=== PATIENT | female | born 1945 | race Caucasian/White ===

== ENCOUNTER 2021-02-27 09:51 | Observation (INO) | payer BC, OTHER ==
[2021-02-27] MEDS ORDERED: LORazepam 2 MG/ML VIAL ONE (10:25)
[2021-02-27 10:31] LABS: Absolute Lymphocytes (CBC) 1.5 K/uL (0.7-4.9); Basophils % 1.3 % (0-1.3); Hematocrit 32.5 % (36.0-45.0); Lymphocytes % 29.3 % (15.3-44.8); MPV 8.5 fL (7.6-11.3); RBC Red Blood Cell Count 4.16 M/uL (3.86-4.86)
[2021-02-27 10:32] LABS: Protime INR 2.26
[2021-02-27 10:59] LABS: ALT/SGPT 8 U/L (12-78); AST/SGOT 14 U/L (15-37); Albumin 3.5 g/dL (3.4-5.0); Alkaline Phosphatase 75 U/L (45-117); BUN Blood Urea Nitrogen 21 mg/dL (7-18); Bicarbonate 30 mmol/L (21-32); Bilirubin Direct 0.5 mg/dL (0-0.2); Glucose Level 105 mg/dL (74-106); Magnesium 1.4 mg/dL (1.8-2.4); NT PRO-BNP 5795 pg/mL (<450); Protein, Total 7.2 g/dL (6.4-8.2); Sodium Level 141 mmol/L (136-145); Troponin (Emerg Dept Use Only) < 0.02 ng/mL (0.0-0.045)
[2021-02-27 11:03] LABS: Potassium 2.9 mmol/L (3.5-5.1)
--- NOTE | 2021-02-27 11:06 | RAD REPORT ---
EXAM DESCRIPTION: RAD - Chest Single View - 02/27/2021 10:51 am CLINICAL HISTORY: DYSPNEA COMPARISON: Abdomen 1 View (KUB) dated 08/21/2016; Chest Single View dated 07/02/2016; Chest Single Vie w dated 11/20/2015; Chest Single View dated 11/19/2015 FINDINGS: Lines: None. Lungs: No evidence of edema or pneumonia. Pleural: No significant pleural effusions or pneumothorax. Cardiac: Mild cardiomegaly. Bones: No acute fractures. Other: IMPRESSION: No acute cardiopulmonary disease.
--- NOTE | 2021-02-27 11:32 | ER ---
Nurse's Notes [facility] Name: Kimberly Perez Age: 75 yrs Sex: Female : 1945 Arrival Date: 02/27/2021 Time: 10:06 Bed 3 Private MD: Diagnosis: Chronic atrial fibrillation;Dyspnea;Systolic (congestive) heart failure;Obesity, unspecified;Hypomagnesemia;Hypokalemia Presentation: 02/27 10:07 Chief complaint: EMS states: pt from home. called her dnlaw saying she was having tw2 difficulty breathing, catching her breath and talking. pt states she has been feeling short of breath off and on for 1-2 days. recently diagnosed with Afib. 12 lead showed afib with RVR but rate was 110bpm. BGL was 117 mg/dL. 18g Right AC hx: afib, gerd, htn, mi, hyperlipidemia, neuropathy, anxiety. Coronavirus screen: At this time, the client does not indicate any symptoms associated with coronavirus-19. Ebola Screen: Patient denies travel to an Ebola-affected area in the 21 days before illness onset. Initial Sepsis Screen: Does the patient meet any 2 criteria? HR > 90 bpm. No. Patient's initial sepsis screen is negative. Does the patient have a suspected source of infection? No. Patient's initial sepsis screen is negative. Risk Assessment: Do you want to hurt yourself or someone else? Patient reports no desire to harm self or others. Onset of symptoms was February 27, 2021. 10:07 Method Of Arrival: EMS: [facility] tw2 10:07 Acuity: NANY 2 tw2 Triage Assessment: 10:17 General: Appears in no apparent distress. obese, well groomed, Behavior is calm, tw2 cooperative, appropriate for age. Pain: Denies pain. 10:17 Respiratory: Reports shortness of breath at rest on exertion Airway is patent tw2 Respiratory effort is even, labored, Respiratory pattern is tachypnea Onset: The symptoms/episode began/occurred 1-2 days, the patient has mild shortness of breath. 10:17 Neuro: Level of Consciousness is awake, alert, obeys commands, Oriented to person, tw2 place, situation. Cardiovascular: Edema is 3+ to left midcalf, left ankle, left foot, right midcalf, right ankle and right foot. GI: No signs and/or symptoms were reported involving the gastrointestinal system. : No signs and/or symptoms were reported regarding the genitourinary system. Derm: No signs and/or symptoms reported regarding the dermatologic system. Musculoskeletal: Range of motion: intact in all extremities. Historical: - Allergies: 10:15 No Known Allergies; tw2 - Home Meds: 10:15 omeprazole 20 mg Oral cpDR 1 cap once daily [Active]; alprazolam 0.25 mg Oral tab 1 tab tw2 twice a day [Active]; gabapentin 600 mg oral tab 1 tab 3 times per day [Active]; metoprolol tartrate 50 mg oral tab 1 tab once daily [Active]; tramadol 50 mg Oral tab 1 tab twice a day [Active]; aspirin 81 mg Oral chew 1 tab once daily [Active]; ramipril 10 mg Oral cap 1 cap 2 times per day [Active]; folic acid 1 mg Oral tab 1 tab once daily [Active]; Eliquis 2.5 mg oral tab 1 tab 2 times per day [Active]; Lasix 40 mg Oral tab 1 tab once daily [Active]; carbidopa-levodopa 48.75-195 mg Oral cpER 1 cap 3 times per day [Active]; pramipexole 0.375 mg oral Tb24 1 tab once daily [Active]; - PMHx: 10:15 Anxiety; chronic back pain; GERD; Hypertension; neuropathy; tw2 10:20 Parkinson's disease; Coronary atherosclerosis; tw2 - PSHx: 10:20 hysterectomy; SCS implant; Back Sx; colonoscopy; Tonsillectomy; tw2 - Immunization history:: Adult Immunizations up to date. - Social history:: Smoking status: . Screenin:35 Abuse screen: Denies threats or abuse. Nutritional screening: No deficits noted. tw2 Tuberculosis screening: No symptoms or risk factors identified. Fall Risk Secondary diagnosis (15 points) impaired mobility. Assessment: 10:17 Reassessment: see triage assessment. tw2 10:17 Cardiovascular: Rhythm is atrial fibrillation. Respiratory: Reports shortness of breath tw2 at rest on exertion labored breathing since 2-3 days Airway is patent Respiratory effort is even, labored, Respiratory pattern is tachypnea Breath sounds are diminished. 12:37 Reassessment: Patient appears in no apparent distress at this time. No changes from tw2 previously documented assessment. Patient and/or family updated on plan of care and expected duration. Pain level reassessed. 13:02 Reassessment: Echo at bedside at this time. tw2 Vital Signs: 10:07 Pulse 98; Pulse Ox 100% on R/A; tw2 10:07 BP 141 / 105; Resp 22; Weight 77.11 kg (R); Height 5 ft. 6 in. (167.64 cm); tw2 10:17 Temp 97.9(TE); tw2 11:30 BP 150 / 115; Pulse 97; Resp 17; Pulse Ox 98% on 2 lpm NC; tw2 12:40 BP 139 / 115; Pulse 98; Resp 22; Pulse Ox 100% on 2 lpm NC; tw2 13:26 BP 137 / 108; Pulse 94; Resp 22; Pulse Ox 100% on 2 lpm NC; tw2 10:07 Body Mass Index 27.44 (77.11 kg, 167.64 cm) tw2 10:07 pt was placed on o2 via nc at 2L for comfort per ems tw2 ED Course: 10:06 Patient arrived in ED. tw2 10:06 Placed in gown. Bed in low position. Side rails up X2. mash tub cooker on. Pulse ox on. tw2 NIBP on. 10:11 Kaushal Salgado MD is Attending Physician. yris 10:15 Triage completed. tw2 10:15 Arm band placed on. tw2 10:25 Maintain EMS IV. Dressing intact. Good blood return noted. Site clean \T\ dry. Gauge \T\ tw 2 site: 18 g RIGHT ac. 10:26 Kiera Carolina RN is Primary Nurse. tw2 10:51 XRAY Chest (1 view) In Process Unspecified. EDMS 11:30 Alcides Garcia DO is Hospitalizing Provider. yris 13:18 No provider procedures requiring assistance completed. Patient admitted, IV remains in tw2 place. Administered Medications: 12:00 Drug: Potassium Effervescent Tablet 50 mEq Route: PO; tw2 12:40 Follow up: Response: No adverse reaction tw2 12:05 Drug: Lasix (furosemide) 60 mg Route: IVP; Site: right antecubital; tw2 12:30 Drug: Magnesium Sulfate 2 grams Route: IVPB; Infused Over: 2 hrs; Site: right tw2 antecubital; Intake: 12:49 PO: 60ml; Total: 60ml. tw2 Output: 12:49 Urine: 350ml (Voided); Total: 350ml. tw2 Outcome: 11:31 Decision to Hospitalize by Provider. yris 13:18 Admitted to Med/surg accompanied by tech, via stretcher, room 424, with oxygen, with tw2 chart, Report called to TONY Alicia 13:18 Condition: stable 13:18 Instructed on the need for admit. 13:43 Patient left the ED. tw2 Signatures: Dispatcher [employer] EDMS Kaushal Salgado MD MD cha Wise, Tara RN RN tw2 Corrections: (The following items were deleted from the chart) 10:25 10:15 Home Meds: amlodipine 5 mg tab 1 tab once daily; tw2 tw2 12:37 10:17 Respiratory: Reports shortness of breath at rest on exertion Onset: The tw2 symptoms/episode began/occurred 1-2 days, the patient has mild shortness of breath tw2
--- NOTE | 2021-02-27 11:32 | EDPHYS ---
Physician Documentation [facility] Name: Kimberly Perez Age: 75 yrs Sex: Female : 1945 Arrival Date: 02/27/2021 Time: 10:06 Bed 3 Private MD: ED Physician Kaushal Salgado HPI: 02/27 11:22 This 75 yrs old Female presents to ER via EMS with complaints of Breathing yris Difficulty. 11:22 The patient has shortness of breath at rest, with light activity. Onset: The yris symptoms/episode began/occurred 1 day(s) ago. Duration: The symptoms are continuous, and are steadily getting worse. The patient's shortness of breath is aggravated by supine position, walking, is alleviated by rest, sitting up, application of supplemental oxygen. Associated signs and symptoms: Pertinent positives: non-productive cough. Severity of symptoms: At their worst the symptoms were mild in the emergency department the symptoms are unchanged. The patient has not experienced similar symptoms in the past. Historical: - Allergies: 10:15 No Known Allergies; tw2 - Home Meds: 10:15 omeprazole 20 mg Oral cpDR 1 cap once daily [Active]; alprazolam 0.25 mg Oral tab 1 tab tw2 twice a day [Active]; gabapentin 600 mg oral tab 1 tab 3 times per day [Active]; metoprolol tartrate 50 mg oral tab 1 tab once daily [Active]; tramadol 50 mg Oral tab 1 tab twice a day [Active]; aspirin 81 mg Oral chew 1 tab once daily [Active]; ramipril 10 mg Oral cap 1 cap 2 times per day [Active]; folic acid 1 mg Oral tab 1 tab once daily [Active]; Eliquis 2.5 mg oral tab 1 tab 2 times per day [Active]; Lasix 40 mg Oral tab 1 tab once daily [Active]; carbidopa-levodopa 48.75-195 mg Oral cpER 1 cap 3 times per day [Active]; pramipexole 0.375 mg oral Tb24 1 tab once daily [Active]; - PMHx: 10:15 Anxiety; chronic back pain; GERD; Hypertension; neuropathy; tw2 10:20 Parkinson's disease; Coronary atherosclerosis; tw2 - PSHx: 10:20 hysterectomy; SCS implant; Back Sx; colonoscopy; Tonsillectomy; tw2 - Immunization history:: Adult Immunizations up to date. - Social history:: Smoking status: . ROS: 11:24 Constitutional: Negative for fever, chills, and weight loss, Eyes: Negative for injury, yris pain, redness, and discharge, ENT: Negative for injury, pain, and discharge, Neck: Negative for injury, pain, and swelling, Cardiovascular: Negative for chest pain, palpitations, and edema, Abdomen/GI: Negative for abdominal pain, nausea, vomiting, diarrhea, and constipation, Back: Negative for injury and pain, : Negative for injury, bleeding, discharge, and swelling, Skin: Negative for injury, rash, and discoloration, Neuro: Negative for headache, weakness, numbness, tingling, and seizure, Psych: Negative for depression, anxiety, suicide ideation, homicidal ideation, and hallucinations, Allergy/Immunology: Negative for hives, rash, and allergies, Endocrine: Negative for neck swelling, polydipsia, polyuria, polyphagia, and marked weight changes, Hematologic/Lymphatic: Negative for swollen nodes, abnormal bleeding, and unusual bruising. 11:24 MS/extremity: Positive for decreased range of motion, pain, tenderness. Exam: 11:24 Constitutional: This is a well developed, well nourished patient who is awake, alert, yris and in no acute distress. Head/Face: Normocephalic, atraumatic. Eyes: Pupils equal round and reactive to light, extra-ocular motions intact. Lids and lashes normal. Conjunctiva and sclera are non-icteric and not injected. Cornea within normal limits. Periorbital areas with no swelling, redness, or edema. ENT: Nares patent. No nasal discharge, no septal abnormalities noted. Tympanic membranes are normal and external auditory canals are clear. Oropharynx with no redness, swelling, or masses, exudates, or evidence of obstruction, uvula midline. Mucous membranes moist. Neck: Trachea midline, no thyromegaly or masses palpated, and no cervical lymphadenopathy. Supple, full range of motion without nuchal rigidity, or vertebral point tenderness. No Meningismus. Chest/axilla: Normal chest wall appearance and motion. Nontender with no deformity. No lesions are appreciated. Cardiovascular: Regular rate and rhythm with a normal S1 and S2. No gallops, murmurs, or rubs. Normal PMI, no JVD. No pulse deficits. Respiratory: Lungs have equal breath sounds bilaterally, clear to auscultation and percussion. No rales, rhonchi or wheezes noted. No increased work of breathing, no retractions or nasal flaring. Abdomen/GI: Soft, non-tender, with normal bowel sounds. No distension or tympany. No guarding or rebound. No evidence of tenderness throughout. Back: No spinal tenderness. No costovertebral tenderness. Full range of motion. Skin: Warm, dry with normal turgor. Normal color with no rashes, no lesions, and no evidence of cellulitis. MS/ Extremity: Pulses equal, no cyanosis. Neurovascular intact. Full, normal range of motion. Neuro: Awake and alert, GCS 15, oriented to person, place, time, and situation. Cranial nerves II-XII grossly intact. Motor strength 5/5 in all extremities. Sensory grossly intact. Cerebellar exam normal. Normal gait. Psych: Awake, alert, with orientation to person, place and time. Behavior, mood, and affect are within normal limits. 11:24 Musculoskeletal/extremity: Circulation is intact in all extremities. Sensation intact. Compartment Syndrome exam of affected extremity: is normal. DVT Exam: no pain, negative Homans' sign noted on exam, no appreciated bluish discoloration, no erythema, no increased warmth, swelling, tenderness. Vital Signs: 10:07 Pulse 98; Pulse Ox 100% on R/A; tw2 10:07 BP 141 / 105; Resp 22; Weight 77.11 kg (R); Height 5 ft. 6 in. (167.64 cm); tw2 10:17 Temp 97.9(TE); tw2 11:30 BP 150 / 115; Pulse 97; Resp 17; Pulse Ox 98% on 2 lpm NC; tw2 12:40 BP 139 / 115; Pulse 98; Resp 22; Pulse Ox 100% on 2 lpm NC; tw2 13:26 BP 137 / 108; Pulse 94; Resp 22; Pulse Ox 100% on 2 lpm NC; tw2 10:07 Body Mass Index 27.44 (77.11 kg, 167.64 cm) tw2 10:07 pt was placed on o2 via nc at 2L for comfort per ems tw2 MDM: 10:11 Patient medically screened. yris 11:28 Differential diagnosis: Bronchitis CHF exacerbation, pulmonary edema, Pulmonary yris Embolism reactive airway disease, Unstable Angina. Antibiotic administration: Not indicated. The patient's Wells Deep Vein Thrombosis Score was calculated as follows: Total Score: 0-2 Pts- Low Risk. The patient's pulmonary embolism risk score was calculated as follows: Total Score: 0-2 points. This patient was found to be at low risk for a pulmonary embolism by using the Well's assessment criteria. Immunization status: Pneumococcal vaccine: Influenza vaccine: Data reviewed: vital signs, nurses notes, lab test result(s), EKG, radiologic studies, CT scan, plain films. Data interpreted: radiation monitor: rate is 98 beats/min, rhythm is atrial fibrillation, Pulse oximetry: on room air is 100 %. Test interpretation: by ED physician or midlevel provider: ECG, plain radiologic studies. Counseling: I had a detailed discussion with the patient and/or guardian regarding: the historical points, exam findings, and any diagnostic results supporting the discharge/admit diagnosis, lab results, radiology results, the need for further work-up and treatment in the hospital. 02/27 10:11 Order name: Basic Metabolic Panel; Complete Time: 11:20 ll1 02/27 10:11 Order name: CBC with Diff; Complete Time: 11:20 ll1 02/27 10:11 Order name: LFT's; Complete Time: 11:20 ll1 02/27 10:11 Order name: Magnesium; Complete Time: 11:20 ll1 02/27 10:11 Order name: NT PRO-BNP; Complete Time: 11:20 ll1 02/27 10:11 Order name: PT-INR; Complete Time: 11:20 ll1 02/27 10:11 Order name: Troponin (emerg Dept Use Only); Complete Time: 11:20 ll1 02/27 10:11 Order name: XRAY Chest (1 view); Complete Time: 11:20 ll1 02/27 10:26 Order name: LAB Add On bd 02/27 10:30 Order name: Thyroid Stimulating Hormone; Complete Time: 11:20 EDMS 02/27 11:32 Order name: Echo w/ Doppler yris 02/27 11:49 Order name: SARS-COV-2 RT PCR EDMS 02/27 10:11 Order name: EKG; Complete Time: 10:11 ll1 02/27 10:11 Order name: Cardiac monitoring; Complete Time: 10: ll1 02/27 10:11 Order name: EKG - Nurse/Tech; Complete Time: : ll1 02/27 10:11 Order name: IV Saline Lock; Complete Time: 10: ll1 02/27 10:11 Order name: Labs collected and sent; Complete Time: 10: ll1 02/27 10:11 Order name: O2 Per Protocol; Complete Time: : ll1 02/27 10:11 Order name: O2 Sat Monitoring; Complete Time: : ll1 Administered Medications: 12:00 Drug: Potassium Effervescent Tablet 50 mEq Route: PO; tw2 12:40 Follow up: Response: No adverse reaction tw2 12:05 Drug: Lasix (furosemide) 60 mg Route: IVP; Site: right antecubital; tw2 12:30 Drug: Magnesium Sulfate 2 grams Route: IVPB; Infused Over: 2 hrs; Site: right tw2 antecubital; Disposition Summary: 02/27/21 11:31 Hospitalization Ordered Hospitalization Status: Inpatient Admission yris Provider: Alcides Garcia cha Location: Telemetry/MedSurg (Inpatient) yris Condition: Fair yris Problem: new yris Symptoms: have improved yris Bed/Room Type: Standard yris Room Assignment: 424(02/27/21 13:08) bd Diagnosis - Chronic atrial fibrillation yris - Dyspnea yris - Systolic (congestive) heart failure yris - Obesity, unspecified yris - Hypomagnesemia yris - Hypokalemia yris Forms: - Medication Reconciliation Form yris - SBAR form yris Signatures: Dispatcher [employer] EDBridgette Jose Corey, MD MD cha Wise, Tara RN RN tw2 Dinah Bernardo RN RN ll1 Corrections: (The following items were deleted from the chart) 10:25 10:15 Home Meds: amlodipine 5 mg tab 1 tab once daily; tw2 tw2 11:50 11:30 CORONAVIRUS+MR.LAB.BRZ ordered. EDRI EDMS 13:08 11:31 yris bd
[2021-02-27] MEDS ORDERED: Magnesium Sulfate 2gm IVPB 2 G/50 ML BAG IV ONE (12:13)
[2021-02-27] MEDS ORDERED: FUROSEMIDE 40 MG/4 ML VIAL ONE (12:13)
[2021-02-27] MEDS ORDERED: POTASSIUM 25 MEQ EFFERV TAB ONE (12:13)
[2021-02-27] MEDS ORDERED: FUROSEMIDE 20 MG/ 2ML VIAL ONE (12:13)
[2021-02-27] MEDS ORDERED: TRAMADOL HCL 50 MG TAB PO PRN (13:51)
[2021-02-27] MEDS ORDERED: ACETAMINOPHEN 500 MG TAB PO PRN (13:51)
[2021-02-27] MEDS ORDERED: ALPRAZOLAM 0.25 MG TABLET PO PRN (13:51)
[2021-02-27] MEDS ORDERED: ONDANSETRON 4 MG/2 ML VIAL IV PRN (13:51)
--- NOTE | 2021-02-27 14:18 | P.HP ---
Certification for Inpatient Patient admitted to: Observation With expected LOS: <2 Midnights Patient will require the following post-hospital care: None Practitioner: I am a practitioner with admitting privileges, knowledge of patient current condition, hospital course, and medical plan of care. Services: Services provided to patient in accordance with Admission requirements found in Title 42 Section 412.3 of the Code of Federal Regulations Patient History Date of Service: 02/27/21 Primary Care Provider: ; Cardiology-Dr. Lazo; Neurology-Dr. Floyd Reason for admission: Shortness of breath History of Present Illness: 75-year-old female with history of CHF, atrial fibrillation, hypertension, and Parkinson's. Patient has been having increasing shortness of breath over several days. She has noticed increase in edema to the lower extremity. Patient is not on a fluid restriction. Patient takes Lasix. Her condition has not improved. Shortness of breath worsened. She came to the ER for further evaluation. In the ER patient required oxygen. She is currently on 2 L per nasal cannula. White count 5, hemoglobin 10. Sodium 141, potassium 2.9. BUN of 21, creatinine 1.14 with a GFR 35. Troponin unremarkable. BNP elevated. Magnesium low at 1.4. INR 2.26. Chest x-ray unremarkable. Patient admitted for treatment. Allergies No Known Allergies Allergy (Unverified 11/21/15 11:30) Home medications list reviewed: Yes Home Medications: ALPRAZolam [Xanax*] 0.25 mg PO BID 06/18/13 Omeprazole [Prilosec] 20 mg PO DAILY 06/18/13 ramipriL [Altace*] 10 mg PO DAILY 06/18/13 Gabapentin [Neurontin*] 400 mg PO TID 11/19/15 Tramadol HCl [Ultram] 50 mg PO BID 11/19/15 ALPRAZolam [Xanax*] 0.25 mg PO BID #60 tab 11/21/15 Gabapentin [Neurontin*] 400 mg PO TID #90 cap 11/21/15 Metoprolol Tartrate [Lopressor*] 50 mg PO BID #60 tab 11/21/15 Simvastatin [Zocor] 40 mg PO BEDTIME #30 tablet 11/21/15 Aspirin 81 mg PO DAILY #30 tab.chew 07/03/16 Folic Acid 1 mg PO DAILY #30 tablet 07/03/16 Ramipril [Altace] 10 mg PO DAILY #30 capsule 07/03/16 Simvastatin 40 mg PO BEDTIME #30 tablet 07/03/16 - Past Medical/Surgical History Diabetic: No -: HTN -: Depression with anxiety -: Chronic pain -: Atrial fibrillation on chronic anticoagulation therapy -: Diastolic CHF -: Chronic renal disease -: Seasonal allergies -: Obesity -: GERD -: Hysterectomy -: Appendectomy -: Back surgery -: Colon resection Psychosocial/ Personal History: Patient lives at home with a friend - Family History Father -: Heart disease, Diabetes Mother -: Cancer Sister -: Cancer - Social History Smoking Status: Never smoker Alcohol use: No CD- Drugs: No Caffeine use: Yes Place of Residence: Home Review of Systems General: As per HPI Eyes: Unremarkable ENT: Unremarkable Respiratory: Shortness of Breath, As per HPI Cardiovascular: Edema, As per HPI Gastrointestinal: Unremarkable Genitourinary: Unremarkable Musculoskeletal: Pedal edema, As per HPI Integumentary: Unremarkable Neurological: Unremarkable Lymphatics: Unremarkable Physical Examination - Vital Signs Temperature: 97.9 F Blood Pressure: 126/75 Pulse: 98 Respirations: 18 Pulse Ox (%): 100 - Studies Laboratory Data (last 24 hrs) 02/27/21 10:12: PT 26.2 H, INR 2.26 02/27/21 10:12: WBC 5.10, Hgb 10.6 L, Hct 32.5 L, Plt Count 251 02/27/21 10:12: Sodium 141, Potassium 2.9 L*, BUN 21 H, Creatinine 1.46 H, Glucose 105, Magnesium 1.4 L*, Total Bilirubin 2.0 H, AST 14 L, ALT 8 L, Alk dorie Phosphatase 75 Assessment and Plan - Plan COVID: Negative Chest x-ray: COMPARISON: Abdomen 1 View (KUB) dated 08/21/2016; Chest Single View dated 07/02/2016; Chest Single View dated 11/20/2015; Chest Single View dated 11/19/2015 FINDINGS: Lines: None. Lungs: No evidence of edema or pneumonia. Pleural: No significant pleural effusions or pneumothorax. Cardiac: Mild cardiomegaly. Bones: No acute fractures. IMPRESSION: No acute cardiopulmonary disease. Physical Exam: GENERAL: The patient is a well-developed, well-nourished, in no apparent distress. Alert and oriented x3. VITAL SIGNS: Reviewed HEENT: Head is normocephalic and atraumatic. Extraocular muscles are intact. Pupils are equal, round, and reactive to light and accommodation. Nares appeared normal. Mouth is well hydrated and without lesions. Mucous membranes are moist. NECK: Supple. No carotid bruits. No lymphadenopathy or thyromegaly. LUNGS: Some crackles to the bases. HEART: Regular rate and rhythm, no appreciable gallops, rubs, murmurs or extra heart sounds ABDOMEN: Soft, nontender, and nondistended. Positive bowel sounds. No hepatosplenomegaly was noted. EXTREMITIES: Mild nonpitting edema to the lower extremities bilateral NEUROLOGIC: The patient is oriented to person, place and time. Strength and sensation are grossly intact. Face is symmetric. SKIN: Normal color, turgor and temperature. No ulcerations or rashes noted. Impression: Dyspnea secondary to acute on chronic diastolic CHF with hypoxia Atrial fibrillation on chronic anticoagulation therapy Chronic renal disease stage III Hypertension Parkinson's Depression with anxiety Chronic pain Plan: Dyspnea secondary to acute on chronic diastolic CHF with hypoxia: Patient will be admitted for further evaluation and treatment. We will continue 1500 cc/day fluid restriction and low-salt diet. Will monitor input and output closely along with daily weights. We will continue with IV Lasix 20 mg twice daily. Will monitor closely. Recheck electrolytes. Electrolyte protocol in place. Recheck chest x-ray tomorrow. Wean off oxygen to maintain sats above 93%. Cardiology consulted. She reports having echocardiogram done recently with cardiology. Await further recommendations. Anticipate discharge in the next 24 hours. Atrial fibrillation on chronic anticoagulation therapy: Continue metoprolol and Eliquis. Chronic renal disease stage III: Renal function stable. Will consult nephrology for further recommendation Hypertension: Continue metoprolol Parkinson's: Continue carbidopa levodopa and Mirapex. Patient is seen by neurology as an outpatient. Depression with anxiety: Continue with alprazolam Chronic pain: Continue with gabapentin Code Status: Patient is DNR DVT prophylaxis: Eliquis Advanced Care Planning-30 minutes: Home at discharge Discharge Plan: Home Plan to discharge in: 48 Hours - Advance Directives Does patient have a Living Will: No Does patient have a Durable POA for Healthcare: No - Code Status/Comfort Care Code Status Assessed: Yes (Patient is DNR) Time Spent Managing Pts Care (In Minutes): 55
--- NOTE | 2021-02-27 15:07 | ECHO ---
HEIGHT: 5 ft 6 in WEIGHT: 170 lb 0 oz DATE OF STUDY: 02/27/[address]: Kaushal Salgado MD 2-DIMENSIONAL: YES M.MODE: YES DOPPLER: YES COLOR FLOW: YES TDS: NO PORTABLE: NO DEFINITY: NO BUBBLE STUDY: NO DIAGNOSIS: CONGESTIVE HEART FAILURE CARDIAC HISTORY: CATHERIZATION: NO SURGERY: NO PROSTHETIC VALVE: NO PACEMAKER: NO MEASUREMENTS (cm) DIASTOLIC (NORMALS) SYSTOLIC (NORMALS) IVSd 1.1 (0.6-1.2) LA Diam 2.5 (1.9-4.0) LVEF 45-50% LVIDd 4.1 (3.5-5.7) LVIDs 3.2 (2.0-3.5) %FS 23% LVPWd 1.1 (0.6-1.2) Ao Diam 2.9 (2.0-3.7) 2 DIMENSIONAL ASSESSMENT: RIGHT ATRIUM: NORMAL LEFT ATRIUM: ENLARGED RIGHT VENTRICLE: NORMAL LEFT VENTRICLE: DEPRESSED TRICUSPID VALVE: NORMAL MITRAL VALVE: PULMONIC VALVE: AORTIC VALVE: NORMAL PERICARDIAL EFFUSION: NONE AORTIC ROOT: NORMAL LEFT VENTRICULAR WALL MOTION: MILD GLOBAL HYPOKINESIS. DOPPLER/COLOR FLOW: MILD MITRAL AND PULMONARY REGURGITATION. COMMENTS: MILDLY DEPRESSED LEFT VENTRICULAR EJECTION FRACTION 45-50%. MILD GLOBAL HYPOKINESIS. ATRIAL FIBRILLATION. TECHNOLOGIST: Rico DIAZ
[2021-02-27 16:26] VITALS: BMI 30.1
[2021-02-27] MEDS: FUROSEMIDE 20 MG/ 2ML VIAL IV SCH (17:29)
[2021-02-27] MEDS: CARBIDOPA/LEVODOPA 25/100 TAB PO SCH ×2 (17:29→20:35)
[2021-02-27] MEDS ORDERED: INFLUENZA VACCINE (for 6+ mo) 0.5 ML DOSE IMVAC ONE (18:00)
[2021-02-27 18:14] LABS: Creatine Phosphokinase 37 U/L (26-192); Troponin I < 0.02 ng/mL (0.0-0.045)
[2021-02-27 18:21] LABS: CKMB Creatine Kinase MB < 1.0 ng/mL (1.0-3.6)
[2021-02-27 19:47] LABS: Potassium 3.1 mmol/L (3.5-5.1)
[2021-02-27] MEDS: GABAPENTIN 300 MG CAP PO SCH (20:34)
[2021-02-27] MEDS: METOPROLOL TAR 50 MG TAB PO SCH (20:35)
[2021-02-27] MEDS: APIXABAN 2.5 MG TABLET PO SCH (20:35)
[2021-02-27] MEDS: ramipriL 5 MG CAP PO SCH (20:35)
--- NOTE | 2021-02-27 20:48 | P.CNS ---
Date of Consult: 02/27/21 Reason for Consult: HASMUKH Requesting Physician: Alcides Garcia Primary Care Provider: ; Cardiology-Dr. Lazo; Neurology-Dr. Floyd Chief Complaint: Shortness of breath History of Present Illness: 75-year-old female with history of CHF, atrial fibrillation, hypertension, and Parkinson's. Patient has been having increasing shortness of breath over several days. She has noticed increase in edema to the lower extremity. Patient is not on a fluid restriction. Patient takes Lasix. Her condition has not improved. Shortness of breath worsened. She came to the ER for further evaluation. 11:22 This 75 yrs old Female presents to ER via EMS with complaints of Breathing yris Difficulty. 11:22 The patient has shortness of breath at rest, with light activity. Onset: The yris symptoms/episode began/occurred 1 day(s) ago. Duration: The symptoms are continuous, and are steadily getting worse. The patient's shortness of breath is aggravated by supine position, walking, is alleviated by rest, sitting up, application of supplemental oxygen. Associated signs and symptoms: Pertinent positives: non-productive cough. Severity of symptoms: At their worst the symptoms were mild in the emergency department the symptoms are unchanged. The patient has not experienced similar symptoms in the past. Allergies No Known Allergies Allergy (Unverified 11/21/15 11:30) Home medications list reviewed: Yes Home Medications: Omeprazole [Prilosec] 20 mg PO DAILY 06/18/13 ramipriL [Altace*] 10 mg PO DAILY 06/18/13 Gabapentin [Neurontin*] 400 mg PO TID 11/19/15 Tramadol HCl [Ultram] 50 mg PO BID 11/19/15 ALPRAZolam [Xanax*] 0.25 mg PO BID #60 tab 11/21/15 Metoprolol Tartrate [Lopressor*] 50 mg PO BID #60 tab 11/21/15 Aspirin 81 mg PO DAILY #30 tab.chew 07/03/16 Folic Acid 1 mg PO DAILY #30 tablet 07/03/16 Ramipril [Altace] 10 mg PO DAILY #30 capsule 07/03/16 Furosemide 40 mg PO DAILY 02/27/21 Gabapentin [Neurontin*] 400 mg PO BID 02/27/21 - Past Medical/Surgical History Diabetic: No -: HTN -: Depression with anxiety -: Chronic pain -: Atrial fibrillation on chronic anticoagulation therapy -: Diastolic CHF -: Chronic renal disease -: Seasonal allergies -: Obesity -: GERD -: Hysterectomy -: Appendectomy -: Back surgery -: Colon resection Psychosocial/ Personal History: Patient lives at home with a friend - Family History Father Medical History: Heart disease, Diabetes Mother Medical History: Cancer Sister Medical History: Cancer - Social History Smoking Status: Never smoker Alcohol use: No CD- Drugs: No Caffeine use: Yes Place of Residence: Home Review of Systems 10-point ROS is otherwise unremarkable General: Weakness, Malaise Respiratory: SOB with Excertion Cardiovascular: Edema Physical Examination Temp Pulse Resp BP Pulse Ox 96.9 F 95 H 18 127/79 95 02/27/21 20:00 02/27/21 20:00 02/27/21 20:00 02/27/21 20:00 02/27/21 20:00 General: In no apparent distress, Cooperative HEENT: Atraumatic Neck: Supple Respiratory: Diminished Cardiovascular: Edema, Irregular heart rate/rhythm Gastrointestinal: Soft and benign, Non-distended Musculoskeletal: No clubbing, No contractures Integumentary: No rashes, No cyanosis Neurological: Normal speech Laboratory Data (last 24 hrs) 02/27/21 10:12: PT 26.2 H, INR 2.26 02/27/21 10:12: WBC 5.10, Hgb 10.6 L, Hct 32.5 L, Plt Count 251 02/27/21 10:12: Sodium 141, Potassium 2.9 L*, BUN 21 H, Creatinine 1.46 H, Glucose 105, Magnesium 1.4 L*, Total Bilirubin 2.0 H, AST 14 L, ALT 8 L, Alkaline Phosphatase 75 Imagings Data: LEFT VENTRICULAR WALL MOTION: MILD GLOBAL HYPOKINESIS. DOPPLER/COLOR FLOW: MILD MITRAL AND PULMONARY REGURGITATION. COMMENTS: MILDLY DEPRESSED LEFT VENTRICULAR EJECTION FRACTION 45-50%. MILD GLOBAL HYPOKINESIS. ATRIAL FIBRILLATION. EXAM DESCRIPTION: RAD - Chest Single View - 02/27/2021 10:51 am CLINICAL HISTORY: DYSPNEA COMPARISON: Abdomen 1 View (KUB) dated 08/21/2016; Chest Single View dated 07/02/2016; Chest Single View dated 11/20/2015; Chest Single View dated 11/19/2015 FINDINGS: Lines: None. Lungs: No evidence of edema or pneumonia. Pleural: No significant pleural effusions or pneumothorax. Cardiac: Mild cardiomegaly. Bones: No acute fractures. IMPRESSION: No acute cardiopulmonary disease. Conclusions/Impression: HASMUKH likely CRS CKD III -No NSAIDs -Continue furosemide Hypokalemia -Replete potassium -Start spironolactone BID Hypomagnesemia -Replete IV mag prn HTN with CKD/ CHF -Continue Ramipril Diastolic CHF, A/C -Continue furosemide -Start spironolactone -Continue Metoprolol Anemia in chronic illness Microcytosis -Check iron levels Thank you kindly for the consultation.
[2021-02-27] MEDS: SPIRONOLACTONE 25 MG TABLET PO SCH (21:14)
[2021-02-27] MEDS ORDERED: POTASSIUM CL SA 10 MEQ TAB PO ONE (21:19)
[2021-02-27 23:46] LABS: Creatine Phosphokinase 33 U/L (26-192)
[2021-02-28 00:18] LABS: CKMB Creatine Kinase MB < 1.0 ng/mL (1.0-3.6)
[2021-02-28 04:51] VITALS: BP 142/93; TEMP 97.7
[2021-02-28 05:00] LABS: Absolute Lymphocytes (CBC) 2.2 K/uL (0.7-4.9); Basophils % 1.2 % (0-1.3); Hematocrit 31.6 % (36.0-45.0); RBC Red Blood Cell Count 4.06 M/uL (3.86-4.86)
[2021-02-28 05:27] LABS: AST/SGOT 16 U/L (15-37); Albumin 3.3 g/dL (3.4-5.0); Alkaline Phosphatase 68 U/L (45-117); BUN Blood Urea Nitrogen 21 mg/dL (7-18); Bicarbonate 30 mmol/L (21-32); Bilirubin Total 1.9 mg/dL (0.2-1.0); Ferritin 50.8 ng/mL (8-388); Glucose Level 87 mg/dL (74-106); Magnesium 1.9 mg/dL (1.8-2.4); Phosphorus 3.2 mg/dL (2.5-4.9); Potassium 3.5 mmol/L (3.5-5.1); Protein, Total 6.7 g/dL (6.4-8.2); Sodium Level 142 mmol/L (136-145); Transferrin 188 mg/dL (200-360); Uric Acid 8.8 mg/dL (2.6-6.0)
[2021-02-28 05:28] LABS: ALT/SGPT < 6 U/L (12-78)
--- NOTE | 2021-02-28 06:12 | P.PN ---
Subjective Date of Service: 02/28/21 Primary Care Provider: ; Cardiology-Dr. Lazo; Neurology-Dr. Floyd Chief Complaint: Shortness of breath Subjective: Improving, Doing well (Patient on room air) Physical Examination - Vital Signs Temperature: 97.7 F Blood Pressure: 142/93 Pulse: 95 Respirations: 18 Pulse Ox (%): 94 - Studies Laboratory Data (last 24 hrs) 02/27/21 10:12: PT 26.2 H, INR 2.26 02/27/21 10:12: WBC 5.10, Hgb 10.6 L, Hct 32.5 L, Plt Count 251 02/27/21 10:12: Sodium 141, Potassium 2.9 L*, BUN 21 H, Creatinine 1.46 H, Glucose 105, Magnesium 1.4 L*, Total Bilirubin 2.0 H, AST 14 L, ALT 8 L, Alkaline Phosphatase 75 Assessment & Plan Discharge Plan: Home Plan to discharge in: 24 Hours Physician Review Additional Text: COVID: Negative Chest x-ray: COMPARISON: Abdomen 1 View (KUB) dated 08/21/2016; Chest Single View dated 07/02/2016; Chest Single View dated 11/20/2015; Chest Single View dated 11/19/2015 FINDINGS: Lines: None. Lungs: No evidence of edema or pneumonia. Pleural: No significant pleural effusions or pneumothorax. Cardiac: Mild cardiomegaly. Bones: No acute fractures. IMPRESSION: No acute cardiopulmonary disease. ECHO: MEASUREMENTS (cm) DIASTOLIC (NORMALS) SYSTOLIC (NORMALS) IVSd 1.1 (0.6-1.2) LA Diam 2.5 (1.9-4.0) LVEF 45-50% LVIDd 4.1 (3.5-5.7) LVIDs 3.2 (2.0-3.5) %FS 23% LVPWd 1.1 (0.6-1.2) Ao Diam 2.9 (2.0-3.7) 2 DIMENSIONAL ASSESSMENT: RIGHT ATRIUM: NORMAL LEFT ATRIUM: ENLARGED RIGHT VENTRICLE: NORMAL LEFT VENTRICLE: DEPRESSED TRICUSPID VALVE: NORMAL MITRAL VALVE: PULMONIC VALVE: AORTIC VALVE: NORMAL PERICARDIAL EFFUSION: NONE AORTIC ROOT: NORMAL LEFT VENTRICULAR WALL MOTION: MILD GLOBAL HYPOKINESIS. DOPPLER/COLOR FLOW: MILD MITRAL AND PULMONARY REGURGITATION. COMMENTS: MILDLY DEPRESSED LEFT VENTRICULAR EJECTION FRACTION 45-50%. MILD GLOBAL HYPOKINESIS. ATRIAL FIBRILLATION. Physical Exam: GENERAL: Patient doing well. Patient on room air. VITAL SIGNS: Reviewed HEENT: Neck supple LUNGS: Clear. Ration on room air HEART: Regular rate and rhythm, no appreciable gallops, rubs, murmurs or extra heart sounds ABDOMEN: Soft, nontender, and nondistended. Positive bowel sounds. No hepatosplenomegaly was noted. EXTREMITIES: No pitting edema to the lower extremity NEUROLOGIC: The patient is oriented to person, place and time. Strength and sensation are grossly intact. Face is symmetric. SKIN: Normal color, turgor and temperature. No ulcerations or rashes noted. Impression: Dyspnea secondary to acute on chronic diastolic CHF with hypoxia with echo showing ejection fraction around 45 to 50% Atrial fibrillation on chronic anticoagulation therapy Chronic renal disease stage III Hypertension Parkinson's Depression with anxiety Chronic pain Anemia chronic disease with iron deficiency Plan: Dyspnea secondary to acute on chronic diastolic CHF with hypoxia with echo showing ejection fraction around 45 to 50%: Patient doing well at this time. Patient now on room air. Anticipate discharge today. Care discussed with nephrology. Plan is to send home with fluid restriction along with Lasix 40 mg daily and Aldactone 50 mg daily. We will teach on CHF. Atrial fibrillation on chronic anticoagulation therapy: Continue metoprolol and Eliquis. Chronic renal disease stage III: Renal function stable. Will consult nephrology for further recommendation Hypertension: Continue metoprolol Parkinson's: Continue carbidopa levodopa and Mirapex. Patient is seen by neurology as an outpatient. Depression with anxiety: Continue with alprazolam Chronic pain: Continue with gabapentin Anemia of chronic disease with iron deficiency: We will recommend iron supplementation at discharge Code Status: Patient is DNR DVT prophylaxis: Eliquis Advanced Care Planning-30 minutes: Home at discharge Time Spent Managing Pts Care (In Minutes): 55
[2021-02-28] MEDS ORDERED: PANTOPRAZOLE 40MG TABLET PO SCH (07:30)
--- NOTE | 2021-02-28 08:25 | RAD REPORT ---
EXAM DESCRIPTION: Kurt Single View02/28/2021 6:55 am CLINICAL HISTORY: Shortness of breath COMPARISON: February 27 FINDINGS: Lungs are mildly hazy. The heart is mildly enlarged. IMPRESSION: Lungs are mildly hazy which may indicate mild interstitial pulmonary edema
[2021-02-28] MEDS: APIXABAN 2.5 MG TABLET PO SCH (08:27)
[2021-02-28] MEDS: METOPROLOL TAR 50 MG TAB PO SCH (08:27)
[2021-02-28] MEDS: GABAPENTIN 300 MG CAP PO SCH (08:27)
[2021-02-28] MEDS: SPIRONOLACTONE 25 MG TABLET PO SCH (08:27)
[2021-02-28] MEDS: FUROSEMIDE 20 MG/ 2ML VIAL IV SCH (08:27)
[2021-02-28] MEDS: ramipriL 5 MG CAP PO SCH (08:28)
[2021-02-28] MEDS: CARBIDOPA/LEVODOPA 25/100 TAB PO SCH (08:28)
[2021-02-28] MEDS ORDERED: FOLIC ACID 1 MG TABLET PO SCH (09:00)
[2021-02-28] MEDS ORDERED: ASPIRIN EC 81 MG TAB PO SCH (09:00)
[2021-02-28] MEDS ORDERED: POTASSIUM CL SA 10 MEQ TAB PO ONE (09:00)
--- NOTE | 2021-02-28 09:28 | P.DS ---
Admission Date: 02/27/21 Discharge Date: 02/28/21 Primary Care Provider: ; Cardiology-Dr. Lazo; Neurology-Dr. Floyd Disposition: ROUTINE DISCHARGE Discharge Condition: GOOD Reason for Admission: Shortness of breath Consultations: Nephrology-Dr. Ewing Cardiology-Dr. Lazo Procedures: COVID: Negative Chest x-ray: COMPARISON: Abdomen 1 View (KUB) dated 08/21/2016; Chest Single View dated 07/02/2016; Chest Single View dated 11/20/2015; Chest Single View dated 11/19/2015 FINDINGS: Lines: None. Lungs: No evidence of edema or pneumonia. Pleural: No significant pleural effusions or pneumothorax. Cardiac: Mild cardiomegaly. Bones: No acute fractures. IMPRESSION: No acute cardiopulmonary disease. ECHO: MEASUREMENTS (cm) DIASTOLIC (NORMALS) SYSTOLIC (NORMALS) IVSd 1.1 (0.6-1.2) LA Diam 2.5 (1.9-4.0) LVEF 45-50% LVIDd 4.1 (3.5-5.7) LVIDs 3.2 (2.0-3.5) %FS 23% LVPWd 1.1 (0.6-1.2) Ao Diam 2.9 (2.0-3.7) 2 DIMENSIONAL ASSESSMENT: RIGHT ATRIUM: NORMAL LEFT ATRIUM: ENLARGED RIGHT VENTRICLE: NORMAL LEFT VENTRICLE: DEPRESSED TRICUSPID VALVE: NORMAL MITRAL VALVE: PULMONIC VALVE: AORTIC VALVE: NORMAL PERICARDIAL EFFUSION: NONE AORTIC ROOT: NORMAL LEFT VENTRICULAR WALL MOTION: MILD GLOBAL HYPOKINESIS. DOPPLER/COLOR FLOW: MILD MITRAL AND PULMONARY REGURGITATION. COMMENTS: MILDLY DEPRESSED LEFT VENTRICULAR EJECTION FRACTION 45-50%. MILD GLOBAL HYPOKINESIS. ATRIAL FIBRILLATION. Medical Problem List: Dyspnea secondary to acute on chronic diastolic CHF with hypoxia with echo showing ejection fraction around 45 to 50% Atrial fibrillation on chronic anticoagulation therapy Chronic renal disease stage III Hypertension Parkinson's Depression with anxiety Chronic pain Anemia chronic disease with iron deficiency Brief History of Present Illness: 75-year-old female with history of CHF, atrial fibrillation, hypertension, and Parkinson's. Patient has been having increasing shortness of breath over several days. She has noticed increase in edema to the lower extremity. Patient is not on a fluid restriction. Patient takes Lasix. Her condition has not improved. Shortness of breath worsened. She came to the ER for further evaluation. In the ER patient required oxygen. She is currently on 2 L per nasal cannula. White count 5, hemoglobin 10. Sodium 141, potassium 2.9. BUN of 21, creatinine 1.14 with a GFR 35. Troponin unremarkable. BNP elevated. Magnesium low at 1.4. INR 2.26. Chest x-ray unremarkable. Patient admitted for treatment. Hospital Course: Patient presented with dyspnea secondary to acute on chronic diastolic CHF with hypoxia. Echocardiogram showed ejection fraction around 45 to 50%. Patient required IV diuretic therapy. Patient seen and evaluated by nephrology and cardiology. Aldactone was added. During the course of her stay her condition improved. Patient responded well to diuretic therapy. At discharge patient not requiring any oxygen. Currently on room air. At discharge patient will continue with 1500 cc/day fluid restriction and low-salt diet. She is to monitor her weight daily. If her weight increases by more than 5 pounds further adjustment in medication may be required. This can be done with the help of her PCP, nephrology or cardiology. At discharge she will continue with Lasix 40 mg daily. Additional medication includes Aldactone 50 mg daily. Recommend to recheck labBMP within 1 week to monitor her progress. Recommend follow-up with PCP within 1 week to follow-up his hospitalization. Patient may follow-up with cardiology and nephrology in 1 to 2 weeks to follow-up this hospitalization. Education on CHF provided. Patient with chronic renal disease stage III. Overall stable. As mentioned above patient will continue with fluid restriction and changes to her diuretic therapy. This was discussed in detail with nephrology. Recommend follow-up with nephrology in 1 to 2 weeks. Patient with history of atrial fibrillation on chronic anticoagulation therapy and hypertension. Overall stable. At discharge patient will continue with metoprolol 50 mg 1 pill twice daily, Altace 10 mg 1 pill twice daily, and Eliquis 2.5 mg 1 pill twice daily. Recommend follow-up with cardiology as directed. Patient with Parkinson's disease. At discharge she will continue with her carbidopa levodopa, Mirapex, and folic acid regimen. Recommend follow-up with neurology as an outpatient. Patient with depression with anxiety. At discharge she will continue with her medications including Xanax 0.25 mg 1 pill twice daily as needed for anxiety. Patient with chronic pain. At discharge she'll continue with Neurontin as directed. Patient will continue with tramadol as directed as well. Patient with GERD. At discharge she will continue with Prilosec 20 mg daily. Patient with anemia chronic disease with iron deficiency. At discharge recommend to continue multivitamin with iron daily. Recommend to recheck labCBC in 1 month to monitor progress. Vital Signs/Physical Exam: Temp Pulse Resp BP Pulse Ox 97.7 F 95 H 18 142/93 H 94 02/28/21 09:01 02/28/21 09:01 02/28/21 09:01 02/28/21 09:01 02/28/21 09:01 General: Alert, In no apparent distress, Oriented x3, Cooperative HEENT: Atraumatic Neck: Supple Respiratory: Clear to auscultation bilaterally, Normal air movement Cardiovascular: Other (A. fib rate controlled) Gastrointestinal: Normal bowel sounds, No ascites, No tenderness, No masses, No rebound, No guarding Integumentary: No erythema, No warmth, No cyanosis, Other (No significant pitting edema to the lower extremity) Neurological: Normal speech, Normal strength at 5/5 x4 extr, Normal tone Laboratory Data at Discharge: WBC 5.80 K/uL (4.3-10.9) 02/28/21 04:03 Hgb 10.3 g/dL (12.0-15.0) L 02/28/21 04:03 Hct 31.6 % (36.0-45.0) L 02/28/21 04:03 Plt Count 221 K/uL (152-406) 02/28/21 04:03 PT 26.2 SECONDS (9.5-12.5) H 02/27/21 10:12 INR 2.26 02/27/21 10:12 Sodium 142 mmol/L (136-145) 02/28/21 04:03 Potassium 3.5 mmol/L (3.5-5.1) 02/28/21 04:03 BUN 21 mg/dL (7-18) H 02/28/21 04:03 Creatinine 1.36 mg/dL (0.55-1.3) H 02/28/21 04:03 Glucose 87 mg/dL (74-106) 02/28/21 04:03 Uric Acid 8.8 mg/dL (2.6-6.0) H 02/28/21 04:03 Phosphorus 3.2 mg/dL (2.5-4.9) 02/28/21 04:03 Magnesium 1.9 mg/dL (1.8-2.4) 02/28/21 04:03 Total Bilirubin 1.9 mg/dL (0.2-1.0) H 02/28/21 04:03 AST 16 U/L (15-37) 02/28/21 04:03 ALT < 6 U/L (12-78) L 02/28/21 04:03 Alkaline Phosphatase 68 U/L (45-117) 02/28/21 04:03 Troponin I < 0.02 ng/mL (0.0-0.045) 02/27/21 17:41 Home Medications: Omeprazole [Prilosec] 20 mg PO DAILY 06/18/13 ramipriL [Altace*] 10 mg PO DAILY 06/18/13 Tramadol HCl [Ultram] 50 mg PO BID 11/19/15 ALPRAZolam [Xanax*] 0.25 mg PO BID #60 tab 11/21/15 Metoprolol Tartrate [Lopressor*] 50 mg PO BID #60 tab 11/21/15 Aspirin 81 mg PO DAILY #30 tab.chew 07/03/16 Folic Acid 1 mg PO DAILY #30 tablet 07/03/16 Ramipril [Altace] 10 mg PO DAILY #30 capsule 07/03/16 Furosemide 40 mg PO DAILY 02/27/21 Gabapentin [Neurontin*] 400 mg PO BID 02/27/21 Multivit with Iron,Minerals [Complete Senior] 1 each PO DAILY #90 tablet 02/28/21 Spironolactone [Aldactone] 50 mg PO DAILY #30 tablet 02/28/21 New Medications: Spironolactone [Aldactone] 50 mg PO DAILY #30 tablet Multivit with Iron,Minerals [Complete Senior] 1 each PO DAILY #90 tablet Physician Discharge Instructions: Patient presented with dyspnea secondary to acute on chronic diastolic CHF with hypoxia. Echocardiogram showed ejection fraction around 45 to 50%. Patient required IV diuretic therapy. Patient seen and evaluated by nephrology and cardiology. Aldactone was added. During the course of her stay her condition improved. Patient responded well to diuretic therapy. At discharge patient not requiring any oxygen. Currently on room air. At discharge patient will continue with 1500 cc/day fluid restriction and low-salt diet. She is to mon itor her weight daily. If her weight increases by more than 5 pounds further adjustment in medication may be required. This can be done with the help of her PCP, nephrology or cardiology. At discharge she will continue with Lasix 40 mg daily. Additional medication includes Aldactone 50 mg daily. Recommend to recheck labBMP within 1 week to monitor her progress. Recommend follow-up with PCP within 1 week to follow-up his hospitalization. Patient may follow-up with cardiology and nephrology in 1 to 2 weeks to follow-up this hospitalization. Education on CHF provided. Patient with chronic renal disease stage III. Overall stable. As mentioned above patient will continue with fluid restriction and changes to her diuretic therapy. This was discussed in detail with nephrology. Recommend follow-up with nephrology in 1 to 2 weeks. Patient with history of atrial fibrillation on chronic anticoagulation therapy and hypertension. Overall stable. At discharge patient will continue with metoprolol 50 mg 1 pill twice daily, Altace 10 mg 1 pill twice daily, and Eliquis 2.5 mg 1 pill twice daily. Recommend follow-up with cardiology as directed. Patient with Parkinson's disease. At discharge she will continue with her carbidopa levodopa, Mirapex, and folic acid regimen. Recommend follow-up with neurology as an outpatient. Patient with depression with anxiety. At discharge she will continue with her medications including Xanax 0.25 mg 1 pill twice daily as needed for anxiety. Patient with chronic pain. At discharge she'll continue with Neurontin as directed. Patient will continue with tramadol as directed as well. Patient with GERD. At discharge she will continue with Prilosec 20 mg daily. Patient with anemia chronic disease with iron deficiency. At discharge recommend to continue multivitamin with iron daily. Recommend to recheck labCBC in 1 month to monitor progress. Diet: AHA Activity: Ad aurora Followup: Jairon Patel, [Primary Care Provider] - Time spent managing pt's care (in minutes): 55
[2021-02-28 09:41] VITALS: O2SAT 96
[2021-02-28 15:47] LABS: Urine Blood Negative (Negative); Urine Glucose Negative (Negative); Urine Protein Negative (Negative); Urine Specific Gravity 1.015 (1.005-1.030)
--- NOTE | 2021-02-28 20:52 | P.PN ---
Date of Service: 02/28/21 Vital Signs Temp Pulse Resp BP Pulse Ox 97.7 F 95 H 18 142/93 H 94 02/28/21 09:01 02/28/21 09:01 02/28/21 09:28 02/28/21 09:01 02/28/21 09:28 Lab Results (last 24 hrs) 02/27/21 11:08: Urine pH 7.0, Ur Specific [place] 1.015, Glucose (UA)(Auto) Negative, Urine Ketones Negative, Urine Blood Negative, Urine Nitrite Negative, Ur Leukocyte Esterase Negative, Urine Total Protein Negative 02/27/21 10:05: POC Glucose 101 Assessment/ Plan: Nephrology Progress Note Feeling better. No chest pain or dyspnea No acute events overnight Vitals, medications blood work and imaging reviewed in the chart General: In no apparent distress, Cooperative HEENT: Atraumatic Neck: Supple Respiratory: Diminished Cardiovascular: Edema, Irregular heart rate/rhythm Gastrointestinal: Soft and benign, Non-distended Musculoskeletal: No clubbing, No contractures Integumentary: No rashes, No cyanosis Neurological: Normal speech Laboratory Data (last 24 hrs) 02/27/21 10:12: PT 26.2 H, INR 2.26 02/27/21 10:12: WBC 5.10, Hgb 10.6 L, Hct 32.5 L, Plt Count 251 02/27/21 10:12: Sodium 141, Potassium 2.9 L*, BUN 21 H, Creatinine 1.46 H, Glucose 105, Magnesium 1.4 L*, Total Bilirubin 2.0 H, AST 14 L, ALT 8 L, Alkaline Phosphatase 75 Imagings Data: LEFT VENTRICULAR WALL MOTION: MILD GLOBAL HYPOKINESIS. DOPPLER/COLOR FLOW: MILD MITRAL AND PULMONARY REGURGITATION. COMMENTS: MILDLY DEPRESSED LEFT VENTRICULAR EJECTION FRACTION 45-50%. MILD GLOBAL HYPOKINESIS. ATRIAL FIBRILLATION. EXAM DESCRIPTION: RAD - Chest Single View - 02/27/2021 10:51 am CLINICAL HISTORY: DYSPNEA COMPARISON: Abdomen 1 View (KUB) dated 08/21/2016; Chest Single View dated 07/02/2016; Chest Single View dated 11/20/2015; Chest Single View dated 11/19/2015 FINDINGS: Lines: None. Lungs: No evidence of edema or pneumonia. Pleural: No significant pleural effusions or pneumothorax. Cardiac: Mild cardiomegaly. Bones: No acute fractures. IMPRESSION: No acute cardiopulmonary disease. Conclusions/Impression: HASMUKH likely CRS CKD III -No NSAIDs -Continue furosemide Hypokalemia -Replete potassium -Continue spironolactone BID Hypomagnesemia -Replete IV mag prn HTN with CKD/ CHF -Continue Ramipril Diastolic CHF, A/C -Continue furosemide -Continue spironolactone -Continue Metoprolol Anemia in chronic illness Microcytosis -Consider IV iron Case reviewed with Dr. Garcia
--- NOTE | 2021-03-01 11:49 | EKG ---
Test Date: 2021-02-27 Test Time: 10:19:08 [employer] Portfolio Manager: JIN MEASUREMENT RESULTS: Intervals: Rate: 90 PA: QRSD: 76 QT: 338 QTc: 413 [place]: P: PA: QRS: 27 T: 224 INTERPRETIVE STATEMENTS: Atrial fibrillation Low voltage QRS Nonspecific ST and T wave abnormality Abnormal ECG Compared to ECG 07/02/2016 11:19:02 Low QRS voltage now present Sinus bradycardia no longer present ST (T wave) deviation still present Electronically Signed On 03-01-21 11:45:20 CDT by Tyrese Lazo
== END 2021-02-28 10:55 | disposition home or self-care (01) ==
LOC: ER 09:51 → ERHOLD 11:51 → 4TH 13:19
PROVIDERS: ADMIT Family Medicine; ATTEND Family Medicine
DX: I13.0 Hypertensive heart and chronic kidney disease with heart failure and stage 1 through stage 4 chronic kidney disease, or unspecified chronic kidney disease (principal); I50.33 Acute on chronic diastolic (congestive) heart failure; N17.9 Acute kidney failure, unspecified; N18.30 Chronic kidney disease, stage 3 unspecified; D63.1 Anemia in chronic kidney disease; R09.02 Hypoxemia; I48.20 Chronic atrial fibrillation, unspecified; G20 Parkinson's disease; F41.8 Other specified anxiety disorders; E61.1 Iron deficiency; G89.29 Other chronic pain; M54.9 Dorsalgia, unspecified; E83.42 Hypomagnesemia; E87.6 Hypokalemia; G62.9 Polyneuropathy, unspecified; K21.9 Gastro-esophageal reflux disease without esophagitis; J30.2 Other seasonal allergic rhinitis; E66.9 Obesity, unspecified; Z68.27 Body mass index [BMI] 27.0-27.9, adult; Z66 Do not resuscitate; Z23 Encounter for immunization; Z20.822 Contact with and (suspected) exposure to COVID-19; Z90.710 Acquired absence of both cervix and uterus; Z79.01 Long term (current) use of anticoagulants; Z79.82 Long term (current) use of aspirin; Z82.49 Family history of ischemic heart disease and other diseases of the circulatory system; Z83.3 Family history of diabetes mellitus; Z80.9 Family history of malignant neoplasm, unspecified
CPT/HCPCS: 93005; 93306; 85025 ×2; 80048; 36415; 83735 ×3; 82550 ×2; 84100; 84132; 85610; 82947; 80076; 84550; 84443; 81003; 84484 ×2; 82553 ×2; 82728; 83540; 80053; 83880; 84466; 71045 ×2; 90471; 96375; 96374; 99285; U0003; J1940 ×4; Q2035; J3475; G0378 ×3

== ENCOUNTER 2021-09-28 11:35 | Emergency (ER) | payer OTHER, BC ==
--- OUTSIDE RECORDS SUMMARY | 2021-09-28 11:38 | XMS REPORT | Continuity of Care Document ---
:1945 Author Organization [facility] t Address [address] [place] [address] Care Team Providers Name Role Phone Ava Patel Attending Clinician Unavailable Ava MONAE Attending Clinician Unavailable Yvette BARROW L Attending Clinician Karsten DELGADO Attending Clinician Unavailable Payers Payer Name Policy Type Policy Number Effective Date Expiration Date S marciano MEDICARE PART A [id number] 2009 \T\ B 00:00:00 [facility] [id number] 2019 00:00:00 Problems This patient has no known problems. Allergies, Adverse Reactions, Alerts Allergy Allergy Status Severity Reaction(s) Onset Inactive Treating Comm ents Source Name Type Date Date Clinician NO KNOWN Drug Active Univers ALLERGIE Class ity of [facility] Social History Social Habit Start Date Stop Date Quantity Comments Source Sex Assigned At Uni versity [facility] Exposure to SARS-CoV-2 Not sure Un iversity [facility] (event) [facility] Smoking Status Start Date Stop Date Source Unknown [facility] Medications Ordered Filled Start Stop Current Ordering Indication Dosage Frequency Signature Comments Components Source Medication Medication Date Date Medication? Clinician (SIG) Name Name methocarbam Yes Robaxin-75 Univers oL 9-23 0 750 mg ity of (ROBAXIN-75 19:45: [place] 0[place] 750 mg 35 Take 1 Medical tablet tablet Branch twice a day by oral route for 28 days. methocarbam 2020-0 Yes Robaxin-75 Univers oL 9-23 0 750 mg ity of (ROBAXIN-75 19:45: [place] 750 mg 35 Take 1 Medical tablet tablet Branch twice a day by oral route for 28 days. amLODIPine 2020-0 Yes 5mg Take 5 mg [place] 5 mg tablet 9-14 by mouth ity of 00:00: daily. Medical Branch amLODIPine 2020-0 Yes 5mg Take 5 mg [place] 5 mg tablet 9-14 by mouth ity of 00:00: daily. Medical Branch gabapentin 2020-0 Yes TAKE (1) Uni vers 600 mg 9-08 TABLET BY ity of tablet 00:00: MOUTH [place] 00 EVERY 8 Medical HOURS. Branch gabapentin 2020-0 Yes TAKE (1) Uni vers 600 mg 9-08 TABLET BY ity of tablet 00:00: MOUTH [place] EVERY 8 Medical HOURS. Branch carbidopa-l 2020-0 Yes 1{tbl} Take 1 Un [place] evodopa 9-04 tablet by ity of 25-100 mg 00:00: mouth 2 [place] tablet 00 (two) Medical times Branch daily. carbidopa-l 2020-0 Yes 1{tbl} Take 1 Un [place] evodopa 9-04 tablet by ity of 25-100 mg 00:00: mouth 2 [place] tablet 00 (two) Medical times Branch daily. traMADoL 50 2020-0 Yes TAKE 1 Univ ers mg tablet 8-24 TABLET BY ity o f 00:00: MOUTH [place] 00 TWICE A Medical DAY Branch NEEDED FOR PAIN traMADoL 50 2020-0 Yes TAKE 1 Univ ers mg tablet 8-24 TABLET BY ity o f 00:00: MOUTH [place] 00 TWICE A Medical DAY Branch NEEDED FOR PAIN metoprolol 2020-0 Yes TAKE 1 Unive rs tartrate 25 8-14 TABLET BY ity of mg tablet 00:00: ORAL ROUTE [place] 00 2 TIMES Medical EVERY DAY Branch metoprolol 2020-0 Yes TAKE 1 Unive rs tartrate 25 8-14 TABLET BY ity of mg tablet 00:00: ORAL ROUTE [place] 00 2 TIMES Medical EVERY DAY Branch ramipriL 10 2020-0 Yes 10mg Take 10 mg Univers mg capsule 7-30 by mouth 2 ity of 00:00: (two) [place] 00 times Medical daily. Branch ramipriL 10 2019-0 Yes 10mg Take 10 mg Univers mg capsule 7-30 by mouth 2 ity of 00:00: (two) [place] times Medical daily. Branch foLIC acid 2019-0 Yes 1mg Take 1 mg Un [place] 1 mg tablet 6-26 by mouth ity of 00:00: daily. [address] foLIC acid 2019-0 Yes 1mg Take 1 mg Un [place] 1 mg tablet 6-26 by mouth ity of 00:00: daily. [address] Vital Signs Vital Name Observation Time Observation Value Comments Source Systolic blood 2020-02-07 19:46:00 177 mm[Hg] Univer sity [facility] Diastolic blood 2020-02-07 19:46:00 108 mm[facility]Hg[facility] 2020-02-07 19:46:00 61 /min [facility] Body height 2020-02-07 19:43:00 167.6 cm [facility] Body weight 2020-02-07 19:43:00 70.308 kg [facility] BMI 2020-02-07 19:43:00 25.02 kg/m2 [facility] Procedures This patient has no known procedures. Encounters Start End Encounter Admission Attending Care Care Encounter Source Date/Time Date/Time Type Type Clinicians Facility Department ID 2021-09-25 Outpatient , [facility] [id number] Common 14:53:02 [facility] 2021-07-14 Outpatient , [facility] [id number] Common 13:35:01 [facility] 2021-06-11 Outpatient , [facility] [id number] Common 14:05:48 Jairon [id number] [facility] 2021-06-11 Outpatient , [facility] [id number] Common 14:01:15 Jairon [id number] [facility] 2021-06-11 Outpatient , [facility] [id number] Common 14:00:22 Jairon [id number] [facility] 2021-06-11 Outpatient , [facility] [id number] Common 13:53:15 Jairon [id number] [facility] 2021-06-11 Outpatient , [facility] [id number] Common 13:52:06 Jairon [id number] [facility] 2021-06-11 Outpatient , [facility] [id number] Common 12:56:21 Jairon [id number] [facility] 2021-06-11 Outpatient , [facility] [id number] Common 12:39:06 Jairon [id number] [facility] 2021-06-11 Outpatient , [facility] [id number] Common 12:37:45 Jairon [id number] [facility] 2021-09-26 2021-09-26 ambulatory [facility] [id number] Common 00:00:00 00:00:00 [facility] 2021-09-25 2021-09-25 ambulatory [facility] [id number] Common 00:00:00 00:00:00 [facility] 2021-09-25 2021-09-25 ambulatory [facility] [id number] Common 00:00:00 00:00:00 [facility] 2021-09-10 2021-09-10 ambulatory [facility] [id number] Common 00:00:00 00:00:00 [facility] 2021-08-26 2021-08-26 ambulatory [facility] [id number] Common 00:00:00 00:00:00 [facility] 2021-07-30 2021-07-30 ambulatory [facility] [id number] Common 00:00:00 00:00:00 [facility] 2021-07-15 2021-07-15 ambulatory [facility] [id number] Common 00:00:00 00:00:00 [facility] 2021-06-16 2021-06-16 ambulatory [facility] [id number] Common 00:00:00 00:00:00 [facility] 2021-04-25 2021-04-25 ambulatory [facility] [id number] Common 00:00:00 00:00:00 [facility] 2021-03-24 2021-03-24 ambulatory [facility] [id number] Common 00:00:00 00:00:00 [facility] 2021-03-12 2021-03-12 Outpatient [facility] [id number] Common 00:00:00 00:00:00 [facility] 2021-03-04 2021-03-04 Outpatient [facility] [id number] Common 00:00:00 00:00:00 [facility] 2021-02-26 2021-02-26 Outpatient [facility] [id number] Common 00:00:00 00:00:00 [facility] 2021-02-06 2021-02-06 Outpatient [facility] [id number] Common 00:00:00 00:00:00 [facility] 2021-02-04 2021-02-04 Outpatient [facility] [id number] Common 00:00:00 00:00:00 [facility] 2021-01-24 2021-01-24 Outpatient [facility] [id number] Common 00:00:00 00:00:00 [facility] 2021-01-21 2021-01-21 Outpatient [facility] [id number] Common 00:00:00 00:00:00 [facility] 2021-01-21 2021-01-21 Outpatient [facility] [id number] Common 00:00:00 00:00:00 [facility] 2021-01-08 2021-01-08 Outpatient [facility] [id number] Common 00:00:00 00:00:00 [facility] 2020-10-10 2020-10-10 Outpatient [facility] [id number] Common 00:00:00 00:00:00 [facility] 2020-09-13 2020-09-13 Outpatient [facility] [id number] Common 00:00:00 00:00:00 [facility] 2020-09-10 2020-09-10 Outpatient [facility] [id number] Common 00:00:00 00:00:00 [facility] 2020-08-30 2020-08-30 Outpatient Fernando MONAE [facility] [id number] Univers 14:00:00 14:00:00 QUINT[facility] 2020-08-09 2020-08-09 Outpatient [facility] [id number] Univers 14:00:00 14:00:00 [facility] 2020-07-23 2020-07-23 Outpatient [facility] [id number] Common 00:00:00 00:00:00 [facility] 2020-02-07 2020-02-07 [id number] Univers 14:33:33 15:15:58 Visit [facility] [id number] it y of Surgical [id number] [place] Specialti [id number] [place] dical 198 [facility] 2020-02-07 2020-02-07 [facility] [id number] Univers 14:30:00 14:30:00 [facility] Results This patient has no known results.
[2021-09-28] MEDS ORDERED: NA CHLORIDE 0.9% 500 ML ONE (12:02)
[2021-09-28 12:06] LABS: Absolute Lymphocytes (CBC) 0.9 K/uL (0.7-4.9); Hematocrit 32.8 % (36.0-45.0); Lymphocytes % 17.3 % (15.3-44.8); MPV 7.9 fL (7.6-11.3); RBC Red Blood Cell Count 4.44 M/uL (3.86-4.86)
[2021-09-28 12:20] LABS: Protime INR 2.54
[2021-09-28 12:36] LABS: Potassium 3.1 mmol/L (3.5-5.1); Sodium Level 137 mmol/L (136-145)
[2021-09-28 12:45] LABS: AST/SGOT 18 U/L (15-37); Albumin 3.9 g/dL (3.4-5.0); Alkaline Phosphatase 78 U/L (45-117); BUN Blood Urea Nitrogen 30 mg/dL (7-18); Bicarbonate 28 mmol/L (21-32); Bilirubin Direct 0.9 mg/dL (0-0.2); Bilirubin Total 2.5 mg/dL (0.2-1.0); Glomerular Filtration Rate 26 ml/min (=/>90); Glucose Level 107 mg/dL (74-106); Magnesium 2.1 mg/dL (1.8-2.4); NT PRO-BNP 8492 pg/mL (<450); Troponin High Sensitivity 19.9 pg/mL (<58.9)
[2021-09-28 12:47] LABS: ALT/SGPT < 10 U/L (12-78)
--- NOTE | 2021-09-28 13:06 | RAD REPORT ---
EXAM DESCRIPTION: Kurt Single View09/28/2021 12:38 pm CLINICAL HISTORY: Congestion COMPARISON: 2020 FINDINGS: The lungs appear clear of acute infiltrate. The heart is mildly enlarged IMPRESSION: No acute abnormalities displayed
[2021-09-28] MEDS ORDERED: POTASSIUM CL SA 10 MEQ TAB PO ONE (13:16)
--- NOTE | 2021-09-28 13:48 | ER ---
Nurse's Notes [facility] Name: Kimberly Perez Age: 76 yrs Sex: Female : 1945 Arrival Date: 09/28/2021 Time: 11:38 Bed 13 Private MD: Diagnosis: Hypokalemia Presentation: 09/28 11:47 Chief complaint: EMS states: "the pt reports that she has had dental surgery this past jd3 . since then she has been having some bleeding there in her gums. she already has a history of anemia so there was worry that she is low on her blood volume. she also reports having palpations this AM. EKG showed A-fib, and she has a history of this. she also reports not eating or drinking well since the surgery due to not feeling well. FSBS was 136. otherwise normal vitals.". Coronavirus screen: At this time, the client does not indicate any symptoms associated with coronavirus-19. Ebola Screen: No symptoms or risks identified at this time. Initial Sepsis Screen: Does the patient meet any 2 criteria? No. Patient's initial sepsis screen is negative. Does the patient have a suspected source of infection? No. Patient's initial sepsis screen is negative. Risk Assessment: Do you want to hurt yourself or someone else? Patient reports no desire to harm self or others. Onset of symptoms was September 28, 2021. 11:47 Method Of Arrival: EMS: [facility] jd3 11:47 Acuity: NANY 3 jd3 Historical: - Allergies: 11:51 No Known Allergies; jd3 - Home Meds: 11:51 Eliquis 2.5 mg Oral tab 1 tab 2 times per day [Active]; alprazolam 0.25 mg Oral tab 1 jd3 tab twice a day [Active]; aspirin 81 mg Oral chew 1 tab once daily [Active]; carbidopa-levodopa 48.75-195 mg Oral cpER 1 cap 3 times per day [Active]; metoprolol tartrate 50 mg Oral tab 1 tab once daily [Active]; gabapentin 600 mg Oral tab 1 tab 3 times per day [Active]; Lasix 40 mg Oral tab 1 tab once daily [Active]; pramipexole 0.375 mg Oral Tb24 1 tab once daily [Active]; folic acid 1 mg Oral tab 1 tab once daily [Active]; ramipril 10 mg Oral cap 1 cap 2 times per day [Active]; omeprazole 20 mg Oral cpDR 1 cap once daily [Active]; tramadol 50 mg Oral tab 1 tab twice a day [Active]; - PMHx: 11:51 neuropathy; Hypertension; coronary atherosclerosis; Anxiety; Parkinson's disease; GERD; jd3 chronic back pain; - PSHx: 11:51 back sx; hysterectomy; colonoscopy; SCS implant; Tonsillectomy; jd3 - Immunization history:: Adult Immunizations up to date, Client reports receiving the 2nd dose of the Covid vaccine, Flu vaccine status is unknown. - Social history:: Patient/guardian denies using alcohol, street drugs, The patient lives with family, Smoking status: Patient denies any tobacco usage or history of. - Family history:: not pertinent. Screenin:55 Abuse screen: Denies threats or abuse. Nutritional screening: No deficits noted. jd3 Tuberculosis screening: No symptoms or risk factors identified. Fall Risk Ambulatory Aid- None/Bed Rest/Nurse Assist (0 pts). Gait- Normal/Bed Rest/Wheelchair (0 pts) Mental Status- Oriented to own ability (0 pts). Total Benites Fall Scale indicates No Risk (0-24 pts). Assessment: 11:54 General: Appears in no apparent distress. comfortable, Behavior is calm, cooperative, jd3 appropriate for age, anxious. Pain: Complains of pain in chest Quality of pain is described as pressure. Neuro: Moore Agitation-Sedation Scale (RASS): 0 - Alert and Calm Level of Consciousness is awake, alert, obeys commands, Oriented to person, place, time, situation. Cardiovascular: Reports palpitations, Capillary refill < 3 seconds Patient's skin is warm and dry. Rhythm is atrial fibrillation. Respiratory: Airway is patent Respiratory effort is even, unlabored, Respiratory pattern is regular, symmetrical, Denies cough, shortness of breath. GI: No signs and/or symptoms were reported involving the gastrointestinal system. : No signs and/or symptoms were reported regarding the genitourinary system. EENT: No signs and/or symptoms were reported regarding the EENT system. Derm: Skin is intact, Skin is dry, Skin is normal, Skin temperature is warm. Musculoskeletal: Circulation, motion, and sensation intact. Range of motion:. 13:42 Reassessment: Patient appears in no apparent distress at this time. Patient and/or jd3 family updated on plan of care and expected duration. Pain level reassessed. Patient is alert, oriented x 3, equal unlabored respirations, skin warm/dry/pink. pt reporting nausea and abdominal cramping after taking PO potassium. provider notified. Vital Signs: 11:51 BP 143 / 100; Pulse 84; Resp 18 S; Temp 98.8(TE); Pulse Ox 100% on R/A; Weight 77.11 kg jd3 (R); Height 5 ft. 6 in. (167.64 cm) (R); Pain 7/10; 13:43 BP 143 / 95; Pulse 88; Resp 19 S; Pulse Ox 100% on R/A; jd3 15:06 BP 143 / 95; Pulse 89; Resp 18 S; Pulse Ox 97% on R/A; jd3 11:51 Body Mass Index 27.44 (77.11 kg, 167.64 cm) jd3 ED Course: 11:38 Patient arrived in ED. eb 11:38 Rico Berman, RN is Primary Nurse. jd3 11:43 Rodri Lewis MD is Attending Physician. ma2 11:50 Triage completed. jd3 11:54 Arm band placed on. jd3 11:56 Patient has correct armband on for positive identification. Bed in low position. Call j light in reach. Side rails up X2. Adult w/ patient. Client placed on continuous cardiac and pulse oximetry monitoring. NIBP monitoring applied. residential monitor on. Pulse ox on. NIBP on. 12:00 Initial lab(s) drawn, by me, sent to lab. tm3 12:40 XRAY Chest (1 view) In Process Unspecified. EDMS 15:07 No provider procedures requiring assistance completed. IV discontinued, intact, jd3 bleeding controlled, No redness/swelling at site. Pressure dressing applied. Administered Medications: 11:44 CANCELLED (re-ordered 500 onlyy): NS 0.9% 1000 ml IV at 1 bolus Per protocol; 1000 mL ma2 bolus 12:15 Drug: NS 0.9% 500 ml Route: IV; Rate: 125 ml/hr; Site: right antecubital; jd3 15:08 Follow up: Response: No adverse reaction; IV Status: Completed infusion; Order to j discontinue infusion 13:15 Drug: Potassium Chloride Liquid 40 mEq Route: PO; jd3 14:15 Follow up: Response: No adverse reaction jd3 Medication: 11:55 VIS not applicable for this client. jd3 Outcome: 13:48 Discharge ordered by . [place] 15:07 Discharged to home via wheelchair, with family. jd3 15:07 Condition: stable 15:07 Discharge instructions given to patient, family, Instructed on discharge instructions, follow up and referral plans. medication usage, Demonstrated understanding of instructions, follow-up care, medications, Prescriptions given X 1. 15:09 Patient left the ED. jd3 Signatures: Dispatcher [employer] EDMS Obed Pedro3 Rico Berman RN RN jd3 Rodri Lewis MD MD ma2 Leatha Matamoros
--- NOTE | 2021-09-28 13:48 | EDPHYS ---
Physician Documentation [facility] Name: Kimberly Perez Age: 76 yrs Sex: Female : 1945 Arrival Date: 09/28/2021 Time: 11:38 Bed 13 Private MD: ED Physician Rodri Lewis HPI: 09/28 11:46 This 76 yrs old Female presents to ER via Unassigned with complaints of weakness. ma2 11:46 76-year-old female, presents with generalized weakness for 2 days, gradual, denies ma2 focal weakness denies vomiting diarrhea, of note patient has history of A. fib takes Eliquis, patient had major dental work with left lower molar extraction done last week, and since then patient has been having occasional oozing of blood patient said that she spits blood and occasionally she feels nauseated and bleeding through the tooth has stopped. Historical: - Allergies: 11:51 No Known Allergies; jd3 - Home Meds: 11:51 Eliquis 2.5 mg Oral tab 1 tab 2 times per day [Active]; alprazolam 0.25 mg Oral tab 1 jd3 tab twice a day [Active]; aspirin 81 mg Oral chew 1 tab once daily [Active]; carbidopa-levodopa 48.75-195 mg Oral cpER 1 cap 3 times per day [Active]; metoprolol tartrate 50 mg Oral tab 1 tab once daily [Active]; gabapentin 600 mg Oral tab 1 tab 3 times per day [Active]; Lasix 40 mg Oral tab 1 tab once daily [Active]; pramipexole 0.375 mg Oral Tb24 1 tab once daily [Active]; folic acid 1 mg Oral tab 1 tab once daily [Active]; ramipril 10 mg Oral cap 1 cap 2 times per day [Active]; omeprazole 20 mg Oral cpDR 1 cap once daily [Active]; tramadol 50 mg Oral tab 1 tab twice a day [Active]; - PMHx: 11:51 neuropathy; Hypertension; coronary atherosclerosis; Anxiety; Parkinson's disease; GERD; jd3 chronic back pain; - PSHx: 11:51 back sx; hysterectomy; colonoscopy; SCS implant; Tonsillectomy; jd3 - Immunization history:: Adult Immunizations up to date, Client reports receiving the 2nd dose of the Covid vaccine, Flu vaccine status is unknown. - Social history:: Patient/guardian denies using alcohol, street drugs, The patient lives with family, Smoking status: Patient denies any tobacco usage or history of. - Family history:: not pertinent. ROS: 11:46 Constitutional: Negative for fever, chills, and weight loss. ma2 11:46 All other systems are negative. Exam: 11:46 Constitutional: This is a well developed, well nourished patient who is awake, alert, ma2 and in no acute distress. Head/Face: Normocephalic, atraumatic. Eyes: Pupils equal round and reactive to light, extra-ocular motions intact. Lids and lashes normal. Conjunctiva and sclera are non-icteric and not injected. Cornea within normal limits. Periorbital areas with no swelling, redness, or edema. ENT: Left lower second molar extracted with socket dry there is clotted blood, no active bleeding in mouth, otherwise nares patent. No nasal discharge, no septal abnormalities noted. Tympanic membranes are normal and external auditory canals are clear. Oropharynx with no redness, swelling, or masses, exudates, or evidence of obstruction, uvula midline. Mucous membranes moist. Neck: Trachea midline, no thyromegaly or masses palpated, and no cervical lymphadenopathy. Supple, full range of motion without nuchal rigidity, or vertebral point tenderness. No Meningismus. Chest/axilla: Normal chest wall appearance and motion. Nontender with no deformity. No lesions are appreciated. Cardiovascular: Regular rate and rhythm with a normal S1 and S2. No gallops, murmurs, or rubs. Normal PMI, no JVD. No pulse deficits. Respiratory: Lungs have equal breath sounds bilaterally, clear to auscultation and percussion. No rales, rhonchi or wheezes noted. No increased work of breathing, no retractions or nasal flaring. Abdomen/GI: Soft, non-tender, with normal bowel sounds. No distension or tympany. No guarding or rebound. No evidence of tenderness throughout. Skin: Warm, dry with normal turgor. Normal color with no rashes, no lesions, and no evidence of cellulitis. MS/ Extremity: Pulses equal, no cyanosis. Neurovascular intact. Full, normal range of motion. Neuro: Awake and alert, GCS 15, oriented to person, place, time, and situation. Cranial nerves II-XII grossly intact. Motor strength 5/5 in all extremities. Sensory grossly intact. Cerebellar exam normal. Normal gait. Vital Signs: 11:51 BP 143 / 100; Pulse 84; Resp 18 S; Temp 98.8(TE); Pulse Ox 100% on R/A; Weight 77.11 kg jd3 (R); Height 5 ft. 6 in. (167.64 cm) (R); Pain 7/10; 13:43 BP 143 / 95; Pulse 88; Resp 19 S; Pulse Ox 100% on R/A; jd3 15:06 BP 143 / 95; Pulse 89; Resp 18 S; Pulse Ox 97% on R/A; jd3 11:51 Body Mass Index 27.44 (77.11 kg, 167.64 cm) jd3 MDM: 11:43 Patient medically screened. ma2 13:02 Differential Diagnosis Patient has mild anemia hemoglobin is 10, no active bleeding, ma2 her baseline hemoglobin is 10, also there is a creatinine elevation and bilirubin elevation both are close to baseline, patient need to follow-up with PCP for further evaluation and management.. Data reviewed: vital signs, nurses notes. Counseling: I had a detailed discussion with the patient and/or guardian regarding: the historical points, exam findings, and any diagnostic results supporting the discharge/admit diagnosis, the presence of at least one elevated blood pressure reading (>120/80) during this emergency department visit, the need for outpatient follow up. Response to treatment: the patient's symptoms have markedly improved after treatment. 09/28 11:43 Order name: Basic Metabolic Panel; Complete Time: 13: [facility] 09/28 11:43 Order name: CBC with Diff; Complete Time: 13: [facility] 09/28 11:43 Order name: LFT's; Complete Time: 13: [facility] 09/28 11:43 Order name: Magnesium; Complete Time: 13: [facility] 09/28 11:43 Order name: NT PRO-BNP; Complete Time: 13: [facility] 09/28 11:43 Order name: Troponin HS; Complete Time: 13: [facility] 09/28 11:43 Order name: XRAY Chest (1 view); Complete Time: 13:17 [facility] 09/28 11:43 Order name: EKG; Complete Time: 11:44 dc2 09/28 11:48 Order name: PT-INR; Complete Time: 13:01 [facility] 09/28 11:48 Order name: Ptt, Activated; Complete Time: 13:01 [facility] 09/28 11:43 Order name: Cardiac monitoring; Complete Time: 12:15 [facility] 09/28 11:43 Order name: EKG - Nurse/Tech; Complete Time: 12:15 [facility] 09/28 11:43 Order name: IV Saline Lock; Complete Time: 11:56 [facility] 09/28 11:43 Order name: Labs collected and sent; Complete Time: 12:15 [facility] 09/28 11:43 Order name: O2 Per Protocol; Complete Time: 11:47 [facility] 09/28 11:43 Order name: O2 Sat Monitoring; Complete Time: 11:47 ma2 Administered Medications: 11:44 CANCELLED (re-ordered 500 onlyy): NS 0.9% 1000 ml IV at 1 bolus Per protocol; 1000 mL ma2 bolus 12:15 Drug: NS 0.9% 500 ml Route: IV; Rate: 125 ml/hr; Site: right antecubital; jd3 15:08 Follow up: Response: No adverse reaction; IV Status: Completed infusion; Order to j discontinue infusion 13:15 Drug: Potassium Chloride Liquid 40 mEq Route: PO; jd3 14:15 Follow up: Response: No adverse reaction jd3 Disposition Summary: 09/28/21 13:48 Discharge Ordered Location: Home ma2 Condition: Stable ma2 Diagnosis - Hypokalemia ma2 Followup: ma2 - With: Private Physician - When: Tomorrow - Reason: If symptoms return, Continuance of care Discharge Instructions: - Discharge Summary Sheet ma2 - Potassium Content of Foods ma2 - Hypokalemia ma2 Forms: - Medication Reconciliation Form ma2 - Thank You Letter ma2 - Antibiotic Education ma2 - Prescription Opioid Use ma2 Prescriptions: - Potassium Chloride 10 mEq Oral Tablet - take 1 tablet by ORAL route every 12 hours; 30 tablet; Refills: 0, Product ma2 Selection Permitted Signatures: Dispatcher [employer] Rico Amaya RN RN jd3 Rodri Lewis MD MD ma2 Corrections: (The following items were deleted from the chart) 11:44 11:43 NS 0.9% 1000 ml IV at 1 bolus Per protocol; 1000 mL bolus ordered. ma2 ma2 12:05 11:44 PROTIME (+INR)+COAG.LAB.BRZ ordered. EDMS EDMS
[2021-09-28 15:13] VITALS: TEMP 98.8
[2021-09-28 15:15] VITALS: BP 143/95
[2021-09-28 15:18] VITALS: O2SAT 97
--- NOTE | 2021-09-29 10:06 | EKG ---
Test Date: 2021-09-28 Test Time: 12:08:26 [employer]: LUIS A MEASUREMENT RESULTS: Intervals: Rate: 88 [place]: QRSD: 80 QT: 364 QTc: 440 [place]: P: [place]: QRS: 75 T: 194 INTERPRETIVE STATEMENTS: Atrial fibrillation with premature ventricular or aberrantly conducted complexes Low voltage QRS ST & T wave abnormality, consider inferolateral ischemia or digitalis effect Abnormal ECG Compared to ECG 02/27/2021 10:19:08 Ventricular premature complex(es) now present Possible ischemia now present ST (T wave) deviation still present Electronically Signed On 09-29-21 10:02:44 CDT by Tyrese Lazo
== END 2021-09-28 15:09 | disposition home or self-care (01) ==
LOC: ER 11:35
DX: E87.6 Hypokalemia (principal); I10 Essential (primary) hypertension; G20 Parkinson's disease; F41.9 Anxiety disorder, unspecified; Z79.01 Long term (current) use of anticoagulants; Z79.82 Long term (current) use of aspirin
CPT/HCPCS: 96361; 93005; 85025; 80048; 36415; 83735; 85610; 80076; 85730; 84484; 83880; 71045; 96360; 99284; J7040

== ENCOUNTER 2023-03-23 06:25 | Inpatient (IN) | payer OTHER, BC ==
--- OUTSIDE RECORDS SUMMARY | 2023-03-23 06:33 | XMS REPORT | Continuity of Care Document ---
:1945 Author Organization [facility] t Address [address] [place] [address] [place] [id number] Care Team Providers Name Role Phone Asked, No Pcp Primary Care Physician Unavailable Jairon Patel Attending Clinician Unavailable Gonzalo Floyd Attending Clinician QUINTIN MONAE Attending Clinician Unavailable Constance Delgado MD Attending Clinician CONSTANCE DELGADO Attending Clinician Unavailable Payers Payer Name Policy Type Policy Number Effective Date Expiration Date S juanjeanine Blue Cross Blue 6 [id number] [facility] [employer] [facility] [place] - [facility] Blue Cross MCR 6 [id number] [facility] Advantage PPO - [facility] Blue Cross Blue 6 [id number] 2019 [facility] [employer] [place] 00:00:00 - [facility] MEDICARE NOVITAS MB [id number] 2009 [facility] 00:00:00 - [facility] MEDICARE NOVITAS MB [id number] 2009 [facility] 00:00:00 - [facility] MEDICARE NOVITAS MB [id number] 2009 [facility] 00:00:00 - [facility] MEDICARE NOV[place] MB [id number] 2009 [facility] 00:00:00 - [facility] MEDICARE PART A [id number] 2009 \T\ B 00:00:00 [place] [id number] 2019 00:00:00 Problems Condition Condition Condition Status Onset Resolution Last Treating Co mments Source Name Details Category Date Date Treatment Clinician Date Other Other Disease Active Methodi secondary secondary 12-29 scoliosis, scoliosis, 00:00: Ho spita lumbar lumbar 00 l region region Osteoarthr 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 3 1/2 months s/p DOS 06/13/15 right L45, laminotom y. Doing ok, buttock lateral thigh pain has improved. Still has lateral leg pain. Has been doing PT-helped some. Still cant walk long distances . Visual Visual Disease Active Methodi problems problems 07-30 00:00: Hospita 00 l Swollen Swollen Disease Active Methodi ankles ankles 316 00:00: Hospita 00 l Constipati Constipati Disease Active M ethodi on on 16 00:00: Hospita 00 l Acid Acid Problem 2015-01-04 Memor ia reflux reflux 04:00:54 l (finding) (finding) Herm otf Problem 01/04/2015 [facility] Pain Pain Problem 2015-01-04 Memor ia (finding) (finding) 04:00:54 l Problem [place] 01/04/2015 [facility] Amnesia Amnesia Problem Active 2023-01-08 Me moria (finding) (finding) 14:32:48 l Active [place] Problem 01/08/2023 [facility] Hypertensi Hypertens Problem Active 2023-01-08 Memoria ve arabella 14:32:48 l disorder, disorder, Herm otf systemic systemic arterial arterial (disorder) (disorder) Active Problem 01/08/2023 [facility] Insomnia Insomnia Problem Active 2023-01-08 Memoria (disorder) (disorder) 14:32:48 l Active Rom Problem 01/08/2023 [facility] Parkinson' Problem Active 2023-01-08 M emoria s disease Parkinson' 14:32:48 l (disorder) s disease Her awan (disorder) Active Problem 01/08/2023 [facility] 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 emoria ural state Postproced 14:32:48 l finding ural state Oly nn (finding) finding (finding) Active Problem 01/08/2023 [facility] 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 14:32:48 l finding state [place] (finding) finding (finding) Active Problem 01/08/2023 [facility] Simple Simple Problem Active 2023-01-08 Romulo analilia obesity obesity 14:32:48 l (disorder) (disorder) He rmann Active Problem 01/08/2023 [facility] Simple Simple Problem Active 2023-01-08 [facility] analilia obesity obesity 14:32:48 l (disorder) (disorder) He rmann Active Problem 01/08/2023 [facility] 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-08 Romulo analilia stenosis stenosis 14:32:48 l of lumbar of lumbar Herm otf region region (disorder) (disorder) Active Problem 01/08/2023 [facility] Tremor Tremor Problem Active 2023-01-08 Romulo analilia (finding) (finding) 14:32:48 l Active Rom Problem 01/08/2023 [facility] Tremor Tremor Problem Active 2023-01-08 Romulo analilia (finding) (finding) 14:32:48 l Active Rom Problem 01/08/2023 [facility] [id number] Acute on Problem Comm on chronic Spirit diastolic - [facility] (congestiv St e) heart [facility] [id number] Chronic Problem Commo n diastolic Spirit (congestiv - [facility] e) heart failure [facility] Chronic 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 - [facility] stage 3A disease [facility] [id number] Panic Problem 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 - [facility]I paroxysmal St anxiety] [facility] [id number] Mild Problem Common cognitive Spirit impairment - [facility] [id number] Other Problem Common chronic Spirit pain - [facility] [id number] DDD Problem Common (degenerat Spirit arabella disc - [facility] disease), [facility] [id number] Essential Problem Comm on hypertensi Spirit on - [facility] [id number] GERD Problem Common without Spirit esophagiti - [facility] s [facility] [id number] Generalize Problem Com mon d anxiety Spirit disorder - [facility] [id number] Chronic Problem Commo n pain Spirit syndrome - [facility] [id number] Current Problem Common moderate Spirit episode of - [facility]I major [facility] depressive [facility] Medical without Center prior episode [id number] 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 [place] heart with angina pectoris [id number] [place] [id number] fibrillati Spirit on with - [facility] RVR [facility] [id number] Benzodiaze Problem Co mmon pine Spirit dependence - [facility] Allergies, Adverse Reactions, Alerts Allergy Allergy Status Severity Reaction(s) Onset Inactive Treating Comm ents Source Name Type Date Date Clinician No Known Propensi Active Method i Drug ty to 10-31 st Allergie adverse 00:00: Hospita s reaction 00 l s to drug No Known No Known Active Memori a Medicati Medicati l on on [place] Allergie Allergie s s NO KNOWN Drug Active Univers ALLERGIE Class ity of S [facility] Family History Family Member Diagnosis Comments Start Date Stop Date Source Natural father [facility] Natural mother [facility] Social History Social Habit Start Date Stop Date Quantity Comments Source Sexual orientation [facility] Exposure to Not sure [facility] of SARS-CoV-2 (event) [facility] History of Tobacco [facility] - Use [facility] History of Social 2016-11-15 2016-11-[address] function 00:00:00 00:00:00 Hospital Alcohol intake 2016 2016 Current [facility] 00:00:00 00:00:00 non-drinker of Hospital alcohol (finding) Tobacco use and 2016 2016 Smokeless [facility] exposure 00:00:00 00:00:00 tobacco non-user Hospital Sex Assigned At [birth year] [facility] 00:00:00 00:00:00 Hospital Smoking Status Start Date Stop Date Source Tobacco smoking status [facility] Unknown if ever smoked [facility] Medications Ordered Filled Start Stop Current Ordering Indication Dosage Frequency Signature Comments Components Source Medication Medication Date Date Medication? Clinician (SIG) Name Name ALPRAZolam ALPRAZolam 0 No QD ALPRAZolam 0.25 MG 0.25 MG 8-31 0.25 MG 00:00: 00 pramipexole Yes 0.25 mg = M emoria 0.25 mg 7-06 1 tab, PO, l oral tablet 18:20: TID, # 270 [place] 00 tab, 1 Refill(s), Pharmacy: [facility] #[id number], 147.32, cm, 08/25/22 11:35:00 CDT, Height, 74.545, kg, 08/25/22 11:35:00 CDT, Weight pramipexole 0 Yes 0.25 mg = M emoria 0.25 mg 7-06 1 tab, PO, l oral tablet 18:20: TID, # 270 [place] 00 tab, 1 Refill(s), Pharmacy: [facility] #[id number], 147.32, cm, 08/25/22 11:35:00 CDT, Height, 74.545, kg, 08/25/22 11:35:00 CDT, Weight galantamine Yes = 1 cap, Me moria 8 mg oral 4-26 PO, QAM, # l capsule, 16:36: 90 unknown Her awan extended 00 unit, 1 release Refill(s), Pharmacy: [facility] STORE [id number], 147.32, cm, 08/25/22 11:35:00 CDT, Height, 74.545, kg, 08/25/22 11:35:00 CDT, Weight galantamine 2022-0 Yes = 1 cap, Me moria 8 mg oral 4-26 PO, QAM, # l capsule, 16:36: 90 unknown Her awan extended 00 unit, 1 release Refill(s), Pharmacy: [facility] STORE [id number], 147.32, cm, 08/25/22 11:35:00 CDT, Height, 74.545, kg, 08/25/22 11:35:00 CDT, Weight pramipexole 0 Yes 0.25 mg = M emoria 0.25 mg 4-11 1 tab, PO, l oral tablet 17:08: TID, # 270 [place] 00 tab, 1 Refill(s), Pharmacy: [facility] #[id number], 147.32, cm, 08/25/22 11:35:00 CDT, Height, 74.545, kg, 08/25/22 11:35:00 CDT, Weight pramipexole 2022-0 Yes 0.25 mg = M emoria 0.25 mg 4-11 1 tab, PO, l oral tablet 17:08: TID, # 270 Rom 00 tab, 1 Refill(s), Pharmacy: [facility] #[id number], 147.32, cm, 08/25/22 11:35:00 CDT, Height, 74.545, kg, 08/25/22 11:35:00 CDT, Weight carbidopa-l 2022-0 Yes 1 tab, PO, Memoria evodopa 50 4-10 BID, # 180 l mg-200 mg 13:55: tab, 1 Alberto n oral 00 Refill(s), tablet, Pharmacy: extended [facility] STORE release [id number], 147.32, cm, 07/22/21 13:31:00 [employer], Height, 73.636, kg, 07/22/21 13:31:00 [employer], Weight carbidopa-l 2022-0 Yes 1 tab, PO, Memoria evodopa 50 4-10 BID, # 180 l mg-200 mg 13:55: tab, 1 Alberto n oral 00 Refill(s), tablet, Pharmacy: extended [facility] STORE release [id number], 147.32, cm, 07/22/21 13:31:00 [employer], Height, 73.636, kg, 07/22/21 13:31:00 [employer], Weight pramipexole 2022-0 Yes = 1 tab, Me moria 0.125 mg 1-03 PO, TID, # l oral tablet 15:09: 270 tab, 1 [place] 00 Refill(s), Pharmacy: [facility] STORE 21444, 147.32, cm, 07/22/21 13:31:00 [employer], Height, 73.636, kg, 07/22/21 13:31:00 [employer], Weight pramipexole 2022-0 Yes = 1 tab, Me moria 0.125 mg 1-03 PO, TID, # l oral tablet 15:09: 270 tab, 1 [place] 00 Refill(s), Pharmacy: [facility] STORE 10320, 147.32, cm, 07/22/21 13:31:00 [employer], Height, 73.636, kg, 07/22/21 13:31:00 [employer], Weight galantamine 2021-05 Yes = 1 cap, Me moria 8 mg oral 1-17 PO, QAM, # l capsule, 15:40: 30 unknown Her awan extended 00 unit, 5 release Refill(s), Pharmacy: [facility] STORE 66515, 147.32, cm, 07/22/21 13:31:00 [employer], Height, 73.636, kg, 07/22/21 13:31:00 [employer], Weight galantamine 2021-05 Yes = 1 cap, Me moria 8 mg oral 1-17 PO, QAM, # l capsule, 15:40: 30 unknown Her awan extended 00 unit, 5 release Refill(s), Pharmacy: [facility] STORE [id number], 147.32, cm, 07/22/21 13:31:00 [employer], Height, 73.636, kg, 07/22/21 13:31:00 [employer], Weight ALPRAZolam ALPRAZolam 2021-05 No QD ALPRAZolam 0.25 MG 0.25 MG 0-11 0.25 MG 00:00: 00 ALPRAZolam ALPRAZolam 2021-05 No QD ALPRAZolam 0.25 MG 0.25 MG 0-11 0.25 MG 00:00: 00 ALPRAZolam ALPRAZolam 2021-05 No QD ALPRAZolam 0.25 MG 0.25 MG 0-11 0.25 MG 00:00: 00 Sinemet CR 2021-0 Yes 1 tab, PO, M emoria 50 mg-200 9-08 BID, # 180 l mg oral 17:05: tab, 1 Rom tablet, 00 Refill(s), extended Pharmacy: release [facility][id number], 147.32, cm, 07/22/21 13:31:00 [employer], Height, 73.636, kg, 07/22/21 13:31:00 [employer], Weight Sinemet CR 2021-0 Yes 1 tab, PO, M emoria 50 mg-200 9-08 BID, # 180 l mg oral 17:05: tab, 1 Rom tablet, 00 Refill(s), extended Pharmacy: release [facility] #[id number], 147.32, cm, 07/22/21 13:31:00 [employer], Height, 73.636, kg, 07/22/21 13:31:00 [employer], Weight ALPRAZolam ALPRAZolam 0 No QD ALPRAZolam 0.25 MG 0.25 MG 7-20 0.25 MG 00:00: 00 ALPRAZolam ALPRAZolam 0 No QD ALPRAZolam 0.25 MG 0.25 MG 7-20 0.25 MG 00:00: 00 ALPRAZolam ALPRAZolam 0 No QD ALPRAZolam 0.25 MG 0.25 MG 7-20 0.25 MG 00:00: 00 ALPRAZolam ALPRAZolam 0 No QD ALPRAZolam 0.25 MG 0.25 MG 7-20 0.25 MG 00:00: 00 ALPRAZolam ALPRAZolam 0 No QD ALPRAZolam 0.25 MG 0.25 MG 7-20 0.25 MG 00:00: 00 ALPRAZolam ALPRAZolam 0 No QD ALPRAZolam 0.25 MG 0.25 MG 7-20 0.25 MG 00:00: 00 ALPRAZolam ALPRAZolam 0 No QD ALPRAZolam 0.25 MG 0.25 MG 7-20 0.25 MG 00:00: 00 ALPRAZolam ALPRAZolam 2021-0 No QD ALPRAZolam 0.25 MG 0.25 MG 7-20 0.25 MG 00:00: 00 ALPRAZolam ALPRAZolam 2021-0 No QD ALPRAZolam 0.25 MG 0.25 MG 7-20 0.25 MG 00:00: 00 NexIUM 20 NexIUM 20 2021-0 No 1{capsu QD NexIUM 20 MG MG 5-22 le} MG 00:00: 00 NexIUM 20 NexIUM 20 2021-0 No 1{capsu QD NexIUM 20 MG MG 5-22 le} MG 00:00: 00 NexIUM 20 NexIUM 20 2021-0 No 1{capsu QD NexIUM 20 MG MG 5-22 le} MG 00:00: 00 NexIUM 20 NexIUM 20 2021-0 No 1{capsu QD NexIUM 20 MG MG 5-22 le} MG 00:00: 00 NexIUM 20 NexIUM 20 2021-0 No 1{capsu QD NexIUM 20 MG MG 5-22 le} MG 00:00: 00 NexIUM 20 NexIUM 20 2021-0 No 1{capsu QD NexIUM 20 MG MG 5-22 le} MG 00:00: 00 NexIUM 20 NexIUM 20 2021-0 No 1{capsu QD NexIUM 20 MG MG 5-22 le} MG 00:00: 00 NexIUM 20 NexIUM 20 2021-0 No 1{capsu QD NexIUM 20 MG MG 5-22 le} MG 00:00: 00 NexIUM 20 NexIUM 20 2-0 No 1{capsu QD NexIUM 20 MG MG 5-22 le} MG 00:00: 00 NexIUM 20 NexIUM 20 2-0 No 1{capsu QD NexIUM 20 MG MG 5-22 le} MG 00:00: 00 NexIUM 20 NexIUM 20 2021-0 No 1{capsu QD NexIUM 20 MG MG 5-22 le} MG 00:00: 00 NexIUM 20 NexIUM 20 2021-0 No 1{capsu QD NexIUM 20 MG MG 5-22 le} MG 00:00: 00 NexIUM 20 NexIUM 20 2-0 No 1{capsu QD NexIUM 20 MG MG 5-22 le} MG 00:00: 00 NexIUM 20 NexIUM 20 2022-0 No 1{capsu QD NexIUM 20 MG MG 5-22 le} MG 00:00: 00 ALPRAZolam ALPRAZolam 0 No QD ALPRAZolam 0.25 MG 0.25 MG 5-13 0.25 MG 00:00: 00 ALPRAZolam ALPRAZolam 0 No QD ALPRAZolam 0.25 MG 0.25 MG 5-13 0.25 MG 00:00: 00 ALPRAZolam ALPRAZolam 0 No QD ALPRAZolam 0.25 MG 0.25 MG 5-13 0.25 MG 00:00: 00 ALPRAZolam ALPRAZolam 0 No QD ALPRAZolam 0.25 MG 0.25 MG 5-13 0.25 MG 00:00: 00 ALPRAZolam ALPRAZolam 0 No QD ALPRAZolam 0.25 MG 0.25 MG 5-13 0.25 MG 00:00: 00 galantamine 2022-0 Yes 8 mg = 1 Me moria 8 mg oral 3-18 cap, PO, l capsule, 14:26: QAM, # 30 Herm otf extended 00 cap, 3 release Refill(s), Pharmacy: [facility] #[id number], 147.32, cm, 07/22/21 13:31:00 [employer], Height, 73.636, kg, 07/22/21 13:31:00 [employer], Weight galantamine 2022-0 Yes 8 mg = 1 Me moria 8 mg oral 3-18 cap, PO, l capsule, 14:26: QAM, # 30 Herm otf extended 00 cap, 3 release Refill(s), Pharmacy: [facility] #[id number], 147.32, cm, 07/22/21 13:31:00 [employer], Height, 73.636, kg, 07/22/21 13:31:00 [employer], Weight galantamine 2022-0 Yes 8 mg = 1 Me moria 8 mg oral 3-08 cap, PO, l capsule, 20:24: QAM, # 30 Herm otf extended 00 cap, 3 release Refill(s), Pharmacy: [facility] #[id number], 147.32, cm, 07/22/21 13:31:00 [employer], Height, 73.636, kg, 07/22/21 13:31:00 [employer], Weight galantamine Yes 8 mg = 1 Me moria 8 mg oral 3-08 cap, PO, l capsule, 20:24: QAM, # 30 Herm otf extended 00 cap, 3 release Refill(s), Pharmacy: [id number], 147.32, cm, 07/22/21 13:31:00 [employer], Height, 73.636, kg, 07/22/21 13:31:00 [employer], Weight Carbidopa 0 Yes 1 tab, PO, Me moria 50 MG / 3-08 BID, # 180 l Levodopa 20:21: tab, 1 Rom 200 MG 00 Refill(s), Extended Pharmacy: Release [id number], [Sinemet 147.32, 50-200] cm, 07/22/21 13:31:00 [employer], Height, 73.636, kg, 07/22/21 13:31:00 [employer], Weight Carbidopa 0 Yes 1 tab, PO, Me moria 50 MG / 3-08 BID, # 180 l Levodopa 20:21: tab, 1 Rom 200 MG 00 Refill(s), Extended Pharmacy: Release [id number], [Sinemet 147.32, 50-200] cm, 07/22/21 13:31:00 [employer], Height, 73.636, kg, 07/22/21 13:31:00 [employer], Weight citalopram Yes TAKE 1 Memor ia 10 mg oral 3-08 TABLET BY l tablet 19:44: MOUTH Rom 00 EVERY DAY FOR 30 DAYS citalopram 2021-0 Yes TAKE 1 Memor ia 10 mg oral 3-08 TABLET BY l tablet 19:44: MOUTH [place] 00 EVERY DAY FOR 30 DAYS Pramipexole Yes 0.125 mg = Memoria dihydrochlo 1-07 1 tab, PO, l ride 0.125 20:21: TID, # 270 H ermann MG Oral 00 tab, 1 Tablet Refill(s), [Mirapex] Pharmacy: [id number], 147.32, cm, 10/08/20 15:49:00 CDT, Height, 73.636, kg, 10/08/20 15:49:00 CDT, Weight Pramipexole Yes 0.125 mg = Memoria dihydrochlo 1-07 1 tab, PO, l ride 0.125 20:21: TID, # 270 H ermann MG Oral 00 tab, 1 Tablet Refill(s), [Mirapex] [id number], 147.32, cm, 10/08/20 15:49:00 CDT, Height, 73.636, kg, 10/08/20 15:49:00 CDT, Weight Furosemide Furosemide 2020-05 No 1{table QD Furosemide 40 MG 40 MG 0-27 t} 40 MG 00:00: 00 Furosemide Furosemide 2020-05 No 1{table QD Furosemide 40 MG 40 MG 0-27 t} 40 MG 00:00: 00 Aldactone Aldactone 2020-05- No 1{table QD Aldactone 50 MG 50 MG 0-27 11-26 t} 50 MG 00:00: 00:00 00 :00 Aldactone Aldactone 2020-05- No 1{table QD Aldactone 50 MG 50 MG 0-27 11-26 t} 50 MG 00:00: 00:00 00 :00 Eliquis 2.5 Eliquis 2.5 2020- No Eliquis MG MG 9-23 2.5 MG 00:00: 00 Eliquis 2.5 Eliquis 2.5 2020-0 No Eliquis MG MG 9-23 2.5 MG 00:00: 00 Montelukast Montelukast No 1{table QD Montelukas Sodium 10 Sodium 10 9-07 t} t Sodium MG MG 00:00: 10 MG 00 Montelukast Montelukast 0 No 1{table QD Montelukas Sodium 10 Sodium 10 9-07 t} t Sodium MG MG 00:00: 10 MG 00 Montelukast Montelukast 2020-0 No 1{table QD Montelukas Sodium 10 Sodium 10 9-07 t} t Sodium MG MG 00:00: 10 MG 00 Montelukast Montelukast 0 No 1{table QD Montelukas Sodium 10 Sodium 10 9-07 t} t Sodium MG MG 00:00: 10 MG 00 Montelukast Montelukast 2020-0 No 1{table QD Montelukas Sodium 10 Sodium 10 9-07 t} t Sodium MG MG 00:00: 10 MG 00 Montelukast Montelukast 2020-0 No 1{table QD Montelukas Sodium 10 Sodium 10 9-07 t} t Sodium MG MG 00:00: 10 MG 00 Montelukast Montelukast 2020-0 No 1{table QD Montelukas Sodium 10 Sodium 10 9-07 t} t Sodium MG MG 00:00: 10 MG 00 Montelukast Montelukast 2020-0 No 1{table QD Montelukas Sodium 10 Sodium 10 9-07 t} t Sodium MG MG 00:00: 10 MG 00 Montelukast Montelukast 2020-0 No 1{table QD Montelukas Sodium 10 Sodium 10 9-07 t} t Sodium MG MG 00:00: 10 MG 00 Montelukast Montelukast 2020-0 No 1{table QD Montelukas Sodium 10 Sodium 10 9-07 t} t Sodium MG MG 00:00: 10 MG 00 Montelukast Montelukast 2020-0 No 1{table QD Montelukas Sodium 10 Sodium 10 9-07 t} t Sodium MG MG 00:00: 10 MG 00 Montelukast Montelukast 2020-0 No 1{table QD Montelukas Sodium 10 Sodium 10 9-07 t} t Sodium MG MG 00:00: 10 MG 00 Montelukast Montelukast 2020-0 No 1{table QD Montelukas Sodium 10 Sodium 10 9-07 t} t Sodium MG MG 00:00: 10 MG 00 Montelukast Montelukast 2020-0 No 1{table QD Montelukas Sodium 10 Sodium 10 9-07 t} t Sodium MG MG 00:00: 10 MG 00 Montelukast Montelukast 2020-0 No 1{table QD Montelukas Sodium 10 Sodium 10 9-07 t} t Sodium MG MG 00:00: 10 MG 00 Montelukast Montelukast 2020-0 No 1{table QD Montelukas Sodium 10 Sodium 10 9-07 t} t Sodium MG MG 00:00: 10 MG 00 Montelukast Montelukast 2020- No 1{table QD Montelukas Sodium 10 Sodium 10 9-07 t} t Sodium MG MG 00:00: 10 MG 00 Montelukast Montelukast 2020-0 No 1{table QD Montelukas Sodium 10 Sodium 10 9-07 t} t Sodium MG MG 00:00: 10 MG 00 Montelukast Montelukast 2020-0 No 1{table QD Montelukas Sodium 10 Sodium 10 9-07 t} t Sodium MG MG 00:00: 10 MG 00 Montelukast Montelukast 2020-0 No 1{table QD Montelukas Sodium 10 Sodium 10 9-07 t} t Sodium MG MG 00:00: 10 MG 00 Montelukast Montelukast 2020-0 No 1{table QD Montelukas Sodium 10 Sodium 10 9-07 t} t Sodium MG MG 00:00: 10 MG 00 Montelukast Montelukast 2020-0 No 1{table QD Montelukas Sodium 10 Sodium 10 9-07 t} t Sodium MG MG 00:00: 10 MG 00 Montelukast Montelukast 2020-0 No 1{table QD Montelukas Sodium 10 Sodium 10 9-07 t} t Sodium MG MG 00:00: 10 MG 00 Montelukast Montelukast 2020- No 1{table QD Montelukas Sodium 10 Sodium 10 9-07 t} t Sodium MG MG 00:00: 10 MG 00 Montelukast Montelukast 2020-0 No 1{table QD Montelukas Sodium 10 Sodium 10 9-07 t} t Sodium MG MG 00:00: 10 MG 00 Montelukast Montelukast 2020-0 No 1{table QD Montelukas Sodium 10 Sodium 10 9-07 t} t Sodium MG MG 00:00: 10 MG 00 Carbidopa 2020- Yes 1 tab, PO, Me moria 50 MG / 8-26 BID, # 180 l Levodopa 16:06: tab, 1 Rom 200 MG 00 Refill(s), Extended Pharmacy: Release [id number], [Sinemet 147.32, 50-200] cm, 10/08/20 15:49:00 CDT, Height, 73.636, kg, 10/08/20 15:49:00 CDT, Weight Carbidopa Yes 1 tab, PO, Me moria 50 MG / 8-26 BID, # 180 l Levodopa 16:06: tab, 1 Rom 200 MG 00 Refill(s), Extended Pharmacy: Release [id number], [Sinemet 147.32, 50-200] cm, 10/08/20 15:49:00 CDT, Height, 73.636, kg, 10/08/20 15:49:00 CDT, Weight 24 HR Yes 0.75 mg = Memoria Pramipexole 6-30 1 tab, PO, l dihydrochlo 13:18: Bedtime, # Rom ride 0.75 00 90 tab, 3 MG Extended Refill(s), Release Pharmacy: [facility] #[id number], 147.32, cm, 10/08/20 15:49:00 CDT, Height, 73.636, kg, 10/08/20 15:49:00 CDT, Weight 24 HR Yes 0.75 mg = Memoria Pramipexole 6-30 1 tab, PO, l dihydrochlo 13:18: Bedtime, # Rom ride 0.75 00 90 tab, 3 MG Extended Refill(s), Release Pharmacy: [facility] #[id number], 147.32, cm, 10/08/20 15:49:00 CDT, Height, 73.636, kg, 10/08/20 15:49:00 CDT, Weight 24 HR Yes 137 mg = 1 Memori a Amantadine 5-25 cap, PO, l 137 MG 21:08: Bedtime, # Oly nn Extended 00 30 cap, 2 Release Refill(s), Oral other Capsule [Gocovri] 24 HR Yes 137 mg = 1 Memori a Amantadine 5-25 cap, PO, l 137 MG 21:08: Bedtime, # Oly nn Extended 00 30 cap, 2 Release Refill(s), Oral other Capsule [Gocovri] 24 HR Yes 0.75 mg = Memoria Pramipexole 5-25 1 tab, PO, l dihydrochlo 21:07: Bedtime, Sima Cueto ride 0.75 00 90 tab, 3 MG Extended Refill(s), Release Pharmacy: [facility] #[id number], 147.32, cm, 10/08/20 15:49:00 CDT, Height, 73.636, kg, 10/08/20 15:49:00 CDT, Weight 24 HR Yes 0.75 mg = Memoria Pramipexole 5-25 1 tab, PO, l dihydrochlo 21:07: Bedtime, Sima Cueto ride 0.75 00 90 tab, 3 MG Extended Refill(s), Release Pharmacy: [facility] #[id number], 147.32, cm, 10/08/20 15:49:00 CDT, Height, 73.636, kg, 10/08/20 15:49:00 CDT, Weight 24 HR Yes 0.375 mg = Memori a Pramipexole 4-15 1 tab, PO, l dihydrochlo 19:40: Daily, Sima Rosas rmann ride 0.375 00 90 tab, 3 MG Extended Refill(s), Release Pharmacy: Tablet [facility] [[facility] #[id number], 144.78, cm, 07/25/20 14:06:00 [employer], Height, 73.636, kg, 07/25/20 14:06:00 [employer], Weight 24 HR Yes 0.375 mg = Memori a Pramipexole 4-15 1 tab, PO, l dihydrochlo 19:40: Daily, Sima Rosas rmann ride 0.375 00 90 tab, 3 MG Extended Refill(s), Release Pharmacy: Tablet [facility] [[facility] #[id number], 144.78, cm, 07/25/20 14:06:00 [employer], Height, 73.636, kg, 07/25/20 14:06:00 [employer], Weight Carbidopa Yes 1 tab, PO, Me moria 50 MG / 3-30 Daily, # l Levodopa 22:57: 30 tab, 2 Herm otf 200 MG 00 Refill(s), Extended other Release Tablet Carbidopa 0 Yes 1 tab, PO, Me moria 50 MG / 3-30 Daily, # l Levodopa 22:57: 30 tab, 2 Herm otf 200 MG 00 Refill(s), Extended other Release Tablet Carbidopa 0 Yes 1 tab, PO, Me moria 50 MG / 3-11 BID, # 360 l Levodopa 20:30: tab, 1 [place] 200 MG 00 Refill(s), Extended Pharmacy: Release [facility] #[id number], 144.78, cm, 07/25/20 14:06:00 [employer], Height, 73.636, kg, 07/25/20 14:06:00 [employer], Weight Carbidopa 0 Yes 1 tab, PO, Me moria 50 MG / 3-11 BID, # 360 l Levodopa 20:30: tab, 1 [place] 200 MG 00 Refill(s), Extended Pharmacy: Release [id number], 144.78, cm, 07/25/20 14:06:00 [employer], Height, 73.636, kg, 07/25/20 14:06:00 [employer], Weight 24 HR Yes 0.375 mg = Memori a Pramipexole 3-11 1 tab, PO, l dihydrochlo 20:28: Daily, # Ralph rmann ride 0.375 00 30 tab, 3 MG Extended Refill(s), Release Pharmacy: Tablet [facility] [[facility]] cy #[id number], 144.78, cm, 07/25/20 14:06:00 [employer], Height, 73.636, kg, 07/25/20 14:06:00 [employer], Weight 24 HR Yes 0.375 mg = Memori a Pramipexole 3-11 1 tab, PO, l dihydrochlo 20:28: Daily, # Ralph rmann ride 0.375 00 30 tab, 3 MG Extended Refill(s), Release Pharmacy: Tablet [facility] [[facility] cy #[id number], 144.78, cm, 07/25/20 14:06:00 [employer], Height, 73.636, kg, 07/25/20 14:06:00 [employer], Weight Carbidopa 2019-05 Yes 1 tab, PO, Me moria 50 MG / 2-11 BID, # 360 l Levodopa 17:03: tab, 1 Rom 200 MG 00 Refill(s), Extended Pharmacy: Release [facility] #[id number], 149.86, cm, 07/20/19 14:33:00 [employer], Height, 73.636, kg, 07/20/19 14:33:00 [employer], Weight Carbidopa 2020-1 Yes 1 tab, PO, Me moria 50 MG / 2-11 BID, # 360 l Levodopa 17:03: tab, 1 Rom 200 MG 00 Refill(s), Extended Pharmacy: Release [facility] #[id number], 149.86, cm, 07/20/19 14:33:00 [employer], Height, 73.636, kg, 07/20/19 14:33:00 [employer], Weight methocarbam 2020-0 Yes Robaxin-75 [facility] oL 9-23 [...] 9-14 by mouth ity of 00:00: daily. [address] amLODIPine 2020-0 Yes 5mg Take 5 mg Un [place] 5 mg tablet 9-14 by mouth ity of 00:00: daily. [address] [place] gabapentin 2020-0 Yes TAKE (1) Uni vers 600 mg 9-08 TABLET BY ity of tablet 00:00: MOUTH [place] 00 EVERY 8 Medical HOURS. [facility] gabapentin 2020-0 Yes TAKE (1) Uni vers 600 mg 9-08 TABLET BY ity of tablet 00:00: MOUTH [place] 00 EVERY 8 Medical HOURS. [facility] Carbidopa 2020-0 Yes 1 tab, PO, Me moria 25 MG / 9-04 BID, # 60 l Levodopa 16:28: tab, 3 Rom 100 MG Oral 00 Refill(s), Tablet Pharmacy: [[facility] cy #[id number], 149.86, cm, 07/20/19 14:33:00 [employer], Height, 73.636, kg, 07/20/19 14:33:00 [employer], Weight Carbidopa 2020-0 Yes 1 tab, PO, Me moria 25 MG / 9-04 BID, # 60 l Levodopa 16:28: tab, 3 [place] 100 MG Oral 00 Refill(s), Tablet Pharmacy: [[facility] 25-[facility]] #[id number], 149.86, cm, 07/20/19 14:33:00 [employer], Height, 73.636, kg, 07/20/19 14:33:00 [employer], Weight carbidopa-l 2020-0 Yes 1{tbl} Take 1 Un [...] 00 times Medical daily. [facility] ramipriL 10 2020-0 Yes 10mg Take 10 mg [facility] mg capsule 7-30 by mouth 2 ity of 00:00: (two) [place] 00 times Medical daily. [facility] foLIC acid 2020-0 Yes 1mg Take 1 mg Un [place] 1 mg tablet 6-26 by mouth ity of 00:00: daily. [address] foLIC acid 2020-0 Yes 1mg Take 1 mg Un [place] 1 mg tablet 6-26 by mouth ity of 00:00: daily. [address] gabapentin 2020-0 Yes 600 mg = 1 M emoria 600 MG Oral 3-05 tab, PO, l Tablet 20:39: TID, # 270 O[place] nn 00 tab, 0 Refill(s) Aspirin 81 2020-0 Yes 81 mg = 1 Me moria MG Enteric 3-05 tab, PO, l Coated 20:39: Daily, # [place] Tablet 00 90 tab, 3 Refill(s) Ramipril 2020-0 Yes 10 mg, PO, Mem oria 3-05 BID, 0 l 20:39: Refill(s) Rom 00 sertraline 2020-0 Yes 50 mg = 1 Me moria 50 mg oral 3-05 tab, PO, l tablet 20:39: Daily, 0 Rom 00 Refill(s) methocarbam 2020-0 Yes 500 mg = 1 Memoria ol 500 mg 3-05 tab, PO, l oral tablet 20:39: BID, 0 Herm otf 00 Refill(s) clonazePAM 2020-0 Yes 0.5 mg = 1 M emoria 0.5 mg oral 3-05 tab, PO, l tablet 20:39: BID, # 30 Alberto n 00 tab, 0 Refill(s) omeprazole 2020-0 Yes 20 mg = 1 Me moria 20 mg oral 3-05 tab, PO, l enteric 20:39: Daily, # Alberto n coated 00 30 tab, 3 tablet Refill(s) gabapentin 2020-0 Yes 600 mg = 1 M emoria 600 mg oral 3-05 tab, PO, l tablet 20:39: TID, # 270 O[place] nn 00 tab, 0 Refill(s) metoprolol 2020-0 Yes 25 mg = 1 Me moria tartrate 25 3-05 tab, PO, l mg oral 20:39: BID, # 180 Herm otf tablet 00 tab, 0 Refill(s) aspirin 81 2020-0 Yes 81 mg = 1 Me moria mg tablet, 3-05 tab, PO, l enteric 20:39: Daily, # Alberto n coated 00 90 tab, 3 Refill(s) ramipril 2020-0 Yes 10 mg, PO, Mem oria 3-05 BID, 0 l 20:39: Refill(s) Rom 00 amLODIPine 2020-0 Yes 5 mg = 1 Mem oria 5 mg oral 3-05 tab, PO, l tablet 20:39: Daily, 0 Rom 00 Refill(s) gabapentin 2020-0 Yes 600 mg = 1 M emoria 600 MG Oral 3-05 tab, PO, l Tablet 20:39: TID, # 270 Oly nn 00 tab, 0 Refill(s) Aspirin 81 2020-0 Yes 81 mg = 1 Me moria MG Enteric 3-05 tab, PO, l Coated 20:39: Daily, # Rom Tablet 00 90 tab, 3 Refill(s) Ramipril 2020-0 Yes 10 mg, PO, Mem oria 3-05 BID, 0 l 20:39: Refill(s) [place] 00 sertraline 2020-0 Yes 50 mg = 1 Me moria 50 mg oral 3-05 tab, PO, l tablet 20:39: Daily, 0 Rom 00 Refill(s) methocarbam 2020-0 Yes 500 mg = 1 Memoria ol 500 mg 3-05 tab, PO, l oral tablet 20:39: BID, 0 Herm otf 00 Refill(s) clonazePAM 2020-0 Yes 0.5 mg = 1 M emoria 0.5 mg oral 3-05 tab, PO, l tablet 20:39: BID, # 30 Alberto n 00 tab, 0 Refill(s) omeprazole 2020-0 Yes 20 mg = 1 Me moria 20 mg oral 3-05 tab, PO, l enteric 20:39: Daily, # Alberto n coated 00 30 tab, 3 tablet Refill(s) gabapentin 2020-0 Yes 600 mg = 1 M emoria 600 mg oral 3-05 tab, PO, l tablet 20:39: TID, # 270 Oly nn 00 tab, 0 Refill(s) metoprolol 2020-0 Yes 25 mg = 1 Me moria tartrate 25 3-05 tab, PO, l mg oral 20:39: BID, # 180 Herm otf tablet 00 tab, 0 Refill(s) aspirin 81 2020-0 Yes 81 mg = 1 Me moria mg tablet, 3-05 tab, PO, l enteric 20:39: Daily, # Alberto n coated 00 90 tab, 3 Refill(s) ramipril Yes 10 mg, PO, Mem oria 3-05 BID, 0 l 20:39: Refill(s) amLODIPine Yes 5 mg = 1 Mem oria 5 mg oral 3-05 tab, PO, l tablet 20:39: Daily, 0 Refill(s) gabapentin Yes TAKE ONE [facility] (NEURONTIN[facility] 1-[address] 400 mg 00:00: [facility]OU[facility] capsule 00 TIMES A l DAY gabapentin Yes TAKE ONE [facility] (NEURONTIN) 1-[address] 400 mg 00:00: MOUTH [facility] capsule 00 TIMES A l DAY Misc No Alfred 200 mL, Memoria Medication 01-02 [place] Soln-IV, l 19:43: IV, Once, first dose 01/02/15 14:43:00 CDT, stop date 01/02/15 14:43:00 CDT Misc No Alfred 200 mL, Memoria Medication 01-02 [place] Soln-IV, l 19:43: IV, Once, first dose 01/02/15 14:43:00 CDT, stop date 01/02/15 14:43:00 CDT [facility] No [facility] [place], l 18:15: Injection, [place] 00 IV, Once, first dose 01/02/15 13:15:00 CDT, stop date 01/02/15 13:15:00 CDT fentaNYL No Alfred [facility] [place] 2 mL, l 18:15: Injection, [place] 00 IV, Once, first dose 01/02/15 13:15:00 CDT, stop date 01/02/15 13:15:00 CDT midazolam No [facility] [place] mL, l 18:15: Injection, [place] 00 IV, Once, first dose 01/02/15 13:15:00 CDT, stop date 01/02/15 13:15:00 CDT fentaNYL No Alfred 100 mcg = Ava hernandez 01-02 [place] 2 mL, l 18:15: Injection, Rom 00 IV, Once, first dose 01/02/15 13:15:00 CDT, stop date 01/02/15 13:15:00 CDT LR 1,000 mL No Jairo K 1,000 mL, Memoria 8-19 [place] IV, 30 l 17:58: mL/hr, Rom 00 start date 01/02/15 12:58:00 CDT Lidocaine No Jairo K 0.2 mL, Mem oria 2% 0.2 mL - [place] Injection, l IV Start 17:58: Subcutaneo [facility] [[facility]] 00 us, Once PRN for other (see comment), first dose 01/02/15 12:58:00 CDT LR 1,000 mL No Jairo K 1,000 mL, Memoria 8- [place] IV, 30 l 17:58: mL/hr, [place] 00 start date 01/02/15 12:58:00 CDT Lidocaine No Jairo K 0.2 mL, Mem oria 2% 0.2 mL 01-02 [place] Injection, l IV Start 17:58: Subcutaneo [facility] [[facility]] 00 us, Once PRN for other (see comment), first dose 01/02/15 12:58:00 CDT Vimovo 375 Yes 1 tabs, Romulo analilia mg-20 mg 8-12 Oral, BID, l oral 16:03: # 60 tabs, Rom delayed 00 0 release Refill(s), tablet pain gabapentin Yes 300 mg = 1 M emoria 300 mg oral 8-12 caps, l capsule 16:03: Oral, TID, Herm otf 00 0 Refill(s), pain ALPRAZolam Yes 0.25 mg, Mem oria 8-12 Oral, BID, l 16:03: 0 [place] 00 Refill(s), anxiety omeprazole Yes 20 mg = 1 Me moria 20 mg oral 8-12 tabs, l delayed 16:03: Oral, [place] release 00 Daily, 0 tablet Refill(s), acid reflux hydrochloro Yes 12.5 mg = M emoria thiazide 8-12 1 tabs, l 12.5 mg 16:03: Oral, Rom oral tablet 00 Daily, 0 Refill(s), hypertensi on ramipril 10 Yes 1 tab, Romulo analilia mg oral 8-12 Oral, l tablet 16:03: Daily, 0 Rom 00 Refill(s), hypertensi on estradiol Yes 0.5 mg = 1 Me moria 0.5 mg oral 8-12 tabs, l tablet 16:03: Oral, [place] 00 Daily, 0 Refill(s), hormone replacemen t [place] 375 Yes 1 tabs, Romulo analilia mg-20 mg 8-12 Oral, BID, l oral 16:03: # 60 tabs, Rom delayed 00 0 release Refill(s), tablet pain gabapentin Yes 300 mg = 1 M emoria 300 mg oral 8-12 caps, l capsule 16:03: Oral, TID, Herm otf 00 0 Refill(s), pain ALPRAZolam Yes 0.25 mg, Mem oria 8-12 Oral, BID, l 16:03: 0 Rom 00 Refill(s), anxiety omeprazole Yes 20 mg = 1 Me moria 20 mg oral 8-12 tabs, l delayed 16:03: Oral, [place] release 00 Daily, 0 tablet Refill(s), acid reflux hydrochloro Yes 12.5 mg = M emoria thiazide 8-12 1 tabs, l 12.5 mg 16:03: Oral, Rom oral tablet 00 Daily, 0 Refill(s), hypertensi on ramipril 10 Yes 1 tab, Romulo analilia mg oral 8-12 Oral, l tablet 16:03: Daily, 0 Rom 00 Refill(s), hypertensi on estradiol Yes 0.5 mg = 1 Me moria 0.5 mg oral 8-12 tabs, l tablet 16:03: Oral, Rom 00 Daily, 0 Refill(s), hormone replacemen t Folic Acid Folic Acid No 1{table QD Folic Acid 1 MG 1 MG t} 1 MG Galantamine Galantamine No QD Galantamin Hydrobromid Hydrobromid e e ER 8 MG e ER 8 MG Hydrobromi de ER 8 MG Eliquis 2.5 Eliquis 2.5 No Eliquis MG MG 2.5 MG Albuterol Albuterol No Albuterol Sulfate HFA Sulfate HFA Sulfate 108 (90 108 (90 HFA 108 Base) Base) (90 Base) MCG/ACT MCG/ACT MCG/ACT Lasix 40 MG Lasix 40 MG No 1{table QD Lasix 40 t} MG Aspirin 81 Aspirin 81 No 1{table QD Aspirin 81 81 MG 81 MG t} 81 MG Spironolact Spironolact No 1{table QD Spironolac one 50 MG one 50 MG t} tone 50 MG Folic Acid Folic Acid No 1{table QD Folic Acid 1 MG 1 MG t} 1 MG Spironolact Spironolact No 1{table QD Spironolac one 50 MG one 50 MG t} tone 50 MG traMADol traMADol No 1{table QD traMADol HCl 50 MG HCl 50 MG t_as_ne HCl 50 MG eded} Eliquis 2.5 Eliquis 2.5 No Eliquis MG MG 2.5 MG Metoprolol Metoprolol No 1{table BID Metoprolol Tartrate 50 Tartrate 50 t_with_ Tartrate MG MG food} 50 MG Ramipril 10 Ramipril 10 No 1{capsu BID Ramipril MG MG le} 10 MG Folic Acid Folic Acid No 1{table QD Folic Acid 1 MG 1 MG t} 1 MG Galantamine Galantamine No QD Galantamin Hydrobromid Hydrobromid e e ER 8 MG e ER 8 MG Hydrobromi de ER 8 MG Gabapentin Gabapentin No Gabapentin 600 MG 600 MG 600 MG Carbidopa-L Carbidopa-L No 1{table BID Carbidopa- evodopa ER evodopa ER t} Levodopa 50-200 MG 50-200 MG ER 50-200 MG Aspirin 81 Aspirin 81 No 1{table QD Aspirin 81 81 MG 81 MG t} 81 MG amLODIPine amLODIPine No 1{table QD amLODIPine Besylate 5 Besylate 5 t} Besylate 5 MG MG MG Gabapentin Gabapentin No 1{table BID Gabapentin 600 MG 600 MG t_as_ne 600 MG eded} Pramipexole Pramipexole No Pramipexol Dihydrochlo Dihydrochlo e ride ER ride ER Dihydrochl 0.375 MG 0.375 MG oride ER 0.375 MG Furosemide Furosemide No 1{table QD Furosemide 40 MG 40 MG t} 40 MG Citalopram Citalopram No 1{table QD Citalopram Hydrobromid Hydrobromid t} Hydrobromi e 10 MG e 10 MG de 10 MG Lasix 40 MG Lasix 40 MG No 1{table QD Lasix 40 t} MG Citalopram Citalopram No 1{table QD Citalopram Hydrobromid Hydrobromid t} Hydrobromi e 10 MG e 10 MG de 10 MG Albuterol Albuterol No Albuterol Sulfate HFA Sulfate HFA Sulfate 108 (90 108 (90 HFA 108 Base) Base) (90 Base) MCG/ACT MCG/ACT MCG/ACT Aspirin 81 Aspirin 81 No 1{table QD Aspirin 81 81 MG 81 MG t} 81 MG Albuterol Albuterol No Albuterol Sulfate HFA Sulfate HFA Sulfate 108 (90 108 (90 HFA 108 Base) Base) (90 Base) MCG/ACT MCG/ACT MCG/ACT Omeprazole Omeprazole No QD Omeprazole 20 MG 20 MG 20 MG Gabapentin Gabapentin No 1{table TID Gabapentin 600 MG 600 MG t_as_ne 600 MG eded} Pramipexole Pramipexole No Pramipexol Dihydrochlo Dihydrochlo e ride ER ride ER Dihydrochl 0.375 MG 0.375 MG oride ER 0.375 MG ALPRAZolam ALPRAZolam No 1{table QD ALPRAZolam 0.25 MG 0.25 MG t_as_ne 0.25 MG eded} Folic Acid Folic Acid No 1{table QD Folic Acid 1 MG 1 MG t} 1 MG Folic Acid Folic Acid No 1{table QD Folic Acid 1 MG 1 MG t} 1 MG Metoprolol Metoprolol No 1{table BID Metoprolol Tartrate 25 Tartrate 25 t_with_ Tartrate MG MG food} 25 MG Carbidopa-L Carbidopa-L No 1{table BID Carbidopa- evodopa ER evodopa ER t} Levodopa 50-200 MG 50-200 MG ER 50-200 MG traMADol traMADol No 1{table QD traMADol HCl 50 MG HCl 50 MG t_as_ne HCl 50 MG eded} Ramipril 10 Ramipril 10 No 1{capsu BID Ramipril MG MG le} 10 MG amLODIPine amLODIPine No 1{table QD amLODIPine Besylate 5 Besylate 5 t} Besylate 5 MG MG MG Aspirin 81 Aspirin 81 No 1{table QD Aspirin 81 81 MG 81 MG t} 81 MG Albuterol Albuterol No Albuterol Sulfate HFA Sulfate HFA Sulfate 108 (90 108 (90 HFA 108 Base) Base) (90 Base) MCG/ACT MCG/ACT MCG/ACT Omeprazole Omeprazole No QD Omeprazole 20 MG 20 MG 20 MG Gabapentin Gabapentin No 1{table TID Gabapentin 600 MG 600 MG t_as_ne 600 MG eded} Pramipexole Pramipexole No Pramipexol Dihydrochlo Dihydrochlo e ride ER ride ER Dihydrochl 0.375 MG 0.375 MG oride ER 0.375 MG ALPRAZolam ALPRAZolam No 1{table QD ALPRAZolam 0.25 MG 0.25 MG t_as_ne 0.25 MG eded} Folic Acid Folic Acid No 1{table QD Folic Acid 1 MG 1 MG t} 1 MG Folic Acid Folic Acid No 1{table QD Folic Acid 1 MG 1 MG t} 1 MG Metoprolol Metoprolol No 1{table BID Metoprolol Tartrate 25 Tartrate 25 t_with_ Tartrate MG MG food} 25 MG Carbidopa-L Carbidopa-L No 1{table BID Carbidopa- evodopa ER evodopa ER t} Levodopa 50-200 MG 50-200 MG ER 50-200 MG traMADol traMADol No 1{table QD traMADol HCl 50 MG HCl 50 MG t_as_ne HCl 50 MG eded} Ramipril 10 Ramipril 10 No 1{capsu BID Ramipril MG MG le} 10 MG amLODIPine amLODIPine No 1{table QD amLODIPine Besylate 5 Besylate 5 t} Besylate 5 MG MG MG Pramipexole Pramipexole No Pramipexol Dihydrochlo Dihydrochlo e ride ER ride ER Dihydrochl 0.375 MG 0.375 MG oride ER 0.375 MG ALPRAZolam ALPRAZolam No 1{table QD ALPRAZolam 0.25 MG 0.25 MG t_as_ne 0.25 MG eded} Ramipril 10 Ramipril 10 No 1{capsu BID Ramipril MG MG le} 10 MG Omeprazole Omeprazole No QD Omeprazole 20 MG 20 MG 20 MG Carbidopa-L Carbidopa-L No 1{table BID Carbidopa- evodopa ER evodopa ER t} Levodopa 50-200 MG 50-200 MG ER 50-200 MG traMADol traMADol No 1{table QD traMADol HCl 50 MG HCl 50 MG t_as_ne HCl 50 MG eded} Aspirin 81 Aspirin 81 No 1{table QD Aspirin 81 81 MG 81 MG t} 81 MG Folic Acid Folic Acid No 1{table QD Folic Acid 1 MG 1 MG t} 1 MG Eliquis 2.5 Eliquis 2.5 No Eliquis MG MG 2.5 MG amLODIPine amLODIPine No 1{table QD amLODIPine Besylate 5 Besylate 5 t} Besylate 5 MG MG MG Folic Acid Folic Acid No 1{table QD Folic Acid 1 MG 1 MG t} 1 MG Metoprolol Metoprolol No 1{table BID Metoprolol Tartrate 50 Tartrate 50 t_with_ Tartrate MG MG food} 50 MG Gabapentin Gabapentin No 1{table TID Gabapentin 600 MG 600 MG t_as_ne 600 MG eded} Lasix 40 MG Lasix 40 MG No 1{table QD Lasix 40 t} MG Albuterol Albuterol No Albuterol Sulfate HFA Sulfate HFA Sulfate 108 (90 108 (90 HFA 108 Base) Base) (90 Base) MCG/ACT MCG/ACT MCG/ACT Pramipexole Pramipexole No Pramipexol Dihydrochlo Dihydrochlo e ride ER ride ER Dihydrochl 0.375 MG 0.375 MG oride ER 0.375 MG ALPRAZolam ALPRAZolam No 1{table QD ALPRAZolam 0.25 MG 0.25 MG t_as_ne 0.25 MG eded} Ramipril 10 Ramipril 10 No 1{capsu BID Ramipril MG MG le} 10 MG Omeprazole Omeprazole No QD Omeprazole 20 MG 20 MG 20 MG Carbidopa-L Carbidopa-L No 1{table BID Carbidopa- evodopa ER evodopa ER t} Levodopa 50-200 MG 50-200 MG ER 50-200 MG traMADol traMADol No 1{table QD traMADol HCl 50 MG HCl 50 MG t_as_ne HCl 50 MG eded} Aspirin 81 Aspirin 81 No 1{table QD Aspirin 81 81 MG 81 MG t} 81 MG Folic Acid Folic Acid No 1{table QD Folic Acid 1 MG 1 MG t} 1 MG Eliquis 2.5 Eliquis 2.5 No Eliquis MG MG 2.5 MG amLODIPine amLODIPine No 1{table QD amLODIPine Besylate 5 Besylate 5 t} Besylate 5 MG MG MG Folic Acid Folic Acid No 1{table QD Folic Acid 1 MG 1 MG t} 1 MG Metoprolol Metoprolol No 1{table BID Metoprolol Tartrate 50 Tartrate 50 t_with_ Tartrate MG MG food} 50 MG Gabapentin Gabapentin No 1{table TID Gabapentin 600 MG 600 MG t_as_ne 600 MG eded} Lasix 40 MG Lasix 40 MG No 1{table QD Lasix 40 t} MG Albuterol Albuterol No Albuterol Sulfate HFA Sulfate HFA Sulfate 108 (90 108 (90 HFA 108 Base) Base) (90 Base) MCG/ACT MCG/ACT MCG/ACT Carbidopa-L Carbidopa-L No 1{table BID Carbidopa- evodopa ER evodopa ER t} Levodopa 50-200 MG 50-200 MG ER 50-200 MG Pramipexole Pramipexole No Pramipexol Dihydrochlo Dihydrochlo e ride ER ride ER Dihydrochl 0.375 MG 0.375 MG oride ER 0.375 MG amLODIPine amLODIPine No 1{table QD amLODIPine Besylate 5 Besylate 5 t} Besylate 5 MG MG MG Ramipril 10 Ramipril 10 No 1{capsu BID Ramipril MG MG le} 10 MG traMADol traMADol No 1{table QD traMADol HCl 50 MG HCl 50 MG t_as_ne HCl 50 MG eded} Aspirin 81 Aspirin 81 No 1{table QD Aspirin 81 81 MG 81 MG t} 81 MG Folic Acid Folic Acid No 1{table QD Folic Acid 1 MG 1 MG t} 1 MG Furosemide Furosemide No 1{table QD Furosemide 40 MG 40 MG t} 40 MG Eliquis 2.5 Eliquis 2.5 No Eliquis MG MG 2.5 MG Folic Acid Folic Acid No 1{table QD Folic Acid 1 MG 1 MG t} 1 MG Metoprolol Metoprolol No 1{table BID Metoprolol Tartrate 50 Tartrate 50 t_with_ Tartrate MG MG food} 50 MG Omeprazole Omeprazole No QD Omeprazole 20 MG 20 MG 20 MG Albuterol Albuterol No Albuterol Sulfate HFA Sulfate HFA Sulfate 108 (90 108 (90 HFA 108 Base) Base) (90 Base) MCG/ACT MCG/ACT MCG/ACT Lasix 40 MG Lasix 40 MG No 1{table QD Lasix 40 t} MG Gabapentin Gabapentin No 1{table TID Gabapentin 600 MG 600 MG t_as_ne 600 MG eded} ALPRAZolam ALPRAZolam No 1{table QD ALPRAZolam 0.25 MG 0.25 MG t_as_ne 0.25 MG eded} Furosemide Furosemide No 1{table QD Furosemide 40 MG 40 MG t} 40 MG traMADol traMADol No 1{table QD traMADol HCl 50 MG HCl 50 MG t_as_ne HCl 50 MG eded} Albuterol Albuterol No Albuterol Sulfate HFA Sulfate HFA Sulfate 108 (90 108 (90 HFA 108 Base) Base) (90 Base) MCG/ACT MCG/ACT MCG/ACT Gabapentin Gabapentin No 1{table TID Gabapentin 600 MG 600 MG t_as_ne 600 MG eded} Eliquis 2.5 Eliquis 2.5 No Eliquis MG MG 2.5 MG ALPRAZolam ALPRAZolam No 1{table QD ALPRAZolam 0.25 MG 0.25 MG t_as_ne 0.25 MG eded} Ramipril 10 Ramipril 10 No 1{capsu BID Ramipril MG MG le} 10 MG Metoprolol Metoprolol No 1{table BID Metoprolol Tartrate 50 Tartrate 50 t_with_ Tartrate MG MG food} 50 MG Folic Acid Folic Acid No 1{table QD Folic Acid 1 MG 1 MG t} 1 MG Folic Acid Folic Acid No 1{table QD Folic Acid 1 MG 1 MG t} 1 MG Omeprazole Omeprazole No QD Omeprazole 20 MG 20 MG 20 MG Carbidopa-L Carbidopa-L No 1{table BID Carbidopa- evodopa ER evodopa ER t} Levodopa 50-200 MG 50-200 MG ER 50-200 MG amLODIPine amLODIPine No 1{table QD amLODIPine Besylate 5 Besylate 5 t} Besylate 5 MG MG MG Pramipexole Pramipexole No Pramipexol Dihydrochlo Dihydrochlo e ride ER ride ER Dihydrochl 0.375 MG 0.375 MG oride ER 0.375 MG Citalopram Citalopram No 1{table QD Citalopram Hydrobromid Hydrobromid t} Hydrobromi e 10 MG e 10 MG de 10 MG Lasix 40 MG Lasix 40 MG No 1{table QD Lasix 40 t} MG Aspirin 81 Aspirin 81 No 1{table QD Aspirin 81 81 MG 81 MG t} 81 MG Furosemide Furosemide No 1{table QD Furosemide 40 MG 40 MG t} 40 MG traMADol traMADol No 1{table QD traMADol HCl 50 MG HCl 50 MG t_as_ne HCl 50 MG eded} Albuterol Albuterol No Albuterol Sulfate HFA Sulfate HFA Sulfate 108 (90 108 (90 HFA 108 Base) Base) (90 Base) MCG/ACT MCG/ACT MCG/ACT Gabapentin Gabapentin No 1{table TID Gabapentin 600 MG 600 MG t_as_ne 600 MG eded} Eliquis 2.5 Eliquis 2.5 No Eliquis MG MG 2.5 MG ALPRAZolam ALPRAZolam No 1{table QD ALPRAZolam 0.25 MG 0.25 MG t_as_ne 0.25 MG eded} Ramipril 10 Ramipril 10 No 1{capsu BID Ramipril MG MG le} 10 MG Metoprolol Metoprolol No 1{table BID Metoprolol Tartrate 50 Tartrate 50 t_with_ Tartrate MG MG food} 50 MG Folic Acid Folic Acid No 1{table QD Folic Acid 1 MG 1 MG t} 1 MG Folic Acid Folic Acid No 1{table QD Folic Acid 1 MG 1 MG t} 1 MG Omeprazole Omeprazole No QD Omeprazole 20 MG 20 MG 20 MG Carbidopa-L Carbidopa-L No 1{table BID Carbidopa- evodopa ER evodopa ER t} Levodopa 50-200 MG 50-200 MG ER 50-200 MG amLODIPine amLODIPine No 1{table QD amLODIPine Besylate 5 Besylate 5 t} Besylate 5 MG MG MG Pramipexole Pramipexole No Pramipexol Dihydrochlo Dihydrochlo e ride ER ride ER Dihydrochl 0.375 MG 0.375 MG oride ER 0.375 MG Citalopram Citalopram No 1{table QD Citalopram Hydrobromid Hydrobromid t} Hydrobromi e 10 MG e 10 MG de 10 MG Lasix 40 MG Lasix 40 MG No 1{table QD Lasix 40 t} MG Aspirin 81 Aspirin 81 No 1{table QD Aspirin 81 81 MG 81 MG t} 81 MG Furosemide Furosemide No 1{table QD Furosemide 40 MG 40 MG t} 40 MG traMADol traMADol No 1{table QD traMADol HCl 50 MG HCl 50 MG t_as_ne HCl 50 MG eded} Albuterol Albuterol No Albuterol Sulfate HFA Sulfate HFA Sulfate 108 (90 108 (90 HFA 108 Base) Base) (90 Base) MCG/ACT MCG/ACT MCG/ACT Gabapentin Gabapentin No 1{table TID Gabapentin 600 MG 600 MG t_as_ne 600 MG eded} Eliquis 2.5 Eliquis 2.5 No Eliquis MG MG 2.5 MG ALPRAZolam ALPRAZolam No 1{table QD ALPRAZolam 0.25 MG 0.25 MG t_as_ne 0.25 MG eded} Ramipril 10 Ramipril 10 No 1{capsu BID Ramipril MG MG le} 10 MG Metoprolol Metoprolol No 1{table BID Metoprolol Tartrate 50 Tartrate 50 t_with_ Tartrate MG MG food} 50 MG Folic Acid Folic Acid No 1{table QD Folic Acid 1 MG 1 MG t} 1 MG Folic Acid Folic Acid No 1{table QD Folic Acid 1 MG 1 MG t} 1 MG Omeprazole Omeprazole No QD Omeprazole 20 MG 20 MG 20 MG Carbidopa-L Carbidopa-L No 1{table BID Carbidopa- evodopa ER evodopa ER t} Levodopa 50-200 MG 50-200 MG ER 50-200 MG amLODIPine amLODIPine No 1{table QD amLODIPine Besylate 5 Besylate 5 t} Besylate 5 MG MG MG Pramipexole Pramipexole No Pramipexol Dihydrochlo Dihydrochlo e ride ER ride ER Dihydrochl 0.375 MG 0.375 MG oride ER 0.375 MG Citalopram Citalopram No 1{table QD Citalopram Hydrobromid Hydrobromid t} Hydrobromi e 10 MG e 10 MG de 10 MG Lasix 40 MG Lasix 40 MG No 1{table QD Lasix 40 t} MG Aspirin 81 Aspirin 81 No 1{table QD Aspirin 81 81 MG 81 MG t} 81 MG Furosemide Furosemide No 1{table QD Furosemide 40 MG 40 MG t} 40 MG traMADol traMADol No 1{table QD traMADol HCl 50 MG HCl 50 MG t_as_ne HCl 50 MG eded} Albuterol Albuterol No Albuterol Sulfate HFA Sulfate HFA Sulfate 108 (90 108 (90 HFA 108 Base) Base) (90 Base) MCG/ACT MCG/ACT MCG/ACT Gabapentin Gabapentin No 1{table TID Gabapentin 600 MG 600 MG t_as_ne 600 MG eded} Eliquis 2.5 Eliquis 2.5 No Eliquis MG MG 2.5 MG ALPRAZolam ALPRAZolam No 1{table QD ALPRAZolam 0.25 MG 0.25 MG t_as_ne 0.25 MG eded} Ramipril 10 Ramipril 10 No 1{capsu BID Ramipril MG MG le} 10 MG Metoprolol Metoprolol No 1{table BID Metoprolol Tartrate 50 Tartrate 50 t_with_ Tartrate MG MG food} 50 MG Folic Acid Folic Acid No 1{table QD Folic Acid 1 MG 1 MG t} 1 MG Folic Acid Folic Acid No 1{table QD Folic Acid 1 MG 1 MG t} 1 MG Omeprazole Omeprazole No QD Omeprazole 20 MG 20 MG 20 MG Carbidopa-L Carbidopa-L No 1{table BID Carbidopa- evodopa ER evodopa ER t} Levodopa 50-200 MG 50-200 MG ER 50-200 MG amLODIPine amLODIPine No 1{table QD amLODIPine Besylate 5 Besylate 5 t} Besylate 5 MG MG MG Pramipexole Pramipexole No Pramipexol Dihydrochlo Dihydrochlo e ride ER ride ER Dihydrochl 0.375 MG 0.375 MG oride ER 0.375 MG Citalopram Citalopram No 1{table QD Citalopram Hydrobromid Hydrobromid t} Hydrobromi e 10 MG e 10 MG de 10 MG Lasix 40 MG Lasix 40 MG No 1{table QD Lasix 40 t} MG Aspirin 81 Aspirin 81 No 1{table QD Aspirin 81 81 MG 81 MG t} 81 MG Furosemide Furosemide No 1{table QD Furosemide 40 MG 40 MG t} 40 MG traMADol traMADol No 1{table QD traMADol HCl 50 MG HCl 50 MG t_as_ne HCl 50 MG eded} Albuterol Albuterol No Albuterol Sulfate HFA Sulfate HFA Sulfate 108 (90 108 (90 HFA 108 Base) Base) (90 Base) MCG/ACT MCG/ACT MCG/ACT Gabapentin Gabapentin No 1{table TID Gabapentin 600 MG 600 MG t_as_ne 600 MG eded} Eliquis 2.5 Eliquis 2.5 No Eliquis MG MG 2.5 MG ALPRAZolam ALPRAZolam No 1{table QD ALPRAZolam 0.25 MG 0.25 MG t_as_ne 0.25 MG eded} Ramipril 10 Ramipril 10 No 1{capsu BID Ramipril MG MG le} 10 MG Metoprolol Metoprolol No 1{table BID Metoprolol Tartrate 50 Tartrate 50 t_with_ Tartrate MG MG food} 50 MG Folic Acid Folic Acid No 1{table QD Folic Acid 1 MG 1 MG t} 1 MG Folic Acid Folic Acid No 1{table QD Folic Acid 1 MG 1 MG t} 1 MG Omeprazole Omeprazole No QD Omeprazole 20 MG 20 MG 20 MG Carbidopa-L Carbidopa-L No 1{table BID Carbidopa- evodopa ER evodopa ER t} Levodopa 50-200 MG 50-200 MG ER 50-200 MG amLODIPine amLODIPine No 1{table QD amLODIPine Besylate 5 Besylate 5 t} Besylate 5 MG MG MG Pramipexole Pramipexole No Pramipexol Dihydrochlo Dihydrochlo e ride ER ride ER Dihydrochl 0.375 MG 0.375 MG oride ER 0.375 MG Citalopram Citalopram No 1{table QD Citalopram Hydrobromid Hydrobromid t} Hydrobromi e 10 MG e 10 MG de 10 MG Lasix 40 MG Lasix 40 MG No 1{table QD Lasix 40 t} MG Aspirin 81 Aspirin 81 No 1{table QD Aspirin 81 81 MG 81 MG t} 81 MG traMADol traMADol No 1{table QD traMADol HCl 50 MG HCl 50 MG t_as_ne HCl 50 MG eded} Folic Acid Folic Acid No 1{table QD Folic Acid 1 MG 1 MG t} 1 MG Eliquis 2.5 Eliquis 2.5 No Eliquis MG MG 2.5 MG Gabapentin Gabapentin No 1{table TID Gabapentin 600 MG 600 MG t_as_ne 600 MG eded} Omeprazole Omeprazole No QD Omeprazole 20 MG 20 MG 20 MG Carbidopa-L Carbidopa-L No 1{table BID Carbidopa- evodopa ER evodopa ER t} Levodopa 50-200 MG 50-200 MG ER 50-200 MG Furosemide Furosemide No 1{table BID Furosemide 40 MG 40 MG t} 40 MG Ramipril 10 Ramipril 10 No 1{capsu BID Ramipril MG MG le} 10 MG Folic Acid Folic Acid No 1{table QD Folic Acid 1 MG 1 MG t} 1 MG ALPRAZolam ALPRAZolam No 1{table QD ALPRAZolam 0.25 MG 0.25 MG t_as_ne 0.25 MG eded} Metoprolol Metoprolol No 1{table BID Metoprolol Tartrate 50 Tartrate 50 t_with_ Tartrate MG MG food} 50 MG amLODIPine amLODIPine No 1{table QD amLODIPine Besylate 5 Besylate 5 t} Besylate 5 MG MG MG Spironolact Spironolact No 1{table QD Spironolac one 50 MG one 50 MG t} tone 50 MG Citalopram Citalopram No 1{table QD Citalopram Hydrobromid Hydrobromid t} Hydrobromi e 10 MG e 10 MG de 10 MG Galantamine Galantamine No QD Galantamin Hydrobromid Hydrobromid e e ER 8 MG e ER 8 MG Hydrobromi de ER 8 MG Aspirin 81 Aspirin 81 No 1{table QD Aspirin 81 81 MG 81 MG t} 81 MG Albuterol Albuterol No Albuterol Sulfate HFA Sulfate HFA Sulfate 108 (90 108 (90 HFA 108 Base) Base) (90 Base) MCG/ACT MCG/ACT MCG/ACT Lasix 40 MG Lasix 40 MG No 1{table QD Lasix 40 t} MG Pramipexole Pramipexole No Pramipexol Dihydrochlo Dihydrochlo e ride ER ride ER Dihydrochl 0.375 MG 0.375 MG oride ER 0.375 MG traMADol traMADol No 1{table QD traMADol HCl 50 MG HCl 50 MG t_as_ne HCl 50 MG eded} Folic Acid Folic Acid No 1{table QD Folic Acid 1 MG 1 MG t} 1 MG Eliquis 2.5 Eliquis 2.5 No Eliquis MG MG 2.5 MG Gabapentin Gabapentin No 1{table TID Gabapentin 600 MG 600 MG t_as_ne 600 MG eded} Omeprazole Omeprazole No QD Omeprazole 20 MG 20 MG 20 MG Carbidopa-L Carbidopa-L No 1{table BID Carbidopa- evodopa ER evodopa ER t} Levodopa 50-200 MG 50-200 MG ER 50-200 MG Furosemide Furosemide No 1{table BID Furosemide 40 MG 40 MG t} 40 MG Ramipril 10 Ramipril 10 No 1{capsu BID Ramipril MG MG le} 10 MG Folic Acid Folic Acid No 1{table QD Folic Acid 1 MG 1 MG t} 1 MG ALPRAZolam ALPRAZolam No 1{table QD ALPRAZolam 0.25 MG 0.25 MG t_as_ne 0.25 MG eded} Metoprolol Metoprolol No 1{table BID Metoprolol Tartrate 50 Tartrate 50 t_with_ Tartrate MG MG food} 50 MG amLODIPine amLODIPine No 1{table QD amLODIPine Besylate 5 Besylate 5 t} Besylate 5 MG MG MG Spironolact Spironolact No 1{table QD Spironolac one 50 MG one 50 MG t} tone 50 MG Citalopram Citalopram No 1{table QD Citalopram Hydrobromid Hydrobromid t} Hydrobromi e 10 MG e 10 MG de 10 MG Galantamine Galantamine No QD Galantamin Hydrobromid Hydrobromid e e ER 8 MG e ER 8 MG Hydrobromi de ER 8 MG Aspirin 81 Aspirin 81 No 1{table QD Aspirin 81 81 MG 81 MG t} 81 MG Albuterol Albuterol No Albuterol Sulfate HFA Sulfate HFA Sulfate 108 (90 108 (90 HFA 108 Base) Base) (90 Base) MCG/ACT MCG/ACT MCG/ACT Lasix 40 MG Lasix 40 MG No 1{table QD Lasix 40 t} MG Pramipexole Pramipexole No Pramipexol Dihydrochlo Dihydrochlo e ride ER ride ER Dihydrochl 0.375 MG 0.375 MG oride ER 0.375 MG Furosemide Furosemide No 1{table QD Furosemide 40 MG 40 MG t} 40 MG Eliquis 2.5 Eliquis 2.5 No Eliquis MG MG 2.5 MG Galantamine Galantamine No QD Galantamin Hydrobromid Hydrobromid e e ER 8 MG e ER 8 MG Hydrobromi de ER 8 MG traMADol traMADol No 1{table QD traMADol HCl 50 MG HCl 50 MG t_as_ne HCl 50 MG eded} Gabapentin Gabapentin No 1{table BID Gabapentin 600 MG 600 MG t_as_ne 600 MG eded} Folic Acid Folic Acid No 1{table QD Folic Acid 1 MG 1 MG t} 1 MG Spironolact Spironolact No 1{table QD Spironolac one 50 MG one 50 MG t} tone 50 MG Citalopram Citalopram No 1{table QD Citalopram Hydrobromid Hydrobromid t} Hydrobromi e 10 MG e 10 MG de 10 MG Folic Acid Folic Acid No 1{table QD Folic Acid 1 MG 1 MG t} 1 MG Lasix 40 MG Lasix 40 MG No 1{table QD Lasix 40 t} MG Pramipexole Pramipexole No Pramipexol Dihydrochlo Dihydrochlo e ride ER ride ER Dihydrochl 0.375 MG 0.375 MG oride ER 0.375 MG Omeprazole Omeprazole No QD Omeprazole 20 MG 20 MG 20 MG Albuterol Albuterol No Albuterol Sulfate HFA Sulfate HFA Sulfate 108 (90 108 (90 HFA 108 Base) Base) (90 Base) MCG/ACT MCG/ACT MCG/ACT Aspirin 81 Aspirin 81 No 1{table QD Aspirin 81 81 MG 81 MG t} 81 MG Carbidopa-L Carbidopa-L No 1{table BID Carbidopa- evodopa ER evodopa ER t} Levodopa 50-200 MG 50-200 MG ER 50-200 MG Ramipril 10 Ramipril 10 No 1{capsu BID Ramipril MG MG le} 10 MG Metoprolol Metoprolol No 1{table BID Metoprolol Tartrate 50 Tartrate 50 t_with_ Tartrate MG MG food} 50 MG amLODIPine amLODIPine No 1{table QD amLODIPine Besylate 5 Besylate 5 t} Besylate 5 MG MG MG Citalopram Citalopram No 1{table QD Citalopram Hydrobromid Hydrobromid t} Hydrobromi e 10 MG e 10 MG de 10 MG Furosemide Furosemide No 1{table QD Furosemide 40 MG 40 MG t} 40 MG Galantamine Galantamine No QD Galantamin Hydrobromid Hydrobromid e e ER 8 MG e ER 8 MG Hydrobromi de ER 8 MG Gabapentin Gabapentin No 1{table BID Gabapentin 600 MG 600 MG t_as_ne 600 MG eded} Folic Acid Folic Acid No 1{table QD Folic Acid 1 MG 1 MG t} 1 MG Spironolact Spironolact No 1{table QD Spironolac one 50 MG one 50 MG t} tone 50 MG Citalopram Citalopram No 1{table QD Citalopram Hydrobromid Hydrobromid t} Hydrobromi e 10 MG e 10 MG de 10 MG Folic Acid Folic Acid No 1{table QD Folic Acid 1 MG 1 MG t} 1 MG Lasix 40 MG Lasix 40 MG No 1{table QD Lasix 40 t} MG Carbidopa-L Carbidopa-L No 1{table BID Carbidopa- evodopa ER evodopa ER t} Levodopa 50-200 MG 50-200 MG ER 50-200 MG Pramipexole Pramipexole No Pramipexol Dihydrochlo Dihydrochlo e ride ER ride ER Dihydrochl 0.375 MG 0.375 MG oride ER 0.375 MG amLODIPine amLODIPine No 1{table QD amLODIPine Besylate 5 Besylate 5 t} Besylate 5 MG MG MG Citalopram Citalopram No 1{table QD Citalopram Hydrobromid Hydrobromid t} Hydrobromi e 10 MG e 10 MG de 10 MG traMADol traMADol No 1{table QD traMADol HCl 50 MG HCl 50 MG t_as_ne HCl 50 MG eded} Albuterol Albuterol No Albuterol Sulfate HFA Sulfate HFA Sulfate 108 (90 108 (90 HFA 108 Base) Base) (90 Base) MCG/ACT MCG/ACT MCG/ACT Ramipril 10 Ramipril 10 No 1{capsu BID Ramipril MG MG le} 10 MG Metoprolol Metoprolol No 1{table BID Metoprolol Tartrate 50 Tartrate 50 t_with_ Tartrate MG MG food} 50 MG Aspirin 81 Aspirin 81 No 1{table QD Aspirin 81 81 MG 81 MG t} 81 MG Eliquis 2.5 Eliquis 2.5 No Eliquis MG MG 2.5 MG Furosemide Furosemide No 1{table QD Furosemide 40 MG 40 MG t} 40 MG Galantamine Galantamine No QD Galantamin Hydrobromid Hydrobromid e e ER 8 MG e ER 8 MG Hydrobromi de ER 8 MG Gabapentin Gabapentin No 1{table BID Gabapentin 600 MG 600 MG t_as_ne 600 MG eded} Folic Acid Folic Acid No 1{table QD Folic Acid 1 MG 1 MG t} 1 MG Spironolact Spironolact No 1{table QD Spironolac one 50 MG one 50 MG t} tone 50 MG Citalopram Citalopram No 1{table QD Citalopram Hydrobromid Hydrobromid t} Hydrobromi e 10 MG e 10 MG de 10 MG Folic Acid Folic Acid No 1{table QD Folic Acid 1 MG 1 MG t} 1 MG Lasix 40 MG Lasix 40 MG No 1{table QD Lasix 40 t} MG Carbidopa-L Carbidopa-L No 1{table BID Carbidopa- evodopa ER evodopa ER t} Levodopa 50-200 MG 50-200 MG ER 50-200 MG Pramipexole Pramipexole No Pramipexol Dihydrochlo Dihydrochlo e ride ER ride ER Dihydrochl 0.375 MG 0.375 MG oride ER 0.375 MG amLODIPine amLODIPine No 1{table QD amLODIPine Besylate 5 Besylate 5 t} Besylate 5 MG MG MG Citalopram Citalopram No 1{table QD Citalopram Hydrobromid Hydrobromid t} Hydrobromi e 10 MG e 10 MG de 10 MG traMADol traMADol No 1{table QD traMADol HCl 50 MG HCl 50 MG t_as_ne HCl 50 MG eded} Albuterol Albuterol No Albuterol Sulfate HFA Sulfate HFA Sulfate 108 (90 108 (90 HFA 108 Base) Base) (90 Base) MCG/ACT MCG/ACT MCG/ACT Ramipril 10 Ramipril 10 No 1{capsu BID Ramipril MG MG le} 10 MG Metoprolol Metoprolol No 1{table BID Metoprolol Tartrate 50 Tartrate 50 t_with_ Tartrate MG MG food} 50 MG Aspirin 81 Aspirin 81 No 1{table QD Aspirin 81 81 MG 81 MG t} 81 MG Eliquis 2.5 Eliquis 2.5 No Eliquis MG MG 2.5 MG Furosemide Furosemide No 1{table QD Furosemide 40 MG 40 MG t} 40 MG Galantamine Galantamine No QD Galantamin Hydrobromid Hydrobromid e e ER 8 MG e ER 8 MG Hydrobromi de ER 8 MG Gabapentin Gabapentin No 1{table BID Gabapentin 600 MG 600 MG t_as_ne 600 MG eded} Folic Acid Folic Acid No 1{table QD Folic Acid 1 MG 1 MG t} 1 MG Spironolact Spironolact No 1{table QD Spironolac one 50 MG one 50 MG t} tone 50 MG Citalopram Citalopram No 1{table QD Citalopram Hydrobromid Hydrobromid t} Hydrobromi e 10 MG e 10 MG de 10 MG Folic Acid Folic Acid No 1{table QD Folic Acid 1 MG 1 MG t} 1 MG Lasix 40 MG Lasix 40 MG No 1{table QD Lasix 40 t} MG Carbidopa-L Carbidopa-L No 1{table BID Carbidopa- evodopa ER evodopa ER t} Levodopa 50-200 MG 50-200 MG ER 50-200 MG Pramipexole Pramipexole No Pramipexol Dihydrochlo Dihydrochlo e ride ER ride ER Dihydrochl 0.375 MG 0.375 MG oride ER 0.375 MG amLODIPine amLODIPine No 1{table QD amLODIPine Besylate 5 Besylate 5 t} Besylate 5 MG MG MG Citalopram Citalopram No 1{table QD Citalopram Hydrobromid Hydrobromid t} Hydrobromi e 10 MG e 10 MG de 10 MG traMADol traMADol No 1{table QD traMADol HCl 50 MG HCl 50 MG t_as_ne HCl 50 MG eded} Albuterol Albuterol No Albuterol Sulfate HFA Sulfate HFA Sulfate 108 (90 108 (90 HFA 108 Base) Base) (90 Base) MCG/ACT MCG/ACT MCG/ACT Ramipril 10 Ramipril 10 No 1{capsu BID Ramipril MG MG le} 10 MG Metoprolol Metoprolol No 1{table BID Metoprolol Tartrate 50 Tartrate 50 t_with_ Tartrate MG MG food} 50 MG Aspirin 81 Aspirin 81 No 1{table QD Aspirin 81 81 MG 81 MG t} 81 MG Eliquis 2.5 Eliquis 2.5 No Eliquis MG MG 2.5 MG Furosemide Furosemide No 1{table QD Furosemide 40 MG 40 MG t} 40 MG Galantamine Galantamine No QD Galantamin Hydrobromid Hydrobromid e e ER 8 MG e ER 8 MG Hydrobromi de ER 8 MG Gabapentin Gabapentin No 1{table BID Gabapentin 600 MG 600 MG t_as_ne 600 MG eded} Folic Acid Folic Acid No 1{table QD Folic Acid 1 MG 1 MG t} 1 MG Spironolact Spironolact No 1{table QD Spironolac one 50 MG one 50 MG t} tone 50 MG Citalopram Citalopram No 1{table QD Citalopram Hydrobromid Hydrobromid t} Hydrobromi e 10 MG e 10 MG de 10 MG Folic Acid Folic Acid No 1{table QD Folic Acid 1 MG 1 MG t} 1 MG Lasix 40 MG Lasix 40 MG No 1{table QD Lasix 40 t} MG Carbidopa-L Carbidopa-L No 1{table BID Carbidopa- evodopa ER evodopa ER t} Levodopa 50-200 MG 50-200 MG ER 50-200 MG Pramipexole Pramipexole No Pramipexol Dihydrochlo Dihydrochlo e ride ER ride ER Dihydrochl 0.375 MG 0.375 MG oride ER 0.375 MG amLODIPine amLODIPine No 1{table QD amLODIPine Besylate 5 Besylate 5 t} Besylate 5 MG MG MG Citalopram Citalopram No 1{table QD Citalopram Hydrobromid Hydrobromid t} Hydrobromi e 10 MG e 10 MG de 10 MG traMADol traMADol No 1{table QD traMADol HCl 50 MG HCl 50 MG t_as_ne HCl 50 MG eded} Albuterol Albuterol No Albuterol Sulfate HFA Sulfate HFA Sulfate 108 (90 108 (90 HFA 108 Base) Base) (90 Base) MCG/ACT MCG/ACT MCG/ACT Ramipril 10 Ramipril 10 No 1{capsu BID Ramipril MG MG le} 10 MG Metoprolol Metoprolol No 1{table BID Metoprolol Tartrate 50 Tartrate 50 t_with_ Tartrate MG MG food} 50 MG Aspirin 81 Aspirin 81 No 1{table QD Aspirin 81 81 MG 81 MG t} 81 MG Eliquis 2.5 Eliquis 2.5 No Eliquis MG MG 2.5 MG Gabapentin Gabapentin No 1{table BID Gabapentin 600 MG 600 MG t_as_ne 600 MG eded} Galantamine Galantamine No QD Galantamin Hydrobromid Hydrobromid e e ER 8 MG e ER 8 MG Hydrobromi de ER 8 MG Folic Acid Folic Acid No 1{table QD Folic Acid 1 MG 1 MG t} 1 MG traMADol traMADol No 1{table QD traMADol HCl 50 MG HCl 50 MG t_as_ne HCl 50 MG eded} Spironolact Spironolact No 1{table QD Spironolac one 50 MG one 50 MG t} tone 50 MG amLODIPine amLODIPine No 1{table QD amLODIPine Besylate 5 Besylate 5 t} Besylate 5 MG MG MG Furosemide Furosemide No 1{table QD Furosemide 40 MG 40 MG t} 40 MG Ramipril 10 Ramipril 10 No 1{capsu BID Ramipril MG MG le} 10 MG Metoprolol Metoprolol No 1{table BID Metoprolol Tartrate 50 Tartrate 50 t_with_ Tartrate MG MG food} 50 MG Carbidopa-L Carbidopa-L No 1{table BID Carbidopa- evodopa ER evodopa ER t} Levodopa 50-200 MG 50-200 MG ER 50-200 MG Pramipexole Pramipexole No Pramipexol Dihydrochlo Dihydrochlo e ride ER ride ER Dihydrochl 0.375 MG 0.375 MG oride ER 0.375 MG Folic Acid Folic Acid No 1{table QD Folic Acid 1 MG 1 MG t} 1 MG Eliquis 2.5 Eliquis 2.5 No Eliquis MG MG 2.5 MG Albuterol Albuterol No Albuterol Sulfate HFA Sulfate HFA Sulfate 108 (90 108 (90 HFA 108 Base) Base) (90 Base) MCG/ACT MCG/ACT MCG/ACT Citalopram Citalopram No 1{table QD Citalopram Hydrobromid Hydrobromid t} Hydrobromi e 10 MG e 10 MG de 10 MG Citalopram Citalopram No 1{table QD Citalopram Hydrobromid Hydrobromid t} Hydrobromi e 10 MG e 10 MG de 10 MG Lasix 40 MG Lasix 40 MG No 1{table QD Lasix 40 t} MG Aspirin 81 Aspirin 81 No 1{table QD Aspirin 81 81 MG 81 MG t} 81 MG ALPRAZolam ALPRAZolam No QD ALPRAZolam 0.25 MG 0.25 MG 0.25 MG Spironolact Spironolact No 1{table QD Spironolac one 50 MG one 50 MG t} tone 50 MG Gabapentin Gabapentin No 1{table BID Gabapentin 600 MG 600 MG t_as_ne 600 MG eded} Furosemide Furosemide No 1{table QD Furosemide 40 MG 40 MG t} 40 MG traMADol traMADol No 1{table QD traMADol HCl 50 MG HCl 50 MG t_as_ne HCl 50 MG eded} Folic Acid Folic Acid No 1{table QD Folic Acid 1 MG 1 MG t} 1 MG amLODIPine amLODIPine No 1{table QD amLODIPine Besylate 5 Besylate 5 t} Besylate 5 MG MG MG Ramipril 10 Ramipril 10 No 1{capsu BID Ramipril MG MG le} 10 MG Metoprolol Metoprolol No 1{table BID Metoprolol Tartrate 50 Tartrate 50 t_with_ Tartrate MG MG food} 50 MG Carbidopa-L Carbidopa-L No 1{table BID Carbidopa- evodopa ER evodopa ER t} Levodopa 50-200 MG 50-200 MG ER 50-200 MG Pramipexole Pramipexole No Pramipexol Dihydrochlo Dihydrochlo e ride ER ride ER Dihydrochl 0.375 MG 0.375 MG oride ER 0.375 MG Folic Acid Folic Acid No 1{table QD Folic Acid 1 MG 1 MG t} 1 MG Eliquis 2.5 Eliquis 2.5 No Eliquis MG MG 2.5 MG Albuterol Albuterol No Albuterol Sulfate HFA Sulfate HFA Sulfate 108 (90 108 (90 HFA 108 Base) Base) (90 Base) MCG/ACT MCG/ACT MCG/ACT Citalopram Citalopram No 1{table QD Citalopram Hydrobromid Hydrobromid t} Hydrobromi e 10 MG e 10 MG de 10 MG Citalopram Citalopram No 1{table QD Citalopram Hydrobromid Hydrobromid t} Hydrobromi e 10 MG e 10 MG de 10 MG Lasix 40 MG Lasix 40 MG No 1{table QD Lasix 40 t} MG Aspirin 81 Aspirin 81 No 1{table QD Aspirin 81 81 MG 81 MG t} 81 MG Galantamine Galantamine No QD Galantamin Hydrobromid Hydrobromid e e ER 8 MG e ER 8 MG Hydrobromi de ER 8 MG Furosemide Furosemide No 1{table QD Furosemide 40 MG 40 MG t} 40 MG Folic Acid Folic Acid No 1{table QD Folic Acid 1 MG 1 MG t} 1 MG Citalopram Citalopram No 1{table QD Citalopram Hydrobromid Hydrobromid t} Hydrobromi e 10 MG e 10 MG de 10 MG traMADol traMADol No 1{table QD traMADol HCl 50 MG HCl 50 MG t_as_ne HCl 50 MG eded} amLODIPine amLODIPine No 1{table QD amLODIPine Besylate 5 Besylate 5 t} Besylate 5 MG MG MG Gabapentin Gabapentin No Gabapentin 600 MG 600 MG 600 MG Ramipril 10 Ramipril 10 No 1{capsu BID Ramipril MG MG le} 10 MG Metoprolol Metoprolol No 1{table BID Metoprolol Tartrate 50 Tartrate 50 t_with_ Tartrate MG MG food} 50 MG Carbidopa-L Carbidopa-L No 1{table BID Carbidopa- evodopa ER evodopa ER t} Levodopa 50-200 MG 50-200 MG ER 50-200 MG Pramipexole Pramipexole No Pramipexol Dihydrochlo Dihydrochlo e ride ER ride ER Dihydrochl 0.375 MG 0.375 MG oride ER 0.375 MG Folic Acid Folic Acid No 1{table QD Folic Acid 1 MG 1 MG t} 1 MG Galantamine Galantamine No QD Galantamin Hydrobromid Hydrobromid e e ER 8 MG e ER 8 MG Hydrobromi de ER 8 MG Eliquis 2.5 Eliquis 2.5 No Eliquis MG MG 2.5 MG Albuterol Albuterol No Albuterol Sulfate HFA Sulfate HFA Sulfate 108 (90 108 (90 HFA 108 Base) Base) (90 Base) MCG/ACT MCG/ACT MCG/ACT Lasix 40 MG Lasix 40 MG No 1{table QD Lasix 40 t} MG Aspirin 81 Aspirin 81 No 1{table QD Aspirin 81 81 MG 81 MG t} 81 MG Spironolact Spironolact No 1{table QD Spironolac one 50 MG one 50 MG t} tone 50 MG Folic Acid Folic Acid No 1{table QD Folic Acid 1 MG 1 MG t} 1 MG Spironolact Spironolact No 1{table QD Spironolac one 50 MG one 50 MG t} tone 50 MG traMADol traMADol No 1{table QD traMADol HCl 50 MG HCl 50 MG t_as_ne HCl 50 MG eded} Eliquis 2.5 Eliquis 2.5 No Eliquis MG MG 2.5 MG Metoprolol Metoprolol No 1{table BID Metoprolol Tartrate 50 Tartrate 50 t_with_ Tartrate MG MG food} 50 MG Ramipril 10 Ramipril 10 No 1{capsu BID Ramipril MG MG le} 10 MG Folic Acid Folic Acid No 1{table QD Folic Acid 1 MG 1 MG t} 1 MG Galantamine Galantamine No QD Galantamin Hydrobromid Hydrobromid e e ER 8 MG e ER 8 MG Hydrobromi de ER 8 MG Gabapentin Gabapentin No Gabapentin 600 MG 600 MG 600 MG Carbidopa-L Carbidopa-L No 1{table BID Carbidopa- evodopa ER evodopa ER t} Levodopa 50-200 MG 50-200 MG ER 50-200 MG Aspirin 81 Aspirin 81 No 1{table QD Aspirin 81 81 MG 81 MG t} 81 MG amLODIPine amLODIPine No 1{table QD amLODIPine Besylate 5 Besylate 5 t} Besylate 5 MG MG MG Gabapentin Gabapentin No 1{table BID Gabapentin 600 MG 600 MG t_as_ne 600 MG eded} Pramipexole Pramipexole No Pramipexol Dihydrochlo Dihydrochlo e ride ER ride ER Dihydrochl 0.375 MG 0.375 MG oride ER 0.375 MG Furosemide Furosemide No 1{table QD Furosemide 40 MG 40 MG t} 40 MG Citalopram Citalopram No 1{table QD Citalopram Hydrobromid Hydrobromid t} Hydrobromi e 10 MG e 10 MG de 10 MG Lasix 40 MG Lasix 40 MG No 1{table QD Lasix 40 t} MG Citalopram Citalopram No 1{table QD Citalopram Hydrobromid Hydrobromid t} Hydrobromi e 10 MG e 10 MG de 10 MG Albuterol Albuterol No Albuterol Sulfate HFA Sulfate HFA Sulfate 108 (90 108 (90 HFA 108 Base) Base) (90 Base) MCG/ACT MCG/ACT MCG/ACT Folic Acid Folic Acid No 1{table QD Folic Acid 1 MG 1 MG t} 1 MG Spironolact Spironolact No 1{table QD Spironolac one 50 MG one 50 MG t} tone 50 MG traMADol traMADol No 1{table QD traMADol HCl 50 MG HCl 50 MG t_as_ne HCl 50 MG eded} Eliquis 2.5 Eliquis 2.5 No Eliquis MG MG 2.5 MG Metoprolol Metoprolol No 1{table BID Metoprolol Tartrate 50 Tartrate 50 t_with_ Tartrate MG MG food} 50 MG Ramipril 10 Ramipril 10 No 1{capsu BID Ramipril MG MG le} 10 MG Folic Acid Folic Acid No 1{table QD Folic Acid 1 MG 1 MG t} 1 MG Galantamine Galantamine No QD Galantamin Hydrobromid Hydrobromid e e ER 8 MG e ER 8 MG Hydrobromi de ER 8 MG Gabapentin Gabapentin No Gabapentin 600 MG 600 MG 600 MG Carbidopa-L Carbidopa-L No 1{table BID Carbidopa- evodopa ER evodopa ER t} Levodopa 50-200 MG 50-200 MG ER 50-200 MG Aspirin 81 Aspirin 81 No 1{table QD Aspirin 81 81 MG 81 MG t} 81 MG amLODIPine amLODIPine No 1{table QD amLODIPine Besylate 5 Besylate 5 t} Besylate 5 MG MG MG Gabapentin Gabapentin No 1{table BID Gabapentin 600 MG 600 MG t_as_ne 600 MG eded} Pramipexole Pramipexole No Pramipexol Dihydrochlo Dihydrochlo e ride ER ride ER Dihydrochl 0.375 MG 0.375 MG oride ER 0.375 MG Furosemide Furosemide No 1{table QD Furosemide 40 MG 40 MG t} 40 MG Citalopram Citalopram No 1{table QD Citalopram Hydrobromid Hydrobromid t} Hydrobromi e 10 MG e 10 MG de 10 MG Lasix 40 MG Lasix 40 MG No 1{table QD Lasix 40 t} MG Citalopram Citalopram No 1{table QD Citalopram Hydrobromid Hydrobromid t} Hydrobromi e 10 MG e 10 MG de 10 MG Albuterol Albuterol No Albuterol Sulfate HFA Sulfate HFA Sulfate 108 (90 108 (90 HFA 108 Base) Base) (90 Base) MCG/ACT MCG/ACT MCG/ACT Eliquis 2.5 Eliquis 2.5 No Eliquis MG MG 2.5 MG Gabapentin Gabapentin No Gabapentin 600 MG 600 MG 600 MG Aspirin 81 Aspirin 81 No 1{table QD Aspirin 81 81 MG 81 MG t} 81 MG ALPRAZolam ALPRAZolam No QD ALPRAZolam 0.25 MG 0.25 MG 0.25 MG amLODIPine amLODIPine No 1{table QD amLODIPine Besylate 5 Besylate 5 t} Besylate 5 MG MG MG Gabapentin Gabapentin No 1{table BID Gabapentin 600 MG 600 MG t_as_ne 600 MG eded} Furosemide Furosemide No 1{table QD Furosemide 40 MG 40 MG t} 40 MG Galantamine Galantamine No QD Galantamin Hydrobromid Hydrobromid e e ER 8 MG e ER 8 MG Hydrobromi de ER 8 MG Albuterol Albuterol No Albuterol Sulfate HFA Sulfate HFA Sulfate 108 (90 108 (90 HFA 108 Base) Base) (90 Base) MCG/ACT MCG/ACT MCG/ACT Pramipexole Pramipexole No Pramipexol Dihydrochlo Dihydrochlo e ride ER ride ER Dihydrochl 0.375 MG 0.375 MG oride ER 0.375 MG Metoprolol Metoprolol No 1{table BID Metoprolol Tartrate 50 Tartrate 50 t_with_ Tartrate MG MG food} 50 MG Folic Acid Folic Acid No 1{table QD Folic Acid 1 MG 1 MG t} 1 MG Folic Acid Folic Acid No 1{table QD Folic Acid 1 MG 1 MG t} 1 MG Spironolact Spironolact No 1{table QD Spironolac one 50 MG one 50 MG t} tone 50 MG Citalopram Citalopram No Citalopram Hydrobromid Hydrobromid Hydrobromi e 10 MG e 10 MG de 10 MG traMADol traMADol No 1{table QD traMADol HCl 50 MG HCl 50 MG t_as_ne HCl 50 MG eded} Folic Acid Folic Acid No 1{table QD Folic Acid 1 MG 1 MG t} 1 MG Furosemide Furosemide No 1{table QD Furosemide 40 MG 40 MG t} 40 MG Citalopram Citalopram No 1{table QD Citalopram Hydrobromid Hydrobromid t} Hydrobromi e 10 MG e 10 MG de 10 MG Ramipril 10 Ramipril 10 No 1{capsu BID Ramipril MG MG le} 10 MG Lasix 40 MG Lasix 40 MG No 1{table QD Lasix 40 t} MG Carbidopa-L Carbidopa-L No 1{table BID Carbidopa- evodopa ER evodopa ER t} Levodopa 50-200 MG 50-200 MG ER 50-200 MG Citalopram Citalopram No 1{table QD Citalopram Hydrobromid Hydrobromid t} Hydrobromi e 10 MG e 10 MG de 10 MG traMADol traMADol No 1{table QD traMADol HCl 50 MG HCl 50 MG t_as_ne HCl 50 MG eded} ALPRAZolam ALPRAZolam No QD ALPRAZolam 0.25 MG 0.25 MG 0.25 MG Citalopram Citalopram No Citalopram Hydrobromid Hydrobromid Hydrobromi e 10 MG e 10 MG de 10 MG Albuterol Albuterol No Albuterol Sulfate HFA Sulfate HFA Sulfate 108 (90 108 (90 HFA 108 Base) Base) (90 Base) MCG/ACT MCG/ACT MCG/ACT amLODIPine amLODIPine No 1{table QD amLODIPine Besylate 5 Besylate 5 t} Besylate 5 MG MG MG Gabapentin Gabapentin No Gabapentin 600 MG 600 MG 600 MG Galantamine Galantamine No QD Galantamin Hydrobromid Hydrobromid e e ER 8 MG e ER 8 MG Hydrobromi de ER 8 MG traMADol traMADol No 1{table QD traMADol HCl 50 MG HCl 50 MG t_as_ne HCl 50 MG eded} Pramipexole Pramipexole No Pramipexol Dihydrochlo Dihydrochlo e ride ER ride ER Dihydrochl 0.375 MG 0.375 MG oride ER 0.375 MG Metoprolol Metoprolol No 1{table BID Metoprolol Tartrate 50 Tartrate 50 t_with_ Tartrate MG MG food} 50 MG Folic Acid Folic Acid No 1{table QD Folic Acid 1 MG 1 MG t} 1 MG Folic Acid Folic Acid No 1{table QD Folic Acid 1 MG 1 MG t} 1 MG Spironolact Spironolact No 1{table QD Spironolac one 50 MG one 50 MG t} tone 50 MG Carbidopa-L Carbidopa-L No 1{table BID Carbidopa- evodopa ER evodopa ER t} Levodopa 50-200 MG 50-200 MG ER 50-200 MG Aspirin 81 Aspirin 81 No 1{table QD Aspirin 81 81 MG 81 MG t} 81 MG Furosemide Furosemide No 1{table QD Furosemide 40 MG 40 MG t} 40 MG amLODIPine amLODIPine No 1{table QD amLODIPine Besylate 5 Besylate 5 t} Besylate 5 MG MG MG Ramipril 10 Ramipril 10 No 1{capsu BID Ramipril MG MG le} 10 MG Lasix 40 MG Lasix 40 MG No 1{table QD Lasix 40 t} MG Eliquis 2.5 Eliquis 2.5 No Eliquis MG MG 2.5 MG Gabapentin Gabapentin No Gabapentin 600 MG 600 MG 600 MG Ramipril 10 Ramipril 10 No 1{capsu BID Ramipril MG MG le} 10 MG Metoprolol Metoprolol No 1{table BID Metoprolol Tartrate 50 Tartrate 50 t_with_ Tartrate MG MG food} 50 MG Cyclobenzap Cyclobenzap No 1{table QD Cyclobenza rine HCl 5 rine HCl 5 t_at_be kee HCl MG MG dtime_a 5 MG s_neede d} Pramipexole Pramipexole No Pramipexol Dihydrochlo Dihydrochlo e ride ER ride ER Dihydrochl 0.375 MG 0.375 MG oride ER 0.375 MG Ramipril 10 Ramipril 10 No 1{capsu BID Ramipril MG MG le} 10 MG Eliquis 2.5 Eliquis 2.5 No Eliquis MG MG 2.5 MG Metoprolol Metoprolol No 1{table BID Metoprolol Tartrate 50 Tartrate 50 t_with_ Tartrate MG MG food} 50 MG Folic Acid Folic Acid No 1{table QD Folic Acid 1 MG 1 MG t} 1 MG Citalopram Citalopram No 1{table QD Citalopram Hydrobromid Hydrobromid t} Hydrobromi e 20 MG e 20 MG de 20 MG Gabapentin Gabapentin No Gabapentin 600 MG 600 MG 600 MG traMADol traMADol No 1{table QD traMADol HCl 50 MG HCl 50 MG t_as_ne HCl 50 MG eded} Lasix 40 MG Lasix 40 MG No 1{table QD Lasix 40 t} MG Galantamine Galantamine No QD Galantamin Hydrobromid Hydrobromid e e ER 8 MG e ER 8 MG Hydrobromi de ER 8 MG Albuterol Albuterol No Albuterol Sulfate HFA Sulfate HFA Sulfate 108 (90 108 (90 HFA 108 Base) Base) (90 Base) MCG/ACT MCG/ACT MCG/ACT Carbidopa-L Carbidopa-L No 1{table BID Carbidopa- evodopa ER evodopa ER t} Levodopa 50-200 MG 50-200 MG ER 50-200 MG Carbidopa-L Carbidopa-L No 1{table BID Carbidopa- evodopa ER evodopa ER t} Levodopa 50-200 MG 50-200 MG ER 50-200 MG Citalopram Citalopram No QD Citalopram Hydrobromid Hydrobromid Hydrobromi e 20 MG e 20 MG de 20 MG Gabapentin Gabapentin No 1{table BID Gabapentin 600 MG 600 MG t_as_ne 600 MG eded} Aspirin 81 Aspirin 81 No 1{table QD Aspirin 81 81 MG 81 MG t} 81 MG Furosemide Furosemide No 1{table QD Furosemide 40 MG 40 MG t} 40 MG Spironolact Spironolact No 1{table QD Spironolac one 25 MG one 25 MG t} tone 25 MG Pramipexole Pramipexole No Pramipexol Dihydrochlo Dihydrochlo e ride ER ride ER Dihydrochl 0.375 MG 0.375 MG oride ER 0.375 MG Immunizations Ordered Filled Immunization Date Status Comments Sourc e Immunization Name Name FluAD FluAD 2021-02-26 [facility] FluAD FluAD 2021-02-26 [facility]00 [facility] FluAD FluAD 2021-02-26 [facility] 11:25:00 [facility] FluAD FluAD 2021-02-26 [facility] 11:25:00 [facility] FluAD FluAD 2021-02-26 [facility] 11:25:00 [facility] FluAD FluAD 2021-02-26 [facility] 11:25:00 [facility] FluAD FluAD 2021-02-26 [facility] 11:25:00 [facility] FluAD FluAD 2021-02-26 [facility] 11:25:00 [facility] FluAD FluAD 2021-02-26 [facility] 11:25:00 [facility] FluAD FluAD 2021-02-26 [facility] 11:25:00 [facility] FluAD FluAD 2021-02-26 [facility] 11:25:00 [facility] FluAD FluAD 2021-02-26 [facility] 11:25:00 [facility] FluAD FluAD 2021-02-26 [facility] 11::00 [facility] FluAD FluAD 2021-02-26 [facility] 11::00 [facility] FluAD FluAD 2021-02-26 [facility] 11::00 [facility] FluAD FluAD 2021-02-26 [facility] 11:25:00 [facility] FluAD FluAD 2021-02-26 [facility] 11::00 [facility] FluAD FluAD 2021-02-26 [facility] 11:25:00 [facility] FluAD FluAD 2021-02-26 [facility] 11:25:00 [facility] FluAD FluAD 2021-02-26 [facility] 11:25:00 [facility] FluAD FluAD 2021-02-26 [facility] 11:25:00 [facility] FluAD FluAD 2021-02-26 [facility] 11:25:00 [facility] FluAD FluAD 2021-02-26 [facility] 11:25:00 [facility] FluAD FluAD 2021-02-26 [facility] 11:25:00 [facility] Shingrix Shingrix 2020-07-23 Completed [facility] 09:14:00 [facility] Prevnar 13 (PCV13) Prevnar 13 (PCV13) 2020-07-23 [facility]pleted [facility] 09:14:00 [facility] Shingrix Shingrix 2020-07-23 Com[facility] 09:14:00 [facility] Prevnar 13 (PCV13) Prevnar 13 (PCV13) 2020-07-23 [facility] 09:14:00 [facility] Shingrix Shingrix 2020-07-23 Com[facility] 09:14:00 [facility] Prevnar 13 (PCV13) Prevnar 13 (PCV13) 2020-07-23 [facility] 09:14:00 [facility] Shingrix Shingrix 2020-07-23 Com[facility] 09:14:00 [facility] Prevnar 13 (PCV13) Prevnar 13 (PCV13) 2020-07-23 [facility]pleted [facility] 09:14:00 [facility] Shingrix Shingrix 2020-07-23 Com[facility] 09:14:00 [facility] Prevnar 13 (PCV13) Prevnar 13 (PCV13) 2020-07-23 [facility] 09:14:00 [facility] Shingrix Shingrix 2020-07-23 Com[facility] 09:14:00 [facility] Prevnar 13 (PCV13) Prevnar 13 (PCV13) 2020-07-23 [facility] 09:14:00 [facility] Shingrix Shingrix 2020-07-23 Com[facility] 09:14:00 [facility] Prevnar 13 (PCV13) Prevnar 13 (PCV13) 2020-07-23 [facility] 09:14:00 [facility] Shingrix Shingrix 2020-07-23 Com[facility] 09:14:00 [facility] Prevnar 13 (PCV13) Prevnar 13 (PCV13) 2020-07-23 [facility] 09:14:00 [facility] Shingrix Shingrix 2020-07-23 Com[facility] 09:14:00 [facility] Prevnar 13 (PCV13) Prevnar 13 (PCV13) 2020-07-23 [facility] 09:14:00 [facility] Shingrix Shingrix 2020-07-23 Completed [facility] 09:14:00 [facility] Prevnar 13 (PCV13) Prevnar 13 (PCV13) 2020-07-23 [facility] 09:14:00 [facility] Shingrix Shingrix 2020-07-23 Com[facility] 09:14:00 [facility] Prevnar 13 (PCV13) Prevnar 13 (PCV13) 2020-07-23 [facility] 09:14:00 [facility] Shingrix Shingrix 2020-07-23 Completed [facility] 09:14:00 [facility] Prevnar 13 (PCV13) Prevnar 13 (PCV13) 2020-07-23 [facility]pleted [facility] 09:14:00 [facility] Shingrix Shingrix 2020-07-23 Completed [facility] 09:14:00 [facility] Prevnar 13 (PCV13) Prevnar 13 (PCV13) 2020-07-23 [facility] 09:14:00 [facility] Shingrix Shingrix 2020-07-23 Com[facility] 09:14:00 [facility] Prevnar 13 (PCV13) Prevnar 13 (PCV13) 2020-07-23 [facility] 09:14:00 [facility] Shingrix Shingrix 2020-07-23 Com[facility] 09:14:00 [facility] Prevnar 13 (PCV13) Prevnar 13 (PCV13) 2020-07-23 [facility] 09:14:00 [facility] Shingrix Shingrix 2020-07-23 Com[facility] 09:14:00 [facility] Prevnar 13 (PCV13) Prevnar 13 (PCV13) 2020-07-23 [facility] 09:14:00 [facility] Shingrix Shingrix 2020-07-23 Completed [facility] 09:14:00 [facility] Prevnar 13 (PCV13) Prevnar 13 (PCV13) 2020-07-23 [facility] 09:14:00 [facility] Shingrix Shingrix 2020-07-23 Com[facility] 09:14:00 [facility] Prevnar 13 (PCV13) Prevnar 13 (PCV13) 2020-07-23 [facility] 09:14:00 [facility] Shingrix Shingrix 2020-07-23 Com[facility] 09:14:00 [facility] Prevnar 13 (PCV13) Prevnar 13 (PCV13) 2020-07-23 [facility] 09:14:00 [facility] Shingrix Shingrix 2020-07-23 Com[facility] 09:14:00 [facility] Prevnar 13 (PCV13) Prevnar 13 (PCV13) 2020-07-23 [facility] 09:14:00 [facility] Shingrix Shingrix 2020-07-23 Com[facility] 09:14:00 [facility] Prevnar 13 (PCV13) Prevnar 13 (PCV13) 2020-07-23 [facility]pleted [facility] 09:14:00 [facility] Shingrix Shingrix 2020-07-23 Completed [facility] 09:14:00 [facility] Prevnar 13 (PCV13) Prevnar 13 (PCV13) 2020-07-23 [facility]pleted [facility] 09:14:00 [facility] Shingrix Shingrix 2020-07-23 Com[facility] 09:14:00 [facility] Prevnar 13 (PCV13) Prevnar 13 (PCV13) 2020-07-23 [facility] 09:14:00 [facility] Shingrix Shingrix 2020-07-23 Completed [facility] 09:14:00 [facility] Prevnar 13 (PCV13) Prevnar 13 (PCV13) 2020-07-23 [facility]pleted [facility] 09:14:00 [facility] Shingrix Shingrix 2020-07-23 Completed [facility] 09:14:00 [facility] Prevnar 13 (PCV13) Prevnar 13 (PCV13) 2020-07-23 [facility]pleted [facility] 09:14:00 [facility] Shingrix Shingrix 2020-07-23 Com[facility] 09:14:00 [facility] Prevnar 13 (PCV13) Prevnar 13 (PCV13) 2020-07-23 [facility] 09:14:00 [facility] FluAD FluAD 2020-03-16 Completed [facility] 09:13:00 [facility] FluAD FluAD 2020-03-16 Com[facility] 09:13:00 [facility] FluAD FluAD 2020-03-16 [facility] 09:13:00 [facility] FluAD FluAD 2020-03-16 [facility] 09:13:00 [facility] FluAD FluAD 2020-03-16 Com[facility] 09:13:00 [facility] FluAD FluAD 2020-03-16 [facility] 09:13:00 [facility] FluAD FluAD 2020-03-16 [facility] 09:13:00 [facility] FluAD FluAD 2020-03-16 Com[facility] 09:13:00 [facility] FluAD FluAD 2020-03-16 [facility] 09:13:00 [facility] FluAD FluAD 2020-03-16 [facility] 09:13:00 [facility] FluAD FluAD 2020-03-16 Com[facility] - 09:13:00 [facility] FluAD FluAD 2020-03-16 Com[facility] 09:13:00 [facility] FluAD FluAD 2020-03-16 Com[facility] 09:13:00 [facility] FluAD FluAD 2020-03-16 [facility] 09:13:00 [facility] FluAD FluAD 2020-03-16 [facility] 09:13:00 [facility] FluAD FluAD 2020-03-16 Com[facility] 09:13:00 [facility] FluAD FluAD 2020-03-16 Com[facility] 09:13:00 [facility] FluAD FluAD 2020-03-16 Com[facility] 09:13:00 [facility] FluAD FluAD 2020-03-16 Com[facility] 09:13:00 [facility] FluAD FluAD 2020-03-16 Com[facility] 09:13:00 [facility] FluAD FluAD 2020-03-16 Com[facility] 09:13:00 [facility] FluAD FluAD 2020-03-16 Com[facility] 09:13:00 [facility] FluAD FluAD 2020-03-16 Com[facility] 09:13:00 [facility] FluAD FluAD 2020-03-16 Com[facility] 09:13:00 [facility] FluAD FluAD 2020-03-16 Com[facility] 09:13:00 [facility] FluAD FluAD 2020-03-16 Com[facility] 09:13:00 [facility] Pneumovax (PPSV23) Pneumovax (PPSV23) 2019-05-16 Completed [facility] 09:19:00 [facility] Pneumovax (PPSV23) Pneumovax (PPSV23) 2019-05-16 Completed [facility] 09:19:00 [facility] Pneumovax (PPSV23) Pneumovax (PPSV23) 2019-05-16 Completed [facility] 09:19:00 [facility] Pneumovax (PPSV23) Pneumovax (PPSV23) 2019-05-16 Completed [facility] 09:19:00 [facility] Pneumovax (PPSV23) Pneumovax (PPSV23) 2019-05-16 Completed [facility] - 09:19:00 [facility] Pneumovax (PPSV23) Pneumovax (PPSV23) 2019-05-16 Completed [facility] 09:19:00 [facility] Pneumovax (PPSV23) Pneumovax (PPSV23) 2019-05-16 Completed [facility] 09:19:00 [facility] Pneumovax (PPSV23) Pneumovax (PPSV23) 2019-05-16 Completed [facility] 09:19:00 [facility] Pneumovax (PPSV23) Pneumovax (PPSV23) 2019-05-16 Completed [facility] 09:19:00 [facility] Pneumovax (PPSV23) Pneumovax (PPSV23) 2019-05-16 Completed [facility] - 09:19:00 [facility] Pneumovax (PPSV23) Pneumovax (PPSV23) 2019-05-16 Completed [facility] 09:19:00 [facility] Pneumovax (PPSV23) Pneumovax (PPSV23) 2019-05-16 Completed [facility] 09:19:00 [facility] Pneumovax (PPSV23) Pneumovax (PPSV23) 2019-05-16 Completed [facility] 09:19:00 [facility] Pneumovax (PPSV23) Pneumovax (PPSV23) 2019-05-16 Completed [facility] - 09:19:00 [facility] Pneumovax (PPSV23) Pneumovax (PPSV23) 2019-05-16 Completed [facility] - 09:19:00 [facility] Pneumovax (PPSV23) Pneumovax (PPSV23) 2019-05-16 Completed [facility] 09:19:00 [facility] Pneumovax (PPSV23) Pneumovax (PPSV23) 2019-05-16 Completed [facility] 09:19:00 [facility] Pneumovax (PPSV23) Pneumovax (PPSV23) 2019-05-16 Completed [facility] 09:19:00 [facility] Pneumovax (PPSV23) Pneumovax (PPSV23) 2019-05-16 Completed [facility] - 09:19:00 [facility] Pneumovax (PPSV23) Pneumovax (PPSV23) 2019-05-16 Completed [facility] - 09:19:00 [facility] Pneumovax (PPSV23) Pneumovax (PPSV23) 2019-05-16 Completed [facility] - 09:19:00 [facility] Pneumovax (PPSV23) Pneumovax (PPSV23) 2019-05-16 Completed [facility] 09:19:00 [facility] Pneumovax (PPSV23) Pneumovax (PPSV23) 2019-05-16 Completed [facility] 09:19:00 [facility] Pneumovax (PPSV23) Pneumovax (PPSV23) 2019-05-16 Completed [facility] - 09:19:00 [facility] Pneumovax (PPSV23) Pneumovax (PPSV23) 2019-05-16 Completed [facility] - 09:19:00 [facility] Pneumovax (PPSV23) Pneumovax (PPSV23) 2019-05-16 Completed [facility] - 09:19:00 [facility] Shingrix Shingrix 2019-04-15 Completed [facility] - 09:14:00 [facility] Shingrix Shingrix 2019-04-15 Completed [facility] - 09:14:00 [facility] Shingrix Shingrix 2019-04-15 Completed [facility] - 09:14:00 [facility] Shingrix Shingrix 2019-04-15 Completed [facility] 09:14:00 [facility] Shingrix Shingrix 2019-04-15 Completed [facility] - 09:14:00 [facility] Shingrix Shingrix 2019-04-15 Completed [facility] - 09:14:00 [facility] Shingrix Shingrix 2019-04-15 Completed [facility] - 09:14:00 [facility] Shingrix Shingrix 2019-04-15 Completed [facility] - 09:14:00 [facility] Shingrix Shingrix 2019-04-15 Completed [facility] - 09:14:00 [facility] Shingrix Shingrix 2019-04-15 Completed [facility] - 09:14:00 [facility] Shingrix Shingrix 2019-04-15 Completed [facility] - 09:14:00 [facility] Shingrix Shingrix 2019-04-15 Completed [facility] - 09:14:00 [facility] Shingrix Shingrix 2019-04-15 Completed [facility] - 09:14:00 [facility] Shingrix Shingrix 2019-04-15 Completed [facility] - 09:14:00 [facility] Shingrix Shingrix 2019-04-15 Completed [facility] 09:14:00 [facility] Shingrix Shingrix 2019-04-15 Completed [facility] - 09:14:00 [facility] Shingrix Shingrix 2019-04-15 Completed [facility] - 09:14:00 [facility] Shingrix Shingrix 2019-04-15 Completed [facility] - 09:14:00 [facility] Shingrix Shingrix 2019-04-15 Completed [facility] - 09:14:00 [facility] Shingrix Shingrix 2019-04-15 Completed [facility] - 09:14:00 [facility] Shingrix Shingrix 2019-04-15 Completed [facility] - 09:14:00 [facility] Shingrix Shingrix 2019-04-15 Completed [facility] 09:14:00 [facility] Shingrix Shingrix 2019-04-15 Completed [facility] - 09:14:00 [facility] Shingrix Shingrix 2019-04-15 Completed [facility] - 09:14:00 [facility] Shingrix Shingrix 2019-04-15 Completed [facility] 09:14:00 [facility] Shingrix Shingrix 2019-04-15 Completed [facility] 09[facility]14:00 [facility] Tetanus 2015-04-16 Completed [facility] Influenza, 2015-04-16 Completed [facility] Zoster 2015-04-16 Com[facility] Pneumococcal, 2014-02-14 Completed [facility] FluAD FluAD Unknown Completed [facility] FluAD FluAD Unknown Completed [facility] Shingrix Shingrix Unknown Completed [facility] Shingrix Shingrix Unknown Completed [facility] Pneumovax (PPSV23) Pneumovax (PPSV23) Unknown [facility] Prevnar 13 (PCV13) Prevnar 13 (PCV13) Unknown Completed [facility] Tetanus Unknown Com[facility] Influenza, Unknown [facility] Pneumococcal, Unknown Com[facility] Zoster Unknown [facility] influenza virus Unknown Completed [facility] vaccine, Rom inactivated<sup>1</ sup> influenza virus Unknown Completed [facility] vaccine, [place] inactivated<sup>1</ sup> Vital Signs Vital Name Observation Time Observation Value Comments Source height 2022-07-27 11:30:00 66 [in_i] [facility] weight 2022-07-27 11:30:00 167 [lb_av] [facility] temperature 2022-07-27 11:30:00 98 [degF] [facility] bmi 2022-07-27 11:30:00 26.95 kg/m2 [facility] blood pressure 2022-07-27 11:30:00 124 mm[Hg] [facility] - systolic [facility] blood pressure 2022-07-27 11:30:00 84 mm[Hg] [facility] diastolic [facility] height 2022-04-27 11:40:00 66 [in_i] [facility] weight 2022-04-27 11:40:00 156 [lb_av] [facility] temperature 2022-04-27 11:40:00 97 [degF] [facility] bmi 2022-04-27 11:40:00 25.18 kg/m2 [facility] blood pressure 2022-04-27 11:40:00 125 mm[Hg] [facility] systolic [facility] blood pressure 2022-04-27 11:40:00 72 mm[Hg] [facility] diastolic [facility] height 2022-02-24 16:40:00 66 [in_i] [facility] weight 2022-02-24 16:40:00 158 [lb_av] [facility] temperature 2022-02-24 16:40:00 98 [degF] [facility] bmi 2022-02-24 16:40:00 25.5 kg/m2 [facility] blood pressure 2022-02-24 16:40:00 128 mm[Hg] [facility] - systolic [facility] blood pressure 2022-02-24 16:40:00 70 mm[Hg] [facility] diastolic [facility] height 2021-11-26 13:00:00 66 [in_i] [facility] weight 2021-11-26 13:00:00 140 [lb_av] [facility] temperature 2021-11-26 13:00:00 97.4 [degF] [facility] bmi 2021-11-26 13:00:00 22.59 kg/m2 [facility] blood pressure 2021-11-26 13:00:00 125 mm[Hg] [facility] systolic [facility] blood pressure 2021-11-26 13:00:00 72 mm[Hg] [facility] diastolic [facility] height 2021-09-26 11:40:00 66 [in_i] [facility] weight 2021-09-26 11:40:00 145 [lb_av] [facility] temperature 2021-09-26 11:40:00 98 [degF] [facility] bmi 2021-09-26 11:40:00 23.40 kg/m2 [facility] blood pressure 2021-09-26 11:40:00 129 mm[Hg] [facility] systolic [facility] blood pressure 2021-09-26 11:40:00 74 mm[Hg] [facility] diastolic [facility] height 2021-09-25 11:00:00 66 [in_i] [facility] weight 2021-09-25 11:00:00 141.2 [lb_av] [facility] temperature 2021-09-25 11:00:00 98.6 [degF] [facility] bmi 2021-09-25 11:00:00 22.79 kg/m2 [facility] oximetry 2021-09-25 11:00:00 99 % [facility] respiratory rate 2021-09-25 11:00:00 16 /min [facility] blood pressure 2021-09-25 11:00:00 123 mm[Hg] [facility] - systolic [facility] blood pressure 2021-09-25 11:00:00 78 mm[Hg] [facility] - diastolic [facility] height 2021-06-16 15:10:00 66 [in_i] [facility] weight 2021-06-16 15:10:00 175 [lb_av] [facility] temperature 2021-06-16 15:10:00 98 [degF] [facility] bmi 2021-06-16 15:10:00 28.24 kg/m2 [facility] blood pressure 2021-06-16 15:10:00 129 mm[Hg] [facility] - systolic [facility] blood pressure 2021-06-16 15:10:00 76 mm[Hg] [facility] height 2021-03-12 11:20:00 66 [in_i] [facility] weight 2021-03-12 11:20:00 171.7 [lb_av] [facility] temperature 2021-03-12 11:20:00 97.2 [degF] [facility] bmi 2021-03-12 11:20:00 27.71 kg/m2 [facility] oximetry 2021-03-12 11:20:00 97 % [facility] respiratory rate 2021-03-12 11:20:00 18 /min [facility] blood pressure 2021-03-12 11:20:00 132 mm[Hg] [facility] systolic [facility] blood pressure 2021-03-12 11:20:00 87 mm[Hg] [facility] diastolic [facility] Systolic blood 2020-02-07 19:46:00 177 mm[Hg] Univer sity of pressure [facility] Diastolic blood 2020-02-07 19:46:00 108 mm[Hg] Unive rsity of pressure [facility] Heart rate 2020-02-07 19:46:00 61 /min [facility] Body height 2020-02-07 19:43:00 167.6 cm [facility] Body weight 2020-02-07 19:43:00 70.308 kg [facility] BMI 2020-02-07 19:43:00 25.02 kg/m2 [facility] Systolic (mm Hg) 2023-01-05 16:00:00 [facility] [place] Diastolic (mm Hg) 2023-01-05 16:00:00 [facility] Heart Rate 2023-01-05 16:00:00 [facility] [place] Height 2023-01-05 16:00:00 4 [ft_i] [facility] [place] [facility]23-01-05 16:00:00 [facility] 2023-01-05 16:00:00 [facility] Systolic (mm Hg) 2022-08-25 16:04:00 [facility] [place] Diastolic (mm Hg) 2022-08-25 16:04:00 [facility] Heart Rate 2022-08-25 16:04:00 [facility] [place] Height 2022-08-25 16:04:00 4 [ft_i] [facility] [place] Weight 2022-08-25 16:04:00 [facility] [place] BMI Calculated 2022-08-25 16:04:00 [facility] [place] Systolic (mm Hg) 2021-07-22 19:31:00 [facility] [place] Diastolic (mm Hg) 2021-07-22 19:31:00 [facility] [place] Heart Rate 2021-07-22 19:31:00 [facility] Respitory Rate 2021-07-22 19:31:00 [facility] [place] Height 2021-07-22 19:31:00 147.32 cm [facility] [place] Weight 2021-07-22 19:31:00 [facility] BMI Calculated 2021-07-22 19:31:00 [facility] [place] Systolic (mm Hg) 2020-10-08 20:34:00 [facility] [place] Diastolic (mm Hg) 2020-10-08 20:34:00 Mem orial [facility] Heart Rate 2020-10-08 20:34:00 [facility] [place] Respitory Rate 2020-10-08 20:34:00 [facility] Height 2020-10-08 20:34:00 147.32 cm [facility] [place] Weight 2020-10-08 20:34:00 [facility] BMI Calculated 2020-10-08 20:34:00 [facility] [place] Systolic (mm Hg) 2020-07-25 19:49:00 Rom[facility] Diastolic (mm Hg) 2020-07-25 19:49:00 Mem [facility] [place] Heart Rate 2020-07-25 19:49:00 [facility] [place] Respitory Rate 2020-07-25 19:49:00 [facility] [place] Height 2020-07-25 19:49:00 144.78 cm [facility] [place] Weight 2020-07-25 19:49:00 [facility] BMI Calculated 2020-07-25 19:49:00 [facility] al [facility] Systolic (mm Hg) 2019-07-20 20:33:00 Romulo rial Rom Diastolic (mm Hg) 2019-07-20 20:33:00 Mem orial [facility] Heart Rate 2019-07-20 20:33:00 [facility] Respitory Rate 2019-07-20 20:33:00 [facility] al [facility] Height 2019-07-20 20:33:00 149.86 cm [facility] Weight 2019-07-20 20:33:00 [facility] Rom BMI Calculated 2019-07-20 20:33:00 Memori al Rom Systolic (mm Hg) 2015-01-02 21:26:00 Romulo rial [place] Respitory Rate 2015-01-02 21:26:00 Memori al Rom Systolic (mm Hg) 2015-01-02 18:40:00 Romulo rial [place] Respitory Rate 2015-01-02 18:40:00 Memori al [facility] Respitory Rate 2015-01-02 18:30:00 [facility] al [facility] Systolic (mm Hg) 2015-01-02 18:30:00 Romulo rial Rom Temperature Oral (F) 2015-01-02 18:20:00 37 Floresita [facility] Height 2015-01-02 17:54:00 163 cm [facility] Weight 2015-01-02 17:54:00 [facility] Rom Temperature Oral (F) 2015-01-02 17:54:00 36.4 Floresita [facility] Weight 2014-12-26 15:53:00 [facility] Rom Height 2014-12-26 15:53:00 163 cm [facility] Procedures Procedure Date / Time Performed Performing Clinician [facility] e FLUOROSCOPIC GUIDANCE AND 2015-01-02 18:19:00 Marino Sotelo [place] LOCALIZATION OF NEEDLE OR CATHETER TIP 57291 (Right)<sup>1</sup> FLUOROSCOPIC GUIDANCE AND 2015-01-02 18:19:00 Marino Sotelo [place] LOCALIZATION OF NEEDLE OR CATHETER TIP 51806 (Right)<sup>1</sup> INJ.CATH PLACE OF 2015-01-02 18:19:00 Marino Sotelo [facility] ermann DIAG/THERA.SUBSTANCE EPIDURAL OR SUBARACHNOID LUMBAR/SACRAL 64639 (Right)<sup>2</sup> INJ.CATH PLACE OF 2015-01-02 18:19:00 Marino Sotelo [facility] ermann DIAG/THERA.SUBSTANCE EPIDURAL OR SUBARACHNOID LUMBAR/SACRAL 43875 (Right)<sup>2</sup> INJ.CATH PLACE OF 2015-01-02 18:19:00 Marino Sotelo [facility] ermann DIAG/THERA.SUBSTANCE EPIDURAL OR SUBARACHNOID LUMBAR/SACRAL ADDL LEVEL 49278 (Right)<sup>3</sup> INJ.CATH PLACE OF 2015-01-02 18:19:00 Marino Sotelo [facility] ermann DIAG/THERA.SUBSTANCE EPIDURAL OR SUBARACHNOID LUMBAR/SACRAL ADDL LEVEL 00184 (Right)<sup>3</sup> Injection(s), anesthetic 2015-01-02 05:00:00 Mem orial Rom agent and/or steroid, transforaminal epidural, with imaging guidance (fluoroscopy or CT); lumbar or sacral, each additional level (List separately in addition to code for primary procedure) Injection(s), anesthetic 2015-01-02 05:00:00 Mem orial Rom agent and/or steroid, transforaminal epidural, with imaging guidance (fluoroscopy or CT); lumbar or sacral, each additional level (List separately in addition to code for primary procedure) Injection(s), anesthetic 2015-01-02 05:00:00 Mem orial [facility] agent and/or steroid, transforaminal epidural, with imaging guidance (fluoroscopy or CT); lumbar or sacral, single level Injection(s), anesthetic 2015-01-02 05:00:00 Mem orial [facility] agent and/or steroid, transforaminal epidural, with imaging guidance (fluoroscopy or CT); lumbar or sacral, single level benign mass removed from 1988-05-17 00:00:00 Mem orial Rom colon benign mass removed from 1988-05-17 00:00:00 [facility] orial [place] colon hysterectomy 1972-05-17 00:00:[address] [facility] [place] [place] hysterectomy 1972-05-17 00:00:[address] [facility] [place] [place] abdominal surgery 1945-05-17 00:00:00 [facility] abdominal surgery 1945-05-17 00:00:00 [facility] epidural steroid injection Memor ial Rom epidural steroid injection Memor ial [facility] lumbar spine surgery x2 [facility] lumbar spine surgery x2 [facility] Plan of Care Planned Activity Planned Date Details Comments Source Future Scheduled 2023-03-11 COVID-19 VACCINE (#1) [facility] Test 07:58:09 [code = COVID-19 VACCINE (#1)] Future Scheduled 2023-03-11 65+ PNEUMOCOCCAL [facility] Test 07:58:09 VACCINE (1 - PCV) [code = 65+ PNEUMOCOCCAL VACCINE (1 - PCV)] Future Scheduled 2023-03-11 SHINGLES VACCINES (2 [facility] Test 07:58:09 of 3) [code = SHINGLES VACCINES (2 of 3)] Future Scheduled 2023-03-11 INFLUENZA VACCINE (#[facility]) [facility]:58[facility]09 [code = INFLUENZA VACCINE (#1)] Future Scheduled 2022-01-15 INFLUENZA VACCINE [facility] Test 08:01:55 [code = INFLUENZA VACCINE] Future Scheduled 2022-01-15 HEPATITIS B VACCINES [facility] Test 08:01:55 (1 of 3 - 3-dose series) [code = HEPATITIS B VACCINES (1 of 3 - 3-dose series)] Future Scheduled 2022-01-15 COVID-19 [facility]ACC[facility] 08:01:55 [code = COVID-19 VACCINE (#1)] Future Scheduled 2022-01-15 65+ PNEUMOCOCCAL [facility] Test 08:01:55 VACCINE (1 - PCV) [code = 65+ PNEUMOCOCCAL VACCINE (1 - PCV)] Future Scheduled 2022-01-15 SHINGLES VACCINES (2 [facility] Test 08:01:55 of 3) [code = SHINGLES VACCINES (2 of 3)] Encounters Start End Encounter Admission Attending Care Care Encounter Source Date/Time Date/Time Type Type Clinicians Facility Department ID 2023-02-09 [facility] [id number] Common 10:43:00 Jairon [id number] [facility] 2023-01-12 Outpatient , [facility] [id number] Common 10:05:00 Jairon [id number] [facility] 2022-07-23 Outpatient , [facility] [id number] Common 10:53:01 Jairon [id number] [facility] 2022-04-27 Outpatient , [facility] [id number] Common 11:05:02 Jairon [id number] [facility] 2022-04-23 Outpatient , [facility] [id number] Common 11:43:02 Jairon [id number] [facility] 2022 Outpatient , [facility] [id number] Common 10:58:01 Jairon [id number] [facility] 2022-02-27 Outpatient , [facility] [id number] Common 10:35:01 Jairon [id number] [facility] 2022-02-26 Outpatient , [facility] [id number] Common 08:58:01 Jairon [facility] 2021-09-25 Outpatient , [facility] [id number] Common 14:53:02 Jairon [facility] 2021-07-14 Outpatient , [facility] [id number] Common 13:35:01 Jairon [facility] 2021-06-11 Outpatient , [facility] [id number] Common 14:05:48 Jairon [id number] [facility] 2021-06-11 Outpatient , [facility] [id number] Common 14:01:15 Jairon [id number] [facility] 2021-06-11 Outpatient , [facility] [id number] Common 14:00:22 Jairon [id number] [facility] 2021-06-11 Outpatient , [facility] [id number] Common 13:53:15 Jairon 35105 [facility] 2021-06-11 Outpatient , [facility] [id number] Common 13:52:06 Jairon [id number] [facility] 2021-06-11 Outpatient , [facility] [id number] Common 12:56:21 Jairon [id number] [facility] 2021-06-11 Outpatient , [facility] [id number] Common 12:39:06 Jairon [id number] [facility] 2021-06-11 Outpatient , [facility] [id number] Common 12:37:45 Jairon [id number] [facility] 2023-04-20 2023-04-20 Outpatient MHIE MHIE [id number] Memoria 11:00:00 11:00:00 19 akiko Cueto 2023-04-20 2023-04-20 Outpatient MHIE MHIE [id number] Memoria 11:00:00 11:00:00 19 akiko Cueto 2023-01-05 2023-01-06 Outpatient MHIE MNA [id number] Memoria 16:15:00 04:59:59 Neurology 18 akiko Cueto 2023-01-05 2023-01-06 Outpatient MHIE MNA [id number] Memoria 16:15:00 04:59:59 Neurology 18 l Migdalia Cueto 2023-01-05 2023-01-05 Outpatient Everett MHMISCHER MHMISCHER [id number] 11:15:00 23:59:59 Gonzalo 18 Jeramie 2023-01-05 2023-01-05 Outpatient Everett MHMISCHER MHMISCHER [id number] 11:15:00 23:59:59 Gonzalo 18 Jeramie 2023-01-05 2023-01-05 Outpatient MHIE MHIE [id number] Memoria 11:15:00 11:15:00 18 akiko Cueto 2023-01-05 2023-01-05 Outpatient MHIE MHIE [id number] Memoria 11:15:00 11:15:00 18 akiko Cueto 2022-08-25 2022-08-26 Outpatient MHIE MNA [id number] Memoria 16:00:00 04:59:59 Neurology 17 akiko Jacobann 2022-08-25 2022-08-26 Outpatient MHIE MNA [id number] Memoria 16:00:00 04:59:59 Neurology 17 akiko Jacobann 2022-08-25 2022-08-25 Outpatient TODD FloydMISCHER MHMISCHER [id number] 11:00:00 23:59:59 Gonzalo 17 Jeramie 2022-08-25 2022-08-25 Outpatient Everett, MHMISCHER MHMISCHER [id number] 11:00:00 23:59:59 Gonzalo 17 Jeramie 2022-08-25 2022-08-25 Outpatient MHIE MHIE [id number] Memoria 11:00:00 11:00:00 17 akiko JacobRom 2022-08-25 2022-08-25 Outpatient MHIE MHIE [id number] Memoria 11:00:00 11:00:00 17 akiko JacobNaalehu 2022-08-112022-08-11 Ambulatory MHIE MNA [id number] Memoria 16:45:00 16:45:00 Pre-Reg Neurology 16 akiko Cueto 2022-08-11 2022-08-11 Ambulatory MHIE MNA [id number] Memoria 16:45:00 16:45:00 Pre-Reg Neurology 16 aikko Cueto 2022-08-11 2022-08-11 Outpatient [place], MHMISCHER MHMISCHER [id number] 11:45:00 11:45:00 Gonzalo Danuta Bobo 2022-08-11 2022-08-11 Outpatient [place], MHMISCHER MHMISCHER [id number] 11:45:00 11:45:00 Gonzalo Danuta Bobo 2022-07-27 2022-07-27 OFFICE [facility] ST[facility] [id number] Co mmon 00:00:00 00:00:00 VISIT [facility] ESTAB PT - CHI LEVEL 4 [facility] 2022-05-26 2022-05-26 Outpatient MHIE MHIE [id number] Memoria 13:45:00 13:45:00 16 akiko Cueto 2022-05-26 2022-05-26 Outpatient MHIE MHIE [id number] Memoria 13:45:00 13:45:00 16 akiko Cueto 2022-05-26 2022-05-26 (TEL) [facility] [id number] Co mmon 00:00:00 00:00:00 [facility] 2022-04-27 2022-04-27 OFFICE STLMLC STL[facility]C [id number] Co mmon 00:00:00 00:00:00 VISIT EST [facility] PT LEVEL 3 - [facility] 2022 2022 (TEL) STLMLC STLMLC [id number] Co mmon 00:00:00 00:00:00 [facility] 2022-02-24 2022-02-24 OFFICE STLMLC STLMLC [id number] Co mmon 00:00:00 00:00:00 [facility]IT [facility] PT - [facility]I LEVEL 4 [facility] 2022-02-10 2022-02-10 (TEL) STLMLC STLMLC [id number] Co mmon 00:00:00 00:00:00 [facility] - [facility] 2022-01-22 2022-01-23 Outpatient nullFlavo MNA [id number] Memoria 16:30:00 04:59:59 r Neurology 15 akiko Cueto 2022-01-22 2022-01-23 Outpatient nullFlavo MNA [id number] Memoria 16:30:00 04:59:59 r Neurology 15 akiko Jacboann 2022-01-22 2022-01-22 Outpatient [place], MHMISCHER MHMISCHER [id number] 11:30:00 23:59:59 Gonzalo Vern Bobo 2022-01-22 2022-01-22 Outpatient [place], MHMISCHER MHMISCHER [id number] 11:30:00 23:59:59 Gonzalo 15 Jeramie 2022-01-22 2022-01-22 Outpatient MHIE MHIE [id number] Memoria 11:30:00 11:30:00 15 akiko Cueto 2022-01-22 2022-01-22 Outpatient MHIE MHIE [id number] Memoria 11:30:00 11:30:00 15 akiko Naalehu 2021-12-07 2021-12-07 (WEB) STLMLC STLMLC [id number] Co mmon 00:00:00 00:00:00 [facility] 2021-11-26 2021-11-26 OFFICE STLMLC STLMLC [id number] Co mmon 00:00:00 00:00:00 VISIT [facility] LEVEL 4 [facility] 2021-10-27 2021-10-27 (TEL) STLMLC STLMLC [id number] Co mmon 00:00:00 00:00:00 [facility] 2021-10-22 2021-10-23 Outpatient nullFlavo MNA [id number] Memoria 19:45:00 04:59:59 r Neurology 14 l Migdalia Jacobann 2021-10-22 2021-10-23 Outpatient nullFlavo MNA [id number] Memoria 19:45:00 04:59:59 r Neurology 14 l Migdalia Naalehu 2021-10-232021-10-23 (WEB) STLMLC STLMLC [id number] Co mmon 00:00:00 00:00:00 [facility] 2021-10-23 2021-10-23 (WEB) STLMLC STLMLC [id number] Co mmon 00:00:00 00:00:00 [facility] 2021-10-22 2021-10-22 Outpatient Krell, MHMISCHER MHMISCHER [id number] 14:45:00 23:59:59 Gonzalo 14 Jeram[place] 2021-10-22 2021-10-22 Outpatient Krell, MHMISCHER MHMISCHER [id number] 14:45:00 23:59:59 Gonzalo 14 Jeram[place] 2021-10-22 2021-10-22 Outpatient MHIE MHIE [id number] Memoria 14:45:00 14:45:00 14 akiko Cueto 2021-10-22 2021-10-22 Outpatient MHIE MHIE [id number] Memoria 14:45:00 14:45:00 14 akiko Cueto 2021-10-05 2021-10-05 (WEB) STLMLC STLMLC [id number] Co mmon 00:00:00 00:00:00 [facility] 2021-09-26 2021-09-26 OFFICE STLMLC STLMLC [id number] Co mmon 00:00:00 00:00:00 VISIT [facility] ESTAB PT - CHI LEVEL 4 [facility] 2021-09-25 2021-09-25 (WEB) STLMLC STLMLC [id number] Co mmon 00:00:00 00:00:00 [facility] 2021-09-25 2021-09-25 SUB ANNUAL STLMLC STLMLC [id number] Common 00:00:00 00:00:00 MCR [facility] WELLNESS - [facility] VISIT [facility] 2021-09-10 2021-09-10 (TEL) STLMLC STLMLC [id number] Co mmon 00:00:00 00:00:00 [facility] 2021-08-26 2021-08-26 (TEL) STLMLC STLMLC [id number] Co mmon 00:00:00 00:00:00 [facility] 2021-07-30 2021-07-30 (WEB) STLMLC STLMLC [id number] Co mmon 00:00:00 00:00:00 [facility] 2021-07-22 2021-07-23 Outpatient nullFlavo MNA [id number] Memoria 19:45:00 05:59:59 r Neurology 13 akiko Rowland Na[facility]hu 2021-07-22 2021-07-23 Outpatient nullFlavo MNA [id number] Memoria 19:45:00 05:59:59 r Neurology 13 akiko [facility] 2021-07-22 2021-07-22 Outpatient MARLY FloydSCHER MHMISCHER [id number] 13:45:00 23:59:59 Gonzalo 13 [place] 2021-07-22 2021-07-22 Outpatient MARLY FloydSCHMARSHALL MHMISCHER [id number] 13:45:00 23:59:59 Gonzalo 13 [place] 2021-07-22 2021-07-22 Outpatient MHIE MHIE [id number] Memoria 13:45:00 13:45:00 13 akiko Naalehu 2021-07-22 2021-07-22 Outpatient MHIE MHIE [id number] Memoria 13:45:00 13:45:00 13 akiko Naalehu 2021-07-15 2021-07-15 (TEL) STLMLC STLMLC [id number] Co mmon 00:00:00 00:00:00 [facility] 2021-06-16 2021-06-16 OFFICE STLMLC STLMLC [id number] Co mmon 00:00:00 00:00:00 VISIT [facility] LEVEL 4 [facility] 2021-05-23 2021-05-24 Outpatient nullFlavo MNA [id number] Memoria 20:00:00 05:59:59 r Neurology 12 l Migdalia Naalehu 2021-05-23 2021-05-24 Outpatient nullFlavo MNA [id number] Memoria 20:00:00 05:59:59 r Neurology 12 l [facility] 2021-05-23 2021-05-23 Outpatient Krell, MHMISCHER MHMISCHER [id number] 14:00:00 23:59:59 Gonzalo 12 [place] 2021-05-23 2021-05-23 Outpatient [place], MHMISCHER MHMISCHER [id number] 14:00:00 23:59:59 Gonzalo 12 [place] 2021-05-23 2021-05-23 Outpatient MHIE MHIE [id number] Memoria 14:00:00 14:00:00 12 akiko Cueto 2021-05-23 2021-05-23 Outpatient MHIE MHIE [id number] Memoria 14:00:00 14:00:00 12 akiko Cueto 2021-04-25 2021-04-25 (TEL) STLMLC STLMLC [id number] Co mmon 00:00:00 00:00:00 [facility] 2021-04-23 2021-04-23 Ambulatory nullFlavo MNA [id number] Memoria 20:00:00 20:00:00 Pre-Reg r Neurology 11 akiko Cueto 2021-04-23 2021-04-23 Ambulatory nullFlavo MNA [id number] Memoria 20:00:00 20:00:00 Pre-Reg r Neurology 11 akiko Cueto 2021-04-23 2021-04-23 Outpatient MHIE MHIE [id number] Memoria 14:00:00 14:00:00 11 akiko Cueto 2021-04-23 2021-04-23 Outpatient MHIE MHIE [id number] Memoria 14:00:00 14:00:00 11 akiko Cueto 2021-04-23 2021-04-23 Outpatient [place], MHMISCHER MHMISCHER [id number] 14:00:00 14:00:00 Gonzalo 11 [place] 2021-04-23 2021-04-23 Outpatient [place], MHMISCHER MHMISCHER [id number] 14:00:00 14:00:00 Gonzalo 11 [place] 2021-03-24 2021-03-24 (TEL) STLMLC STLMLC [id number] Co mmon 00:00:00 00:00:00 [facility] 2021-03-12 2021-03-12 (HOSP F/U) STLMLC STLMLC [id number] Common 00:00:00 00:00:00 [facility] 2021-03-04 2021-03-04 (TEL) STLMLC STLMLC [id number] Co mmon 00:00:00 00:00:00 [facility] 2021-02-26 2021-02-26 (TEL) STLMLC STLMLC [id number] Co mmon 00:00:00 00:00:00 [facility] 2021-02-06 2021-02-06 Outpatient STLMLC STLMLC [id number] Common 00:00:00 00:00:00 [facility] 2021-02-04 2021-02-04 Outpatient STLMLC STLMLC [id number] Common 00:00:00 00:00:00 [facility] 2021-01-24 2021-01-24 Outpatient STLMLC STLMLC [id number] Common 00:00:00 00:00:00 [facility] 2021-01-21 2021-01-21 Outpatient STLMLC STLMLC [id number] Common 00:00:00 00:00:00 [facility] 2021-01-21 2021-01-21 Outpatient STLMLC STLMLC [id number] Common 00:00:00 00:00:00 [facility] 2021-01-09 2021-01-10 Outpatient nullFlavo MNA [id number] Memoria 15:30:00 04:59:59 r Neurology 10 l Migdalia Naalehu 2021-01-09 2021-01-10 Outpatient nullFlavo MNA [id number] Memoria 15:30:00 04:59:59 r Neurology 10 l Migdalia Cueto 2021-01-09 2021-01-09 Outpatient IDALMIS Floyd MHMISCHER [id number] 10:30:00 23:59:59 Gonzalo Bobo 2021-01-09 2021-01-09 Outpatient IDALMIS FloydMISCHER [id number] 10:30:00 23:59:59 Gonzalo Linda Bobo 2021-01-09 2021-01-09 Outpatient MHIE MHIE [id number] Memoria 10:30:00 10:30:00 10 akiko Cueto 2021-01-09 2021-01-09 Outpatient MHIE MHIE [id number] Memoria 10:30:00 10:30:00 10 akiko Cueto 2021-01-08 2021-01-08 Outpatient STLMLC STLMLC [id number] Common 00:00:00 00:00:00 [facility] 2020-11-19 2020-11-19 Ambulatory nullFlavo MNA [id number] Memoria 19:00:00 19:00:00 Pre-Reg r Neurology 09 l Rowland Naalehu 2020-11-19 2020-11-19 Ambulatory nullFlavo MNA [id number] Memoria 19:00:00 19:00:00 Pre-Reg r Neurology 09 akiko Rowland Na[place] 2020-11-19 2020-11-19 Outpatient MHIE MHIE [id number] Memoria 14:00:00 14:00:00 09 akiko Cueto 2020-11-19 2020-11-19 Outpatient MHIE MHIE [id number] Memoria 14:00:00 14:00:00 09 akiko Cueto 2020-11-19 2020-11-19 Outpatient TODD FloydMISCHER MHMISCHER [id number] 14:00:00 14:00:00 Gonzalo Dg Bobo 2020-11-19 2020-11-19 Outpatient MARLY FloydSCHER MHMISCHER [id number] 14:00:00 14:00:00 Gonzalo 09 Jeramie 2020-10-10 2020-10-10 Outpatient STLMLC STLMLC [id number] Common 00:00:00 00:00:00 [facility] 2020-10-08 2020-10-09 Outpatient nullFlavo MNA [id number] Memoria 20:45:00 04:59:59 r Neurology 08 l Rowland Naalehu 2020-10-08 2020-10-09 Outpatient nullFlavo MNA [id number] Memoria 20:45:00 04:59:59 [facility] 2020-10-08 Outpatient [place], MHMISCHER MHMISCHER [id number] 15:45:00 23:59:59 Gonzalo 08 Jeramie 2020-10-08 2020-10-08 Outpatient Everett MHMISCHER MHMISCHER [id number] 15:45:00 23:59:59 Gonzalo 08 Jeramie 2020-10-08 2020-10-08 Outpatient MHIE MHIE [id number] Memoria 15:45:00 15:45:00 08 akiko Cueto 2020-10-08 2020-10-08 Outpatient MHIE MHIE [id number] Memoria 15:45:00 15:45:00 08 akiko Cueto 2020-09-24 2020-09-24 Ambulatory nullFlavo MNA [id number] Memoria 16:45:00 16:45:00 Pre-Reg r Neurology 07 akiko Cueto 2020-09-24 2020-09-24 Ambulatory nullFlavo MNA [id number] Memoria 16:45:00 16:45:00 Pre-Reg r Neurology 07 akiko Cueto 2020-09-24 2020-09-24 Outpatient TODD FloydMISCHER MHMISCHER [id number] 11:45:00 11:45:00 Gonzalo Rupinder Bobo 2020-09-24 2020-09-24 Outpatient TODD FloydMISCHER MHMISCHER [id number] 11:45:00 11:45:00 Gonzalo Rupinder Bobo 2020-09-24 2020-09-24 Outpatient MHIE MHIE [id number] Memoria 09:15:00 09:15:00 07 akiko Cueto 2020-09-24 2020-09-24 Outpatient MHIE MHIE [id number] Memoria 09:15:00 09:15:00 07 akiok Cueto 2020-09-13 2020-09-13 Outpatient STLMLC STLMLC [id number] Common 00:00:00 00:00:00 [facility] 2020-09-10 2020-09-10 Outpatient STLMLC STLMLC [id number] Common 00:00:00 00:00:00 [facility] 2020-08-30 2020-08-30 Outpatient R DOV, [facility] [id number] Univers 14:00:00 14:00:00 QUINTIN [facility] 2020-08-09 2020-08-09 Outpatient [facility] [id number] 14:00:00 14:00:00 [facility] 2020-07-25 2020-07-26 Outpatient nullFlavo MNA [id number] Memoria 20:00:00 05:59:59 r Neurology 06 l Rowlanddiamond Jacobann 2020-07-25 2020-07-26 Outpatient nullFlavo MNA [id number] Memoria 20:00:00 05:59:59 r Neurology 06 l Rowlanddiamond Jacobann 2020-07-25 2020-07-25 Outpatient MARLY FloydSCHER MHMISCHER [id number] 14:00:00 23:59:59 Gonzalo Jessica Bobo 2020-07-25 2020-07-25 Outpatient MARLY FloydSCHER MHMISCHER [id number] 14:00:00 23:59:59 Gonzalo 06 [place]am[place] 2020-07-25 2020-07-25 Outpatient MHIE MHIE [id number] Memoria 14:00:00 14:00:00 06 akiko Cueto 2020-07-25 2020-07-25 Outpatient MHIE MHIE [id number] Memoria 14:00:00 14:00:00 06 akiko Cueto 2020-07-23 2020-07-23 Outpatient STLMLC STLMLC [id number] Common 00:00:00 00:00:00 [facility] 2020-04-26 2020-04-27 Outpatient nullFlavo MNA [id number] Memoria 16:45:00 05:59:59 r Neurology 05 l Rowland Rom 2020-04-26 2020-04-27 Outpatient nullFlavo MNA [id number] Memoria 16:45:00 05:59:59 r Neurology 05 l Rowland Rom 2020-04-26 2020-04-26 Outpatient MARLY FloydSCHER MHMISCHER [id number] 10:45:00 23:59:59 Gonzalo Teo Jeramie 2020-04-26 2020-04-26 Outpatient Krell, MHMISCHER MHMISCHER [id number] 10:45:00 23:59:59 Gonzalo 05 Jeramie 2020-04-26 2020-04-26 Outpatient MHIE MHIE [id number] Memoria 10:45:00 10:45:00 05 akiko Rom 2020-04-26 2020-04-26 Outpatient MHIE MHIE [id number] Memoria 10:45:00 10:45:00 05 akiko Cueto 2020-03-20 2020-03-20 Ambulatory nullFlavo MNA [id number] Memoria 17:15:00 17:15:00 Pre-Reg r Neurology 04 l Rowland Rom 2020-03-20 2020-03-20 Ambulatory nullFlavo MNA [id number] Memoria 17:15:00 17:15:00 Pre-Reg r Neurology 04 l Migdalia Cueto 2020-03-20 2020-03-20 Outpatient MHIE MHIE [id number] Memoria 11:15:00 11:15:00 04 akiko Cueto 2020-03-20 2020-03-20 Outpatient MHIE MHIE [id number] Memoria 11:15:00 11:15:00 04 akiko Cueto 2020-03-20 2020-03-20 Outpatient [place], MHMISCHER MHMISCHER [id number] 11:15:00 11:15:00 Gonzalo 04 [place] 2020-03-20 2020-03-20 Outpatient [place], MHMISCHER MHMISCHER [id number] 11:15:00 11:15:00 Gonzalo 04 [facility] 2020-02-07 2020-02-07 Office Yvette [email or web address] [phone] [id number] Univers 14:33:33 15:15:58 Visit Constance [facility] [id number] it y of Surgical [id number] [place] Specialti [id number] [place] [address] 2020-02-07 2020-02-07 Outpatient Fernando DELGADO [facility] [id number] Univers 14:30:00 14:30:00 CON[facility]ANCE [facility] 2020-01-19 2020-01-20 Outpatient nullFlavo MNA [id number] Memoria 16:15:00 04:59:59 r Neurology 03 l Migdalia Cueto 2020-01-19 2020-01-20 Outpatient nullFlavo MNA [id number] Memoria 16:15:00 04:59:59 r Neurology 03 l Migdalia Cueto 2020-01-19 2020-01-19 [id number] 11:15:00 23:59:59 Gonzalo 03 Jeramie 2020-01-19 2020-01-19 Outpatient [place] [facility] [id number] 11:15:00 23:59:59 Gonzalo 03 Jeramie 2020-01-19 2020-01-19 Outpatient MHIE MHIE [id number] Memoria 11:15:00 11:15:00 03 akiko Cu[place] 2020-01-19 2020-01-19 Outpatient MHIE MHIE [id number] Memoria 11:15:00 11:15:00 03 l [place] 2020-01-04 2020-01-06 Outside nullFlavo MNA [id number] Memoria 14:20:46 04:59:59 Medical r Neurology 00 l Records Migdalia Cueto 2020-01-04 2020-01-06 Outside nullFlavo MNA [id number] Memoria 14:20:46 04:59:59 Medical r Neurology 00 l Records Migdalia Cueto 2020-01-04 2020-01-05 [facility] [id number] 09:20:46 23:59:59 00 2020-01-04 2020-01-05 [facility] [id number] 09:20:46 23:59:59 00 2019-08-31 2019-08-31 Ambulatory nullFlavo MNA [id number] Memoria 20:30:00 20:30:00 Pre-Reg r Neurology 02 l Migdalia Cueto 2019-08-31 2019-08-31 Ambulatory nullFlavo MNA [id number] Memoria 20:30:00 20:30:00 Pre-Reg r Neurology 02 l Migdalia Jacobann 2019-08-31 2019-08-31 Outpatient MHIE MHIE [id number] Memoria 15:30:00 15:30:00 02 l Rom 2019-08-31 2019-08-31 Outpatient MHIE MHIE [id number] Memoria 15:30:00 15:30:00 02 akiko Rom 2019-08-31 2019-08-31 Outpatient [place], MHMISCHER MHMISCHER [id number] 15:30:00 15:30:00 Gonzalo Jeramie 2019-08-31 2019-08-31 Outpatient [place], MHMISCHER MHMISCHER [id number] 15:30:00 15:30:00 Gonzalo Jeramie 2019-07-20 2019-07-21 Outpatient nullFlavo MNA [id number] Memoria 20:00:00 05:59:59 r Neurology 01 l Migdalia Naalehu 2019-07-20 2019-07-21 Outpatient nullFlavo MNA [id number] Memoria 20:00:00 05:59:59 r Neurology 01 l Migdalia Naalehu 2019-07-20 2019-07-20 Outpatient [place], MHMISCHER MHMISCHER [id number] 14:00:00 23:59:59 Gonzalo Jeramie 2019-07-20 2019-07-20 Outpatient [place], MHMISCHER MHMISCHER [id number] 14:00:00 23:59:59 Gonzalo Jeramie 2019-07-20 2019-07-20 Outpatient MHIE MHIE [id number] Memoria 14:00:00 14:00:00 01 akiko Rom 2019-07-20 2019-07-20 Outpatient MHIE MHIE [id number] Memoria 14:00:00 14:00:00 01 akiko Cueto 2015-01-02 2015-01-02 Outpatient nullFlavo [facility] [id number] Memoria 11:42:57 14:00:00 r akiko Cueto 2015-01-02 2015-01-02 Outpatient [id number] Memoria 11:42:57 14:00:00 [id number] Alberto n [facility] 2015-01-02 2015-01-02 Outpatient nullFlavo [facility] [id number] Memoria 11:42:57 14:00:00 r akiko Cueto 2015-01-02 2015-01-02 Outpatient [id number] Memoria 11:42:57 14:00:00 [id number] 81.2000 Alberto dudley [facility] Results This patient has no known results.
[2023-03-23] MEDS ORDERED: LORazepam 2 MG/ML VIAL ONE (07:08)
[2023-03-23] MEDS ORDERED: DICYCLOMINE HCL 20 MG/2 ML AMP IM ONE (07:21)
[2023-03-23] MEDS ORDERED: NA CHLORIDE 0.9% 1,000 ML ONE (07:21)
[2023-03-23] MEDS ORDERED: NA CHLORIDE 0.9% 500 ML ONE (07:21)
[2023-03-23] MEDS ORDERED: MORPHINE 2 MG/ML SYR ONE (07:21)
[2023-03-23] MEDS ORDERED: DIPHENOX/ATROP SULF 1 TAB PO ONE (07:21)
[2023-03-23] MEDS ORDERED: ONDANSETRON 4 MG/2 ML VIAL ONE (07:23)
[2023-03-23 07:27] LABS: Absolute Lymphocytes (CBC) 0.6 K/uL (0.7-4.9); Lymphocytes % 2.5 % (15.3-44.8); MCV 82.6 fL (80-100); MPV 8.4 fL (7.6-11.3); Platelets 232 thou/uL (152-406); RBC Red Blood Cell Count 4.72 M/uL (3.86-4.86)
[2023-03-23 07:32] LABS: Protime INR 2.08
[2023-03-23 07:46] LABS: AST/SGOT 14 U/L (15-37); Albumin 4.1 g/dL (3.4-5.0); Alkaline Phosphatase 92 U/L (45-117); BUN Blood Urea Nitrogen 68 mg/dL (7-18); Bicarbonate 24 mEq/L (21-32); Bilirubin Direct 0.6 mg/dL (0-0.2); Bilirubin Indirect, Calculated 1.6 mg/dL (0.2-0.8); Bilirubin Total 2.2 mg/dL (0.2-1.0); Glomerular Filtration Rate 9 ml/min (=/>90); Glucose Level 173 mg/dL (74-106); NT PRO-BNP 14449 pg/mL (<450); Potassium 4.3 mEq/L (3.5-5.1); Protein, Total 9.2 g/dL (6.4-8.2); Sodium Level 136 mEq/L (136-145)
[2023-03-23 07:48] LABS: ALT/SGPT < 10 U/L (13-56)
--- NOTE | 2023-03-23 08:01 | RAD REPORT ---
EXAM DESCRIPTION: Kurt Single View03/23/2023 7:54 am CLINICAL HISTORY: Chest pain COMPARISON: 2021 FINDINGS: The lungs appear clear of acute infiltrate. The heart is moderately enlarged. Neurostimulator device in place IMPRESSION: No acute abnormalities displayed
[2023-03-23] MEDS ORDERED: NA CHLORIDE 0.9% 100 ML ONE (08:34)
[2023-03-23] MEDS ORDERED: CEFEPIME 1 GM/VIAL ONE (08:35)
[2023-03-23 08:56] LABS: Platelet Estimate ADEQ
[2023-03-23 08:57] LABS: Blood Morphology Comment NOT SEEN (NOT SEEN)
--- NOTE | 2023-03-23 09:05 | RAD REPORT ---
EXAM DESCRIPTION: CT - Abdomen Pelvis Wo Contrast - 03/23/2023 8:32 am CLINICAL HISTORY: Abdominal pain COMPARISON: 2017 TECHNIQUE: Computed axial tomography of the abdomen and pelvis was obtained. IV and oral contrast we re not requested. All CT scans are performed using dose optimization technique as appropriate and may include automated exposure control or mA/KV adjustment according to patient size. FINDINGS: The evaluation of solid organs, vessels and bowel is limited secondary to the lack of con trast administration. The stomach is dilated. Mild to moderate dilatation of jejunum. Mild dilatation of most of the ileum. Distal ileum normal caliber. Possible soft tissue hepatic flexure ascending colon Liver, spleen, pancreas and left kidney grossly normal. Small right renal cysts Prominent rotoscoliosis spine. Neurostimulator device in place IMPRESSION: Distal ileal obstruction. Apparent soft tissue hepatic flexure of the colon. This may simply be secondary to incomplete distent ion or a mass. Follow-up recommended
[2023-03-23 09:13] LABS: Specific Gravity 1.014 (1.005-1.030); Transitional Epithelial <5 /HPF (None Seen); Urine Bacteria <20 /HPF (<20); Urine Bilirubin NEGATIVE (Negative); Urine Blood Negative (Negative); Urine Clarity Extremely Turbid (Clear); Urine Color Yellow (Yellow); Urine Glucose NEGATIVE (Negative); Urine Protein TRACE (Negative); Urine RBC <5 /HPF (None Seen); Urine Urobilinogen Normal (Normal); Urine WBC Clump Occasional /HPF (None Seen)
--- NOTE | 2023-03-23 09:31 | EDPHYS ---
Physician Documentation [facility] Name: Kimberly Perez Age: 78 yrs Sex: Female : 1945 Arrival Date: 03/23/2023 Time: 06:25 Bed 7 Private MD: ED Physician Ayana Patel HPI: 03/23 06:46 This 78 yrs old Female presents to ER via EMS with complaints of pallor. sp4 06:47 PMH - Allergies: No Known Allergies Home Meds: Eliquis 2.5 mg Oral tab 1 tab 2 times sp4 per day; alprazolam 0.25 mg Oral tab 1 tab twice a day; aspirin 81 mg Oral chew 1 tab once daily; carbidopa-levodopa 48.75-195 mg Oral cpER 1 cap 3 times per day; metoprolol tartrate 50 mg Oral tab 1 tab once daily; gabapentin 600 mg Oral tab 1 tab 3 times per day; Lasix 40 mg Oral tab 1 tab once daily; pramipexole 0.375 mg Oral Tb24 1 tab once daily; folic acid 1 mg Oral tab 1 tab once daily; ramipril 10 mg Oral cap 1 cap 2 times per day; omeprazole 20 mg Oral cpDR 1 cap once daily; tramadol 50 mg Oral tab 1 tab twice a day; PMHx: neuropathy; Hypertension; coronary atherosclerosis; Anxiety; Parkinson's disease; GERD; chronic back pain PSHx: back sx; hysterectomy; colonoscopy; SCS implant; Tonsillectomy; . 06:53 78-year-old female presents with EMS complaining of 3 days of nausea vomiting sp4 persistent watery diarrhea associated with abdominal cramps. Patient is not sure if she has fever. . Historical: - Allergies: 06:36 No Known Allergies; km8 - Home Meds: 06:36 aspirin 81 mg Oral chew 1 tab once daily [Active]; omeprazole 20 mg Oral cpDR 1 cap km8 once daily [Active]; folic acid 1 mg Oral tab 1 tab once daily [Active]; metoprolol tartrate 50 mg Oral tab 1 tab once daily [Active]; carbidopa-levodopa 48.75-195 mg Oral cpER 1 cap 3 times per day [Active]; Lasix 40 mg Oral tab 1 tab once daily [Active]; Eliquis 2.5 mg Oral tab 1 tab 2 times per day [Active]; alprazolam 0.25 mg oral tablet daily [Active]; Ferrous Sulfate Oral [Active]; citalopram 20 mg tablet every day at bedtime [Active]; amiodarone 200 mg Oral tablet [Active]; gabapentin 600 mg Oral tab 1 tab 3 times per day [Active]; spironolactone 25 mg oral tablet daily [Active]; pramipexole 0.375 mg Oral Tb24 1 tab once daily [Active]; galantamine 8 mg oral tablet [Active]; - PMHx: 06:36 Anxiety; chronic back pain; coronary atherosclerosis; GERD; Hypertension; neuropathy; km8 Parkinson's disease; - PSHx: 06:36 back sx; colonoscopy; hysterectomy; SCS implant; Tonsillectomy; km8 - Immunization history:: Adult Immunizations up to date, Client reports receiving the 2nd dose of the Covid vaccine, Flu vaccine is not up to date. - Social history:: Smoking status: Patient denies any tobacco usage or history of. Patient/guardian denies using alcohol, street drugs. - Family history:: not pertinent. ROS: 06:53 Constitutional: Negative for fever, chills, and weight loss, positive generalized sp4 weakness, nausea, vomiting, diarrhea, feeling unwell 06:53 All other systems are negative, Exam: 06:53 Constitutional: This is a well developed, well nourished patient who is awake, alert, sp4 ill-appearing female generalized pallor persistent tremor and tachycardia, nontoxic-appearing Head/Face: Normocephalic, atraumatic. Eyes: Pupils equal round and reactive to light, extra-ocular motions intact. Lids and lashes normal. Conjunctiva and sclera are not injected. Cornea within normal limits. Periorbital areas with no swelling, redness, or edema. ENT: Nares patent. No nasal discharge, no septal abnormalities noted. Tympanic membranes are normal and external auditory canals are clear. Oropharynx with no redness, swelling, or masses, exudates, or evidence of obstruction, uvula midline. Mucous membranes moist. Neck: Trachea midline, no thyromegaly or masses palpated, and no cervical lymphadenopathy. Supple, full range of motion without nuchal rigidity, or vertebral point tenderness. Chest/axilla: Normal chest wall appearance and motion. Nontender with no deformity. No lesions are appreciated. Cardiovascular: Regular tachycardia. No gallops, murmurs, or rubs. Normal PMI, no JVD. No pulse deficits. Respiratory: Lungs have equal breath sounds bilaterally, clear to auscultation and percussion. No rales, rhonchi or wheezes noted. No increased work of breathing, no retractions or nasal flaring. Abdomen/GI: Soft, non-tender, with normal bowel sounds. No distension or tympany. No guarding or rebound. No evidence of tenderness throughout. Back: No spinal tenderness. No costovertebral tenderness. Skin: Warm, dry with normal turgor. with no rashes, no lesions, and no evidence of cellulitis. MS/ Extremity: Pulses equal, no cyanosis. Neurovascular intact. Full, normal range of motion. Generalized pallor Neuro: Awake and alert, GCS 15, oriented to person, place, time, and situation. Cranial nerves II-XII grossly intact. Motor strength 5/5 in all extremities. Sensory grossly intact. Persistent resting tremor Psych: Awake, alert, with orientation to person, place and time. Behavior, mood, and affect are within normal limits Vital Signs: 06:30 BP 117 / 88; Pulse 105; Resp 18; Temp 98.6(TE); Pulse Ox 100% ; Weight 69.85 kg (R); km8 Height 5 ft. 6 in. (R); Pain 4/10; 07:44 BP 121 / 80; Pulse 115; Resp 20 S; Pulse Ox 98% on R/A; kc6 09:00 BP 108 / 74; Pulse 118; Resp 18 S; Temp 98.4(O); Pulse Ox 100% on R/A; kc6 09:44 BP 91 / 60; Pulse 113; Resp 18 S; Pulse Ox 94% on R/A; kc6 11:09 BP 96 / 74; Pulse 106; Resp 18 S; Pulse Ox 94% on R/A; kc6 06:30 Body Mass Index 24.85 (69.85 kg, 167.64 cm) km8 06:30 Pain Scale: Adult km8 Marnie Coma Score: 06:34 Eye Response: spontaneous(4). Motor Response: obeys commands(6). Verbal Response: km8 oriented(5). Total: 15. MDM: 07:03 Patient medically screened. sp4 07:03 Data reviewed: vital signs, nurses notes, old medical records, lab test result(s), sp4 cardiac enzymes, CBC, electrolytes, Flu: hepatic panel, EKG. Transition of care: After a detail discussion of the patient's case, care is transferred to Ayana Patel MD. 07:28 ED course: Patient taken over by me from overnight cashier physician at 7 AM. Patient is sp3 78-year-old female with multiple medical problems including atrial fibrillation presents with nausea vomiting and diarrhea and a likely viral gastroenteritis pattern. She is currently still tachycardic in the 115 120 range but clinically dehydrated. Patient is receiving IV fluids and we will be able to better ascertain her tachycardia when she is hydrated and decide whether she needs AV edouard blocking agents for rate control. Disposition pending work-up and patient course with possible admission due to dehydration/atrial fibrillation.. 09:18 ED course: Patient is found to have a distal ileal obstruction on CT scan. Patient is sp3 however still having watery diarrhea which could be overflow around the obstruction. CT scan demonstrates could be possibly an external mass. Patient is also positive for urinary tract infection. Her sepsis could be related to either or both and cefepime IV has already been started. Renal function is also elevated which could be prerenal versus intrinsic renal failure. Given the degree of diarrhea I believe most of the symptoms are dehydration however her BNP is elevated and from a cardiac standpoint we will have to be cautious with IV fluids. Will discuss with general surgery and cardiology and then admit to internal medicine.. 09:29 ED course: Will admit to internal medicine. Discussed with Dr. Freire general surgery..sp3 03/23 06:48 Order name: Basic Metabolic Panel; Complete Time: 08: sp4 03/23 06:48 Order name: CBC with Diff; Complete Time: 09:15 sp4 03/23 06:48 Order name: LFT's; Complete Time: 08: sp4 03/23 06:48 Order name: Magnesium; Complete Time: 08: sp4 03/23 06:48 Order name: NT PRO-BNP; Complete Time: 08:06 sp4 03/23 06:48 Order name: PT-INR; Complete Time: 08: sp4 03/23 06:48 Order name: Troponin HS; Complete Time: 08: sp4 03/23 06:51 Order name: Lipase; Complete Time: 08:06 sp4 03/23 06:52 Order name: COVID-19 SARS RT PCR; Complete Time: 08:18 sp4 03/23 06:52 Order name: Influenza Screen (a \T\ B); Complete Time: 08:41 sp4 03/23 06:52 Order name: Blood Culture Adult (2) sp4 03/23 06:52 Order name: CRP; Complete Time: 08:06 sp4 03/23 08:19 Order name: UAM; Complete Time: 09:15 sp3 03/23 08:57 Order name: Manual Differential; Complete Time: 09:15 EDMS 03/23 09:16 Order name: Urine Culture EDMS 03/23 10:03 Order name: CBC with Automated Diff EDMS 03/23 10:03 Order name: CBC with Automated Diff EDMS 03/23 10:03 Order name: CBC with Automated Diff EDMS 03/23 10:03 Order name: CBC with Automated Diff EDMS 03/23 10:03 Order name: Lipid Profile EDMS 03/23 10:03 Order name: Lipid Profile EDMS 03/23 10:03 Order name: Magnesium EDMS 03/23 10:03 Order name: Magnesium EDMS 03/23 10:03 Order name: Magnesium EDMS 03/23 10:03 Order name: Magnesium EDMS 03/23 10:06 Order name: NT PRO-BNP EDMS 03/23 10:06 Order name: Comprehensive Metabolic Panel EDMS 03/23 10:06 Order name: Comprehensive Metabolic Panel EDMS 03/23 10:06 Order name: Comprehensive Metabolic Panel EDMS 03/23 10:06 Order name: Comprehensive Metabolic Panel EDMS 03/23 10:06 Order name: Phosphorus EDMS 03/23 10:06 Order name: Phosphorus EDMS 03/23 10:06 Order name: Phosphorus EDMS 03/23 10:06 Order name: Phosphorus EDMS 03/23 06:48 Order name: XRAY Chest (1 view); Complete Time: 08:06 sp4 03/23 08:17 Order name: CT Abd/Pelvis - Without Contrast; Complete Time: 09:15 sp3 03/23 06:48 Order name: EKG; Complete Time: 06:49 sp4 03/23 10:03 Order name: CONS Physician Consult EDMS 03/23 06:48 Order name: Cardiac monitoring; Complete Time: 06:53 sp4 03/23 06:48 Order name: EKG - Nurse/Tech; Complete Time: 06:53 sp4 03/23 06:48 Order name: IV Saline Lock; Complete Time: 06:53 sp4 03/23 06:48 Order name: Labs collected and sent; Complete Time: 07:42 sp4 03/23 06:48 Order name: O2 Per Protocol; Complete Time: 06:53 sp4 03/23 06:48 Order name: O2 Sat Monitoring; Complete Time: 06:53 sp4 03/23 08:19 Order name: Cath: Cath UA if pt cannot give sample in 20 minutes; Complete Time: 08:59 sp3 Administered Medications: 06:58 Drug: Ativan IVP 1 mg IVP once Route: IVP; Site: left antecubital; km8 08:05 Follow up: Response: No adverse reaction; Anxiety decreased kc6 07:30 Drug: Ondansetron IVP 8 mg IVP once; over 2 minutes Route: IVP; Site: right antecubital;kc6 08:05 Follow up: Response: No adverse reaction; Nausea is decreased; Vomiting decreased kc6 07:30 Drug: Diphenoxylate-Atropine PO 2 tabs PO once Route: PO; kc6 08:32 Follow up: Response: No adverse reaction kc6 07:30 Drug: NS 0.9% IV 1000 ml IV at 125 ml/hr continuous Route: IV; Rate: 125 ml/hr; Site: [facility] right antecubital; 11:44 Follow up: Response: No adverse reaction; IV Status: Infusion continued upon admission kc6 07:30 Drug: NS 0.9% IV 500 ml IV at bolus once Route: IV; Rate: bolus; Site: right kc6 antecubital; 08:32 Follow up: Response: No adverse reaction; IV Status: Completed infusion; IV Intake: kc6 500ml 07:30 Drug: morphine IVP or IV 2 mg IVP once over 4 mins Route: IVP; Infused Over: 4 mins; kc6 Site: right antecubital; 08:32 Follow up: Response: No adverse reaction; Pain is decreased; RASS: Alert and Calm (0) kc6 07:30 Drug: Dicyclomine IM 20 mg IM once Route: IM; Site: right deltoid; kc6 08:32 Follow up: Response: No adverse reaction kc6 08:45 Drug: Cefepime IVPB 1 grams IVPB at 200 ml/hr once over 30 mins; (mix in NS 100 mL) kc6 Route: IVPB; Rate: 200 ml/hr; Infused Over: 30 mins; Site: right antecubital; 09:13 Follow up: Response: No adverse reaction; IV Status: Completed infusion; IV Intake: kc6 100ml Disposition Summary: 03/23/23 09:30 Hospitalization Ordered Notes: Hospitalization Status: Inpatient Admission sp3 Provider: Cipriano Skelton sp3 Location: Tele[facility] (Inpatient) sp3 Condition: Fair sp3 Problem: an acute exacerbation sp3 Symptoms: have worsened sp3 Bed/Room Type: Standard sp3 Room Assignment: 415(03/23/23 10:58) bd Diagnosis - Bowel obstruction, urosepsis, acute kidney injury, dehydration, atrial sp3 fibrillation, CHF Forms: - Medication Reconciliation Form sp3 - SBAR form sp3 - Leadership Thank You Letter sp3 Signatures: Dispatcher [employer] EDMS Bridgette Christensen Setul, MD MD sp3 Olena Pedraza RN RN kc6 Sohan Camarillo MD MD sp4 Mae Rao RN RN km8 Corrections: (The following items were deleted from the chart) 06:41 06:36 Home Meds: alprazolam 0.25 mg Oral tab 1 tab twice a day; km8 km8 10:11 10:03 Basic Metabolic Panel ordered. EDMS EDMS 10: 10:03 Basic Metabolic Panel ordered. EDMS EDMS 10:11 10:03 Basic Metabolic Panel ordered. EDMS EDMS 10:11 10:03 Basic Metabolic Panel ordered. EDMS EDMS 10:58 09:30 sp3 bd
--- NOTE | 2023-03-23 09:31 | ER ---
Nurse's Notes [facility] Name: Kimberly Perez Age: 78 yrs Sex: Female : 1945 Arrival Date: 03/23/2023 Time: 06:25 Bed 7 Private MD: Diagnosis: Bowel obstruction, urosepsis, acute kidney injury, dehydration, atrial fibrillation, CHF Presentation: 03/23 06:30 Chief complaint: EMS states: CALLED OUT FOR N/V/D FOR 3 DAYS; NO FEVER. Coronavirus km8 screen: Client denies travel out of the [place] in the last 14 days. At this time, the client does not indicate any symptoms associated with coronavirus-19. Ebola Screen: No symptoms or risks identified at this time. Initial Sepsis Screen: Does the patient meet any 2 criteria? HR > 90 bpm. No. Patient's initial sepsis screen is negative. Does the patient have a suspected source of infection? No. Patient's initial sepsis screen is negative. Risk Assessment: Do you want to hurt yourself or someone else? Patient reports no desire to harm self or others. Onset of symptoms was March 20, 2023. 06:30 Method Of Arrival: EMS: [facility] km8 06:30 Acuity: NANY 3 km8 06:35 Care prior to arrival: Medication(s) given: Normal saline infusion, 500 mL, Tylenol, km8 1000 mg, REGLAN 10MG. Triage Assessment: 06:30 General: Appears in no apparent distress. uncomfortable, Behavior is calm, cooperative, km8 appropriate for age. Pain: Complains of pain in GENERALIZED Pain currently is 4 out of 10 on a pain scale. EENT: No signs and/or symptoms were reported regarding the EENT system. Neuro: Moore Agitation-Sedation Scale (RASS): 0 - Alert and Calm Level of Consciousness is awake, alert, obeys commands, Oriented to person, place, time, situation, Reports TREMORS FROM PARKINSON'S. Cardiovascular: Capillary refill is > 3 seconds Patient's skin is warm and dry. Respiratory: Airway is patent Respiratory effort is even, unlabored, Respiratory pattern is regular, symmetrical. GI: Reports diarrhea, nausea, vomiting. : No signs and/or symptoms were reported regarding the genitourinary system. Derm: Skin is intact, is fragile, Skin is dry, Skin is mottled, Skin temperature is cool. Musculoskeletal: Range of motion: intact in all extremities. Historical: - Allergies: 06:36 No Known Allergies; km8 - Home Meds: 06:36 aspirin 81 mg Oral chew 1 tab once daily [Active]; omeprazole 20 mg Oral cpDR 1 cap km8 once daily [Active]; folic acid 1 mg Oral tab 1 tab once daily [Active]; metoprolol tartrate 50 mg Oral tab 1 tab once daily [Active]; carbidopa-levodopa 48.75-195 mg Oral cpER 1 cap 3 times per day [Active]; Lasix 40 mg Oral tab 1 tab once daily [Active]; Eliquis 2.5 mg Oral tab 1 tab 2 times per day [Active]; alprazolam 0.25 mg oral tablet daily [Active]; Ferrous Sulfate Oral [Active]; citalopram 20 mg tablet every day at bedtime [Active]; amiodarone 200 mg Oral tablet [Active]; gabapentin 600 mg Oral tab 1 tab 3 times per day [Active]; spironolactone 25 mg oral tablet daily [Active]; pramipexole 0.375 mg Oral Tb24 1 tab once daily [Active]; galantamine 8 mg oral tablet [Active]; - PMHx: 06:36 Anxiety; chronic back pain; coronary atherosclerosis; GERD; Hypertension; neuropathy; km8 Parkinson's disease; - PSHx: 06:36 back sx; colonoscopy; hysterectomy; SCS implant; Tonsillectomy; km8 - Immunization history:: Adult Immunizations up to date, Client reports receiving the 2nd dose of the Covid vaccine, Flu vaccine is not up to date. - Social history:: Smoking status: Patient denies any tobacco usage or history of. Patient/guardian denies using alcohol, street drugs. - Family history:: not pertinent. Screenin:34 [facility] ED Fall Risk Assessment (Adult) History of falling in the last 3 months, [facility] including since admission No falls in past 3 months (0 pts) Confusion or Disorientation No (0 pts) Intoxicated or Sedated No (0 pts) Impaired Gait No (0 pts) Mobility Assist Device Used No (0 pt) Altered Elimination No (0 pt) Score/Fall Risk Level 0 - 2 = Low Risk Oriented to surroundings, Maintained a safe environment, Educated pt \T\ family on fall prevention, incl call for assistance when getting out of bed, Assessed \T\ reinforced patient's understanding of fall precautions. Abuse screen: Denies threats or abuse. Denies injuries from another. Nutritional screening: No deficits noted. Tuberculosis screening: No symptoms or risk factors identified. Assessment: 06:34 Reassessment: SEE TRIAGE ASSESSMENT/NOTES. km8 07:34 Reassessment: Patient appears in no apparent distress at this time. No changes from 6 previously documented assessment. Patient and/or family updated on plan of care and expected duration. Pain level reassessed. Patient is alert, oriented x 3, equal unlabored respirations, skin warm/dry/pink. 08:34 Reassessment: Patient appears in no apparent distress at this time. No changes from 6 previously documented assessment. Patient and/or family updated on plan of care and expected duration. Pain level reassessed. Patient is alert, oriented x 3, equal unlabored respirations, skin warm/dry/pink. 09:34 Reassessment: Patient appears in no apparent distress at this time. No changes from 6 previously documented assessment. Patient and/or family updated on plan of care and expected duration. Pain level reassessed. Patient is alert, oriented x 3, equal unlabored respirations, skin warm/dry/pink. 09:45 Reassessment: BARBARA Mayes at bedside speaking with pt about admission. son at bedside kc6 as well. 10:45 Reassessment: Patient appears in no apparent distress at this time. No changes from [facility] previously documented assessment. Patient and/or family updated on plan of care and expected duration. Pain level reassessed. Patient is alert, oriented x 3, equal unlabored respirations, skin warm/dry/pink. 11:09 Reassessment: attempted to call report to 4th floor. nurse Teresita unavailable at this kc6 time per community health nurse staff. 11:19 Reassessment: attempted to call report to 4th floor. nurse lo states she will kc6 call me back, she is putting a bed in the room. 11:32 Reassessment: attempted to call report to 4th floor. nurse Lo states she told me kc6 she would call me right back. states she hasn't forgotten about report, hung up the phone at this time. Vital Signs: 06:30 BP 117 / 88; Pulse 105; Resp 18; Temp 98.6(TE); Pulse Ox 100% ; Weight 69.85 kg (R); km8 Height 5 ft. 6 in. (R); Pain 4/10; 07:44 BP 121 / 80; Pulse 115; Resp 20 S; Pulse Ox 98% on R/A; kc6 09:00 BP 108 / 74; Pulse 118; Resp 18 S; Temp 98.4(O); Pulse Ox 100% on R/A; kc6 09:44 BP 91 / 60; Pulse 113; Resp 18 S; Pulse Ox 94% on R/A; kc6 11:09 BP 96 / 74; Pulse 106; Resp 18 S; Pulse Ox 94% on R/A; kc6 06:30 Body Mass Index 24.85 (69.85 kg, 167.64 cm) km8 06:30 Pain Scale: Adult km8 Marnie Coma Score: 06:34 Eye Response: spontaneous(4). Motor Response: obeys commands(6). Verbal Response: km8 oriented(5). Total: 15. ED Course: 06:29 Patient arrived in ED. jj7 06:30 Mae Rao, TONY is Primary Nurse. km8 06:30 Arm band placed on right wrist. km8 06:32 Triage completed. km8 06:34 Patient has correct armband on for positive identification. Bed in low position. Call km8 light in reach. Side rails up X2. Client placed on continuous cardiac and pulse oximetry monitoring. NIBP monitoring applied. buzzsaw operator helper on. 06:34 Maintain EMS IV. Dressing intact. Site clean \T\ dry. Gauge \T\ site: 18G. km 8 06:46 Sohan Camarillo MD is Attending Physician. sp4 07:01 Report given to TONY Hyatt; Alvaro, RN; and Meka, RN. km8 07:07 Attending Physician role handed off by Sohan Camarillo MD sp3 07:07 Ayana Patel MD is Attending Physician. sp3 07:40 Report received from TONY Wall. kc6 07:40 Inserted saline lock: 20 gauge in left wrist, using aseptic technique. Blood collected. kc6 07:40 Patient maintains SpO2 saturation greater than 95% on room air. kc6 07:56 XRAY Chest (1 view) In Process Unspecified. EDMS 08:33 CT Abd/Pelvis - Without Contrast In Process Unspecified. EDMS 08:57 Straight cath inserted, using sterile technique, 16 Fr. Specimen obtained. Returned [facility] clear yellow urine. Patient tolerated well. 09:30 Cipriano Skelton MD is Hospitalizing Provider. sp3 11:44 No provider procedures requiring assistance completed. Patient admitted, IV remains in kc6 place. Administered Medications: 06:58 Drug: Ativan IVP 1 mg IVP once Route: IVP; Site: left antecubital; km8 08:05 Follow up: Response: No adverse reaction; Anxiety decreased kc6 07:30 Drug: Ondansetron IVP 8 mg IVP once; over 2 minutes Route: IVP; Site: right antecubital;kc6 08:05 Follow up: Response: No adverse reaction; Nausea is decreased; Vomiting decreased kc6 07:30 Drug: Diphenoxylate-Atropine PO 2 tabs PO once Route: PO; kc6 08:32 Follow up: Response: No adverse reaction kc6 07:30 Drug: NS 0.9% IV 1000 ml IV at 125 ml/hr continuous Route: IV; Rate: 125 ml/hr; Site: [facility] right antecubital; 11:44 Follow up: Response: No adverse reaction; IV Status: Infusion continued upon admission kc6 07:30 Drug: NS 0.9% IV 500 ml IV at bolus once Route: IV; Rate: bolus; Site: right 6 antecubital; 08:32 Follow up: Response: No adverse reaction; IV Status: Completed infusion; IV Intake: kc6 500ml 07:30 Drug: morphine IVP or IV 2 mg IVP once over 4 mins Route: IVP; Infused Over: 4 mins; [facility] Site: right antecubital; 08:32 Follow up: Response: No adverse reaction; Pain is decreased; RASS: Alert and Calm (0) kc6 07:30 Drug: Dicyclomine IM 20 mg IM once Route: IM; Site: right deltoid; kc6 08:32 Follow up: Response: No adverse reaction 6 08:45 Drug: Cefepime IVPB 1 grams IVPB at 200 ml/hr once over 30 mins; (mix in NS 100 mL) [facility] Route: IVPB; Rate: 200 ml/hr; Infused Over: 30 mins; Site: right antecubital; 09:13 Follow up: Response: No adverse reaction; IV Status: Completed infusion; IV Intake: kc6 100ml Medication: 11:45 VIS not applicable for this client. kc6 Intake: 08:32 IV: 500ml; Total: 500ml. kc6 09:13 IV: 100ml; Total: 600ml. kc6 Outcome: 09:30 Decision to Hospitalize by Provider. sp3 11:44 Admitted to Med/surg accompanied by nurse, via stretcher, room 415, with chart, Report kc6 called to TONY Lo 11:44 Condition: good 11:44 Instructed on the need for admit, :45 Patient left the ED. kc6 Signatures: Dispatcher [employer] EDMS Ayana Patel MD MD sp3 Olena Pedraza RN RN kc6 Anca Parry RN RN jj7 Sohan Camarillo MD MD sp4 Mae Rao RN RN km8 Corrections: (The following items were deleted from the chart) 06:36 06:30 BP 117 / 88; Pulse 105bpm; Resp 18bpm; Temp 98.6F Temporal; 69.85 kg Reported; km8 Height 5 ft. 6 in. Reported; BMI: 24.8; Pain 4/10, Adult; km8 06:41 06:36 Home Meds: alprazolam 0.25 mg Oral tab 1 tab twice a day; km8 km8 11:34 11:09 Reassessment: attempted to call report to 4th floor. nurse Lo unavailable kc6 at this time kc6 11:34 11:19 Reassessment: attempted to call report to 4th floor. nurse teresita states she meena will call me back. kc6
[2023-03-23] MEDS ORDERED: ACETAMINOPHEN 500 MG TAB PO PRN (09:56)
[2023-03-23] MEDS ORDERED: ONDANSETRON 4 MG/2 ML VIAL IV PRN (09:56)
[2023-03-23] MEDS ORDERED: MORPHINE 2 MG/ML SYR IV PRN (09:56)
[2023-03-23] MEDS ORDERED: NA CHLORIDE 0.9% 1,000 ML IV SCH (10:00)
[2023-03-23] MEDS ORDERED: ALBUTEROL 2.5 MG/3 ML NEB SOL NEB PRN ×2 (10:02→12:00)
[2023-03-23] MEDS ORDERED: SODIUM CHLORIDE 0.9% 10ML INJ IV PRN (10:06)
--- NOTE | 2023-03-23 10:22 | P.HP ---
Certification for Inpatient With expected LOS: <2 Midnights Patient will require the following post-hospital care: None Practitioner: I am a practitioner with admitting privileges, knowledge of patient current condition, hospital course, and medical plan of care. Services: Services provided to patient in accordance with Admission requirements found in Title 42 Section 412.3 of the Code of Federal Regulations Patient History Date of Service: 03/23/23 Reason for admission: Abdominal pain, nausea and vomiting History of Present Illness: Ms. Perez is a 78-year-old female with history of Parkinson's disease, atrial fibrillation, hypertension, neuropathy. patient was presented to emergency room complaining of 3 days of nausea vomiting, persistent watery diarrhea associated with abdominal cramps. Patient reports the pain and diarrhea started 3 days ago. Denies any fever. Patient denies chest pain, palpitation, shortness of breath. Patient is alert oriented x3. Patient is positive for generalized weakness, nausea vomiting, diarrhea and feeling weak ED course Vital signs blood pressure 117/88, pulse 105/min respiration 18/min temperature 98.6, pulse ox 100% on room air. Patient reporting abdominal /10. Patient is tachycardic heart rate between 100 -110 per minute, in A-fib, blood pressure is on the lower 90s systolic. Patient received IV fluid normal saline bolus in the ER. She CT scan demonstrated distal ileal obstruction with possibility of an external mass. Patient is also positive for UTI, patient was given IV cefepime 1 g. Initial labs significant for leukocytosis WBC 22.8, high neutrophils 94, bands 7, elevated INR 2.08, BUN 68 creatinine 4.58, GFR 9, calcium 8.4, high total bilirubin 2.2, elevated CRP 48.7, elevated BNP 14 449, elevated lipase 167. Admitting the patient with a diagnosis of bowel obstruction, urosepsis, acute kidney injury, dehydration, atrial fibrillation, CHF Allergies No Known Allergies Allergy (Unverified 11/21/15 11:30) Home Medications: Omeprazole [Prilosec] 20 mg PO DAILY 06/18/13 ramipriL [Altace*] 10 mg PO DAILY 06/18/13 Tramadol HCl [Ultram] 50 mg PO BID 11/19/15 ALPRAZolam [Xanax*] 0.25 mg PO BID #60 tab 11/21/15 Metoprolol Tartrate [Lopressor*] 50 mg PO BID #60 tab 11/21/15 Aspirin 81 mg PO DAILY #30 tab.chew 07/03/16 Folic Acid 1 mg PO DAILY #30 tablet 07/03/16 Ramipril [Altace] 10 mg PO DAILY #30 capsule 07/03/16 Furosemide 40 mg PO DAILY 02/27/21 Gabapentin [Neurontin*] 400 mg PO BID 02/27/21 Multivit with Iron,Minerals [Complete Senior] 1 each PO DAILY #90 tablet 02/28/21 Spironolactone [Aldactone] 50 mg PO DAILY #30 tablet 02/28/21 - Past Medical/Surgical History Has patient received pneumonia vaccine in the past: Yes Diabetic: No -: HTN -: Depression with anxiety -: Chronic pain -: Atrial fibrillation on chronic anticoagulation therapy -: Diastolic CHF -: Chronic renal disease -: Seasonal allergies -: Obesity -: GERD -: Hysterectomy -: Appendectomy -: Back surgery -: Colon resection Psychosocial/ Personal History: Patient lives at home with a friend - Family History Father -: Heart disease, Diabetes Mother -: Cancer Sister -: Cancer - Social History Smoking Status: Never smoker Alcohol use: No CD- Drugs: No Caffeine use: Yes Place of Residence: Home Review of Systems 10-point ROS is otherwise unremarkable Physical Examination - Physical Exam General: Alert, Oriented x3 HEENT: Atraumatic, PERRLA Neck: Supple, 2+ carotid pulse no bruit Respiratory: Clear to auscultation bilaterally, Normal air movement Cardiovascular: No edema, Normal S1 S2, Irregular heart rate/rhythm Capillary refill: <2 Seconds Gastrointestinal: Normal bowel sounds, Non-distended, No ascites, Tenderness Musculoskeletal: No clubbing, No swelling, No erythema Integumentary: No rashes, No breakdown, No erythema, No warmth Neurological: Normal gait, Normal speech, Normal affect - Studies Laboratory Data (last 24 hrs) 03/23/23 03/23/23 03/23/23 07:18 07:18 07:18 WBC 22.80 H Hgb 12.5 Hct 39.0 Plt Count 232 PT 22.9 H INR 2.08 Sodium Potassium BUN Creatinine Glucose Magnesium Total Bilirubin AST ALT Alkaline Phosphatase Lipase 167 H 03/23/23 07:18 WBC Hgb Hct Plt Count PT INR Sodium 136 Potassium 4.3 BUN 68 H Creatinine 4.58 H Glucose 173 H Magnesium 2.0 Total Bilirubin 2.2 H AST 14 L ALT < 10 L Alkaline Phosphatase 92 Lipase Microbiology Data (last 24 hrs): 03/23/23 07:18 Nasopharnyx Influenza Type A Antigen Screen - Final 03/23/23 07:18 Nasopharnyx Influenza Type B Antigen Screen - Final Assessment and Plan - Problems (Diagnosis) (1) Bowel obstruction Current Visit: Yes Status: Acute Plan: -Acute, complaining of 3 days of nausea vomiting, persistent watery diarrhea associated with abdominal cramps. Patient is not sure if she has fever. -Leukocytosis WBC 22.8 -CT abdomen without contrast 03/23/2023 showing distal ileal obstruction -General surgery Dr. Ahn consulted -Admitting the patient in [facility]. We will keep the patient n.p.o. for possible surgical intervention -IV hydration, IV antibiotics cefepime -Morphine for pain, Zofran for nausea vomiting -Monitor patient closely , check electrolytes and replace as per hospital protocol (2) Atrial fibrillation Current Visit: Yes Status: Chronic Plan: Chronic, uncontrolled as patient was not able to hold her medications for 2 days EKG showing heart rate 110s to 112/min Patient is on home Eliquis. Patient also on metoprolol Patient reports no chest pain, no palpitation, no shortness of breath We will continue to monitor, (3) Acute kidney injury Current Visit: Yes Status: Acute Plan: Acute, renal profile showing BUN 68, creatinine 4.58, GFR 9 IV hydration started, director of religious activities Dr. Ring consulted Avoid nephrotoxiNS Renal dosing of medications (4) Abdominal pain Current Visit: No Status: Acute Plan: Acute, uncontrolled abdominal pain and nausea vomiting diarrhea CT showing distal ileal obstruction General surgery Dr. Parra consulted, for possible surgery today We will continue to monitor Started on cefepime IV Morphine, Zofran for symptom management (5) Nausea and vomiting Current Visit: Yes Status: Acute (6) GERD (gastroesophageal reflux disease) Current Visit: Yes Status: Acute Plan: Chronic, controlled on home PPI Protonix IV started Continue to monitor (7) Parkinsons disease Current Visit: Yes Status: Acute Plan: Chronic, controlled ON pramipexole We will resume the home medication once patient is stabilized (8) Neuropathy Current Visit: Yes Status: Acute Plan: Chronic, controlled on gabapentin at home We will resume the home medication once patient is stabilized (9) Anxiety Current Visit: No Status: Acute Plan: Chronic, controlled on Xanax at home Will resume home medication once patient is stabilized (10) HTN (hypertension) Current Visit: No Status: Acute Plan: Chronic, controlled on metoprolol and ramipril 10 mg p.o. daily at home, will resume home medication once patient is stabilized. (11) UTI (urinary tract infection) Current Visit: Yes Status: Acute Plan: Acute, patient came in with abdominal pain nausea vomiting Initial labs significant for acute kidney injury Urine analysis showing very turbid urine No fever, no tachypnea Admitted the patient in the hospital started cefepime empirically Cultures sent will follow up culture results and treat according to the risks We will continue to monitor (12) Dehydration Current Visit: Yes Status: Acute Plan: Acute, patient has abdominal pain nausea vomiting diarrhea for last 3 days Blood pressure on the lower 90s Mild tachycardia 110s A-fib Patient was given antidiarrheal, normal saline IV bolus in the ER We will continue hydration softly as her BNP is 14 449 We will continue to monitor electrolytes and replace as needed (13) CHF (congestive heart failure) Current Visit: Yes Status: Acute Plan: Acute, patient denies shortness of breath, no peripheral edema -BNP is 14,449, chest x-ray showing moderately enlarged heart -We will consult to Dr. Marquez for further cardiac evaluation -We will continue to monitor the patient Discharge Plan: Home Plan to discharge in: 48 Hours - Advance Directives Does patient have a Living Will: No Does patient have a Durable POA for Healthcare: No - Code Status/Comfort Care Code Status Assessed: Yes (Full code) Code Status: Full Code Physician Review: Patient Assessed, Agree with Above Assessment and Plan Critical Care: No Time Spent Managing Pts Care (In Minutes): 55 (Minutes)
--- NOTE | 2023-03-23 12:45 | CON ---
Date of Consultation: 03/23/2023 Reason For Consultation: Elevated BUN and creatinine, fluid management. History Of Present Illness: This is a pleasant 78-year-old female with significant past medical hist ory of atrial fibrillation, hypertension, congestive heart failure, ejection fraction of 45%, chronic kidney disease. Creatinine 1.9 back in September of 2021. According to the family, she does not see any manager marketing outside. The patient came to the hospital with nausea and vomiting, found to have small -bowel obstruction/ileus and UTI with elevation in BUN and creatinine. For that reason, we have been consulted. The patient denied any nonsteroidal, no IV contrast. The patient's creatinine found to be 4.5, GFR of 9 without any hyperkalemia. Patient apparently been on spironolactone 25 mg daily, La six b.i.d. Past Medical History: 1.Chronic kidney disease, stage IIIB. Baseline creatinine 1.9 back in 2021. 2.Hypertension. 3.Hyperlipidemia. 4.CHF, ejection fraction of 45% as of echocardiogram done in 2020. Allergies: NO KNOWN DRUG ALLERGY. Past Surgical History: Includes: 1.Hysterectomy. 2.Appendectomy. 3.Back surgery. 4.Colon resection. Family History: Positive for hypertension and diabetes with cancer. Social History: Denied smoking. Denied drinking. Denied drug abuse. Review of Systems: Head and Neck: No red eye. No ear pain. GI: Has nausea, vomiting. Has diarrhea. : No polyuria. No dysuria. No hematuria. 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 Respiratory: No shortness of breath. Cardiovascular: No chest pain. Endocrine: No polydipsia. Skin: No rash. Neuro: Generalized weakness, mildly confused. Physical Examination: Vital Signs: Blood pressure 143/95, pulse of 89, afebrile. Chest: Clear to auscultation. Heart: S1, S2. Systolic murmur. Regular. Abdomen: Soft. Mild tenderness. No guarding or rebound. Extremities: No edema. Neuro: Alert, pleasantly confused. No focality. Laboratory Data: Back in September 2021 creatinine 1.9, GFR 26. Today lab data; sodium 136, potassium 4.3 , bicarb 24, BUN 68, creatinine 4.5, GFR of 9, calcium 8.3. WBC 22.8, hemoglobin 12.5. Urinalysis p ositive for infection, WBC more than 50. Assessment And Plan: 1.Acute kidney injury secondary to prerenal, dehydration secondary to poor perfusion ATN secondary t o gastrointestinal loss superimposed with Lasix and spironolactone. I am going to hold on diuresis a nd we will start the patient on gentle hydration. I am going to go ahead and send for basic workup. 2.Obstructive uropathy has been ruled out. 3.Hypertension, controlled, optimal with the presence of acute kidney injury. Hold all diuresis. 4.Congestive heart failure with ejection fraction of 45%. Currently patient on the dry side. Hold diuresis. Start gentle hydration. 5.Urinary tract infection. Obstructive uropathy. Complicated urinary tract infection has been rule d out. We will continue antibiotic. Follow up with primary. 6.Chronic kidney disease secondary to cardiorenal. Currently patient on the dry side. Hold diuresi s as above. 7.Hyponatremia, depletional. We will start the patient on gentle hydration. 8.Disproportion BUN and creatinine secondary to dehydration. We will continue hydration. We will f ollow up. Thank you Dr. Skelton for allowing us to participate in the care of your patient. Time spent examin ing the patient [id number], reviewing data, lab and radiology, placing order, discussing the case w ith the patient, discussing the case with the steam locomotive firer/fireman including hospitalist and nursing staff mor e than 75 minutes. MIGEL Voice ID: [id number] Report ID: [id number]
[2023-03-23] MEDS: NA CHLORIDE 0.9% 1,000 ML IV SCH ×2 (16:18→20:14)
--- NOTE | 2023-03-23 19:39 | CON ---
Date of Consultation: 03/23/2023 Brief History Of Present Illness: The patient is a 78-year-old female with a past medical history of Parkinson disease, atrial fibrillation, hypertension, neuropathy, who presented to the emergency justin with 3 days of nausea, vomiting, and persistent watery diarrhea associated with abdominal cramps an d pain. She denied any fever. She did have no chest pain or shortness of breath. She was noted jennifer t she had increased weakness and fatigue after experiencing multiple days of diarrhea and nausea, vom iting. Past Medical History: Parkinson's, atrial fibrillation, hypertension, neuropathy, depression, anxiet y, chronic pain, diastolic congestive heart failure, CKD, seasonal allergies, obesity, GERD. Past Surgical History: Includes a hysterectomy, appendectomy, back surgery, colectomy as a child ariana r the ileocecal valve with reconstruction for an uncertain reason. She additionally had a surgery an d abdominal surgery in 1983 for an ileal obstruction and revision at that point as well for obstructi on. She cannot recall her last colonoscopy when it was. Allergies: NO KNOWN DRUG ALLERGIES. Home Medications: Include Prilosec, Altace, Ultram, Xanax, Lopressor, aspirin, folic acid, furosemid e, gabapentin, multivitamin, spironolactone. She cannot recall the anticoagulant she is taking for h er atrial fibrillation. Social History: She denies smoking, alcohol, or recreational drug use. Review of Systems: Ten-point review of systems other than HPI, denies. Physical Examination: At the time of my examination: General: She is awake and oriented, but she is somewhat lethargic but arousable. HEENT: She is normocephalic. Sclerae anicteric. Mucous membranes are moist. Oropharynx is clear. Neck: Supple without JVD. Chest: Normal expansion and excursion. Cardiovascular: Regular rate and rhythm. Pulmonary: Clear to auscultation bilaterally. Abdomen: Soft with mild global tenderness to palpation. No rebound. No guarding. No focal periton itis. Extremities: No clubbing, cyanosis, or edema. Skin: Warm and dry. Laboratory Data: Revealed a white blood cell count of 22,800, her hemoglobin is 12.5, her hematocrit is 39.0, platelet count is 232, neutrophils are 94%. Her PT is 22.9, INR 2.08. Her sodium is 136, potassium 4.3, chloride 101, carbon dioxide is 24, BUN is 68, creatinine was 4.58, her glucose 173, c alcium 8.4, total bilirubin is 2.2, direct bilirubin 0.6, indirect is 1.6. Her AST is 14, ALT less t campbell 10, alkaline phosphatase is 92. Her troponin was 17. C-reactive protein 48.7. ProBNP is 14,449 . Lipase is 167. Her UA was extremely turbid. It showed 500 leukocyte esterase, greater than 50 wh ite blood cells. There were clumps occasionally seen, trace total protein and urine culture pending. She had imaging as well, which included a CT of the abdomen and pelvis, which was officially read a s a distal ileal obstruction, apparent soft tissue hepatic flexure of the colon may be simply seconda ry due to incomplete distention or mass. Followup recommended. She has a neurostimulator device in place in the spine. Small right renal cysts as well. Tcox-ls-hnzxiutf dilation of the jejunum. The distal ileum is of normal caliber. Assessment And Plan: This is a 78-year-old woman who presents with 2 significant issues. 1.Suspected urosepsis. 2.Partial small bowel obstruction due to uncertain etiology. Plan: 1.IV fluid hydration. 2.N.p.o. status. 3.Serial abdominal exams. 4.Continue medical management with antibiotic coverage as well and management of her multiple medica l comorbidities per primary medical team, Nephrology consultants, and other consultants. 5.From a surgical standpoint, the patient does not have a surgical abdomen at this time; however, I will continue serial abdominal exams. As she continues to have diarrhea and bowel movements, we will send her stool for culture during this time and continue the workup. Thank you for this interesting consult. CHAO/LYLA Voice ID: [id number] Report ID: [id number]
[2023-03-23] MEDS: CEFEPIME 1 GM in NA CHLORIDE 0.9% 100 ML IV SCH (20:15)
[2023-03-23] MEDS: PANTOPRAZOLE 40 MG INJ IVP SCH (20:15)
[2023-03-24] MEDS: NA CHLORIDE 0.9% 1,000 ML IV SCH ×2 (07:06→15:00)
[2023-03-24 07:22] LABS: Absolute Lymphocytes (CBC) 0.9 K/uL (0.7-4.9); Lymphocytes % 8.2 % (15.3-44.8); MCV 82.1 fL (80-100); MPV 8.6 fL (7.6-11.3); Platelets 163 thou/uL (152-406); RBC Red Blood Cell Count 4.01 M/uL (3.86-4.86)
[2023-03-24 07:45] LABS: Albumin 3.1 g/dL (3.4-5.0); Bilirubin Total 1.5 mg/dL (0.2-1.0); Magnesium 2.1 mg/dL (1.6-2.4); Potassium 4.5 mEq/L (3.5-5.1); Protein, Total 7.2 g/dL (6.4-8.2); Uric Acid 7.5 mg/dL (2.6-6.0)
[2023-03-24 07:47] LABS: Thyroid Stimulating Hormone 7.59 uIU/mL (0.358-3.740)
--- NOTE | 2023-03-24 08:18 | P.PN ---
Subjective Date of Service: 03/24/23 Chief Complaint: Abdominal pain, nausea and vomiting Subjective: No C/O voiced, Improving, Doing well Patient is alert and oriented No acute distress noticed Patient denies any pain or discomfort Discussed with the patient's nurse Vital stable Review of Systems 10-point ROS is otherwise unremarkable Physical Examination - Vital Signs Temperature: 98.7 F Blood Pressure: 112/77 Pulse: 70 Respirations: 17 Pulse Ox (%): 95 - Physical Exam General: Alert, Oriented x3 HEENT: Atraumatic, Normocephalic, PERRLA Neck: Supple, 2+ carotid pulse no bruit Respiratory: Clear to auscultation bilaterally, Normal air movement Cardiovascular: No edema, Normal pulses Capillary refill: <2 Seconds Gastrointestinal: Normal bowel sounds, Soft and benign Musculoskeletal: No clubbing, No swelling Neurological: Normal gait, Normal speech, Normal tone, Normal affect - Studies Laboratory Data (last 24 hrs) 03/23/23 07:18 WBC 22.80 H Hgb 12.5 Hct 39.0 Plt Count 232 Microbiology Data (last 24 hrs): 03/23/23 07:18 Nasopharnyx Influenza Type A Antigen Screen - Final 03/23/23 07:18 Nasopharnyx Influenza Type B Antigen Screen - Final Assessment And Plan - Current Problems (Diagnosis) (1) Bowel obstruction Current Visit: Yes Status: Acute Plan: -Acute, improving, no more nausea vomiting diarrhea.. Patient denies abdominal pain. -WBC came down to 10.6 from 22.8 -CT abdomen without contrast 03/23/2023 showing distal ileal obstruction -General surgery Dr. Ahn consulted and seen -Admitting the patient in [facility]. We will keep the patient n.p.o. -Continue IV hydration, IV antibiotics cefepime -Morphine for pain, Zofran for nausea vomiting -Monitor patient closely , check electrolytes and replace as per hospital protocol Qualifiers: Intestinal obstruction type: unspecified ileus Qualified Code(s): K56.7 - Ileus, unspecified (2) Atrial fibrillation Current Visit: Yes Status: Chronic Plan: Chronic, controlled rate, or anticoagulated on Eliquis Patient denies chest pain, no palpitation, no shortness of breath We will continue to monitor (3) Acute kidney injury Current Visit: Yes Status: Acute Plan: Acute, renal profile is improving BUN 78, creatinine 3.78, GFR 12 Continue hydration , folder stitcher operator Dr. Ring consulted and seen Will follow the recommendations of the folder stitcher operator Avoid nephrotoxiNS Renal dosing of medications (4) Abdominal pain Current Visit: No Status: Acute Plan: Acute, resolved patient denies abdominal pain or nausea vomiting at this time CT showing distal ileal obstruction General surgery Dr. Freire consulted, and seen We will continue to monitor Continue on cefepime IV Morphine, Zofran for symptom management (5) Nausea and vomiting Current Visit: Yes Status: Acute (6) GERD (gastroesophageal reflux disease) Current Visit: Yes Status: Acute Plan: Chronic, controlled on home PPI Protonix IV started Continue to monitor (7) Parkinsons disease Current Visit: Yes Status: Acute Plan: Chronic, controlled ON pramipexole Resume to home medications (8) Neuropathy Current Visit: Yes Status: Acute Plan: Chronic, controlled on gabapentin at home We will resume the home medication (9) Anxiety Current Visit: No Status: Acute Plan: Chronic, controlled on Xanax at home Patient denies any anxiety at this time Will resume home medication if needed (10) HTN (hypertension) Current Visit: No Status: Acute Plan: Chronic, controlled on metoprolol and ramipril 10 mg p.o. daily at home, Patient's blood pressure is controlled at this time, we will continue to monitor will resume home medication once patient is stabilized. (11) UTI (urinary tract infection) Current Visit: Yes Status: Acute Plan: Acute, patient came in with abdominal pain nausea vomiting Positive urine analysis, initial labs significant for acute kidney injury Patient denies any urinary symptoms Continue cefepime empirically, pending culture results Cultures sent will follow up culture results and treat according to the risks We will continue to monitor (12) Dehydration Current Visit: Yes Status: Acute Plan: Acute, improving Blood pressure is maintaining within normal limits Heart rate is controlled We will continue hydration softly as her BNP is 14 449 We will continue to monitor electrolytes and replace as needed (13) CHF (congestive heart failure) Current Visit: Yes Status: Acute Plan: Acute, improving, patient denies shortness of breath, no peripheral edema -BNP is 14,449, chest x-ray showing moderately enlarged heart -We will consult to Dr. Marquez for further cardiac evaluation -We will continue to monitor the patient Qualifiers: Heart failure type: unspecified Discharge Plan: Home Plan to discharge in: 24 Hours - Code Status/Comfort Care Code Status Assessed: Yes (Full code) Code Status: Full Code Physician Review: Patient Assessed, Agree with Above Assessment and Plan Critical Care: No Time Spent Managing PTS Care (In Minutes): 35 (Minutes)
[2023-03-24] MEDS ORDERED: FERROUS SULFATE 325 MG TAB PO SCH (09:00)
[2023-03-24] MEDS ORDERED: GABAPENTIN 300 MG CAP PO SCH (09:00)
[2023-03-24] MEDS: GALANTAMINE 8 MG PO SCH (09:00)
[2023-03-24] MEDS: CEFEPIME 1 GM in NA CHLORIDE 0.9% 100 ML IV SCH ×2 (09:27→21:10)
[2023-03-24] MEDS: APIXABAN 2.5 MG TABLET PO SCH ×2 (09:28→21:10)
[2023-03-24] MEDS: FOLIC ACID 1 MG TABLET PO SCH (09:28)
[2023-03-24] MEDS: AMIODARONE HCL 200 MG TAB PO SCH ×2 (09:28→21:10)
[2023-03-24] MEDS: PANTOPRAZOLE 40 MG INJ IVP SCH ×2 (09:28→21:10)
[2023-03-24] MEDS: ASPIRIN 81 MG CHEWABLE TABLET PO SCH (09:29)
[2023-03-24] MEDS ORDERED: NA CHLORIDE 0.9% 100 ML ONE (09:34)
[2023-03-24] MEDS: PRAMIPEXOLE 0.25 MG TAB PO SCH ×3 (10:00→21:10)
[2023-03-24] MEDS ORDERED: CALCITROL 0.25 MCG CAP PO SCH (12:00)
--- NOTE | 2023-03-24 13:28 | PN ---
Date of Progress Note: 03/24/2023 Subjective: The patient was admitted to the hospital with acute kidney injury secondary to prerenal. The patient has congestive heart failure. The patient was started on IV hydration. Kidney functio n started being improving. Patient had nausea and vomiting with UTI. Objective: Vital Signs: When I saw the patient, blood pressure 112/77, pulse of 70, afebrile. Chest: Clear to auscultation. Heart: S1, S2. Regular. Abdomen: Soft. Nontender. Extremities: No edema. Neurologic: Alert. No focality. Laboratory Data: Hemoglobin 10.9, WBC 10.6, sodium 140, potassium 4.5, bicarb 23, BUN 78, creatinine down to 3.7, uric acid 7.5, phosphorus 5, magnesium 2.1, albumin 3.1, corrected calcium is 8.4. TSH 7.5, PTH 375. Urinalysis positive for infection. Current Medications: The patient on include aspirin, cefepime, Eliquis, ferrous sulfate, amiodarone, gabapentin 600 b.i.d., folic acid, IV fluid. Assessment And Plan: 1.Acute kidney injury secondary to prerenal, on baseline of chronic kidney disease secondary to card iorenal. The patient looked to me started to be in a close to normal volume. I am going to decrease IV fluid to 50 per hour and we will continue to monitor the patient. Planning to discontinue tomorr ow the IV fluid. Keep holding all diuresis including Lasix and spironolactone and we will monitor. 2.Hypertension, controlled, optimal. Keep holding diuresis. 3.Congestive heart failure, ejection fraction of 45, currently normal volume, keep holding diuresis. 4.Urinary tract infection. Culture is still pending. Continue current antibiotic. We will follow up. 5.Secondary hyperparathyroidism. I am going to start the patient on calcitriol. 6.Hyponatremia, depletional, recovered. 7.Small bowel obstruction, as by primary. UZAIR/LYLA Voice ID: [id number] Report ID: [id number]
[2023-03-24] MEDS ORDERED: CITALOPRAM 10 MG TABLET PO SCH (17:00)
[2023-03-24 20:33] VITALS: BMI 24.7
[2023-03-24] MEDS: GABAPENTIN 100 MG CAP PO SCH (21:10)
[2023-03-25 07:04] LABS: Absolute Lymphocytes (CBC) 0.6 K/uL (0.7-4.9); Hematocrit 32.2 % (36.0-45.0); Lymphocytes % 7.8 % (15.3-44.8); MCV 82.7 fL (80-100); MPV 8.7 fL (7.6-11.3); Platelets 165 thou/uL (152-406)
[2023-03-25 07:20] LABS: Bilirubin Total 1.5 mg/dL (0.2-1.0); Magnesium 2.4 mg/dL (1.6-2.4); Phosphorus 3.2 mg/dL (2.5-4.9); Potassium 4.2 mEq/L (3.5-5.1); Protein, Total 7.1 g/dL (6.4-8.2)
[2023-03-25 08:45] VITALS: O2SAT 97
--- NOTE | 2023-03-25 08:48 | P.DS ---
Admission Date: 03/23/23 Discharge Date: 03/25/23 Disposition: ROUTINE DISCHARGE Discharge Condition: GOOD Reason for Admission: Abdominal pain, nausea and vomiting - Problems (1) Bowel obstruction Current Visit: Yes Status: Acute Qualifiers: Intestinal obstruction type: unspecified ileus Qualified Code(s): K56.7 - Ileus, unspecified (2) Atrial fibrillation Current Visit: Yes Status: Chronic (3) Acute kidney injury Current Visit: Yes Status: Acute (4) Abdominal pain Current Visit: No Status: Acute (5) Nausea and vomiting Current Visit: Yes Status: Acute (6) GERD (gastroesophageal reflux disease) Current Visit: Yes Status: Acute (7) Parkinsons disease Current Visit: Yes Status: Acute (8) Neuropathy Current Visit: Yes Status: Acute (9) Anxiety Current Visit: No Status: Acute (10) HTN (hypertension) Current Visit: No Status: Acute (11) UTI (urinary tract infection) Current Visit: Yes Status: Acute (12) Dehydration Current Visit: Yes Status: Acute (13) CHF (congestive heart failure) Current Visit: Yes Status: Acute Qualifiers: Heart failure type: unspecified Brief History of Present Illness: Ms. Perez is a 78-year-old female with history of Parkinson's disease, atrial fibrillation, hypertension, neuropathy. patient was presented to emergency room complaining of 3 days of nausea vomiting, persistent watery diarrhea associated with abdominal cramps. Patient reports the pain and diarrhea started 3 days ago. Denies any fever. Patient denies chest pain, palpitation, shortness of breath. Patient is alert oriented x3. Patient is positive for generalized weakness, nausea vomiting, diarrhea and feeling weak ED course Vital signs blood pressure 117/88, pulse 105/min respiration 18/min temperature 98.6, pulse ox 100% on room air. Patient reporting abdominal 4/10. Patient is tachycardic heart rate between 100 -110 per minute, in A-fib, blood pressure is on the lower 90s systolic. Patient received IV fluid normal saline bolus in the ER. She CT scan demonstrated distal ileal obstruction with possibility of an external mass. Patient is also positive for UTI, patient was given IV cefepime 1 g. Initial labs significant for leukocytosis WBC 22.8, high neutrophils 94, bands 7, elevated INR 2.08, BUN 68 creatinine 4.58, GFR 9, calcium 8.4, high total bilirubin 2.2, elevated CRP 48.7, elevated BNP 14 449, elevated lipase 167. Admitting the patient with a diagnosis of bowel obstruction, urosepsis, acute ki dney injury, dehydration, atrial fibrillation, CHF Hospital Course: Ms. Perez is a pleasant 78-year-old with a past medical history significant for Parkinson's disease, atrial fibrillation, hypertension, neuropathy who was admitted to the [facility] on 03/23/2023 for bowel obstruction, urosepsis, acute kidney injury, dehydration, atrial fibrillation, # Acute on Chronic Decompensated Systolic/Diastolic Congestive Heart Failure Patient was treated with IV antibiotics, PPI, IV fluids and pain medication as needed On 03/25/2020, patient was seen on morning rounds and deemed medically stable for discharge. Patient was discharged with instructions to schedule follow-up appointments with PCP, transport manager. 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 daily Vital Signs/Physical Exam: Temp Pulse Resp BP Pulse Ox 98.2 F 123 H 18 113/78 95 03/25/23 03:56 03/25/23 03:56 03/25/23 03:56 03/25/23 03:56 03/25/23 03:56 General: Alert, In no apparent distress, Oriented x3 HEENT: Atraumatic, Normocephalic, PERRLA Neck: Supple Respiratory: Clear to auscultation bilaterally, Normal air movement Cardiovascular: No edema, Normal pulses Capillary refill: <2 Seconds Gastrointestinal: Normal bowel sounds, Soft and benign Musculoskeletal: No clubbing, No swelling, No contractures Integumentary: No rashes, No breakdown Laboratory Data at Discharge: WBC 7.90 thou/uL (4.3-10.9) 03/25/23 06:25 Hgb 10.6 g/dL (12.0-15.0) L 03/25/23 06:25 Hct 32.2 % (36.0-45.0) L 03/25/23 06:25 Plt Count 165 thou/uL (152-406) 03/25/23 06:25 PT 22.9 SECONDS (9.5-12.5) H 03/23/23 07:18 INR 2.08 03/23/23 07:18 Sodium 140 mEq/L (136-145) 03/25/23 06:25 Potassium 4.2 mEq/L (3.5-5.1) 03/25/23 06:25 BUN 66 mg/dL (7-18) H 03/25/23 06:25 Creatinine 2.67 mg/dL (0.55-1.02) H 03/25/23 06:25 Glucose 107 mg/dL (74-106) H 03/25/23 06:25 Uric Acid 7.5 mg/dL (2.6-6.0) H 03/24/23 06:59 Phosphorus 3.2 mg/dL (2.5-4.9) 03/25/23 06:25 Magnesium 2.4 mg/dL (1.6-2.4) 03/25/23 06:25 Total Bilirubin 1.5 mg/dL (0.2-1.0) H 03/25/23 06:25 AST 18 U/L (15-37) 03/25/23 06:25 ALT 19 U/L (13-56) 03/25/23 06:25 Alkaline Phosphatase 62 U/L (45-117) 03/25/23 06:25 Triglycerides 78 mg/dL (<150) 03/24/23 06:59 Cholesterol 92 mg/dL (<200) 03/24/23 06:59 HDL Cholesterol 42 mg/dL (40-60) 03/24/23 06:59 Cholesterol/HDL Ratio 2.19 03/24/23 06:59 Lipase 167 U/L (13-75) H 03/23/23 07:18 Home Medications: Omeprazole [Prilosec] 20 mg PO DAILY 06/18/13 Metoprolol Tartrate [Lopressor*] 50 mg PO BID #60 tab 11/21/15 Aspirin 81 mg PO DAILY #30 tab.chew 07/03/16 Folic Acid 1 mg PO DAILY #30 tablet 07/03/16 ALPRAZolam [Xanax*] 0.25 mg PO DAILY 03/23/23 Amiodarone HCl [Cordarone*] 200 mg PO BID 03/23/23 Apixaban [Eliquis *] 2.5 mg PO BID 03/23/23 Carbidopa/Levodopa [Carbidopa-Levo ER 50-200 Tab] 50 - 200 mg PO BID 03/23/23 Citalopram [Celexa*] 20 mg PO DAILY AT SUPPER 03/23/23 Ferrous Sulfate [Ferrous Sulfate*] 325 mg PO SEECOM 03/23/23 Gabapentin 600 mg PO BID 03/23/23 Galantamine HBr [Galantamine ER] 8 mg PO DAILY 03/23/23 Pramipexole [Mirapex*] 0.25 mg PO TID 03/23/23 Physician Discharge Instructions: You were admitted with complaints of nausea and vomiting watery diarrhea. Your heart rate was elevated, irregular and you had a low blood pressure on the time of admission. you were admitted with a diagnosis of urosepsis acute kidney injury, dehydration, and atrial fibrillation. You were treated with IV fluid, IV antibiotics in the hospital. You are referred to a transport manager as your kidney numbers were elevated. You were seen by a general surgeon for distal ileal obstruction with possibility of an external mass. He recommended conservative management. On 11/23/2019, Chris was seen on morning rounds and deemed medically stable for discharge. 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
[2023-03-25] MEDS: GALANTAMINE 8 MG PO SCH (09:00)
[2023-03-25] MEDS: GABAPENTIN 100 MG CAP PO SCH (10:22)
[2023-03-25] MEDS: PRAMIPEXOLE 0.25 MG TAB PO SCH (10:22)
[2023-03-25] MEDS: APIXABAN 2.5 MG TABLET PO SCH (10:23)
[2023-03-25] MEDS: AMIODARONE HCL 200 MG TAB PO SCH (10:23)
[2023-03-25] MEDS: FOLIC ACID 1 MG TABLET PO SCH (10:23)
[2023-03-25] MEDS: PANTOPRAZOLE 40 MG INJ IVP SCH (10:23)
[2023-03-25] MEDS: CEFEPIME 1 GM in NA CHLORIDE 0.9% 100 ML IV SCH (10:23)
[2023-03-25] MEDS: ASPIRIN 81 MG CHEWABLE TABLET PO SCH (10:23)
[2023-03-25] MEDS: NA CHLORIDE 0.9% 1,000 ML IV SCH (10:24)
[2023-03-25 12:22] VITALS: TEMP 97
[2023-03-25 12:30] VITALS: BP 139/93
--- NOTE | 2023-03-25 14:10 | PN ---
Date of Progress Note: 03/25/2023 Subjective: Patient was admitted with acute kidney injury secondary to prerenal with hyponatremia. Patient had small bowel obstruction as on the CT. Patient was started on hydration, diuresis has bee n discontinued. Spironolactone was discontinued. Patient had improved significantly. Physical Examination: Vital Signs: When I saw the patient, blood pressure 139/93, pulse of 116, afebrile. Chest: Clear to auscultation. Heart: S1, S2. Regular. Abdomen: Soft, nontender. Extremities: Trace edema. Neuro: Alert. No focality. Laboratory Data: Hemoglobin 10.6. Sodium 140, potassium 4.2, bicarb 22, BUN 66, creatinine 2.6. GF R of 18. Calcium 8.4. Phosphorus 3.2, magnesium 2.4. Current Medications: The patient is on include: 1.Cefepime. 2.Aspirin. 3.Albuterol. 4.Eliquis. 5.Ferrous sulfate. 6.Amiodarone. 7.Gabapentin. 8.Pantoprazole. Assessment And Plan: 1.Acute kidney injury secondary to poor perfusion, acute tubular necrosis superimposed with ARB, Las ix, and spironolactone, recover. I am going to discontinue IV fluid. Okay from the Renal standpoint for discharge planning. To resume Lasix 20 mg daily. Keep holding spironolactone. 2.Hypertension, controlled, optimal. Keep holding current medications. Resume Lasix as outpatient as above. 3.Congestive heart failure with ejection fraction of 45%. Normal volume currently. We will resume Lasix as outpatient. 4.Urinary tract infection secondary to culture negative. Continue current treatment. 5.Secondary hyperparathyroid. Continue calcitriol. 6.Hyponatremia depletion, resolved. 7.Ileus/small bowel obstruction as by primary. UZAIR/LYLA Voice ID: [id number] Report ID: [id number]
--- NOTE | 2023-03-27 14:28 | EKG ---
Test Date: 2023-03-23 Test Time: 06:47:35 Supervisor [employer]: JORGE MEASUREMENT RESULTS: Intervals: Rate: 115 MA: 216 QRSD: 68 QT: 268 QTc: 370 [place]: P: MA: 216 QRS: 94 T: 256 INTERPRETIVE STATEMENTS: Sinus tachycardia with 1st degree AV block Rightward axis Marked ST abnormality, possible anterior subendocardial injury Abnormal ECG Compared to ECG 09/28/2021 12:08:26 First degree AV block now present Right-axis deviation now present Atrial fibrillation no longer present Ventricular premature complex(es) no longer present Possible ischemia no longer present ST (T wave) deviation still present Electronically Signed On 03-27-23 14:15:54 FACULTY DEAN by Sam Marquez
== END 2023-03-25 14:28 | disposition home or self-care (01) | DRG 682 ==
LOC: ER 06:25 → ERHOLD 09:54 → 4TH 11:16
PROVIDERS: ADMIT Internal Medicine Nephrology; ATTEND Internal Medicine Nephrology
DX: N17.0 Acute kidney failure with tubular necrosis (principal); I50.43 Acute on chronic combined systolic (congestive) and diastolic (congestive) heart failure; K56.690 Other partial intestinal obstruction; N39.0 Urinary tract infection, site not specified; I13.0 Hypertensive heart and chronic kidney disease with heart failure and stage 1 through stage 4 chronic kidney disease, or unspecified chronic kidney disease; I48.20 Chronic atrial fibrillation, unspecified; E87.1 Hypo-osmolality and hyponatremia; N25.81 Secondary hyperparathyroidism of renal origin; N18.32 Chronic kidney disease, stage 3b; F41.9 Anxiety disorder, unspecified; E86.0 Dehydration; G62.9 Polyneuropathy, unspecified; K21.9 Gastro-esophageal reflux disease without esophagitis; G20.A1 Parkinson's disease without dyskinesia, without mention of fluctuations; Z11.52 Encounter for screening for COVID-19; Z79.82 Long term (current) use of aspirin; Z79.01 Long term (current) use of anticoagulants; Z90.49 Acquired absence of other specified parts of digestive tract; Z79.899 Other long term (current) drug therapy; Z90.710 Acquired absence of both cervix and uterus
CPT/HCPCS: 36415; 51702; 71045; 74176; 80048; 80053; 80061; 80069; 80076; 81001; 82550; 83690; 83735; 83880; 83970; 84439; 84443; 84484; 84550; 85025; 85610; 86140; 87040; 87086; 87088; 87635; 87804; 93005; 96372; 97116; 97161; 97530; 99285; C9113; J0500; J0692; J2270; J2405; J7030; J7040

== ENCOUNTER 2023-04-20 16:21 | Emergency (ER) | payer OTHER, BC ==
--- OUTSIDE RECORDS SUMMARY | 2023-04-20 16:31 | XMS REPORT | Continuity of Care Document ---
:1945 Author Organization [facility] t Address [address] [place] [address] [place] [address] Care Team Providers Name Role Phone Asked, No Pcp Primary Care Physician Unavailable Jairon Patel Attending Clinician Unavailable Gonzalo Floyd Attending Clinician QUINTIN MONAE Attending Clinician Unavailable Constance Delgado MD Attending Clinician CONSTANCE DELGADO Attending Clinician Unavailable Payers Payer Name Policy Type Policy Number Effective Date Expiration Date S juanjeanine Blue Cross Blue 6 [id number] [facility] [place] - [facility] Blue Cross MCR 6 [id number] [facility] Advantage PPO - [facility] Blue Cross Blue 6 [id number] 2019 [facility] [place] 00:00:00 - [facility] MEDICARE NOVITAS MB [id number] 2009 [facility] 00:00:00 - [facility] MEDICARE NOVITAS MB [id number] 2009 [facility] 00:00:00 - [facility] MEDICARE NOVITAS MB [id number] 2009 [facility] 00:00:00 - [facility] MEDICARE NOVITAS MB [id number] 2009 [facility] 00:00:00 - [facility] MEDICARE PART A [id number] 2009 \T\ B 00:00:00 [facility] [id number] 2019 00:00:00 Problems Condition Condition Condition Status [...] Swollen Swollen Disease Active Methodi ankles ankles 3 00:00: Hospita 00 l Constipati Constipati Disease Active M ethodi on on 07-30 00:00: Hospita 00 l [id number] Acute on Problem Comm on chronic Spirit diastolic - [facility] (congestiv [facility] [id number] Chronic Problem Commo n diastolic Spirit (congestiv - [facility] e) heart [facility] Chronic 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 [id number] [place] [id number] fibrillati Spirit on with - [facility] RVR [facility] [id number] Benzodiaze Problem Co mmon pine Spirit dependence - [facility] Acid Acid Problem 2015-01-04 Memor ia reflux reflux 04:00:54 l (finding) (finding) Herm otf Problem 01/04/2015 [facility] Pain Pain Problem 2015-01-04 Memor ia (finding) (finding) 04:00:54 l Problem Rom 01/04/2015 [facility] Amnesia Amnesia Problem Active 2023-01-08 Me moria (finding) (finding) 14:32:48 l Active [place] Problem 01/08/2023 [facility] Hypertensi Hypertens Problem Active 2023-01-08 Memoria ve arabella 14:32:48 l disorder, disorder, Herm otf systemic systemic arterial arterial (disorder) (disorder) Active Problem 01/08/2023 [facility] Insomnia Insomnia Problem Active 2023-01-08 Memoria (disorder) (disorder) 14:32:48 l Active Rom Problem 01/08/2023 [facility] 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 s disease 's disease 14:32:48 l (disorder) (disorder) He rmann Active Problem 01/08/2023 [facility] 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 14:32:48 l finding state Rom (finding) finding (finding) Active Problem 01/08/2023 [facility] Simple Simple Problem Active 2023-01-08 Romulo analilia obesity obesity 14:32:48 l (disorder) (disorder) He rmann Active Problem 01/08/2023 [facility] 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-08 Romulo analilia stenosis stenosis 14:32:48 l of lumbar of lumbar Herm otf region region (disorder) (disorder) Active Problem 01/08/2023 [facility] Tremor Tremor Problem Active 2023-01-08 Romulo analilia (finding) (finding) 14:32:48 l Active [place] Problem 01/08/2023 [facility] Allergies, Adverse Reactions, Alerts Allergy Allergy Status Severity Reaction(s) Onset Inactive Treating Comm ents Source Name Type Date Date Clinician No Known Propensi Active Method i Drug ty to [address] Allergie adverse 00:00: Hospita s reaction 00 l s to drug No Known No Known Active Memori a Medicati Medicati l on on Rom Allergie Allergie s s NO KNOWN Drug Active Univers ALLERGIE Class ity of S [facility] Family History Family Member Diagnosis Comments Start Date Stop Date Source Natural father Hypertension [facility] Natural mother Cancer [facility] Social History Social Habit Start Date Stop Date Quantity Comments Source History of Tobacco [facility] - Use [facility] Sexual orientation Method ist Hospital Exposure to Not sure [facility] of SARS-CoV-2 (event) [facility] History of Social 2016-11-15 2016-11-[address] function 00:00:00 00:00:00 Hospital Alcohol intake 2016 2016 Current [facility] 00:00:00 00:00:00 non-drinker of Hospital alcohol (finding) Tobacco use and 2016 2016 Smokeless [facility] exposure 00:00:00 00:00:00 tobacco non-user Hospital Sex Assigned At [birth year] [facility] 00:00:00 00:00:00 Hospital Smoking Status Start Date Stop Date Source Tobacco smoking status [facility] Unknown if ever smoked [facility] Medications Ordered Filled Start Stop Current Ordering Indication Dosage Frequency Signature Comments Components Source Medication Medication Date Date Medication? Clinician (SIG) Name Name ALPRAZolam ALPRAZolam No QD ALPRAZolam 0.25 MG 0.25 MG 8-31 0.25 MG 00:00: 00 ALPRAZolam ALPRAZolam 0 No QD ALPRAZolam 0.25 MG 0.25 MG 8-31 0.25 MG 00:00: 00 ALPRAZolam ALPRAZolam 0 No QD ALPRAZolam 0.25 MG 0.25 MG 8-31 0.25 MG 00:00: 00 ALPRAZolam ALPRAZolam 0 No QD ALPRAZolam 0.25 MG 0.25 MG 8-31 0.25 MG 00:00: 00 ALPRAZolam ALPRAZolam 0 No QD ALPRAZolam 0.25 MG 0.25 MG 8-31 0.25 MG 00:00: 00 ALPRAZolam ALPRAZolam 0 No QD ALPRAZolam 0.25 MG 0.25 MG 8-31 0.25 MG 00:00: 00 ALPRAZolam ALPRAZolam 0 No QD ALPRAZolam 0.25 MG 0.25 MG 8-31 0.25 MG 00:00: 00 pramipexole 2022-0 Yes 0.25 mg = M emoria 0.25 mg 7- 1 tab, PO, l oral tablet 18:20: TID, # 270 Rom 00 tab, 1 Refill(s), Pharmacy: [facility] #[id number], 147.32, cm, 08/25/22 11:35:00 CDT, Height, 74.545, kg, 08/25/22 11:35:00 CDT, Weight pramipexole 2022-0 Yes 0.25 mg = M emoria 0.25 mg 7-06 1 tab, PO, l oral tablet 18:20: TID, # 270 [place] 00 tab, 1 Refill(s), Pharmacy: [facility] #[id number], 147.32, cm, 08/25/22 11:35:00 CDT, Height, 74.545, kg, 08/25/22 11:35:00 CDT, Weight pramipexole 2022-0 Yes 0.25 mg = M emoria 0.25 mg 7-06 1 tab, PO, l oral tablet 18:20: TID, # 270 Rom 00 tab, 1 Refill(s), Pharmacy: [facility] #[id number], 147.32, cm, 08/25/22 11:35:00 CDT, Height, 74.545, kg, 08/25/22 11:35:00 CDT, Weight pramipexole 2022-0 Yes 0.25 mg = M emoria 0.25 mg 7-06 1 tab, PO, l oral tablet 18:20: TID, # 270 Rom 00 tab, 1 Refill(s), Pharmacy: [facility] #[id number], 147.32, cm, 08/25/22 11:35:00 CDT, Height, 74.545, kg, 08/25/22 11:35:00 CDT, Weight galantamine 2022-0 Yes = 1 cap, Me moria 8 mg oral 4-26 PO, QAM, # l capsule, 16:36: 90 unknown Her awan extended 00 unit, 1 release Refill(s), Pharmacy: [facility] STORE [id number], 147.32, cm, 08/25/22 11:35:00 CDT, Height, 74.545, kg, 08/25/22 11:35:00 CDT, Weight galantamine 2022-0 Yes = 1 cap, Me moria 8 mg oral 4-26 PO, QAM, # l capsule, 16:36: 90 unknown Her awan extended 00 unit, 1 release Refill(s), Pharmacy: [facility] STORE [id number], 147.32, cm, 08/25/22 11:35:00 CDT, Height, 74.545, kg, 08/25/22 11:35:00 CDT, Weight galantamine 2022-0 Yes = 1 cap, Me moria 8 mg oral 4-26 PO, QAM, # l capsule, 16:36: 90 unknown Her awan extended 00 unit, 1 release Refill(s), Pharmacy: [facility] STORE [id number], 147.32, cm, 08/25/22 11:35:00 CDT, Height, 74.545, kg, 08/25/22 11:35:00 CDT, Weight galantamine 2023-0 Yes = 1 cap, Me moria 8 mg oral 4-26 PO, QAM, # l capsule, 16:36: 90 unknown Her awan extended 00 unit, 1 release Refill(s), Pharmacy: [facility] STORE [id number], 147.32, cm, 08/25/22 11:35:00 CDT, Height, 74.545, kg, 08/25/22 11:35:00 CDT, Weight pramipexole 2022-0 Yes 0.25 mg = M emoria 0.25 mg 4-11 1 tab, PO, l oral tablet 17:08: TID, # 270 Rom 00 tab, 1 Refill(s), Pharmacy: [facility] #[id number], 147.32, cm, 08/25/22 11:35:00 CDT, Height, 74.545, kg, 08/25/22 11:35:00 CDT, Weight pramipexole 2022-0 Yes 0.25 mg = M emoria 0.25 mg 4-11 1 tab, PO, l oral tablet 17:08: TID, # 270 Rom 00 tab, 1 Refill(s), Pharmacy: [facility] #[id number], 147.32, cm, 08/25/22 11:35:00 CDT, Height, 74.545, kg, 08/25/22 11:35:00 CDT, Weight pramipexole 2022-0 Yes 0.25 mg = M emoria 0.25 mg 4-11 1 tab, PO, l oral tablet 17:08: TID, # 270 [place] 00 tab, 1 Refill(s), Pharmacy: [facility] #[id number], 147.32, cm, 08/25/22 11:35:00 CDT, Height, 74.545, kg, 08/25/22 11:35:00 CDT, Weight pramipexole 2022-0 Yes 0.25 mg = M emoria 0.25 mg 4-11 1 tab, PO, l oral tablet 17:08: TID, # 270 [place] 00 tab, 1 Refill(s), Pharmacy: [facility] #[id number], 147.32, cm, 08/25/22 11:35:00 CDT, Height, 74.545, kg, 08/25/22 11:35:00 CDT, Weight carbidopa-l 2022-0 Yes 1 tab, PO, Memoria evodopa 50 4-10 BID, # 180 l mg-200 mg 13:55: tab, 1 Alberto n oral 00 Refill(s), tablet, Pharmacy: [facility] release [id number], 147.32, cm, 07/22/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, Height, 73.636, kg, 07/22/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, Weight carbidopa-l 2022-0 Yes 1 tab, PO, Memoria evodopa 50 4-10 BID, # 180 l mg-200 mg 13:55: tab, 1 Alberto n oral 00 Refill(s), tablet, Pharmacy: [facility] release [id number], 147.32, cm, 07/22/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, Height, 73.636, kg, 07/22/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, Weight carbidopa-l 2022-0 Yes 1 tab, PO, Memoria evodopa 50 4-10 BID, # 180 l mg-200 mg 13:55: tab, 1 Alberto n oral 00 Refill(s), tablet, Pharmacy: [facility] release [id number], 147.32, cm, 07/22/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, Height, 73.636, kg, 07/22/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, Weight carbidopa-l 2022-0 Yes 1 tab, PO, Memoria evodopa 50 4-10 BID, # 180 l mg-200 mg 13:55: tab, 1 Alberto n oral 00 Refill(s), tablet, Pharmacy: [facility] release [id number], 147.32, cm, 07/22/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, Height, 73.636, kg, 07/22/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, Weight pramipexole 2022-0 Yes = 1 tab, Me moria 0.125 mg 1-03 PO, TID, # l oral tablet 15:09: 270 tab, 1 Rom 00 Refill(s), Pharmacy: [facility] STORE [id number], 147.32, cm, 07/22/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, Height, 73.636, kg, 07/22/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, Weight pramipexole 2022-0 Yes = 1 tab, Me moria 0.125 mg 1-03 PO, TID, # l oral tablet 15:09: 270 tab, 1 [place] 00 Refill(s), Pharmacy: [facility] STORE [id number], 147.32, cm, 07/22/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, Height, 73.636, kg, 07/22/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, Weight pramipexole 2022-0 Yes = 1 tab, Me moria 0.125 mg 1-03 PO, TID, # l oral tablet 15:09: 270 tab, 1 [place] 00 Refill(s), Pharmacy: [facility] STORE 78528, 147.32, cm, 07/22/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, Height, 73.636, kg, 07/22/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, Weight pramipexole 2022-0 Yes = 1 tab, Me moria 0.125 mg 1-03 PO, TID, # l oral tablet 15:09: 270 tab, 1 [place] 00 Refill(s), Pharmacy: [facility] STORE [id number], 147.32, cm, 07/22/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, Height, 73.636, kg, 07/22/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, Weight galantamine 2021-05 Yes = 1 cap, Me moria 8 mg oral 1-17 PO, QAM, # l capsule, 15:40: 30 unknown Her awan extended 00 unit, 5 release Refill(s), Pharmacy: [facility] STORE [id number], 147.32, cm, 07/22/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, Height, 73.636, kg, 07/22/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, Weight galantamine 2021-05 Yes = 1 cap, Me moria 8 mg oral 1-17 PO, QAM, # l capsule, 15:40: 30 unknown Her awan extended 00 unit, 5 release Refill(s), Pharmacy: [facility] STORE 04021, 147.32, cm, 07/22/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, Height, 73.636, kg, 07/22/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, Weight galantamine 2021-05 Yes = 1 cap, Me moria 8 mg oral 1-17 PO, QAM, # l capsule, 15:40: 30 unknown Her awan extended 00 unit, 5 release Refill(s), Pharmacy: [facility] STORE [id number], 147.32, cm, 07/22/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, Height, 73.636, kg, 07/22/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, Weight galantamine 2021-05 Yes = 1 cap, Me moria 8 mg oral 1-17 PO, QAM, # l capsule, 15:40: 30 unknown Her awan extended 00 unit, 5 release Refill(s), Pharmacy: [facility] STORE [id number], 147.32, cm, 07/22/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, Height, 73.636, kg, 07/22/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, Weight ALPRAZolam ALPRAZolam 2021-05 No QD ALPRAZolam 0.25 MG 0.25 MG 0-11 0.25 MG 00:00: 00 ALPRAZolam ALPRAZolam 1 No QD ALPRAZolam 0.25 MG 0.25 MG 0-11 0.25 MG 00:00: 00 ALPRAZolam ALPRAZolam 1 No QD ALPRAZolam 0.25 MG 0.25 MG 0-11 0.25 MG 00:00: 00 Sinemet CR 2021-0 Yes 1 tab, PO, M emoria 50 mg-200 9-08 BID, # 180 l mg oral 17:05: tab, 1 Rom tablet, 00 Refill(s), extended Pharmacy: [id number], 147.32, cm, 07/22/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, Height, 73.636, kg, 07/22/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, Weight Sinemet CR 2021-0 Yes 1 tab, PO, M emoria 50 mg-200 9-08 BID, # 180 l mg oral 17:05: tab, 1 Rom tablet, 00 Refill(s), extended Pharmacy: release [id number], 147.32, cm, 07/22/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, Height, 73.636, kg, 07/22/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, Weight Sinemet CR 2021-0 Yes 1 tab, PO, M emoria 50 mg-200 9-08 BID, # 180 l mg oral 17:05: tab, 1 Rom tablet, 00 Refill(s), extended Pharmacy: release [facility] #[id number], 147.32, cm, 07/22/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, Height, 73.636, kg, 07/22/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, Weight Sinemet CR 2-0 Yes 1 tab, PO, M emoria 50 mg-200 9-08 BID, # 180 l mg oral 17:05: tab, 1 Rom tablet, 00 Refill(s), extended Pharmacy: release [id number], 147.32, cm, 07/22/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, Height, 73.636, kg, 07/22/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, Weight ALPRAZolam ALPRAZolam 0 No QD ALPRAZolam [...] 5-22 le} MG 00:00: 00 ALPRAZolam ALPRAZolam 2021-0 No QD ALPRAZolam 0.25 MG 0.25 MG 5-13 0.25 MG 00:00: 00 ALPRAZolam ALPRAZolam 2021-0 No QD ALPRAZolam 0.25 MG 0.25 MG 5-13 0.25 MG 00:00: 00 ALPRAZolam ALPRAZolam 2021-0 No QD ALPRAZolam 0.25 MG 0.25 MG 5-13 0.25 MG 00:00: 00 ALPRAZolam ALPRAZolam 2021-0 No QD ALPRAZolam 0.25 MG 0.25 MG 5-13 0.25 MG 00:00: 00 ALPRAZolam ALPRAZolam 2021-0 No QD ALPRAZolam 0.25 MG 0.25 MG 5-13 0.25 MG 00:00: 00 galantamine 2022-0 Yes 8 mg = 1 Me moria 8 mg oral 3-18 cap, PO, l capsule, 14:26: QAM, # 30 Herm otf extended 00 cap, 3 release Refill(s), Pharmacy: [facility] #[id number], 147.32, cm, 07/22/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, Height, 73.636, kg, 07/22/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, Weight galantamine 2022-0 Yes 8 mg = 1 Me moria 8 mg oral 3-18 cap, PO, l capsule, 14:26: QAM, # 30 Herm otf extended 00 cap, 3 release Refill(s), Pharmacy: [facility] #[id number], 147.32, cm, 07/22/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, Height, 73.636, kg, 07/22/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, Weight galantamine 2022-0 Yes 8 mg = 1 Me moria 8 mg oral 3-18 cap, PO, l capsule, 14:26: QAM, # 30 Herm otf extended 00 cap, 3 release Refill(s), Pharmacy: [facility] #[id number], 147.32, cm, 07/22/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, Height, 73.636, kg, 07/22/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, Weight galantamine 2022-0 Yes 8 mg = 1 Me moria 8 mg oral 3-18 cap, PO, l capsule, 14:26: QAM, # 30 Herm otf extended 00 cap, 3 release Refill(s), Pharmacy: [facility] #[id number], 147.32, cm, 07/22/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, Height, 73.636, kg, 07/22/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, Weight galantamine 2022-0 Yes 8 mg = 1 Me moria 8 mg oral 3-08 cap, PO, l capsule, 20:24: QAM, # 30 Herm otf extended 00 cap, 3 release Refill(s), Pharmacy: [id number], 147.32, cm, 07/22/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, Height, 73.636, kg, 07/22/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, Weight galantamine 2022-0 Yes 8 mg = 1 Me moria 8 mg oral 3-08 cap, PO, l capsule, 20:24: QAM, # 30 Herm otf extended 00 cap, 3 release Refill(s), Pharmacy: [facility] #[id number], 147.32, cm, 07/22/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, Height, 73.636, kg, 07/22/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, Weight galantamine 2-0 Yes 8 mg = 1 Me moria 8 mg oral 3-08 cap, PO, l capsule, 20:24: QAM, # 30 Herm otf extended 00 cap, 3 release Refill(s), Pharmacy: [facility] #[id number], 147.32, cm, 07/22/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, Height, 73.636, kg, 07/22/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, Weight galantamine 2022-0 Yes 8 mg = 1 Me moria 8 mg oral 3-08 cap, PO, l capsule, 20:24: QAM, # 30 Herm otf extended 00 cap, 3 release Refill(s), Pharmacy: [id number], 147.32, cm, 07/22/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, Height, 73.636, kg, 07/22/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, Weight Carbidopa 2022-0 Yes 1 tab, PO, Me moria 50 MG / 3-08 BID, # 180 l Levodopa 20:21: tab, 1 Rom 200 MG 00 Refill(s), Extended Pharmacy: Release [facility] #[id number], [Sinemet 147.32, 50-200] cm, 07/22/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, Height, 73.636, kg, 07/22/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, Weight Carbidopa 2021-0 Yes 1 tab, PO, Me moria 50 MG / 3-08 BID, # 180 l Levodopa 20:21: tab, 1 [place] 200 MG 00 Refill(s), Extended Pharmacy: Release [id number], [Sinemet 147.32, 50-200] cm, 07/22/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, Height, 73.636, kg, 07/22/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, Weight Carbidopa 2021-0 Yes 1 tab, PO, Me moria 50 MG / 3-08 BID, # 180 l Levodopa 20:21: tab, 1 [place] 200 MG 00 Refill(s), Extended Pharmacy: Release [id number], [Sinemet 147.32, 50-200] cm, 07/22/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, Height, 73.636, kg, 07/22/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, Weight Carbidopa 2021-0 Yes 1 tab, PO, Me moria 50 MG / 3-08 BID, # 180 l Levodopa 20:21: tab, 1 [place] 200 MG 00 Refill(s), Extended Pharmacy: Release [facility][id number], [Sinemet 147.32, 50-200] cm, 07/22/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, Height, 73.636, kg, 07/22/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, Weight citalopram 0 Yes TAKE 1 Memor ia 10 mg oral 3-08 TABLET BY l tablet 19:44: MOUTH Rom 00 EVERY DAY FOR 30 DAYS citalopram 0 Yes TAKE 1 Memor ia 10 mg oral 3-08 TABLET BY l tablet 19:44: MOUTH [place] 00 EVERY DAY FOR 30 DAYS citalopram 0 Yes TAKE 1 Memor ia 10 mg oral 3-08 TABLET BY l tablet 19:44: MOUTH [place] 00 EVERY DAY FOR 30 DAYS citalopram 0 Yes TAKE 1 Memor ia 10 mg oral 3-08 TABLET BY l tablet 19:44: MOUTH Rom 00 EVERY DAY FOR 30 DAYS Pramipexole 2021-0 Yes 0.125 mg = Memoria dihydrochlo 1-07 1 tab, PO, l ride 0.125 20:21: TID, # 270 H ermann MG Oral 00 tab, 1 Tablet Refill(s), [[facility]] [id number], 147.32, cm, 10/08/20 15:49:00 CDT, Height, 73.636, kg, 10/08/20 15:49:00 CDT, Weight Pramipexole 2021-0 Yes 0.125 mg = Memoria dihydrochlo 1-07 1 tab, PO, l ride 0.125 20:21: TID, # 270 H ermann MG Oral 00 tab, 1 Tablet Refill(s), [[facility]x] Pharmacy: [facility] #[id number], 147.32, cm, 10/08/20 15:49:00 CDT, Height, 73.636, kg, 10/08/20 15:49:00 CDT, Weight Pramipexole 2021-0 Yes 0.125 mg = Memoria dihydrochlo 1-07 1 tab, PO, l ride 0.125 20:21: TID, # 270 H ermann MG Oral 00 tab, 1 Tablet Refill(s), [[facility]] Pharmacy: [facility] #[id number], 147.32, cm, 10/08/20 15:49:00 CDT, Height, 73.636, kg, 10/08/20 15:49:00 CDT, Weight Pramipexole 2021-0 Yes 0.125 mg = Memoria dihydrochlo 1-07 1 tab, PO, l ride 0.125 20:21: TID, # 270 H ermann MG Oral 00 tab, 1 Tablet Refill(s), [[facility]] Pharmacy: [facility] #[id number], 147.32, cm, 10/08/20 15:49:00 CDT, Height, 73.636, kg, 10/08/20 15:49:00 CDT, Weight Furosemide Furosemide 2020-05 No 1{table QD Furosemide 40 MG 40 MG 0-27 t} 40 MG 00:00: 00 Furosemide Furosemide 2020- No 1{table QD Furosemide 40 MG 40 MG 027 t} 40 MG 00:00: 00 Aldactone Aldactone 2020-05 202- No 1{table QD Aldactone 50 MG 50 MG 004-11 t} 50 MG 00:00: 00:00 00 :00 Aldactone Aldactone 2020-05 202- No 1{table QD Aldactone 50 MG 50 MG 04-11 t} 50 MG 00:00: 00:00 00 :00 Eliquis 2.5 Eliquis 2.5 2020-0 No Eliquis MG MG 9-23 2.5 MG 00:00: 00 Eliquis 2.5 Eliquis 2.5 2020-0 No Eliquis MG MG 9-23 2.5 MG 00:00: 00 Montelukast Montelukast 2020-0 No 1{table QD [...] MG 00:00: 10 MG 00 Montelukast Montelukast No 1{table QD Montelukas Sodium 10 Sodium 10 9-07 t} t Sodium MG MG 00:00: 10 MG 00 Montelukast Montelukast 0 No 1{table QD [place]elukas Sodium 10 Sodium 10 9-07 t} t Sodium MG MG 00:00: 10 MG 00 Carbidopa Yes 1 tab, PO, Me moria 50 MG / 8-26 BID, # 180 l Levodopa 16:06: tab, 1 Rom 200 MG 00 Refill(s), Extended Pharmacy: Release [id number], [Sinemet 147.32, 50-200] cm, 10/08/20 15:49:00 CDT, Height, 73.636, kg, 10/08/20 15:49:00 CDT, Weight Carbidopa 0 Yes 1 tab, PO, Me moria 50 MG / 8-26 BID, # 180 l Levodopa 16:06: tab, 1 [place] 200 MG 00 Refill(s), Extended Pharmacy: Release [id number], [Sinemet 147.32, 50-200] cm, 10/08/20 15:49:00 CDT, Height, 73.636, kg, 10/08/20 15:49:00 CDT, Weight Carbidopa 0 Yes 1 tab, PO, [...] # 180 l Levodopa 16:06: tab, 1 [place] 200 MG 00 Refill(s), Extended Pharmacy: Release [id number], [Sinemet 147.32, 50-200] cm, 10/08/20 15:49:00 CDT, Height, 73.636, kg, 10/08/20 15:49:00 CDT, Weight 24 HR Yes 0.75 mg = Memoria Pramipexole 6-30 1 tab, PO, l dihydrochlo 13:18: Bedtime, # [place] ride 0.75 00 90 tab, 3 MG Extended Refill(s), Release Pharmacy: [facility] [[facility] #[id number], 147.32, cm, 10/08/20 15:49:00 CDT, Height, 73.636, kg, 10/08/20 15:49:00 CDT, Weight 24 HR Yes 0.75 mg = Memoria Pramipexole 6-30 1 tab, PO, l dihydrochlo 13:18: Bedtime, # [place] ride 0.75 00 90 tab, 3 MG [...] PO, l dihydrochlo 13:18: Bedtime, # Rom thompson 0.75 00 90 tab, 3 MG Extended [...] 1 tab, PO, l dihydrochlo 21:07: Bedtime, # Rom ride 0.75 00 90 tab, 3 MG Extended Refill(s), Release Pharmacy: [facility] [[facility] #[id number], 147.32, cm, 10/08/20 15:49:00 CDT, Height, 73.636, kg, 10/08/20 15:49:00 CDT, Weight 24 HR Yes 0.75 mg = Memoria Pramipexole 5-25 1 tab, PO, l dihydrochlo 21:07: Bedtime, Sima thompson 0.75 00 90 tab, 3 MG Extended Refill(s), Release Pharmacy: [facility] [[facility] #[id number], 147.32, cm, 10/08/20 15:49:00 CDT, Height, 73.636, kg, 10/08/20 15:49:00 CDT, Weight 24 HR Yes 0.75 mg = Memoria Pramipexole 5-25 1 tab, PO, l dihydrochlo 21:07: Bedtime, Sima thompson 0.75 00 90 tab, 3 MG Extended Refill(s), Release Pharmacy: [facility] [[facility] #[id number], 147.32, cm, 10/08/20 15:49:00 CDT, Height, 73.636, kg, 10/08/20 15:49:00 CDT, Weight 24 HR Yes 0.75 mg = Memoria Pramipexole 5-25 1 tab, PO, l dihydrochlo 21:07: Bedtime, Sima thompson 0.75 00 90 tab, 3 MG Extended Refill(s), Release Pharmacy: [facility]t [id number], 147.32, cm, 10/08/20 15:49:00 CDT, Height, 73.636, kg, 10/08/20 15:49:00 CDT, Weight 24 HR Yes 0.375 mg = Memori a Pramipexole 4-15 1 tab, PO, l dihydrochlo 19:40: Daily, # Ralph thompson 0.375 00 90 tab, 3 MG Extended Refill(s), Release Pharmacy: Tablet [facility] #[id number], 144.78, cm, 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, Height, 73.636, kg, 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, Weight 24 HR Yes 0.375 mg = Memori a Pramipexole 4-15 1 tab, PO, l dihydrochlo 19:40: Daily, Sima Rosas rmann ride 0.375 00 90 tab, 3 MG Extended Refill(s), Release Pharmacy: Tablet [facility] #[id number], 144.78, cm, 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, Height, 73.636, kg, 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, Weight 24 HR Yes 0.375 mg = Memori a Pramipexole 4-15 1 tab, PO, l dihydrochlo 19:40: Daily, # Ralph rmann ride 0.375 00 90 tab, 3 MG Extended Refill(s), Release Pharmacy: [facility]t [facility] #[id number], 144.78, cm, 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, Height, 73.636, kg, 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, Weight 24 HR Yes 0.375 mg = Memori a Pramipexole 4-15 1 tab, PO, l dihydrochlo 19:40: Daily, # Ralph rmotf ride 0.375 00 90 tab, 3 MG Extended Refill(s), Release Pharmacy: [facility]t [facility] #[id number], 144.78, cm, 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, Height, 73.636, kg, 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, Weight Carbidopa 2020-0 Yes 1 tab, PO, Me moria 50 MG / 3-30 Daily, # l Levodopa 22:57: 30 tab, 2 Herm otf 200 MG 00 Refill(s), Extended other Release Tablet Carbidopa 2020-0 Yes 1 tab, PO, Me moria 50 MG / 3-30 Daily, # l Levodopa 22:57: 30 tab, 2 Herm otf 200 MG 00 Refill(s), Extended other Release Tablet Carbidopa 2020-0 Yes 1 tab, PO, Me moria 50 MG / 3-30 Daily, # l Levodopa 22:57: 30 tab, 2 Herm otf 200 MG 00 Refill(s), Extended other Release Tablet Carbidopa 2020-0 Yes 1 tab, PO, Me moria 50 MG / 3-30 Daily, # l Levodopa 22:57: 30 tab, 2 Herm otf 200 MG 00 Refill(s), Extended other Release Tablet Carbidopa 2020-0 Yes 1 tab, PO, Me moria 50 MG / 3-11 BID, # 360 l Levodopa 20:30: tab, 1 Rom 200 MG 00 Refill(s), Extended Pharmacy: Release [facility] #[id number], 144.78, cm, 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, Height, 73.636, kg, 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, Weight Carbidopa 2020-0 Yes 1 tab, PO, Me moria 50 MG / 3-11 BID, # 360 l Levodopa 20:30: tab, 1 Rom 200 MG 00 Refill(s), Extended Pharmacy: Release [facility] #[id number], 144.78, cm, 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, Height, 73.636, kg, 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, Weight Carbidopa 2020-0 Yes 1 tab, PO, Me moria 50 MG / 3-11 BID, # 360 l Levodopa 20:30: tab, 1 Rom 200 MG 00 Refill(s), Extended Pharmacy: Release [facility] #[id number], 144.78, cm, 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, Height, 73.636, kg, 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, Weight Carbidopa 2020-0 Yes 1 tab, PO, Me moria 50 MG / 3-11 BID, # 360 l Levodopa 20:30: tab, 1 [place] 200 MG 00 Refill(s), Extended Pharmacy: Release [facility] #[id number], 144.78, cm, 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, Height, 73.636, kg, 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, Weight 24 HR 2020-0 Yes 0.375 mg = Memori a Pramipexole 3-11 1 tab, PO, l dihydrochlo 20:28: Daily, # He rmann ride 0.375 00 30 tab, 3 MG Extended Refill(s), Release Pharmacy: Tablet [facility] #[id number], 144.78, cm, 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, Height, 73.636, kg, 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, Weight 24 HR 0 Yes 0.375 mg = Memori a Pramipexole 3-11 1 tab, PO, l dihydrochlo 20:28: Daily, Sima Rosas rmann ride 0.375 00 30 tab, 3 MG Extended Refill(s), Release Pharmacy: Tablet [facility] #[id number], 144.78, cm, 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, Height, 73.636, kg, 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, Weight 24 HR Yes 0.375 mg = Memori a Pramipexole 3-11 1 tab, PO, l dihydrochlo 20:28: Daily, # Ralph rmann ride 0.375 00 30 tab, 3 MG Extended Refill(s), Release Pharmacy: [facility]t [facility] #[id number], 144.78, cm, 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, Height, 73.636, kg, 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, Weight 24 HR Yes 0.375 mg = Memori a Pramipexole 3-11 1 tab, PO, l dihydrochlo 20:28: Daily, Sima Rosas rmann ride 0.375 00 30 tab, 3 MG Extended Refill(s), Release Pharmacy: Tablet [facility] #[id number], 144.78, cm, 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, Height, 73.636, kg, 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, Weight Carbidopa 2019-05 Yes 1 tab, PO, Me moria 50 MG / 2-11 BID, # 360 l Levodopa 17:03: tab, 1 [place] 200 MG 00 Refill(s), Extended Pharmacy: Release [facility] #[id number], 149.86, cm, 07/20/19 14:33:00 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, Height, 73.636, kg, 07/20/19 14:33:00 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, Weight Carbidopa 2020-1 Yes 1 tab, PO, Me moria 50 MG / 2-11 BID, # 360 l Levodopa 17:03: tab, 1 [place] 200 MG 00 Refill(s), Extended Pharmacy: Release [facility] #[id number], 149.86, cm, 07/20/19 14:33:00 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, Height, 73.636, kg, 07/20/19 14:33:00 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, Weight Carbidopa 2020-1 Yes 1 tab, PO, Me moria 50 MG / 2-11 BID, # 360 l Levodopa 17:03: tab, 1 Rom 200 MG 00 Refill(s), Extended Pharmacy: Release [facility] #[id number], 149.86, cm, 07/20/19 14:33: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 [address] amLODIPine 2020-0 Yes 5mg Take 5 mg [facility] [place] 5 mg tablet 9-14 by mouth ity of 00:00: daily. 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, Weight Carbidopa 2020-0 Yes 1 tab, PO, Me moria 25 MG / 9-04 BID, # 60 l Levodopa 16:28: tab, 3 Rom 100 MG Oral 00 Refill(s), Tablet Pharmacy: [[facility] cy #[id number], 149.86, cm, 07/20/19 14:33:00 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, Height, 73.636, kg, 07/20/19 14:33:00 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, Weight Carbidopa 2020-0 Yes 1 tab, PO, Me moria 25 MG / 9-04 BID, # 60 l Levodopa 16:28: tab, 3 Rom 100 MG Oral 00 Refill(s), Tablet Pharmacy: [[facility] cy #[id number], 149.86, cm, 07/20/19 14:33:00 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 [facility] ramipriL 10 2020-0 Yes 10mg Take 10 mg [facility] mg capsule 7-30 by mouth 2 ity of 00:00: (two) [place] [facility] daily. [facility] foLIC acid 2020-0 Yes 1mg Take 1 mg [facility] 1 mg tablet 6-26 by mouth ity of 00:00: daily. [place] [facility] foLIC acid 2020-0 Yes 1mg Take 1 mg [facility] [place] 1 mg tablet 6-26 by mouth ity of 00:00: daily. [place] [facility] gabapentin 2020-0 Yes 600 mg = 1 M emoria 600 MG Oral 3-05 tab, PO, l Tablet 20:39: TID, # 270 Oly nn 00 tab, 0 Refill(s) Aspirin 81 2020-0 Yes 81 mg = 1 Me moria [facility] 3-05 tab, PO, l Coated 20:39: Daily, # [place] Tablet 00 90 tab, 3 Refill(s) Ramipril 2020-0 Yes 10 mg, PO, Mem oria 3-05 BID, 0 l 20:39: Refill(s) [place] 00 sertraline 2020-0 Yes 50 mg = [...] oria 3-05 BID, 0 l 20:39: Refill(s) [place] 00 amLODIPine 2020-0 Yes 5 mg = 1 Mem oria 5 mg oral 3-05 tab, PO, l tablet 20:39: Daily, 0 Rom 00 Refill(s) gabapentin 2020-0 Yes 600 mg = 1 M emoria 600 MG Oral 3-05 tab, PO, l Tablet 20:39: TID, # 270 Oly nn 00 tab, 0 Refill(s) gabapentin 2020-0 Yes 600 mg = 1 M emoria 600 MG Oral 3-05 tab, PO, l Tablet 20:39: TID, # 270 O[place] nn 00 tab, 0 Refill(s) Aspirin 81 2020-0 Yes 81 mg = 1 Me moria MG Enteric 3-05 tab, PO, l Coated 20:39: Daily, # [place] Tablet 00 90 tab, 3 Refill(s) Aspirin 81 2020-0 Yes 81 mg = 1 Me moria MG Enteric 3-05 tab, PO, l Coated 20:39: Daily, # [place] Tablet 00 90 tab, 3 Refill(s) Ramipril 2020-0 Yes 10 mg, PO, Mem oria 3-05 BID, 0 l 20:39: Refill(s) [place] 00 Ramipril 2020-0 Yes 10 mg, PO, Mem oria 3-05 BID, 0 l 20:39: Refill(s) Rom 00 gabapentin 2020-0 Yes 600 mg = 1 [...] oria 3-05 BID, 0 l 20:39: Refill(s) [place] 00 sertraline 2020-0 Yes 50 mg = 1 Me moria 50 mg oral 3-05 tab, PO, l tablet 20:39: Daily, 0 Rom 00 Refill(s) sertraline 2020-0 Yes 50 mg = 1 Me moria 50 mg oral 3-05 tab, PO, l tablet 20:39: Daily, 0 [place] 00 Refill(s) methocarbam 2020-0 Yes 500 mg = 1 Memoria ol 500 mg 3-05 tab, PO, l oral tablet 20:39: BID, 0 Herm Refill(s) clonazePAM 2020-0 Yes 0.5 mg = [...] tab, PO, l enteric 20:39: Daily, # Albetro n coated 00 90 tab, 3 Refill(s) ramipril 2020-0 Yes 10 mg, PO, Mem oria 3-05 BID, 0 l 20:39: Refill(s) [place] 00 amLODIPine 2020-0 Yes 5 mg = 1 Mem oria 5 mg oral 3-05 tab, PO, l tablet 20:39: Daily, 0 [place] 00 Refill(s) sertraline 2020-0 Yes 50 mg = 1 Me moria 50 mg oral 3-05 tab, PO, l tablet 20:39: Daily, 0 Rom 00 Refill(s) methocarbam 2020-0 Yes 500 mg = 1 Memoria ol 500 mg 3-05 tab, PO, l oral tablet 20:39: BID, 0 Herm otf 00 Refill(s) methocarbam 2020-0 Yes 500 mg = 1 Memoria ol 500 mg 3-05 tab, PO, l oral tablet 20:39: BID, 0 Herm otf 00 Refill(s) clonazePAM 2020-0 Yes 0.5 mg = 1 M emoria 0.5 mg oral 3-05 tab, PO, l tablet 20:39: BID, # 30 Alberto n 00 tab, 0 Refill(s) clonazePAM 2020-0 Yes 0.5 mg = 1 M emoria 0.5 mg oral 3-05 tab, PO, l tablet 20:39: BID, # 30 Alberto n 00 tab, 0 Refill(s) omeprazole 2020-0 Yes 20 mg = 1 Me moria 20 mg oral 3-05 tab, PO, l enteric 20:39: Daily, # Alberto n coated 00 30 tab, 3 tablet Refill(s) omeprazole 2020-0 Yes 20 mg = 1 Me moria 20 mg oral 3-05 tab, PO, l enteric 20:39: Daily, # Alberto n coated 00 30 tab, 3 tablet Refill(s) gabapentin 2020-0 Yes 600 mg = 1 M emoria 600 mg oral 3-05 tab, PO, l tablet 20:39: TID, # 270 Oly nn 00 tab, 0 Refill(s) gabapentin 2020-0 Yes 600 mg = 1 M emoria 600 mg oral 3-05 tab, PO, l tablet 20:39: TID, # 270 Oly nn 00 tab, 0 Refill(s) metoprolol 2020-0 Yes 25 mg = 1 Me moria tartrate 25 3-05 tab, PO, l mg oral 20:39: BID, # 180 Herm otf tablet 00 tab, 0 Refill(s) metoprolol 2020-0 Yes 25 mg = 1 Me moria tartrate 25 3-05 tab, PO, l mg oral 20:39: BID, # 180 Herm otf tablet 00 tab, 0 Refill(s) aspirin 81 2020-0 Yes 81 mg = 1 Me moria mg tablet, 3-05 tab, PO, l enteric 20:39: Daily, # Alberto n coated 00 90 tab, 3 Refill(s) aspirin 81 2020-0 Yes 81 mg = 1 Me moria mg tablet, 3-05 tab, PO, l enteric 20:39: Daily, # Alberto n coated 00 90 tab, 3 Refill(s) ramipril 2020-0 Yes 10 mg, PO, Mem oria 3-05 BID, 0 l 20:39: Refill(s) [place] 00 ramipril 2020-0 Yes 10 mg, PO, Mem oria 3-05 BID, 0 l 20:39: Refill(s) amLODIPine 2020-0 Yes 5 mg = 1 Mem oria 5 mg oral 3-05 tab, PO, l tablet 20:39: Daily, 0 Rom 00 Refill(s) amLODIPine 2020-0 Yes 5 mg = 1 Mem oria 5 mg oral 3-05 tab, PO, l tablet 20:39: Daily, 0 [place] 00 Refill(s) gabapentin Yes TAKE ONE [facility] ([facility]UR[facility] - CAPSULE BY [facility] 400 mg 00:00: MOUTH 3 [facility] capsule 00 TIMES A l DAY gabapentin Yes TAKE ONE [facility] (NEURONTIN) 05-[address] 400 mg 00:00: MOUTH 3 [facility] capsule 00 TIMES A l DAY gabapentin Yes TAKE ONE [facility] (NEURONTIN) 1-[address] 400 mg 00:00: MOUTH 3 [facility] capsule [facility] TIMES A l DAY [facility] No [place] 200 mL, Memoria Medication 01-02 [place] Soln-IV, l 19:43: IV, Once, Rom 00 first dose 01/02/15 14:43:00 CDT, stop date 01/02/15 14:43:00 CDT [facility] [place] 200 mL, Memoria Medication 01-02 [place] Soln-IV, l 19:43: IV, Once, Rom 00 first dose 01/02/15 14:43:00 CDT, stop date 01/02/15 14:43:00 CDT [facility] [place] No [place] 200 mL, Memoria Medication 01-02 [place] Soln-IV, l 19:43: IV, Once, Rom 00 first dose 01/02/15 14:43:00 CDT, stop date 01/02/15 14:43:00 CDT [facility] [place] No [place] 200 mL, Memoria Medication 01-02 [place] Soln-IV, l 19:43: IV, Once, Rom 00 first dose 01/02/15 14:43:00 CDT, stop date 01/02/15 14:43:00 CDT midazolam No Alfred 2 mg = 2 M marianria 01-02 [place] mL, l 18:15: Injection, [place] 00 IV, Once, first dose 01/02/15 13:15:00 CDT, stop date 01/02/15 13:15:00 CDT [facility] No [place] 100 mcg = M marianria 01-02 [place] 2 mL, l 18:15: Injection, [place] 00 IV, Once, first dose 01/02/15 13:15:00 CDT, stop date 01/02/15 13:15:00 CDT midazolam No Alfred 2 mg = 2 M emoria 01-02 [place] mL, l 18:15: Injection, [place] 00 IV, Once, first dose 01/02/15 13:15:00 CDT, stop date 01/02/15 13:15:00 CDT [facility] No [place] 100 mcg = M emoria 01-02 [place] 2 mL, l 18:15: Injection, Rom 00 IV, Once, first dose 01/02/15 13:15:00 CDT, stop date 01/02/15 13:15:00 CDT midazolam No Alfred 2 mg = 2 M mary 8-19 [place] mL, l 18:15: Injection, Rom 00 IV, Once, first dose 01/02/15 13:15:00 CDT, stop date 01/02/15 13:15:00 CDT fenta[facility] No [place] 100 mcg = M mary 01-02 [place] 2 mL, l 18:15: Injection, [place] 00 IV, Once, first dose 01/02/15 13:15:00 CDT, stop date 01/02/15 13:15:00 CDT midazolam No Alfred 2 mg = 2 Ava hernandez 01-02 [place] mL, l 18:15: Injection, Rom 00 IV, Once, first dose 01/02/15 13:15:00 CDT, stop date 01/02/15 13:15:00 CDT [facility]enta[facility] No [place] 100 mcg = Ava hernandez 01-02 [place] 2 mL, l 18:15: Injection, Rom 00 IV, Once, first dose 01/02/15 13:15:00 CDT, stop date 01/02/15 13:15:00 CDT LR 1,000 mL No Jairo K 1,000 mL, Memoria 01-02 [place] IV, 30 l 17:58: mL/hr, [place] 00 start date 01/02/15 12:58:00 CDT Lidocaine No Jairo K 0.2 mL, Mem oria 2% 0.2 mL 01-02 [place] Injection, l IV Start 17:58: Subcutaneo Her [facility] [[facility]] 00 us, Once PRN for other (see comment), first dose 01/02/15 12:58:00 CDT LR 1,000 mL No Jairo K 1,000 mL, Memoria 01-02 [place] IV, 30 l 17:58: mL/hr, [place] 00 start date 01/02/15 12:58:00 CDT Lidocaine No Jairo K 0.2 mL, Mem oria 2% 0.2 mL 01-02 [place] Injection, l IV Start 17:58: Subcutaneo Her awan [[place]] 00 us, Once PRN for other (see comment), first dose 01/02/15 12:58:00 CDT LR 1,000 mL No Jairo K 1,000 mL, Memoria 8-19 [place] IV, 30 l 17:58: mL/hr, [place] 00 start date 01/02/15 12:58:00 CDT Lidocaine No Jairo K 0.2 mL, Mem oria 2% 0.2 mL - [place] Injection, l IV Start 17:58: [facility]aneo Her aw[facility] 00 us, Once PRN for other (see comment), first dose 01/02/15 12:58:00 CDT LR 1,000 mL No Jairo K 1,000 mL, Memoria 8- [place] IV, 30 l 17:58: mL/hr, [place] 00 start date 01/02/15 12:58:00 CDT Lidocaine No Jairo K 0.2 mL, Mem oria 2% 0.2 mL - [place] Injection, l IV Start 17:58: Subcutaneo Her awan [[facility]] 00 us, Once PRN for other (see [...] oral 8-12 tabs, l delayed 16:03: Oral, [place] release 00 Daily, 0 tablet Refill(s), acid reflux hydrochloro Yes 12.5 mg = M emoria thiazide 8-12 1 tabs, l 12.5 mg 16:03: Oral, Rom oral tablet 00 Daily, 0 Refill(s), hypertensi on ramipril 10 Yes 1 tab, Romulo analilia mg oral 8-12 Oral, l tablet 16:03: Daily, 0 [place] 00 Refill(s), hypertensi on estradiol Yes 0.5 mg = 1 Me moria 0.5 mg oral 8-12 tabs, l tablet 16:03: Oral, Rom 00 Daily, 0 Refill(s), hormone replacemen t Vimovo 375 Yes 1 tabs, Romulo analilia mg-20 mg 8-12 Oral, BID, l oral 16:03: # 60 tabs, [place] delayed 00 0 release Refill(s), tablet pain gabapentin Yes 300 mg = 1 M emoria 300 mg oral 8-12 caps, l capsule 16:03: Oral, TID, Herm otf 00 0 Refill(s), pain ALPRAZolam Yes 0.25 mg, Mem oria 8-12 Oral, BID, l 16:03: 0 [place] 00 Refill(s), anxiety omeprazole Yes 20 mg = 1 Me moria 20 mg oral 8-12 tabs, l delayed 16:03: Oral, Rom release 00 Daily, 0 tablet Refill(s), acid reflux hydrochloro Yes 12.5 mg = M emoria thiazide 8-12 1 tabs, l 12.5 mg 16:03: Oral, [place] oral tablet 00 Daily, 0 Refill(s), hypertensi on ramipril Yes 1 tab, Romulo analilia mg oral 8-12 Oral, l tablet 16:03: Daily, 0 [place] 00 Refill(s), hypertensi on estradiol Yes 0.5 mg = 1 Me moria 0.5 mg oral 8-12 tabs, l tablet 16:03: Oral, [place] 00 Daily, 0 Refill(s), hormone replacemen t Vimovo 375 Yes 1 tabs, Romulo analilia mg-20 mg 8-12 Oral, BID, l oral 16:03: # 60 tabs, [place] delayed 00 0 release Refill(s), tablet pain gabapentin Yes 300 mg = 1 M emoria 300 mg oral 8-12 caps, l capsule 16:03: Oral, TID, Herm otf 00 0 Refill(s), pain ALPRAZolam 2014- Yes 0.25 mg, Mem oria 8-12 Oral, BID, l 16:03: 0 Rom 00 Refill(s), anxiety Vimovo 375 2014-0 Yes 1 tabs, Romulo analilia mg-20 mg 8-12 Oral, BID, l oral 16:03: # 60 tabs, Rom delayed 00 0 release Refill(s), tablet pain omeprazole Yes 20 mg = 1 Me moria 20 mg oral 8-12 tabs, l delayed 16:03: Oral, [place] release 00 Daily, 0 tablet Refill(s), acid reflux gabapentin Yes 300 mg = 1 M emoria 300 mg oral 8-12 caps, l capsule 16:03: Oral, TID, Herm otf 00 0 Refill(s), pain hydrochloro Yes 12.5 mg = M emoria thiazide 8-12 1 tabs, l 12.5 mg 16:03: Oral, [place] oral tablet 00 Daily, 0 Refill(s), hypertensi on ALPRAZolam Yes 0.25 mg, Mem oria 8-12 Oral, BID, l 16:03: 0 [place] 00 Refill(s), anxiety ramipril 10 Yes 1 tab, Romulo analilia mg oral 8-12 Oral, l tablet 16:03: Daily, 0 Rom 00 Refill(s), hypertensi on omeprazole Yes 20 mg = 1 Me moria 20 mg oral 8-12 tabs, l delayed 16:03: Oral, [place] release 00 Daily, 0 tablet Refill(s), acid reflux estradiol Yes 0.5 mg = 1 Me moria 0.5 mg oral 8-12 tabs, l tablet 16:03: Oral, Rom 00 Daily, 0 Refill(s), hormone replacemen t hydrochloro 2014- Yes 12.5 mg = M emoria thiazide 8-12 1 tabs, l 12.5 mg 16:03: Oral, [place] oral tablet 00 Daily, 0 Refill(s), hypertensi on ramipril Yes 1 tab, Romulo analilia mg oral 8-12 Oral, l tablet 16:03: Daily, 0 Rom 00 Refill(s), hypertensi on estradiol Yes 0.5 mg = 1 Me moria 0.5 mg oral 8-12 tabs, l tablet 16:03: Oral, Rom 00 Daily, 0 Refill(s), hormone replacemen t Eliquis 2.5 Eliquis 2.5 No Eliquis MG [...] 1 MG 1 MG t} 1 MG Ramipril 10 Ramipril 10 No 1{capsu BID Ramipril MG MG le} 10 MG Metoprolol Metoprolol No 1{table BID Metoprolol Tartrate 50 Tartrate 50 t_with_ Tartrate MG MG food} 50 MG Citalopram Citalopram No 1{table QD Citalopram Hydrobromid Hydrobromid t} Hydrobromi e 20 MG e 20 MG de 20 MG Eliquis 2.5 Eliquis 2.5 No Eliquis MG MG 2.5 MG Gabapentin Gabapentin No Gabapentin 600 MG 600 MG 600 MG Folic Acid Folic Acid No 1{table QD Folic Acid 1 MG 1 MG t} 1 MG Aspirin 81 Aspirin 81 No 1{table QD Aspirin 81 81 MG 81 MG t} 81 MG Lasix 40 MG Lasix 40 MG No 1{table QD Lasix 40 t} MG Galantamine Galantamine No QD Galantamin Hydrobromid Hydrobromid e e ER 8 MG e ER 8 MG Hydrobromi de ER 8 MG traMADol traMADol No 1{table QD traMADol HCl 50 MG HCl 50 MG t_as_ne HCl 50 MG eded} Furosemide Furosemide No 1{table QD Furosemide 40 MG 40 MG t} 40 MG Carbidopa-L Carbidopa-L No 1{table BID Carbidopa- evodopa ER evodopa ER t} Levodopa 50-200 MG 50-200 MG ER 50-200 MG Galantamine Galantamine No QD Galantamin Hydrobromid Hydrobromid e e ER 8 MG e ER 8 MG Hydrobromi de ER 8 MG Pramipexole Pramipexole No Pramipexol Dihydrochlo Dihydrochlo e ride ER ride ER Dihydrochl 0.375 MG 0.375 MG oride ER 0.375 MG Citalopram Citalopram No QD Citalopram Hydrobromid Hydrobromid Hydrobromi e 20 MG e 20 MG de 20 MG Albuterol Albuterol No Albuterol Sulfate HFA Sulfate HFA Sulfate 108 (90 108 (90 HFA 108 Base) Base) (90 Base) MCG/ACT MCG/ACT MCG/ACT Spironolact Spironolact No 1{table QD Spironolac one 25 MG one 25 MG t} tone 25 MG Cyclobenzap Cyclobenzap No 1{table QD Cyclobenza rine HCl 5 rine HCl 5 t_at_be kee HCl MG MG dtime_a 5 MG s_neede d} Eliquis 2.5 Eliquis 2.5 No Eliquis MG [...] MG 0.375 MG oride ER 0.375 MG Carbidopa-L Carbidopa-L No 1{table BID Carbidopa- evodopa ER evodopa ER t} Levodopa 50-200 MG 50-200 MG ER 50-200 MG Albuterol Albuterol No Albuterol Sulfate HFA Sulfate HFA Sulfate 108 (90 108 (90 HFA 108 Base) Base) (90 Base) MCG/ACT MCG/ACT MCG/ACT Galantamine Galantamine No QD Galantamin Hydrobromid Hydrobromid e e ER 8 MG e ER 8 MG Hydrobromi de ER 8 MG Gabapentin Gabapentin No Gabapentin 600 MG 600 MG 600 MG Aspirin 81 Aspirin 81 No 1{table QD Aspirin 81 81 MG 81 MG t} 81 MG Folic Acid Folic Acid No 1{table QD Folic Acid 1 MG 1 MG t} 1 MG Ramipril 10 Ramipril 10 No 1{capsu BID Ramipril MG MG le} 10 MG traMADol traMADol No 1{table QD traMADol HCl 50 MG HCl 50 MG t_as_ne HCl 50 MG eded} Lasix 20 MG Lasix 20 MG No 1{table QD Lasix 20 t} MG Citalopram Citalopram No 1{table QD Citalopram Hydrobromid Hydrobromid t} Hydrobromi e 20 MG e 20 MG de 20 MG Citalopram Citalopram No QD Citalopram Hydrobromid Hydrobromid Hydrobromi e 20 MG e 20 MG de 20 MG Aspirin 81 Aspirin 81 No 1{table QD Aspirin 81 81 MG 81 MG t} 81 MG Furosemide Furosemide No 1{table QD Furosemide 40 MG 40 MG t} 40 MG Spironolact Spironolact No 1{table QD Spironolac one 50 MG one 50 MG t} tone 50 MG Metoprolol Metoprolol No 1{table BID Metoprolol Tartrate 50 Tartrate 50 t_with_ Tartrate MG MG food} 50 MG Eliquis 2.5 Eliquis 2.5 No Eliquis MG MG 2.5 MG Cyclobenzap Cyclobenzap No 1{table QD Cyclobenza rine HCl 5 rine HCl 5 t_at_be kee HCl MG MG dtime_a 5 MG s_neede d} Pramipexole Pramipexole No Pramipexol Dihydrochlo Dihydrochlo e ride ER ride ER Dihydrochl 0.375 MG 0.375 MG oride ER 0.375 MG Carbidopa-L Carbidopa-L No 1{table BID Carbidopa- evodopa ER evodopa ER t} Levodopa 50-200 MG 50-200 MG ER 50-200 MG Albuterol Albuterol No Albuterol Sulfate HFA Sulfate HFA Sulfate 108 (90 108 (90 HFA 108 Base) Base) (90 Base) MCG/ACT MCG/ACT MCG/ACT Galantamine Galantamine No QD Galantamin Hydrobromid Hydrobromid e e ER 8 MG e ER 8 MG Hydrobromi de ER 8 MG Gabapentin Gabapentin No Gabapentin 600 MG 600 MG 600 MG Folic Acid Folic Acid No 1{table QD Folic Acid 1 MG 1 MG t} 1 MG Ramipril 10 Ramipril 10 No 1{capsu BID Ramipril MG MG le} 10 MG traMADol traMADol No 1{table QD traMADol HCl 50 MG HCl 50 MG t_as_ne HCl 50 MG eded} Lasix 20 MG Lasix 20 MG No 1{table QD Lasix 20 t} MG Citalopram Citalopram No 1{table QD Citalopram Hydrobromid Hydrobromid t} Hydrobromi e 20 MG e 20 MG de 20 MG Citalopram Citalopram No QD Citalopram Hydrobromid Hydrobromid Hydrobromi e 20 MG e 20 MG de 20 MG Aspirin 81 Aspirin 81 No 1{table QD Aspirin 81 81 MG 81 MG t} 81 MG Furosemide Furosemide No 1{table QD Furosemide 40 MG 40 MG t} 40 MG Metoprolol Metoprolol No 1{table BID Metoprolol Tartrate 50 Tartrate 50 t_with_ Tartrate MG MG food} 50 MG Eliquis 2.5 Eliquis 2.5 No Eliquis MG MG 2.5 MG Cyclobenzap Cyclobenzap No 1{table QD Cyclobenza rine HCl 5 rine HCl 5 t_at_be kee HCl MG MG dtime_a 5 MG s_neede d} Pramipexole Pramipexole No Pramipexol Dihydrochlo Dihydrochlo e ride ER ride ER Dihydrochl 0.375 MG 0.375 MG oride ER 0.375 MG Carbidopa-L Carbidopa-L No 1{table BID Carbidopa- evodopa ER evodopa ER t} Levodopa 50-200 MG 50-200 MG ER 50-200 MG Albuterol Albuterol No Albuterol Sulfate HFA Sulfate HFA Sulfate 108 (90 108 (90 HFA 108 Base) Base) (90 Base) MCG/ACT MCG/ACT MCG/ACT Galantamine Galantamine No QD Galantamin Hydrobromid Hydrobromid e e ER 8 MG e ER 8 MG Hydrobromi de ER 8 MG Gabapentin Gabapentin No Gabapentin 600 MG 600 MG 600 MG Folic Acid Folic Acid No 1{table QD Folic Acid 1 MG 1 MG t} 1 MG Ramipril 10 Ramipril 10 No 1{capsu BID Ramipril MG MG le} 10 MG traMADol traMADol No 1{table QD traMADol HCl 50 MG HCl 50 MG t_as_ne HCl 50 MG eded} Lasix 20 MG Lasix 20 MG No 1{table QD Lasix 20 t} MG Citalopram Citalopram No 1{table QD Citalopram Hydrobromid Hydrobromid t} Hydrobromi e 20 MG e 20 MG de 20 MG Citalopram Citalopram No QD Citalopram Hydrobromid Hydrobromid Hydrobromi e 20 MG e 20 MG de 20 MG Aspirin 81 Aspirin 81 No 1{table QD Aspirin 81 81 MG 81 MG t} 81 MG Furosemide Furosemide No 1{table QD Furosemide 40 MG 40 MG t} 40 MG Metoprolol Metoprolol No 1{table BID Metoprolol Tartrate 50 Tartrate 50 t_with_ Tartrate MG MG food} 50 MG Eliquis 2.5 Eliquis 2.5 No Eliquis MG MG 2.5 MG Cyclobenzap Cyclobenzap No 1{table QD Cyclobenza rine HCl 5 rine HCl 5 t_at_be kee HCl MG MG dtime_a 5 MG s_neede d} Pramipexole Pramipexole No Pramipexol Dihydrochlo Dihydrochlo e ride ER ride ER Dihydrochl 0.375 MG 0.375 MG oride ER 0.375 MG Carbidopa-L Carbidopa-L No 1{table BID Carbidopa- evodopa ER evodopa ER t} Levodopa 50-200 MG 50-200 MG ER 50-200 MG Albuterol Albuterol No Albuterol Sulfate HFA Sulfate HFA Sulfate 108 (90 108 (90 HFA 108 Base) Base) (90 Base) MCG/ACT MCG/ACT MCG/ACT Galantamine Galantamine No QD Galantamin Hydrobromid Hydrobromid e e ER 8 MG e ER 8 MG Hydrobromi de ER 8 MG Gabapentin Gabapentin No Gabapentin 600 MG 600 MG 600 MG Folic Acid Folic Acid No 1{table QD Folic Acid 1 MG 1 MG t} 1 MG Ramipril 10 Ramipril 10 No 1{capsu BID Ramipril MG MG le} 10 MG traMADol traMADol No 1{table QD traMADol HCl 50 MG HCl 50 MG t_as_ne HCl 50 MG eded} Lasix 20 MG Lasix 20 MG No 1{table QD Lasix 20 t} MG Citalopram Citalopram No 1{table QD Citalopram Hydrobromid Hydrobromid t} Hydrobromi e 20 MG e 20 MG de 20 MG Citalopram Citalopram No QD Citalopram Hydrobromid Hydrobromid Hydrobromi e 20 MG e 20 MG de 20 MG Aspirin 81 Aspirin 81 No 1{table QD Aspirin 81 81 MG 81 MG t} 81 MG Furosemide Furosemide No 1{table QD Furosemide 40 MG 40 MG t} 40 MG Metoprolol Metoprolol No 1{table BID Metoprolol Tartrate 50 Tartrate 50 t_with_ Tartrate MG MG food} 50 MG Eliquis 2.5 Eliquis 2.5 No Eliquis MG MG 2.5 MG Cyclobenzap Cyclobenzap No 1{table QD Cyclobenza rine HCl 5 rine HCl 5 t_at_be kee HCl MG MG dtime_a 5 MG s_neede d} Pramipexole Pramipexole No Pramipexol Dihydrochlo Dihydrochlo e ride ER ride ER Dihydrochl 0.375 MG 0.375 MG oride ER 0.375 MG Carbidopa-L Carbidopa-L No 1{table BID Carbidopa- evodopa ER evodopa ER t} Levodopa 50-200 MG 50-200 MG ER 50-200 MG Albuterol Albuterol No Albuterol Sulfate HFA Sulfate HFA Sulfate 108 (90 108 (90 HFA 108 Base) Base) (90 Base) MCG/ACT MCG/ACT MCG/ACT Galantamine Galantamine No QD Galantamin Hydrobromid Hydrobromid e e ER 8 MG e ER 8 MG Hydrobromi de ER 8 MG Gabapentin Gabapentin No Gabapentin 600 MG 600 MG 600 MG Folic Acid Folic Acid No 1{table QD Folic Acid 1 MG 1 MG t} 1 MG Ramipril 10 Ramipril 10 No 1{capsu BID Ramipril MG MG le} 10 MG traMADol traMADol No 1{table QD traMADol HCl 50 MG HCl 50 MG t_as_ne HCl 50 MG eded} Lasix 20 MG Lasix 20 MG No 1{table QD Lasix 20 t} MG Citalopram Citalopram No 1{table QD Citalopram Hydrobromid Hydrobromid t} Hydrobromi e 20 MG e 20 MG de 20 MG Citalopram Citalopram No QD Citalopram Hydrobromid Hydrobromid Hydrobromi e 20 MG e 20 MG de 20 MG Aspirin 81 Aspirin 81 No 1{table QD Aspirin 81 81 MG 81 MG t} 81 MG Furosemide Furosemide No 1{table QD Furosemide 40 MG 40 MG t} 40 MG Metoprolol Metoprolol No 1{table BID Metoprolol Tartrate 50 Tartrate 50 t_with_ Tartrate MG MG food} 50 MG Eliquis 2.5 Eliquis 2.5 No Eliquis MG MG 2.5 MG Cyclobenzap Cyclobenzap No 1{table QD Cyclobenza rine HCl 5 rine HCl 5 t_at_be kee HCl MG MG dtime_a 5 MG s_neede d} Folic Acid Folic Acid No 1{table QD [...] 81 MG 81 MG t} 81 MG Immunizations Ordered Filled Immunization Date Status Comments Sourc e Immunization Name Name FluAD FluAD 2021-02-26 Completed [facility] - 11:25:00 [facility] FluAD FluAD 2021-02-26 Completed [facility] - 11:25:00 [facility] FluAD FluAD 2021-02-26 Completed [facility] - 11:25:00 [facility] FluAD FluAD 2021-02-26 Completed [facility] - 11:25:00 [facility] FluAD FluAD 2021-02-26 Completed [facility] - 11:25:00 [facility] FluAD FluAD 2021-02-26 Completed [facility] - 11:25:00 [facility] FluAD FluAD 2021-02-26 Completed [facility] - 11:25:00 [facility] FluAD FluAD 2021-02-26 Completed [facility] - 11:25:00 [facility] FluAD FluAD 2021-02-26 Completed [facility] - 11:25:00 [facility] FluAD FluAD 2021-02-26 Completed [facility] - 11:25:00 [facility] FluAD FluAD 2021-02-26 Completed [facility] - 11:25:00 [facility] FluAD FluAD 2021-02-26 Completed [facility] - 11:25:00 [facility] FluAD FluAD 2021-02-26 Completed [facility] - 11:25:00 [facility] FluAD FluAD 2021-02-26 Completed [facility] - 11::00 [facility] FluAD FluAD 2021-02-26 Completed [facility] - 11:25:00 [facility] FluAD FluAD 2021-02-26 Completed [facility] - 11:25:00 [facility] FluAD FluAD 2021-02-26 Completed [facility] - 11:25:00 [facility] FluAD FluAD 2021-02-26 Completed [facility] - 11:25:00 [facility] FluAD FluAD 2021-02-26 Completed [facility] - 11:25:00 [facility] FluAD FluAD 2021-02-26 Completed [facility] - 11:25:00 [facility] FluAD FluAD 2021-02-26 Completed [facility] - 11:25:00 [facility] FluAD FluAD 2021-02-26 Completed [facility] - 11:25:00 [facility] FluAD FluAD 2021-02-26 Completed [facility] - 11:25:00 [facility] FluAD FluAD 2021-02-26 Completed [facility] - 11:25:00 [facility] Shingrix Shingrix 2020-07-23 Completed [facility] - 09:14:00 [facility] Prevnar 13 (PCV13) Prevnar 13 (PCV13) 2020-07-23 Completed [facility] - 09:14:00 [facility] Shingrix Shingrix 2020-07-23 Completed [facility] - 09:14:00 [facility] Prevnar 13 (PCV13) Prevnar 13 (PCV13) 2020-07-23 Completed [facility] - 09:14:00 [facility] Shingrix Shingrix 2020-07-23 Completed [facility] - 09:14:00 [facility] Prevnar 13 (PCV13) Prevnar 13 (PCV13) 2020-07-23 Completed [facility] - 09:14:00 [facility] Shingrix Shingrix 2020-07-23 Completed [facility] - 09:14:00 [facility] Prevnar 13 (PCV13) Prevnar 13 (PCV13) 2020-07-23 Completed [facility] - 09:14:00 [facility] Shingrix Shingrix 2020-07-23 Completed [facility] - 09:14:00 [facility] Prevnar 13 (PCV13) Prevnar 13 (PCV13) 2020-07-23 Completed [facility] - 09:14:00 [facility] Shingrix Shingrix 2020-07-23 Completed [facility] - 09:14:00 [facility] Prevnar 13 (PCV13) Prevnar 13 (PCV13) 2020-07-23 Completed [facility] - 09:14:00 [facility] Shingrix Shingrix 2020-07-23 Completed [facility] - 09:14:00 [facility] Prevnar 13 (PCV13) Prevnar 13 (PCV13) 2020-07-23 Completed [facility] - 09:14:00 [facility] Shingrix Shingrix 2020-07-23 Completed [facility] - 09:14:00 [facility] Prevnar 13 (PCV13) Prevnar 13 (PCV13) 2020-07-23 Completed [facility] - 09:14:00 [facility] Shingrix Shingrix 2020-07-23 Completed [facility] - 09:14:00 [facility] Prevnar 13 (PCV13) Prevnar 13 (PCV13) 2020-07-23 Completed [facility] - 09:14:00 [facility] Shingrix Shingrix 2020-07-23 Completed [facility] - 09:14:00 [facility] Prevnar 13 (PCV13) Prevnar 13 (PCV13) 2020-07-23 Completed [facility] - 09:14:00 [facility] Shingrix Shingrix 2020-07-23 Completed [facility] - 09:14:00 [facility] Prevnar 13 (PCV13) Prevnar 13 (PCV13) 2020-07-23 Completed [facility] - 09:14:00 [facility] Shingrix Shingrix 2020-07-23 Completed [facility] - 09:14:00 [facility] Prevnar 13 (PCV13) Prevnar 13 (PCV13) 2020-07-23 Completed [facility] - 09:14:00 [facility] Shingrix Shingrix 2020-07-23 Completed [facility] - 09:14:00 [facility] Prevnar 13 (PCV13) Prevnar 13 (PCV13) 2020-07-23 Completed [facility] - 09:14:00 [facility] Shingrix Shingrix 2020-07-23 Completed [facility] - 09:14:00 [facility] Prevnar 13 (PCV13) Prevnar 13 (PCV13) 2020-07-23 Completed [facility] - 09:14:00 [facility] Shingrix Shingrix 2020-07-23 Completed [facility] - 09:14:00 [facility] Prevnar 13 (PCV13) Prevnar 13 (PCV13) 2020-07-23 Completed [facility] - 09:14:00 [facility] Shingrix Shingrix 2020-07-23 Completed [facility] - 09:14:00 [facility] Prevnar 13 (PCV13) Prevnar 13 (PCV13) 2020-07-23 Completed [facility] - 09:14:00 [facility] Shingrix Shingrix 2020-07-23 Completed [facility] - 09:14:00 [facility] Prevnar 13 (PCV13) Prevnar 13 (PCV13) 2020-07-23 Completed [facility] - 09:14:00 [facility] Shingrix Shingrix 2020-07-23 Completed [facility] - 09:14:00 [facility] Prevnar 13 (PCV13) Prevnar 13 (PCV13) 2020-07-23 Completed [facility] - 09:14:00 [facility] Shingrix Shingrix 2020-07-23 Completed [facility] - 09:14:00 [facility] Prevnar 13 (PCV13) Prevnar 13 (PCV13) 2020-07-23 Completed [facility] - 09:14:00 [facility] Shingrix Shingrix 2020-07-23 Completed [facility] - 09:14:00 [facility] Prevnar 13 (PCV13) Prevnar 13 (PCV13) 2020-07-23 Completed [facility] - 09:14:00 [facility] Shingrix Shingrix 2020-07-23 Completed [facility] - 09:14:00 [facility] Prevnar 13 (PCV13) Prevnar 13 (PCV13) 2020-07-23 Completed [facility] - 09:14:00 [facility] Shingrix Shingrix 2020-07-23 Completed [facility] - 09:14:00 [facility] Prevnar 13 (PCV13) Prevnar 13 (PCV13) 2020-07-23 Completed [facility] - 09:14:00 [facility] Shingrix Shingrix 2020-07-23 Completed [facility] - 09:14:00 [facility] Prevnar 13 (PCV13) Prevnar 13 (PCV13) 2020-07-23 Completed [facility] - 09:14:00 [facility] Shingrix Shingrix 2020-07-23 Completed [facility] - 09:14:00 [facility] Prevnar 13 (PCV13) Prevnar 13 (PCV13) 2020-07-23 Completed [facility] - 09:14:00 [facility] Shingrix Shingrix 2020-07-23 Completed [facility] - 09:14:00 [facility] Prevnar 13 (PCV13) Prevnar 13 (PCV13) 2020-07-23 Completed [facility] - 09:14:00 [facility] Shingrix Shingrix 2020-07-23 Completed [facility] - 09:14:00 [facility] Prevnar 13 (PCV13) Prevnar 13 (PCV13) 2020-07-23 Completed [facility] - 09:14:00 [facility] FluAD FluAD 2020-03-16 Completed [facility] - 09:13:00 [facility] FluAD FluAD 2020-03-16 Completed [facility] - 09:13:00 [facility] FluAD FluAD 2020-03-16 Completed [facility] - 09:13:00 [facility] FluAD FluAD 2020-03-16 Completed [facility] - 09:13:00 [facility] FluAD FluAD 2020-03-16 Completed [facility] - 09:13:00 [facility] FluAD FluAD 2020-03-16 Completed [facility] - 09:13:00 [facility] FluAD FluAD 2020-03-16 Completed [facility] - 09:13:00 [facility] FluAD FluAD 2020-03-16 Completed [facility] - 09:13:00 [facility] FluAD FluAD 2020-03-16 Completed [facility] - 09:13:00 [facility] FluAD FluAD 2020-03-16 Completed [facility] - 09:13:00 [facility] FluAD FluAD 2020-03-16 Completed [facility] - 09:13:00 [facility] FluAD FluAD 2020-03-16 Completed [facility] - 09:13:00 [facility] FluAD FluAD 2020-03-16 Completed [facility] - 09:13:00 [facility] FluAD FluAD 2020-03-16 Completed [facility] - 09:13:00 [facility] FluAD FluAD 2020-03-16 Completed [facility] - 09:13:00 [facility] FluAD FluAD 2020-03-16 Completed [facility] - 09:13:00 [facility] FluAD FluAD 2020-03-16 Completed [facility] - 09:13:00 [facility] FluAD FluAD 2020-03-16 Completed [facility] - 09:13:00 [facility] FluAD FluAD 2020-03-16 Completed [facility] - 09:13:00 [facility] FluAD FluAD 2020-03-16 Completed [facility] - 09:13:00 [facility] FluAD FluAD 2020-03-16 Completed [facility] - 09:13:00 [facility] FluAD FluAD 2020-03-16 Completed [facility] - 09:13:00 [facility] FluAD FluAD 2020-03-16 Completed [facility] - 09:13:00 [facility] FluAD FluAD 2020-03-16 Completed [facility] - 09:13:00 [facility] FluAD FluAD 2020-03-16 Completed [facility] - 09:13:00 [facility] FluAD FluAD 2020-03-16 Completed [facility] - 09:13:00 [facility] Pneumovax (PPSV23) Pneumovax (PPSV23) 2019-05-16 Completed [facility] - 09:19:00 [facility] Pneumovax (PPSV23) Pneumovax (PPSV23) 2019-05-16 Completed [facility] - 09:19:00 [facility] Pneumovax (PPSV23) Pneumovax (PPSV23) 2019-05-16 Completed [facility] - 09:19:00 [facility] Pneumovax (PPSV23) Pneumovax (PPSV23) 2019-05-16 Completed [facility] - 09:19:00 [facility] Pneumovax (PPSV23) Pneumovax (PPSV23) 2019-05-16 Completed [facility] - 09:19:00 [facility] Pneumovax (PPSV23) Pneumovax (PPSV23) 2019-05-16 Completed [facility] - 09:19:00 [facility] Pneumovax (PPSV23) Pneumovax (PPSV23) 2019-05-16 Completed [facility] - 09:19:00 [facility] Pneumovax (PPSV23) Pneumovax (PPSV23) 2019-05-16 Completed [facility] - 09:19:00 [facility] Pneumovax (PPSV23) Pneumovax (PPSV23) 2019-05-16 Completed [facility] - 09:19:00 [facility] Pneumovax (PPSV23) Pneumovax (PPSV23) 2019-05-16 Completed [facility] - 09:19:00 [facility] Pneumovax (PPSV23) Pneumovax (PPSV23) 2019-05-16 Completed [facility] - 09:19:00 [facility] Pneumovax (PPSV23) Pneumovax (PPSV23) 2019-05-16 Completed [facility] - 09:19:00 [facility] Pneumovax (PPSV23) Pneumovax (PPSV23) 2019-05-16 Completed [facility] - 09:19:00 [facility] Pneumovax (PPSV23) Pneumovax (PPSV23) 2019-05-16 Completed [facility] - 09:19:00 [facility] Pneumovax (PPSV23) Pneumovax (PPSV23) 2019-05-16 Completed [facility] - 09:19:00 [facility] Pneumovax (PPSV23) Pneumovax (PPSV23) 2019-05-16 Completed [facility] - 09:19:00 [facility] Pneumovax (PPSV23) Pneumovax (PPSV23) 2019-05-16 Completed [facility] - 09:19:00 [facility] Pneumovax (PPSV23) Pneumovax (PPSV23) 2019-05-16 Completed [facility] - 09:19:00 [facility] Pneumovax (PPSV23) Pneumovax (PPSV23) 2019-05-16 Completed [facility] - 09:19:00 [facility] Pneumovax (PPSV23) Pneumovax (PPSV23) 2019-05-16 Completed [facility] - 09:19:00 [facility] Pneumovax (PPSV23) Pneumovax (PPSV23) 2019-05-16 Completed [facility] - 09:19:00 [facility] Pneumovax (PPSV23) Pneumovax (PPSV23) 2019-05-16 Completed [facility] - 09:19:00 [facility] Pneumovax (PPSV23) Pneumovax (PPSV23) 2019-05-16 Completed [facility] - 09:19:00 [facility] Pneumovax (PPSV23) Pneumovax (PPSV23) 2019-05-16 Completed [facility] - 09:19:00 [facility] Pneumovax (PPSV23) Pneumovax (PPSV23) 2019-05-16 Completed [facility] - 09:19:00 [facility] Pneumovax (PPSV23) Pneumovax (PPSV23) 2019-05-16 Completed [facility] - 09:19:00 [facility] Shingrix Shingrix 2019-04-15 Completed [facility] - 09:14:00 [facility] Shingrix Shingrix 2019-04-15 Completed [facility] - 09:14:00 [facility] Shingrix Shingrix 2019-04-15 Completed [facility] - 09:14:00 [facility] Shingrix Shingrix 2019-04-15 Completed [facility] - 09:14:00 [facility] Shingrix Shingrix 2019-04-15 Completed [facility] - 09:14:00 [facility] Shingrix Shingrix 2019-04-15 Completed [facility] - 09:14:00 [facility] Shingrix Shingrix 2019-04-15 Completed [facility] - 09:14:00 [facility] Shingrix Shingrix 2019-04-15 Completed [facility] - 09:14:00 [facility] Shingrix Shingrix 2019-04-15 Completed [facility] - 09:14:00 [facility] Shingrix Shingrix 2019-04-15 Completed [facility] - 09:14:00 [facility] Shingrix Shingrix 2019-04-15 Completed [facility] - 09:14:00 [facility] Shingrix Shingrix 2019-04-15 Completed [facility] - 09:14:00 [facility] Shingrix Shingrix 2019-04-15 Completed [facility] - 09:14:00 [facility] Shingrix Shingrix 2019-04-15 Completed [facility] - 09:14:00 [facility] Shingrix Shingrix 2019-04-15 Completed [facility] - 09:14:00 [facility] Shingrix Shingrix 2019-04-15 Completed [facility] - 09:14:00 [facility] Shingrix Shingrix 2019-04-15 Completed [facility] - 09:14:00 [facility] Shingrix Shingrix 2019-04-15 Completed [facility] - 09:14:00 [facility] Shingrix Shingrix 2019-04-15 Completed [facility] - 09:14:00 [facility] Shingrix Shingrix 2019-04-15 Completed [facility] - 09:14:00 [facility] Shingrix Shingrix 2019-04-15 Completed [facility] - 09:14:00 [facility] Shingrix Shingrix 2019-04-15 Completed [facility] - 09:14:00 [facility] Shingrix Shingrix 2019-04-15 Completed [facility] - 09:14:00 [facility] Shingrix Shingrix 2019-04-15 Completed [facility] - 09:14:00 [facility] Shingrix Shingrix 2019-04-15 Completed [facility] - 09:14:00 [facility] Shingrix Shingrix 2019-04-15 Completed [facility] - 09:14:00 [facility] Tetanus 2015-04-16 [facility] Influenza, 2015-04-16 [facility] Zoster 2015-04-16 [facility] Pneumococcal, 2014-02-14 Completed [facility] FluAD FluAD Unknown Completed [facility] FluAD FluAD Unknown Completed [facility] Shingrix Shingrix Unknown Completed [facility] Shingrix Shingrix Unknown Completed [facility] Pneumovax (PPSV23) Pneumovax (PPSV23) Unknown Completed [facility] Prevnar 13 (PCV13) Prevnar 13 (PCV13) Unknown Completed [facility] FluAD FluAD Unknown Completed [facility] FluAD FluAD Unknown Completed [facility] Shingrix Shingrix Unknown Completed [facility] Shingrix Shingrix Unknown Completed [facility] Pneumovax (PPSV23) Pneumovax (PPSV23) Unknown Completed [facility] Prevnar 13 (PCV13) Prevnar 13 (PCV13) Unknown Completed [facility] FluAD FluAD Unknown Completed [facility] FluAD FluAD Unknown Completed [facility] Shingrix Shingrix Unknown Completed [facility] Shingrix Shingrix Unknown Completed [facility] Pneumovax (PPSV23) Pneumovax (PPSV23) Unknown Completed [facility] Prevnar 13 (PCV13) Prevnar 13 (PCV13) Unknown Completed [facility] FluAD FluAD Unknown Completed [facility] FluAD FluAD Unknown Completed [facility] Shingrix Shingrix Unknown Completed [facility] Sh[facility]rix Shingrix Unknown Completed [facility] Pneumovax (PPSV23) Pneumovax (PPSV23) Unknown Completed [facility] Prevnar 13 (PCV13) Prevnar 13 (PCV13) Unknown Completed [facility] FluAD FluAD Unknown Completed [facility] FluAD FluAD Unknown Completed [facility] Shingrix Shingrix Unknown Completed [facility]rix Shingrix Unknown Completed [facility] Pneumovax (PPSV23) Pneumovax (PPSV23) Unknown Completed [facility] Prevnar 13 (PCV13) Prevnar 13 (PCV13) Unknown Completed [facility] FluAD FluAD Unknown Completed [facility] FluAD FluAD Unknown Completed [facility] Shingrix Shingrix Unknown Completed [facility]rix Shingrix Unknown Completed [facility] Pneumovax (PPSV23) Pneumovax (PPSV23) Unknown Completed [facility] Prevnar 13 (PCV13) Prevnar 13 (PCV13) Unknown Completed [facility] FluAD FluAD Unknown Completed [facility] FluAD FluAD Unknown Completed [facility] Shingrix Shingrix Unknown Completed [facility] Sh[facility]rix Shingrix Unknown Completed [facility] Pneumovax (PPSV23) Pneumovax (PPSV23) Unknown Completed [facility] Prevnar 13 (PCV13) Prevnar 13 (PCV13) Unknown Completed [facility] Tetanus Unknown Completed [facility] Influenza, Unknown Com[facility] Pneumococcal, Unknown Com[facility] Zoster Unknown Completed [facility] influenza virus Unknown Completed [facility] vaccine, [place] inactivated<sup>1</ sup> influenza virus Unknown Completed [facility] vaccine, [place] inactivated<sup>1</ sup> influenza virus Unknown Completed [facility] vaccine, [place] inactivated<sup>1</ sup> influenza virus Unknown Completed [facility] vaccine, [place] inactivated<sup>1</ sup> Tetanus Unknown Completed [facility] Influenza, Unknown Com[facility] Pneumococcal, Unknown Com[facility] Zoster Unknown Completed [facility] Vital Signs Vital Name Observation Time Observation Value Comments Source height 2022-10-16 09:20:00 66 [in_i] [facility] weight 2022-10-16 09:20:00 169 [lb_av] [facility] temperature 2022-10-16 09:20:00 97.5 [degF] [facility] bmi 2022-10-16 09:20:00 27.27 kg/m2 [facility] oximetry 2022-10-16 09:20:00 93 % [facility] respiratory rate 2022-10-16 09:20:00 16 /min Comm on [facility] blood pressure 2022-10-16 09:20:00 127 mm[Hg] [facility] - systolic [facility] blood pressure 2022-10-16 09:20:00 80 mm[Hg] [facility] - diastolic [facility] height 2022-10-16 09:20:00 66 [in_i[facility] weight 2022-10-16 09:20:00 169 [lb_av] [facility] temperature 2022-10-16 09:20:00 97.5 [degF] [facility] bmi 2022-10-16 09:20:00 27.27 kg/m2 [facility] oximetry 2022-10-16 09:20:00 93 % [facility] respiratory rate 2022-10-16 09:20:00 16 /min Comm on [facility] blood pressure 2022-10-16 09:20:00 127 mm[Hg] [facility] - systolic [facility] blood pressure 2022-10-16 09:20:00 80 mm[Hg] [facility] - diastolic [facility] height 2022-07-27 11:30:00 66 [in_i] [facility] weight 2022-07-27 11:30:00 167 [lb_av] [facility] temperature 2022-07-27 11:30:00 98 [degF] [facility] [place] bmi 2022-07-27 11:30:00 26.95 kg/m2 [facility] blood pressure 2022-07-27 11:30:00 124 mm[Hg] [facility] blood pressure 2022-07-27 11:30:00 84 mm[Hg] [facility] - diastolic [facility] height 2022-04-27 11:40:00 66 [in_i] [facility] weight 2022-04-27 11:40:00 156 [lb_av] [facility] temperature 2022-04-27 11:40:00 97 [degF] [facility] - [facility] bmi 2022-04-27 11:40:00 25.18 kg/m2 [facility] - [facility] blood pressure 2022-04-27 11:40:00 125 mm[Hg] [facility] - systolic [facility] blood pressure 2022-04-27 11:40:00 72 mm[Hg] [facility] - [facility] height 2022-02-24 16:40:00 66 [in_i] [facility] - [facility] weight 2022-02-24 16:40:00 158 [lb_av] [facility] - [facility] temperature 2022-02-24 16:40:00 98 [degF] [facility] - [facility] bmi 2022-02-24 16:40:00 25.5 kg/m2 [facility] - [facility] blood pressure 2022-02-24 16:40:00 128 mm[Hg] [facility] - [facility] blood pressure 2022-02-24 16:40:00 70 mm[Hg] [facility] - [facility] height 2021-11-26 13:00:00 66 [in_i] [facility] - [facility] weight 2021-11-26 13:00:00 140 [lb_av] [facility] - [facility] temperature 2021-11-26 13:00:00 97.4 [degF] [facility] - [facility] bmi 2021-11-26 13:00:00 22.59 kg/m2 [facility] - [facility] blood pressure 2021-11-26 13:00:00 125 mm[Hg] [facility] blood pressure 2021-11-26 13:00:00 72 mm[Hg] [facility] - [facility] height 2021-09-26 11:40:00 66 [in_i] [facility] weight 2021-09-26 11:40:00 145 [lb_av] [facility] temperature 2021-09-26 11:40:00 98 [degF] [facility] bmi 2021-09-26 11:40:00 23.40 kg/m2 [facility] - [facility] blood pressure 2021-09-26 11:40:00 129 mm[Hg] [facility] blood pressure 2021-09-26 11:40:00 74 mm[Hg] [facility] - [facility] height 2021-09-25 11:00:00 66 [in_i] [facility] weight 2021-09-25 11:00:00 141.2 [lb_av] [facility] temperature 2021-09-25 11:00:00 98.6 [degF] [facility] bmi 2021-09-25 11:00:00 22.79 kg/m2 [facility] oximetry 2021-09-25 11:00:00 99 % [facility] respiratory rate 2021-09-25 11:00:00 16 /min [facility] on [facility] blood pressure 2021-09-25 11:00:00 123 mm[Hg] [facility] - systolic [facility] blood pressure 2021-09-25 11:00:00 78 mm[Hg] [facility] height 2021-06-16 15:10:00 66 [in_i] [facility] weight 2021-06-16 15:10:00 175 [lb_av] [facility] temperature 2021-06-16 15:10:00 98 [degF] [facility] bmi 2021-06-16 15:10:00 28.24 kg/m2 [facility] blood pressure 2021-06-16 15:10:00 129 mm[Hg] Common [facility] - systolic [facility] blood pressure 2021-06-16 15:10:00 76 mm[Hg] [facility] - diastolic [facility] height 2021-03-12 11:20:00 66 [in_i] [facility] weight 2021-03-12 11:20:00 171.7 [lb_av] Common [facility] temperature 2021-03-12 11:20:00 97.2 [degF] Common [facility] bmi 2021-03-12 11:20:00 27.71 kg/m2 [facility] oximetry 2021-03-12 11:20:00 97 % [facility] respiratory rate 2021-03-12 11:20:00 18 /min [facility] on [facility] blood pressure 2021-03-12 11:20:00 132 mm[Hg] Common [facility] - systolic [facility] blood pressure 2021-03-12 11:20:00 87 mm[Hg] [facility] - diastolic [facility] Systolic blood 2020-02-07 19:46:00 177 mm[Hg] Univer sity of pressure [facility] Diastolic blood 2020-02-07 19:46:00 108 mm[Hg] Unive rsity of pressure [facility] Heart rate 2020-02-07 19:46:00 61 /min [facility] Body height 2020-02-07 19:43:00 167.6 cm [facility] Body weight 2020-02-07 19:43:00 70.308 kg [facility] BMI 2020-02-07 19:43:00 25.02 kg/m2 [facility] Systolic (mm Hg) 2023-01-05 16:00:00 Romulo Cueto Diastolic (mm Hg) 2023-01-05 16:00:00 Mem belem Cueto Heart Rate 2023-01-05 16:00:00 Jacey Cueto Height 2023-01-05 16:00:00 4 [ft_i] [facility] Weight 2023-01-05 16:00:00 [facility] BMI Calculated 2023-01-05 16:00:00 Memori al Rom Systolic (mm Hg) 2022-08-25 16:04:00 Romulo rial Rom Diastolic (mm Hg) 2022-08-25 16:04:00 Mem orial Rom Heart Rate 2022-08-25 16:04:00 [facility] Height 2022-08-25 16:04:00 4 [ft_i] [facility] Weight 2022-08-25 16:04:00 [facility] [place] BMI Calculated 2022-08-25 16:04:00 [facility] [place] Systolic (mm Hg) 2021-07-22 19:31:00 Romulo rial [place] Diastolic (mm Hg) 2021-07-22 19:31:00 Mem o[facility] [place] Heart Rate 2021-07-22 19:31:00 [facility] Respitory Rate 2021-07-22 19:31:00 Memori al Rom Height 2021-07-22 19:31:00 147.32 cm [facility] Weight 2021-07-22 19:31:00 [facility] BMI Calculated 2021-07-22 19:31:00 [facility] [place] Systolic (mm Hg) 2020-10-08 20:34:00 Romulo rial Rom Diastolic (mm Hg) 2020-10-08 20:34:00 Mem orial Rom Heart Rate 2020-10-08 20:34:00 [facility] [place] Respitory Rate 2020-10-08 20:34:00 [facility] [place] Height 2020-10-08 20:34:00 147.32 cm [facility] Weight 2020-10-08 20:34:00 [facility] [place] BMI Calculated 2020-10-08 20:34:00 [facility] [place] Systolic (mm Hg) 2020-07-25 19:49:00 Romulo rial [place] Diastolic (mm Hg) 2020-07-25 19:49:00 Mem o[facility] [place] Heart Rate 2020-07-25 19:49:00 [facility] [place] Respitory Rate 2020-07-25 19:49:00 [facility] [place] Height 2020-07-25 19:49:00 144.78 cm [facility] [place] Weight 2020-07-25 19:49:00 [facility] BMI Calculated 2020-07-25 19:49:00 Memori al Rom Systolic (mm Hg) 2019-07-20 20:33:00 Romulo rial Rom Diastolic (mm Hg) 2019-07-20 20:33:00 Mem orial Rom Heart Rate 2019-07-20 20:33:00 [facility] Rom Respitory Rate 2019-07-20 20:33:00 [facility] [place] Height 2019-07-20 20:33:00 149.86 cm [facility] Weight 2019-07-20 20:33:00 [facility] [place] BMI Calculated 2019-07-20 20:33:00 Memori al Rom Systolic (mm Hg) 2015-01-02 21:26:00 Romulo rial Rom Respitory Rate 2015-01-02 21:26:00 Memori al Rom Systolic (mm Hg) 2015-01-02 18:40:00 Romulo rial [place] Respitory Rate 2015-01-02 18:40:00 [facility] [place] Respitory Rate 2015-01-02 18:30:00 [facility] [place] Systolic (mm Hg) 2015-01-02 18:30:00 Romulo rial [place] Temperature Oral (F) 2015-01-02 18:20:00 37 Floresita [facility] Height 2015-01-02 17:54:00 163 cm [facility] Weight 2015-01-02 17:54:00 [facility] [place] Temperature Oral (F) 2015-01-02 17:54:00 36.4 Floresita [facility] Weight 2014-12-26 15:53:00 [facility] Height 2014-12-26 15:53:00 163 cm [facility] [place] Procedures Procedure Date / Time Performed Performing Clinician [facility] e FLUOROSCOPIC GUIDANCE AND 2015-01-02 18:19:00 [facility] LOCAL[facility] OF NEEDLE OR CATHETER TIP 04686 (Right)<sup>1</sup> INJ.CATH PLACE OF 2015-01-02 18:19:00 Marino Sotelo ermann DIAG/THERA.SUBSTANCE EPIDURAL OR SUBARACHNOID LUMBAR/SACRAL 58662 (Right)<sup>2</sup> INJ.CATH PLACE OF 2015-01-02 18:19:00 Marino Sotelo [facility] ermann DIAG/THERA.SUBSTANCE EPIDURAL OR SUBARACHNOID LUMBAR/SACRAL ADDL LEVEL 88949 (Right)<sup>3</sup> Injection(s), anesthetic 2015-01-02 05:00:00 Mem orial Rom agent and/or steroid, transforaminal epidural, with imaging guidance (fluoroscopy or CT); lumbar or sacral, each additional level (List separately in addition to code for primary procedure) Injection(s), anesthetic 2015-01-02 05:00:00 Mem [facility] [place] agent and/or steroid, transforaminal epidural, with imaging guidance (fluoroscopy or CT); lumbar or sacral, single level benign mass removed from 1988-05-17 00:00:00 Mem orial Rom colon hysterectomy 1972-05-17 00:00:00 [facility] abdominal surgery 1945-05-17 00:00:00 [facility] [place] [facility] x2 [facility] Plan of Care Planned Activity Planned Date Details Comments Source Future Scheduled 2023-04-20 COVID-19 VACCINE (#1) [facility] Test 01:52:15 [code = COVID-19 VACCINE (#1)] Future Scheduled 2023-04-20 65+ PNEUMOCOCCAL [facility] Test 01:52:15 VACCINE (1 - PCV) [code = 65+ PNEUMOCOCCAL VACCINE (1 - PCV)] Future Scheduled 2023-04-20 SHINGLES VACCINES (2 [facility] Test 01:52:15 of 3) [code = SHINGLES VACCINES (2 of 3)] Future Scheduled 2023-04-20 INFLUENZA VACCINE (#1) [facility] Test 01:52:15 [code = INFLUENZA VACCINE (#1)] Future Scheduled 2023-03-11 INFLUENZA VACCINE (#1) [facility] Test 07:58:09 [code = INFLUENZA VACCINE (#1)] Future Scheduled 2023-03-11 COVID-19 VACCINE (#1) [facility] Test 07:58:09 [code = COVID-19 VACCINE (#1)] Future Scheduled 2023-03-11 65+ PNEUMOCOCCAL [facility] Test 07:58:09 VACCINE (1 - PCV) [code = 65+ PNEUMOCOCCAL VACCINE (1 - PCV)] Future Scheduled 2023-03-11 SHINGLES VACCINES (2 [facility] Test 07:58:09 of 3) [code = SHINGLES VACCINES (2 of 3)] Future Scheduled 2022-01-15 HEPATITIS B VACCINES [facility] Test 08:01:55 (1 of 3 - 3-dose series) [code = HEPATITIS B VACCINES (1 of 3 - 3-dose series)] Future Scheduled 2022-01-15 COVID-19 VACCINE (#1) [facility] Test 08:01:55 [code = COVID-19 VACCINE (#1)] Future Scheduled 2022-01-15 65+ [facility]AL [facility] Test 08:01:55 VACCINE (1 - PCV) [code = 65+ PNEUMOCOCCAL VACCINE (1 - PCV)] Future Scheduled 2022-01-15 SHINGLES VACCINES (2 [facility] Test 08:01:55 of 3) [code = SHINGLES VACCINES (2 of 3)] Future Scheduled 2022-01-15 INFLUENZA VACCINE Method [facility] Test 08:01:55 [code = INFLUENZA VACCINE] Encounters Start End Encounter Admission Attending Care Care Encounter Source Date/Time Date/Time Type Type Clinicians Facility Department ID 2023-03-31 Outpatient , [facility] [id number] Common 09:47:00 Jairon [id number] [facility] 2023-03-30 Outpatient , [facility] [id number] Common 07:08:00 Jairon 78433 [facility] 2023-02-09 Outpatient , [facility] [id number] Common 10:43:00 Jairon 96260 [facility] 2023-01-12 Outpatient , [facility] [id number] Common 10:05:00 Jairon [id number] [facility] 2022-07-23 Outpatient , [facility] [id number] Common 10:53:01 Jairon 51498 [facility] 2022-04-27 Outpatient , [facility] [id number] Common 11:05:02 Jairon 82280 [facility] 2022-04-23 Outpatient , STLMLC STLMLC [id number] Common 11:43:02 Jairon [facility] 2022 Outpatient , STLMLC STLMLC [id number] Common 10:58:01 Jairon [facility] 2022-02-27 Outpatient , STLMLC STLMLC [id number] Common 10:35:01 Jairon [facility] 2022-02-26 Outpatient , STLMLC STLMLC [id number] Common 08:58:01 Jairon [facility] 2021-09-25 Outpatient , STLMLC STLMLC [id number] Common 14:53:02 Jairon [facility] 2021-07-14 Outpatient , STLMLC STLMLC Common 13:35:01 Jairon [facility] 2021-06-11 Outpatient , STLMLC STLMLC Common 14:05:48 Jairon [id number] [facility] 2021-06-11 Outpatient , STLMLC STLMLC [id number] Common 14:01:15 Jairon 35487 [facility] 2021-06-11 Outpatient , STLMLC STLMLC [id number] Common 14:00:22 Jairon 23868 [facility] 2021-06-11 Outpatient , STLMLC STLMLC [id number] Common 13:53:15 Jairon 95637 [facility] 2021-06-11 Outpatient , STLMLC STLMLC [id number] Common 13:52:06 Jairon 86019 [facility] 2021-06-11 Outpatient , STLMLC STLMLC [id number] Common 12:56:21 Jairon 02892 [facility] 2021-06-11 Outpatient , STLMLC STLMLC [id number] Common 12:39:06 Jairon 22902 [facility] 2021-06-11 Outpatient , STLMLC STLMLC [id number] Common 12:37:45 [facility] 34043 [facility] 2023-04-20 2023-04-20 Outpatient MHIE MHIE [id number] Memoria 11:00:00 11:00:00 19 akiko Cueto 2023-04-20 2023-04-20 Outpatient MHIE MHIE [id number] Memoria 11:00:00 11:00:00 19 l Rom 2023-04-20 2023-04-20 Outpatient MHIE MHIE [id number] Memoria 11:00:00 11:00:00 19 akiko Cueto 2023-04-20 2023-04-20 Outpatient MHIE MHIE [id number] Memoria 11:00:00 11:00:00 19 akiko Cueto 2023-01-05 2023-01-06 Outpatient MHIE MNA [id number] Memoria 16:15:00 04:59:59 Neurology 18 l Migdalia Cueto 2023-01-05 2023-01-06 Outpatient MHIE MNA [id number] Memoria 16:15:00 04:59:59 Neurology 18 l Migdalia Cueto 2023-01-05 2023-01-06 Outpatient MHIE MNA [id number] Memoria 16:15:00 04:59:59 Neurology 18 l Migdalia Cueto 2023-01-05 2023-01-05 Outpatient Everett MHMISCHER MHMISCHER [id number] 11:15:00 23:59:59 Gonzalo 18 [place] 2023-01-05 2023-01-05 Outpatient [place] MHMISCHER MHMISCHER [id number] 11:15:00 23:59:59 Gonzalo 18 [place] 2023-01-05 2023-01-05 Outpatient MHIE MHIE [id number] Memoria 11:15:00 11:15:00 18 akiko Cueto 2023-01-05 2023-01-05 Outpatient MHIE MHIE [id number] Memoria 11:15:00 11:15:00 18 akiko Cueto 2022-10-23 2022-10-23 ([facility] STLMLC STLMLC [id number] Co mmon 00:00:00 00:00:00 [facility] 2022-10-19 2022-10-19 (WEB) STLMLC STLMLC [id number] Co mmon 00:00:00 00:00:00 [facility] 2022-10-18 2022-10-18 (WEB) STLMLC STLMLC [id number] Co mmon 00:00:00 00:00:00 [facility] 2022-10-16 2022-10-16 OFFICE STLMLC STLMLC [id number] Co mmon 00:00:00 00:00:00 VISIT [facility] ESTAB PT - CHI LEVEL 4 [facility] 2022-10-16 2022-10-16 SUB ANNUAL STLMLC STLMLC [id number] Common 00:00:00 00:00:00 MCR [facility] WELLNESS - CHI VISIT [facility] 2022-09-03 2022-09-03 (WEB) STLMLC STLMLC [id number] Co mmon 00:00:00 00:00:00 [facility] 2022-08-25 2022-08-26 Outpatient MHIE MNA [id number] Memoria 16:00:00 04:59:59 Neurology 17 l Migdalia Cueto 2022-08-25 2022-08-26 Outpatient MHIE MNA [id number] Memoria 16:00:00 04:59:59 Neurology 17 l Migdalia Jacobann 2022-08-25 2022-08-26 Outpatient MHIE MNA [id number] Memoria 16:00:00 04:59:59 Neurology 17 akiko Cueto 2022-08-25 2022-08-25 Outpatient [place], MHMISCHER MHMISCHER [id number] 11:00:00 23:59:59 Gonzalo Sarah Bobo 2022-08-25 2022-08-25 Outpatient [place], MHMISCHER MHMISCHER [id number] 11:00:00 23:59:59 Gonzalo Sarah Bobo 2022-08-25 2022-08-25 Outpatient MHIE MHIE [id number] Memoria 11:00:00 11:00:00 17 akiko Cueto 2022-08-25 2022-08-25 Outpatient MHIE MHIE [id number] Memoria 11:00:00 11:00:00 17 akiko Cueto 2022-08-25 2022-08-25 Outpatient MHIE MHIE [id number] Memoria 11:00:00 11:00:00 17 akiko Cueto 2022-08-11 2022-08-11 Ambulatory MHIE MNA [id number] Memoria 16:45:00 16:45:00 Pre-Reg Neurology 16 l Migdalia Cueto 2022-08-11 2022-08-11 Ambulatory MHIE MNA [id number] Memoria 16:45:00 16:45:00 Pre-Reg Neurology 16 l Migdalia Cueto 2022-08-11 2022-08-11 Ambulatory MHIE MNA [id number] Memoria 16:45:00 16:45:00 Pre-Reg Neurology 16 akiko Cueto 2022-08-11 2022-08-11 Outpatient TODD FloydMISCHER MHMISCHER [id number] 11:45:00 11:45:00 Gonzalo 16 [place] 2022-08-11 2022-08-11 Outpatient TODD FloydMISCHER MHMISCHER [id number] 11:45:00 11:45:00 Gonzalo 16 [place] 2022-07-27 2022-07-27 OFFICE STLMLC STLMLC [id number] Co mmon 00:00:00 00:00:00 VISIT [facility] PT - CHI LEVEL 4 [facility] 2022-05-26 2022-05-26 Outpatient MHIE MHIE [id number] Memoria 13:45:00 13:45:00 16 akiko Cueto 2022-05-26 2022-05-26 Outpatient MHIE MHIE [id number] Memoria 13:45:00 13:45:00 16 akiko Cueto 2022-05-26 2022-05-26 Outpatient MHIE MHIE [id number] Memoria 13:45:00 13:45:00 16 akiko Cueto 2022-05-26 2022-05-26 (TEL) STLMLC STLMLC [id number] Co mmon 00:00:00 00:00:00 [facility] - [facility] 2022-04-27 2022-04-27 OFFICE STLMLC STLMLC [id number] Co mmon 00:00:00 00:00:00 VISIT EST Spir it PT LEVEL 3 - [facility] 2022 2022 (TEL) STLMLC STLMLC [id number] Co mmon 00:00:00 00:00:00 [facility] 2022-02-24 2022-02-24 OFFICE STLMLC STLMLC [id number] Co mmon 00:00:00 00:00:00 VISIT [facility] ESTAB PT - CHI LEVEL 4 [facility] 2022-02-10 2022-02-10 (TEL) STLMLC STLMLC [id number] Co mmon 00:00:00 00:00:00 [facility] 2022-01-22 2022-01-23 Outpatient nullFlavo MNA [id number] Memoria 16:30:00 04:59:59 r Neurology 15 l Migdalia [place] 2022-01-22 2022-01-23 Outpatient nullFlavo MNA [id number] Memoria 16:30:00 04:59:59 r Neurology 15 l Migdalia [place] 2022-01-22 2022-01-23 Outpatient nullFlavo MNA [id number] Memoria 16:30:00 04:59:59 r Neurology 15 l Migdalia [place] 2022-01-22 2022-01-22 Outpatient MARLY FloydSCHER MHMISCHER [id number] 11:30:00 23:59:59 Gonzalo 15 [place] 2022-01-22 2022-01-22 Outpatient MARLY FloydSCHER MHMISCHER [id number] 11:30:00 23:59:59 Gonzalo 15 [place] 2022-01-22 2022-01-22 Outpatient MHIE MHIE [id number] Memoria 11:30:00 11:30:00 15 akiko [place] 2022-01-22 2022-01-22 Outpatient MHIE MHIE [id number] Memoria 11:30:00 11:30:00 15 akiko Rom 2021-12-07 2021-12-07 (WEB) STLMLC STLMLC [id number] Co mmon 00:00:00 00:00:00 [facility] 2021-11-26 2021-11-26 OFFICE STLMLC STLMLC [id number] Co mmon 00:00:00 00:00:00 VISIT [facility] LEVEL 4 [facility] 2021-10-27 2021-10-27 (TEL) STLMLC STLMLC [id number] Co mmon 00:00:00 00:00:00 [facility] 2021-10-22 2021-10-23 Outpatient nullFlavo MNA [id number] Memoria 19:45:00 04:59:59 r Neurology 14 l Migdalia [place] 2021-10-22 2021-10-23 Outpatient nullFlavo MNA [id number] Memoria 19:45:00 04:59:59 r Neurology 14 l Migdalia [place] 2021-10-22 2021-10-23 Outpatient nullFlavo MNA [id number] Memoria 19:45:00 04:59:59 r Neurology 14 l [facility] 2021-10-23 2021-10-23 (WEB) STLMLC STLMLC [id number] Co mmon 00:00:00 00:00:00 [facility] 2021-10-23 2021-10-23 (WEB) STLMLC STLMLC [id number] Co mmon 00:00:00 00:00:00 [facility] 2021-10-22 2021-10-22 Outpatient [place], MHMISCHER MHMISCHER [id number] 14:45:00 23:59:59 Gonzalo 14 [place] 2021-10-22 2021-10-22 Outpatient [place], MHMISCHER MHMISCHER [id number] 14:45:00 23:59:59 Gonzalo 14 [place] 2021-10-22 2021-10-22 Outpatient MHIE MHIE [id number] Memoria 14:45:00 14:45:00 14 akiko [place] 2021-10-22 2021-10-22 Outpatient MHIE MHIE [id number] Memoria 14:45:00 14:45:00 14 akiko [place] 2021-10-22 2021-10-22 Outpatient MHIE MHIE [id number] Memoria 14:45:00 14:45:00 14 l [place] 2021-10-05 2021-10-05 (WEB) STLMLC STLMLC [id number] Co mmon 00:00:00 00:00:00 [facility] 2021-09-26 2021-09-26 OFFICE STLMLC STLMLC [id number] Co mmon 00:00:00 00:00:00 VISIT [facility] ESTAB PT - CHI LEVEL 4 [facility] 2021-09-25 2021-09-25 (WEB) STLMLC STLMLC [id number] Co mmon 00:00:00 00:00:00 [facility] 2021-09-25 2021-09-25 SUB ANNUAL STLMLC STLMLC [id number] Common 00:00:00 00:00:00 MCR [facility] WELLNESS - CHI VISIT [facility] 2021-09-10 2021-09-10 (TEL) STLMLC STLMLC [id number] Co mmon 00:00:00 00:00:00 [facility] 2021-08-26 2021-08-26 (TEL) STLMLC STLMLC [id number] Co mmon 00:00:00 00:00:00 [facility] 2021-07-30 2021-07-30 (WEB) STLMLC STLMLC [id number] Co mmon 00:00:00 00:00:00 [facility] 2021-07-22 2021-07-23 Outpatient nullFlavo MNA [id number] Memoria 19:45:00 05:59:59 r Neurology 13 l [facility] 2021-07-22 2021-07-23 Outpatient nullFlavo MNA [id number] Memoria 19:45:00 05:59:59 r Neurology 13 l [facility] 2021-07-22 2021-07-23 Outpatient nullFlavo MNA [id number] Memoria 19:45:00 05:59:59 r Neurology 13 l [facility] 2021-07-22 2021-07-22 Outpatient IDALMIS Floyd [facility] [id number] 13:45:00 23:59:59 Gonzalo 13 [place] 2021-07-22 2021-07-22 Outpatient [place] MHMISCHER MHMISCHER [id number] 13:45:00 23:59:59 Gonzalo 13 [place] 2021-07-22 2021-07-22 Outpatient MHIE MHIE [id number] Memoria 13:45:00 13:45:00 13 akiko Cueto 2021-07-22 2021-07-22 Outpatient MHIE MHIE [id number] Memoria 13:45:00 13:45:00 13 akiko Cueto 2021-07-22 2021-07-22 Outpatient MHIE MHIE [id number] Memoria 13:45:00 13:45:00 13 akiko Cueto 2021-07-15 2021-07-15 (TEL) [facility] [id number] Co mmon 00:00:00 00:00:00 [facility] 2021-06-16 2021-06-16 [facility] [id number] Co mmon 00:00:00 00:00:00 VISIT [facility] PT - CHI LEVEL 4 [facility] 2021-05-23 2021-05-24 Outpatient nullFlavo MNA [id number] Memoria 20:00:00 05:59:59 r Neurology 12 l Migdalia Cueto 2021-05-23 2021-05-24 Outpatient nullFlavo MNA [id number] Memoria 20:00:00 05:59:59 r Neurology 12 l Migdalia Cueto 2021-05-23 2021-05-24 Outpatient nullFlavo MNA [id number] Memoria 20:00:00 05:59:59 r Neurology 12 l Migdalia Cueto 2021-05-23 2021-05-23 Outpatient [place] MHMISCHER MHMISCHER [id number] 14:00:00 23:59:59 Gonzalo 12 [place] 2021-05-23 2021-05-23 Outpatient [place], MHMISCHER MHMISCHER [id number] 14:00:00 23:59:59 Gonzalo 12 [place] 2021-05-23 2021-05-23 Outpatient MHIE MHIE [id number] Memoria 14:00:00 14:00:00 12 l [place] 2021-05-23 2021-05-23 Outpatient MHIE MHIE [id number] Memoria 14:00:00 14:00:00 12 akiko Cueto 2021-05-23 2021-05-23 Outpatient MHIE MHIE [id number] Memoria 14:00:00 14:00:00 12 akiko Cueto 2021-04-25 2021-04-25 (TEL) STLMLC STLMLC [id number] Co mmon 00:00:00 00:00:00 [facility] 2021-04-23 2021-04-23 Ambulatory nullFlavo MNA [id number] Memoria 20:00:00 20:00:00 Pre-Reg r Neurology 11 l Migdalia Cueto 2021-04-23 2021-04-23 Ambulatory nullFlavo MNA [id number] Memoria 20:00:00 20:00:00 Pre-Reg r Neurology 11 l Migdalia Cueto 2021-04-23 2021-04-23 Ambulatory nullFlavo MNA [id number] Memoria 20:00:00 20:00:00 Pre-Reg r Neurology 11 l Migdalia Cueto 2021-04-23 2021-04-23 Outpatient MHIE MHIE [id number] Memoria 14:00:00 14:00:00 11 akiko Cueto 2021-04-23 2021-04-23 Outpatient MHIE MHIE [id number] Memoria 14:00:00 14:00:00 11 akiko Cueto 2021-04-23 2021-04-23 Outpatient MHIE MHIE [id number] Memoria 14:00:00 14:00:00 11 akiko Cueto 2021-04-23 2021-04-23 Outpatient TODD FloydMISCHER MHMISCHER [id number] 14:00:00 14:00:00 Gonzalo Bobo 2021-04-23 2021-04-23 Outpatient Eve[place], MHMISCHER MHMISCHER [id number] 14:00:00 14:00:00 Gonzalo Melani Bobo 2021-03-24 2021-03-24 (TEL) STLMLC STLMLC [id number] Co mmon 00:00:00 00:00:00 [facility] 2021-03-12 2021-03-12 (HOSP F/U) STLMLC STLMLC [id number] Common 00:00:00 00:00:00 [facility] 2021-03-04 2021-03-04 (TEL) STLMLC STLMLC [id number] Co mmon 00:00:00 00:00:00 [facility] 2021-02-26 2021-02-26 (TEL) STLMLC STLMLC [id number] Co mmon 00:00:00 00:00:00 [facility] 2021-02-06 2021-02-06 Outpatient STLMLC STLMLC [id number] Common 00:00:00 00:00:00 [facility] 2021-02-04 2021-02-04 Outpatient STLMLC STLMLC [id number] Common 00:00:00 00:00:00 [facility] 2021-01-24 2021-01-24 Outpatient STLMLC STLMLC [id number] Common 00:00:00 00:00:00 [facility] 2021-01-21 2021-01-21 Outpatient STLMLC STLMLC [id number] Common 00:00:00 00:00:00 [facility] 2021-01-21 2021-01-21 Outpatient STLMLC STLMLC [id number] Common 00:00:00 00:00:00 [facility] 2021-01-09 2021-01-10 Outpatient nullFlavo MNA [id number] Memoria 15:30:00 04:59:59 [facility] 2021-[facility]-09 2021-01-10 Outpatient nullFlavo MNA [id number] Memoria 15:30:00 04:59:59 r Neurology 10 l Migdalia [place] 2021-01-09 2021-01-10 Outpatient nullFlavo MNA [id number] Memoria 15:30:00 04:59:59 [facility] 2021-01-09 2021-01-09 Outpatient IDALMIS FloydMISCHER [id number] 10:30:00 23:59:59 Gonzalo 10 [place] 2021-01-09 2021-01-09 Outpatient MARLY FloydSCHER MHMISCHER [id number] 10:30:00 23:59:59 Gonzalo 10 [place] 2021-01-09 2021-01-09 Outpatient MHIE MHIE [id number] Memoria 10:30:00 10:30:00 10 akiko Cueto 2021-01-09 2021-01-09 Outpatient MHIE MHIE [id number] Memoria 10:30:00 10:30:00 10 akiko Cueto 2021-01-09 2021-01-09 Outpatient MHIE MHIE [id number] Memoria 10:30:00 10:30:00 10 akiko Cueot 2021-01-08 2021-01-08 Outpatient STLMLC STLMLC [id number] Common 00:00:00 00:00:00 [facility] 2020-11-19 2020-11-19 Ambulatory nullFlavo MNA [id number] Memoria 19:00:00 19:00:00 Pre-Reg r Neurology 09 l Migdalia Cueto 2020-11-19 2020-11-19 Ambulatory nullFlavo MNA [id number] Memoria 19:00:00 19:00:00 Pre-Reg r Neurology 09 l Migdalia Cueto 2020-11-19 2020-11-19 Ambulatory nullFlavo MNA [id number] Memoria 19:00:00 19:00:00 Pre-Reg r Neurology 09 l Migdalia Rom 2020-11-19 2020-11-19 Outpatient MHIE MHIE [id number] Memoria 14:00:00 14:00:00 09 akiko [place] 2020-11-19 2020-11-19 Outpatient MHIE MHIE [id number] Memoria 14:00:00 14:00:00 09 akiko JacobRom 2020-11-19 2020-11-19 Outpatient MHIE MHIE [id number] Memoria 14:00:00 14:00:00 09 [place] 2020-11-19 2020-11-19 Outpatient [place] MARLYSCHER MHMISCHER [id number] 14:00:00 14:00:00 Gonzalo 09 [place] 2020-11-19 2020-11-19 Outpatient TODD [facility]ALL [id number] 14:00:00 14:00:00 Gonzalo 09 [place] 2020-10-10 2020-10-10 Outpatient STLMLC STLMLC [id number] Common 00:00:00 00:00:00 [facility] 2020-10-08 2020-10-09 Outpatient nullFlavo MNA [id number] Memoria 20:45:00 04:59:59 r Neurology 08 l [place] 2020-10-08 2020-10-09 Outpatient nullFlavo MNA [id number] Memoria 20:45:00 04:59:59 r Neurology 08 l Migdalia Jacobann 2020-10-08 2020-10-09 Outpatient nullFlavo MNA [id number] Memoria 20:45:00 04:59:59 r Neurology 08 [place] 2020-10-08 2020-10-08 Outpatient [place] [facility] [id number] 15:45:00 23:59:59 Gonzalo Vishnu Bobo 2020-10-08 2020-10-08 Outpatient [place] [facility] [id number] 15:45:00 23:59:59 Gonzalo Vishnu Bobo 2020-10-08 2020-10-08 Outpatient MHIE MHIE [id number] Memoria 15:45:00 15:45:00 08 akiko Cueto 2020-10-08 2020-10-08 Outpatient MHIE MHIE [id number] Memoria 15:45:00 15:45:00 08 akiko Cueto 2020-09-24 2020-09-24 Ambulatory nullFlavo MNA [id number] Memoria 16:45:00 16:45:00 Pre-Reg r Neurology 07 l [place] Rom 2020-09-24 2020-09-24 Ambulatory nullFlavo MNA [id number] Memoria 16:45:00 16:45:00 Pre-Reg r Neurology 07 l [place] Rom 2020-09-24 2020-09-24 Ambulatory nullFlavo MNA [id number] Memoria 16:45:00 16:45:00 Pre-Reg r Neurology 07 l Migdalia Cueto 2020-09-24 2020-09-24 Outpatient MARLY FloydSCHER MHMISCHER [id number] 11:45:00 11:45:00 Gonzalo Rupinder Bobo 2020-09-24 2020-09-24 Outpatient MARLY FloydSCHER MHMISCHER [id number] 11:45:00 11:45:00 Gonzalo Rupinder Bobo 2020-09-24 2020-09-24 Outpatient MHIE MHIE [id number] Memoria 09:15:00 09:15:00 07 akiko Cueto 2020-09-24 2020-09-24 Outpatient MHIE MHIE [id number] Memoria 09:15:00 09:15:00 07 akiko Cueto 2020-09-24 2020-09-24 Outpatient MHIE MHIE [id number] Memoria 09:15:00 09:15:00 07 akiko [place] 2020-09-13 2020-09-13 Outpatient STLMLC STLMLC [id number] Common 00:00:00 00:00:00 [facility] 2020-09-10 2020-09-10 Outpatient STLMLC STLMLC [id number] Common 00:00:00 00:00:00 [facility] 2020-08-30 2020-08-30 Outpatient Fernando MONAE, [facility] [id number] Univers 14:00:00 14:00:00 QUINTIN [facility] 2020-08-09 2020-08-[address] [facility] [id number] Univers 14:00:00 14:00:00 [facility] 2020-07-25 2020-07-26 Outpatient nullFlavo MNA [id number] Memoria 20:00:00 05:59:59 r Neurology 06 l [place] Rom 2020-07-25 2020-07-26 Outpatient nullFlavo MNA [id number] Memoria 20:00:00 05:59:59 r Neurology 06 l Migdalia Cueto 2020-07-25 2020-07-26 Outpatient nullFlavo MNA [id number] Memoria 20:00:00 05:59:59 r Neurology 06 l Migdalia Cueto 2020-07-25 2020-07-25 Outpatient [place], MHMISCHER MHMISCHER [id number] 14:00:00 23:59:59 Gonzalo 06 [place] 2020-07-25 2020-07-25 Outpatient [place], MHMISCHER MHMISCHER [id number] 14:00:00 23:59:59 Gonzalo 06 [place] 2020-07-25 2020-07-25 Outpatient MHIE MHIE [id number] Memoria 14:00:00 14:00:00 06 akiko Cueto 2020-07-25 2020-07-25 Outpatient MHIE MHIE [id number] Memoria 14:00:00 14:00:00 06 akiko Cueto 2020-07-25 2020-07-25 Outpatient MHIE MHIE [id number] Memoria 14:00:00 14:00:00 06 akiko Cueto 2020-07-23 2020-07-23 Outpatient STLMLC STLMLC [id number] Common 00:00:00 00:00:00 [facility] 2020-04-26 2020-04-27 Outpatient nullFlavo MNA [id number] Memoria 16:45:00 05:59:59 r Neurology 05 l Migdalia Cueto 2020-04-26 2020-04-27 Outpatient nullFlavo MNA [id number] Memoria 16:45:00 05:59:59 r Neurology 05 l Migdalia Cueto 2020-04-26 2020-04-27 Outpatient nullFlavo MNA [id number] Memoria 16:45:00 05:59:59 r Neurology 05 l Migdalia Cueto 2020-04-26 2020-04-26 Outpatient [place], MHMISCHER MHMISCHER [id number] 10:45:00 23:59:59 Gonzalo 05 [place]am[place] 2020-04-26 2020-04-26 Outpatient [place], MHMISCHER MHMISCHER [id number] 10:45:00 23:59:59 Gonzalo 05 [place] 2020-04-26 2020-04-26 Outpatient MHIE MHIE [id number] Memoria 10:45:00 10:45:00 05 akiko Cueto 2020-04-26 2020-04-26 Outpatient MHIE MHIE [id number] Memoria 10:45:00 10:45:00 05 l Rom 2020-04-26 2020-04-26 Outpatient MHIE MHIE [id number] Memoria 10:45:00 10:45:00 05 l [place] 2020-03-20 2020-03-20 Ambulatory nullFlavo MNA [id number] Memoria 17:15:00 17:15:00 Pre-Reg r Neurology 04 l [place] Rom 2020-03-20 2020-03-20 Ambulatory nullFlavo MNA [id number] Memoria 17:15:00 17:15:00 Pre-Reg r Neurology 04 l [place] Rom 2020-03-20 2020-03-20 Ambulatory nullFlavo MNA [id number] Memoria 17:15:00 17:15:00 Pre-Reg r Neurology 04 l [place] Rom 2020-03-20 2020-03-20 Outpatient MHIE MHIE [id number] Memoria 11:15:00 11:15:00 04 l Rom 2020-03-20 2020-03-20 Outpatient MHIE MHIE [id number] Memoria 11:15:00 11:15:00 04 l Rom 2020-03-20 2020-03-20 Outpatient MHIE MHIE [id number] Memoria 11:15:00 11:15:00 04 l Rom 2020-03-20 2020-03-20 Outpatient [place], MHMISCHER MHMISCHER [id number] 11:15:00 11:15:00 Gonzalo Amna [place] 2020-03-20 2020-03-20 Outpatient [place], MHMISCHER MHMISCHER [id number] 11:15:00 11:15:00 Gonzalo Amna [place] 2020-02-07 2020-02-07 Office Sandy [facility] [id number] Univers 14:33:33 15:15:58 Visit Constance [facility] [id number] it y of Surgical [id number] [place] as Specialti [id number] Nc dical es [address] [place] 2020-02-07 2020-02-07 Outpatient R SANDY [facility] [id number] Univers 14:30:00 14:30:00 [facility] 2020-01-19 2020-01-20 Outpatient nullFlavo MNA [id number] Memoria 16:15:00 04:59:59 r Neurology 03 l Migdalia Cueto 2020-01-19 2020-01-20 Outpatient nullFlavo MNA [id number] Memoria 16:15:00 04:59:59 r Neurology 03 l Migdalia Cueto 2020-01-19 2020-01-20 Outpatient nullFlavo MNA [id number] Memoria 16:15:00 04:59:59 r Neurology 03 l Migdalia Jacobann 2020-01-19 2020-01-19 Outpatient [place] MHMISCHER MHMISCHER [id number] 11:15:00 23:59:59 Gonzalo Jeramie 2020-01-19 2020-01-19 Outpatient [place] MHMISCHER MHMISCHER [id number] 11:15:00 23:59:59 Gonzalo Jeramie 2020-01-19 2020-01-19 Outpatient MHIE MHIE [id number] Memoria 11:15:00 11:15:00 03 l [place] 2020-01-19 2020-01-19 Outpatient MHIE MHIE [id number] Memoria 11:15:00 11:15:00 03 l Rom 2020-01-04 2020-01-06 Outside nullFlavo MNA [id number] Memoria 14:20:46 04:59:59 Medical r Neurology 00 l Records Migdalia Cueto 2020-01-04 2020-01-06 Outside nullFlavo MNA [id number] Memoria 14:20:46 04:59:59 Medical r Neurology 00 l Records Migdalia Cueto 2020-01-04 2020-01-06 Outside nullFlavo MNA [id number] Memoria 14:20:46 04:59:59 Medical r Neurology 00 l Records Migdalia Cueto 2020-01-04 2020-01-05 Outpatient MHMISCHER MHMISCHER [id number] 09:20:46 23:59:59 00 2020-01-04 2020-01-05 Outpatient MHMISCHER MHMISCHER [id number] 09:20:46 23:59:59 00 2019-08-31 2019-08-31 Ambulatory nullFlavo MNA [id number] Memoria 20:30:00 20:30:00 Pre-Reg r Neurology 02 l Migdalia [place] 2019-08-31 2019-08-31 Ambulatory nullFlavo MNA [id number] Memoria 20:30:00 20:30:00 Pre-Reg r Neurology 02 l Migd[place] 2019-08-31 2019-08-31 Ambulatory nullFlavo MNA [id number] Memoria 20:30:00 20:30:00 Pre-Reg r Neurology 02 l [place] 2019-08-31 2019-08-31 Outpatient MHIE MHIE [id number] Memoria 15:30:00 15:30:00 02 l [place] 2019-08-31 2019-08-31 Outpatient MHIE MHIE [id number] Memoria 15:30:00 15:30:00 02 akiko [place] 2019-08-31 2019-08-31 Outpatient [place], MHMISCHER MHMISCHER [id number] 15:30:00 15:30:00 Gonzalo 02 [place] 2019-08-31 2019-08-31 Outpatient [place], MHMISCHER MHMISCHER [id number] 15:30:00 15:30:00 Gonzalo 02 [place] 2019-07-20 2019-07-21 Outpatient nullFlavo MNA [id number] Memoria 20:00:00 05:59:59 r Neurology 01 l [place] Rom 2019-07-20 2019-07-21 Outpatient nullFlavo MNA [id number] Memoria 20:00:00 05:59:59 r Neurology 01 l [place] 2019-07-20 2019-07-21 Outpatient nullFlavo MNA [id number] Memoria 20:00:00 05:59:59 r Neurology 01 l [place] 2019-07-20 2019-07-20 Outpatient [place] MHMISCHER MHMISCHER [id number] 14:00:00 23:59:59 Gonzalo Jeram[place] 2019-07-20 2019-07-20 Outpatient [place], MHMISCHER MHMISCHER [id number] 14:00:00 23:59:59 Gonzalo [place]am[place] 2019-07-20 2019-07-20 Outpatient MHIE MHIE [id number] Memoria 14:00:00 14:00:00 01 akiko Cueto 2019-07-20 2019-07-20 Outpatient [facility] [id number] Memoria 14:00:00 14:00:00 01 akiko Cueto 2015-01-02 2015-01-02 Outpatient nullFlavo [facility] [id number] Memoria 11:42:57 14:00:00 r akiko Cueto 2015-01-02 2015-01-02 Outpatient nullFlavo [facility] [id number] Memoria 11:42:57 14:00:00 r akiko Cueto 2015-01-02 2015-01-02 Outpatient 2.16.840. [id number]. [id number] Memoria 11:42:57 14:00:00 [id number]. [id number] l 3.1.20 81.2000 [facility] n [facility] 2015-01-02 2015-01-02 Outpatient nullFlavo [facility] [id number] Memoria 11:42:57 14:00:00 r akiko Cueto 2015-01-02 2015-01-02 Outpatient 2.16.840. 2.16.840.1. 2 [id number] Memoria 11:42:57 14:00:00 [id number]. [id number] l 3.1.20 81.1999 Alberto n 00 Surgica l [facility] Results Test Description Test Time Test Comments Results Result Comments Source CBC W/AUTO DIFF 2023-01-07 00:00:00 Test Item Value Reference Range Interpretation Comme nts NUCLEATED RBCS (test code 0.0 /100 WBC'S See_Comment [Automated message] The = 98607-9) system which ge nerated this result transmit laurie reference range: 0.0 /100 WBC'S. The reference range was not used to interpret th is result as normal/abnormal . ABSOLUTE EOSINOPHILS (test 0.23 K/UL See_Comment [Automated message] The code = 03225-9) system which generated this result transmit laurie reference range: 0.00-0.5 0 K/UL. The reference range was not used to interpret th is result as normal/abnormal . ABSOLUTE LYMPHOCYTES (test 1.23 K/UL See_Comment [Automated message] The code = 97392-8) system which generated this result transmit laurie reference range: 1.00-4.0 0 K/UL. The reference range was not used to interpret th is result as normal/abnormal . ABSOLUTE MONOCYTES (test 0.44 K/UL See_Comment [A utomated message] The code = 61132-2) system which generated this result transmit laurie reference range: 0.20-1.0 0 K/UL. The reference range was not used to interpret th is result as normal/abnormal . ABSOLUTE NEUTROPHILS (test 3.38 K/UL See_Comment [Automated message] The code = 22477-9) system which generated this result transmit laurie reference range: 1.50-7.5 0 K/UL. The reference range was not used to interpret th is result as normal/abnormal . BASOPHILS (test code = 1.1 % 85575-7) EOSINOPHILS (test code = 4.3 % 06336-0) HEMATOCRIT (test code = 34.7 % See_Comment [Au tomated message] The 72846-7) system which [employer] nerated this result transmit laurie reference range: 34.0-45. 0 %. The reference range was not used to interpret th is result as normal/abnormal . HEMOGLOBIN (test code = 11.4 G/DL See_Comment L [Au tomated message] The 718-7) system which [employer] nerated this result transmit laurie reference range: 11.5-15. 5 G/DL. The reference range was not used to interpret th is result as normal/abnormal . LYMPHOCYTES (test code = 22.9 % 56430-3) MCH (test code = 91908-8) 26.7 PG See_Comment [ Automated message] The system which [employer] nerated this result transmit laurie reference range: 25.0-33. 0 PG. The reference range was not used to interpret th is result as normal/abnormal . MCHC (test code = 77012-5) 32.9 G/DL See_Comment [Automated message] The system which [employer] nerated this result transmit laurie reference range: 31.0-36. 0 G/DL. The reference range was not used to interpret th is result as normal/abnormal . MCV (test code = 38242-9) 81.3 fL See_Comment [ Automated message] The system which [employer] nerated this result transmit laurie reference range: 80.0-99. 0 fL. The reference range was not used to interpret th is result as normal/abnormal . MONOCYTES (test code = 8.2 % 47994-6) NEUTROPHILS (test code = 63.1 % 20263-5) PLATELET COUNT (test code 190 K/UL See_Comment [ Automated message] The = 74528-0) system which [employer] nerated this result transmit laurie reference range: 130-400 K/UL. The reference range was not used to interpret th is result as normal/abnormal . RBC (test code = 00816-3) 4.27 M/UL See_Comment [ Automated message] The system which [employer] nerated this result transmit laurie reference range: 3.80-5.4 0 M/UL. The reference range was not used to interpret th is result as normal/abnormal . RDW (test code = 97056-9) 14.9 % See_Comment [ Automated message] The system which [employer] nerated this result transmit laurie reference range: 11.5-15. 0 %. The reference range was not used to interpret th is result as normal/abnormal . WBC (test code = 30994-7) 5.4 K/UL See_Comment [ Automated message] The system which [employer] nerated this result transmit laurie reference range: 3.5-11.0 K/UL. The reference range was not used to interpret th is result as normal/abnormal . TSH REFLEX TO FREE [id number] 00:00:00 Test Item Value Reference Range Interpretation Comments TSH REFLEX TO FREE 2.330 UIU/ML See_Comment [Automat ed message] T4 (test code = The system w [facility] 43911-8) generated this result transmitted ref erence range: 0.400-4. 100 UIU/ML. The ref erence range was not u sed to interpret this result as normal/abnor mal. DRUG ABUSE SCREEN 10 REFLEX [id number] 00:00:00 Test Item Value Reference Range Interpretation Comments AMPHETAMINES (test code = 55893-9) NEGATIVE NEGATIVE BARBITURATES (test code = 90682-5) NEGATIVE NEGATIVE BENZODIAZEPINES (test code = NEGATIVE NEGATIVE 81813-6) BUPRENORPHINE (test code = 24145-1) NEGATIVE NEGATIVE CANNABINOIDS (test code = 95648-9) NEGATIVE NEGATIVE COCAINE METABOLITE (test code = NEGATIVE NEGATIVE 53055-2) METHADONE (test code = 37972-2) NEGATIVE NEGATIVE OPIATES (test code = 15670-9) NEGATIVE NEGATIVE OXYCODONE (test code = 71758-2) NEGATIVE NEGATIVE PHENCYCLIDINE (test code = 30868-8) NEGATIVE NEGATIVE COMPREHENSIVE METABOLIC [id number] 00:00:00 Test Item Value Reference Range Interpretation Comments ALBUMIN (test code = 4.5 G/DL See_Comment [Autom ated message] 0196-7) The system [employer] generated this result transmit laurie reference range : 3.5-5.2 G/DL. T he reference range was not used to interpret this result as normal/abnormal . ALKALINE PHOSPHATASE 94 U/L See_Comment [Autom ated message] (test code = 6768-6) The sys tem which generated this result transmit laurie reference range : 40-142 U/L. The reference range was not used to interpret this result as normal/abnormal . BILIRUBIN, TOTAL 1.4 MG/DL See_Comment H [Automated message] (test code = 1975-2) The sys tem which generated this result transmit laurie reference range : <=1.2 MG/DL. Th e reference range was not used to interpret this result as normal/abnormal . BUN (test code = 42 MG/DL See_Comment H [Automated message] 4874-0) The system [employer] generated this result transmit laurie reference range : 8-23 MG/DL. The reference range was not used to interpret this result as normal/abnormal . CALCIUM (test code = 9.1 MG/DL See_Comment [Autom ated message] 40532-1) The system [employer] generated this result transmit laurie reference range : 8.5-10.5 MG/DL. The reference range was not used to interpret this result as normal/abnormal . CALC A/G RATIO (test 1.4 RATIO See_Comment [Autom ated message] code = 1759-0) The system [employer] generated this result transmit laurie reference range : 1.0-2.6 RATIO. The reference range was not used to interpret this result as normal/abnormal . CALC BUN/CREAT (test 20 RATIO See_Comment [Autom ated message] code = 3097-3) The system [employer] generated this result transmit laurie reference range : 6-28 RATIO. The reference range was not used to interpret this result as normal/abnormal . CALC GLOBULIN (test 3.3 G/DL See_Comment [Automa laurie message] code = 75462-2) The system [facility] generated this result transmit laurie reference range : 1.9-3.7 G/DL. T he reference range was not used to interpret this result as normal/abnormal . CARBON DIOXIDE (test 27 MEQ/L See_Comment [Autom ated message] code = 1963-8) The system [facility] generated this result transmit laurie reference range : 19-31 MEQ/L. Th e reference range was not used to interpret this result as normal/abnormal . CHLORIDE (test code 99 MEQ/L See_Comment [Automa laurie message] = 2075-0) The system [facility] generated this result transmit laurie reference range : 95-107 MEQ/L. T he reference range was not used to interpret this result as normal/abnormal . CREATININE (test 2.08 MG/DL See_Comment H [Automated message] code = 2160-0) The system [facility] generated this result transmit laurie reference range : 0.60-1.30 MG/DL . The reference range was not used to interpret this result as normal/abnormal . eGFR (2020 CKD-EPI) 24 ML/MIN/1.73 See_Comment L [Auto mated message] (test code = The system [facility] 95928-8) generated this result transmit laurie reference range : >60 ML/MIN/1.73. Th e reference range was not used to interpret this result as normal/abnormal . GLUCOSE (test code = 86 MG/DL See_Comment [Autom ated message] 1558-6) The system [facility] generated this result transmit laurie reference range : 70-99 MG/DL. Th e reference range was not used to interpret this result as normal/abnormal . POTASSIUM (test code 5.2 MEQ/L See_Comment [Autom ated message] = 2823-3) The system [facility] generated this result transmit laurie reference range : 3.5-5.4 MEQ/L. The reference range was not used to interpret this result as normal/abnormal . PROTEIN, TOTAL (test 7.8 G/DL See_Comment [Autom ated message] code = 2885-2) The system [facility] generated this result transmit laurie reference range : 6.1-8.3 G/DL. T he reference range was not used to interpret this result as normal/abnormal . AST (test code = 19 U/L See_Comment [Automated message] 1920-8) The system [employer] generated this result transmit laurie reference range : 9-40 U/L. The reference range was not used to interpret this result as normal/abnormal . ALT (test code = 5 U/L See_Comment [Automated message] 4072-6) The system [employer] generated this result transmit laurie reference range : 5-40 U/L. The reference range was not used to interpret this result as normal/abnormal . SODIUM (test code = 136 MEQ/L See_Comment [Automa laurie message] 1561-2) The system [employer] generated this result transmit laurie reference range : 133-146 MEQ/L. The reference range was not used to interpret this result as normal/abnormal .
[2023-04-20 17:08] LABS: Hematocrit 32.3 % (36.0-45.0); MCV 84.5 fL (80-100); MPV 8.5 fL (7.6-11.3); Platelets 184 thou/uL (152-406); RBC Red Blood Cell Count 3.82 M/uL (3.86-4.86)
[2023-04-20 17:20] LABS: Protime INR 2.5
[2023-04-20 17:26] LABS: AST/SGOT 13 U/L (15-37); Albumin 3.4 g/dL (3.4-5.0); Alkaline Phosphatase 86 U/L (45-117); BUN Blood Urea Nitrogen 25 mg/dL (7-18); Bicarbonate 25 mEq/L (21-32); Bilirubin Direct 0.5 mg/dL (0-0.2); Bilirubin Total 1.5 mg/dL (0.2-1.0); Glomerular Filtration Rate 19 ml/min (=/>90); Glucose Level 92 mg/dL (74-106); Magnesium 2.3 mg/dL (1.6-2.4); Potassium 4.5 mEq/L (3.5-5.1); Protein, Total 7.3 g/dL (6.4-8.2); Sodium Level 137 mEq/L (136-145); Troponin High Sensitivity 10.5 pg/mL (<58.9)
--- NOTE | 2023-04-20 17:27 | RAD REPORT ---
EXAM DESCRIPTION: Kurt Single View04/20/2023 5:08 pm CLINICAL HISTORY: Cough COMPARISON: March 2023 FINDINGS: The lungs appear clear of acute infiltrate. The heart is mildly to moderately enlarged IMPRESSION: No acute abnormalities displayed
[2023-04-20 17:31] LABS: ALT/SGPT < 10 U/L (13-56)
[2023-04-20] MEDS ORDERED: NA CHLORIDE 0.9% 500 ML ONE (18:55)
[2023-04-20 20:11] LABS: Specific Gravity 1.026 (1.005-1.030); Urine Bacteria None Seen /HPF (<20); Urine Bilirubin NEGATIVE (Negative); Urine Blood Negative (Negative); Urine Clarity Clear (Clear); Urine Color Yellow (Yellow); Urine Crystals Unidentified Few /HPF (None Seen); Urine Glucose NEGATIVE (Negative); Urine Mucus Slight /HPF (None Seen); Urine Protein 1+ (Negative); Urine RBC <5 /HPF (None Seen); Urine Urobilinogen 1+ (Normal); Urine pH 5.5 (5.0-7.0)
--- NOTE | 2023-04-20 21:15 | EDPHYS ---
Physician Documentation [facility] Name: Kimberly Perez Age: 78 yrs Sex: Female : 1945 Arrival Date: 04/20/2023 Time: 16:21 Bed 13 Private MD: ED Physician Ayana Patel HPI: 04/20 22:42 This 78 yrs old Female presents to ER via EMS with complaints of fatigue. kb 22:42 Patient is a 78-year-old female who was brought in by EMS for fatigue. EMS reports the kb son was concerned so he called for them to bring her in for evaluation. Patient states she has had this fatigue for a year, a cough and congestion for a couple of weeks and decreased appetite. Patient denies chest pain, abd pain, Nausea, vomiting, diarrhea, fever.. Historical: - Allergies: 17:09 No Known Allergies; nj1 - PMHx: 17:09 Anxiety; chronic back pain; coronary atherosclerosis; GERD; Hypertension; neuropathy; nj1 Parkinson's disease; - PSHx: 17:09 back sx; colonoscopy; hysterectomy; SCS implant; Tonsillectomy; nj1 - Immunization history:: Client reports receiving the 2nd dose of the Covid vaccine. - Social history:: Smoking status: Patient denies any tobacco usage or history of. ROS: 22:39 Cardiovascular: Negative for chest pain, palpitations, and edema, kb 22:39 Constitutional: Positive for fatigue, poor PO intake, 22:39 ENT: Positive for sinus congestion, 22:39 Respiratory: Positive for cough, 22:39 All other systems are negative, Exam: 22:39 Constitutional: This is a well developed, well nourished patient who is awake, alert, kb and in no acute distress. Head/Face: Normocephalic, atraumatic. ENT: Moist Mucous membranes Cardiovascular: Regular rate Respiratory: Respirations even and unlabored. No increased work of breathing. Talking in full sentences Abdomen/GI: Soft, non-tender. No distention Skin: Warm, dry with normal turgor. Normal color. MS/ Extremity: Pulses equal, no cyanosis. Neurovascular intact. Full, normal range of motion. Neuro: Awake and alert, GCS 15, oriented to person, place, time, and situation. Moves all extremities. Normal gait. Vital Signs: 16:22 BP 135 / 110; Pulse 88; Resp 16; Temp 97.7(TE); Pulse Ox 96% on R/A; Weight 69.85 kg; nj1 Height 5 ft. 4 in. ; 18:00 BP 138 / 101 Supine; Pulse 68; rs5 18:03 BP 146 / 97 Sitting; Pulse 86; rs5 18:05 BP 125 / 91 Standing; rs5 18:59 BP 141 / 97; Pulse 89; Resp 17; Pulse Ox 100% ; nj1 22:00 BP 140 / 98; Pulse 88; Pulse Ox 100% ; vc1 16:22 Body Mass Index 26.43 (69.85 kg, 162.56 cm) nj1 MDM: 16:27 Patient medically screened. kb 22:40 Differential Diagnosis Flu, COVID, pneumonia, UTI, dehydration, electrolyte imbalance. kb Data reviewed: vital signs, nurses notes. Consideration of Admission/Observation Escalation of care including admission/observation considered. Admission considered, but labs without significant change from previous admission, patient awake, alert and oriented x4, patient prefers to go home.. Historians other than the Patient: EMS: [facility]. External Records Reviewed: Inpatient record: Labs from previous admission reviewed. Counseling: I had a detailed discussion with the patient and/or guardian regarding the historical points, exam findings, and any diagnostic results supporting the discharge/admit diagnosis, lab results, radiology results, the need for outpatient follow up, a family practitioner, to return to the emergency department if symptoms worsen or persist or if there are any questions or concerns that arise at home. 04/20 16:28 Order name: Basic Metabolic Panel; Complete Time: 17:36 kb 04/20 16:28 Order name: CBC with Diff; Complete Time: 17:14 kb 04/20 16:28 Order name: Hepatic Function; Complete Time: 17:36 kb 04/20 16:28 Order name: Magnesium; Complete Time: 17:36 kb 04/20 16:28 Order name: Protime (+inr); Complete Time: 17:20 kb 04/20 16:28 Order name: Ptt, Activated; Complete Time: 17:20 kb 04/20 16:28 Order name: Troponin High Sensitivity; Complete Time: 17:36 kb 04/20 16:28 Order name: Urinalysis w/ reflexes; Complete Time: 20:17 kb 04/20 16:28 Order name: Flu; Complete Time: 17:29 kb 04/20 16:28 Order name: COVID-19 SARS RT PCR; Complete Time: 17:43 kb 04/20 16:28 Order name: Chest Single View XRAY; Complete Time: 17:29 kb 04/20 16:28 Order name: EKG; Complete Time: 16:29 kb 04/20 16:28 Order name: Cardiac monitoring; Complete Time: 18:16 kb 04/20 16:28 Order name: EKG - Nurse/Tech; Complete Time: 18:11 kb 04/20 16:28 Order name: IV Saline Lock; Complete Time: 17:07 kb 04/20 16:28 Order name: Labs collected and sent; Complete Time: 17:07 kb 04/20 16:28 Order name: NPO; Complete Time: 16:34 kb 04/20 16:28 Order name: O2 Per Protocol; Complete Time: 17:07 kb 04/20 16:28 Order name: O2 Sat Monitoring; Complete Time: 17:07 kb 04/20 16:28 Order name: Orthostatics; Complete Time: 18:11 kb Administered Medications: 18:45 Drug: NS 0.9% IV 500 ml IV at bolus once Route: IV; Rate: bolus; Site: right forearm; nj1 22:48 Follow up: IV Status: Completed infusion; IV Intake: 500ml vc1 Disposition Summary: 04/20/23 21:14 Discharge Ordered Notes: Location: Home kb Condition: Stable kb Diagnosis - Other malaise and fatigue kb Followup: kb - With: Emergency Department - When: As needed - Reason: Worsening of condition Followup: kb - With: Private Physician - When: 2 - 3 days - Reason: Recheck today's complaints, Continuance of care, Re-evaluation by your physician Discharge Instructions: - Discharge Summary Sheet kb - Fatigue kb Forms: - Medication Reconciliation Form kb - Thank You Letter kb - Antibiotic Education kb - Prescription Opioid Use kb - Patient Portal Instructions kb - Leadership Thank You Letter kb Signatures: Dispatcher [employer] Helena Moscoso FNP-C FNP-Ckb [place], Norma RN RN nj1 Devi Beyer RN vc1
--- NOTE | 2023-04-20 21:15 | ER ---
Nurse's Notes [facility] Name: Kimberly Perez Age: 78 yrs Sex: Female : 1945 Arrival Date: 04/20/2023 Time: 16:21 Bed 13 Private MD: Diagnosis: Other malaise and fatigue Presentation: 04/20 16:22 Chief complaint: EMS states: Fatigued, malaise for the last couple of weeks. Son nj1 concerned because patient has been sleeping a lot and not eating as she usually does. 16:22 Coronavirus screen: Vaccine status: Patient reports receiving the 2nd dose of the covid nj1 vaccine. Ebola Screen: Patient denies travel to an Ebola-affected area in the 21 days before illness onset. Initial Sepsis Screen: Does the patient meet any 2 criteria? No. Patient's initial sepsis screen is negative. Does the patient have a suspected source of infection? No. Patient's initial sepsis screen is negative. Risk Assessment: Do you want to hurt yourself or someone else? Patient reports no desire to harm self or others. Onset of symptoms was March 2023. 16:22 Method Of Arrival: EMS: [facility] 16:22 Acuity: NANY 3 nj1 Historical: - Allergies: 17:09 No Known Allergies; nj1 - PMHx: 17:09 Anxiety; chronic back pain; coronary atherosclerosis; GERD; Hypertension; neuropathy; nj1 Parkinson's disease; - PSHx: 17:09 back sx; colonoscopy; hysterectomy; SCS implant; Tonsillectomy; nj1 - Immunization history:: Client reports receiving the 2nd dose of the Covid vaccine. - Social history:: Smoking status: Patient denies any tobacco usage or history of. Screenin:25 [facility] ED Fall Risk Assessment (Adult) Score/Fall Risk Level 0 - 2 = Low Risk nj1 Oriented to surroundings, Maintained a safe environment, Hourly rounding (assess needs \T\ fall precautionary measures) done. Abuse screen: Denies threats or abuse. Denies injuries from another. Nutritional screening: No deficits noted. Tuberculosis screening: No symptoms or risk factors identified. Assessment: 16:25 General: Appears in no apparent distress. comfortable, Behavior is calm, cooperative, nj1 appropriate for age. Pain: Denies pain. Neuro: Level of Consciousness is awake, alert, obeys commands, Oriented to person, place, time, Reports weakness. Cardiovascular: Patient's skin is warm and dry. Respiratory: Airway is patent Respiratory effort is even, unlabored. 18:59 Reassessment: Patient appears in no apparent distress at this time. Patient and/or nj1 family updated on plan of care and expected duration. Pain level reassessed. Patient is alert, oriented x 3, equal unlabored respirations, skin warm/dry/pink. 20:00 Reassessment: No changes from previously documented assessment. Patient and/or family vc1 updated on plan of care and expected duration. Pain level reassessed. Patient is alert, oriented x 3, equal unlabored respirations, skin warm/dry/pink. 21:00 Reassessment: No changes from previously documented assessment. Patient and/or family vc1 updated on plan of care and expected duration. Pain level reassessed. Patient is alert, oriented x 3, equal unlabored respirations, skin warm/dry/pink. 22:00 Reassessment: No changes from previously documented assessment. Patient and/or family vc1 updated on plan of care and expected duration. Pain level reassessed. Patient is alert, oriented x 3, equal unlabored respirations, skin warm/dry/pink. Vital Signs: 16:22 BP 135 / 110; Pulse 88; Resp 16; Temp 97.7(TE); Pulse Ox 96% on R/A; Weight 69.85 kg; nj1 Height 5 ft. 4 in. ; 18:00 BP 138 / 101 Supine; Pulse 68; rs5 18:03 BP 146 / 97 Sitting; Pulse 86; rs5 18:05 BP 125 / 91 Standing; rs5 18:59 BP 141 / 97; Pulse 89; Resp 17; Pulse Ox 100% ; nj1 22:00 BP 140 / 98; Pulse 88; Pulse Ox 100% ; vc1 16:22 Body Mass Index 26.43 (69.85 kg, 162.56 cm) [facility] ED Course: 16:25 Patient has correct armband on for positive identification. Bed in low position. Call [facility] light in reach. Provided Education on: call light, fall precautions. 16:27 Patient arrived in ED. kb 16:28 Helena Neves FNP-C is PHCP. kb 16:28 Ayana Patel MD is Attending Physician. kb 16:30 Maintain EMS IV. Dressing intact. Good blood return noted. Site clean \T\ dry. Gauge \T\ nj 1 site: 20g F FA. 16:33 Batsheva Rodas, RN is Primary Nurse. nj1 17:09 Triage completed. nj1 17:09 Arm band placed on. nj1 17:10 Chest Single View XRAY In Process Unspecified. EDMS 19:00 Report given to [place] JIMENEZ. nj1 22:49 No provider procedures requiring assistance completed. IV discontinued, intact, vc1 bleeding controlled, No redness/swelling at site. Pressure dressing applied. Administered Medications: 18:45 Drug: NS 0.9% IV 500 ml IV at bolus once Route: IV; Rate: bolus; Site: right forearm; nj1 22:48 Follow up: IV Status: Completed infusion; IV Intake: 500ml vc1 Medication: 22:49 VIS not applicable for this client. vc1 Intake: 22:48 IV: 500ml; Total: 500ml. vc1 Outcome: 21:14 Discharge ordered by MD. kb 22:50 Discharged to home vc1 22:50 Condition: good 22:50 Discharge instructions given to patient, Instructed on discharge instructions, follow up and referral plans. Demonstrated understanding of instructions, follow-up care, 22:50 Patient left the ED. vc1 Signatures: Dispatcher [employer] EDMS Helena Neves, [employer] OPERATOR-Devi Perla RN RN vc1 Alvaro Macedo RN RN rs5 Batsheva Rodas, RN RN nj1 Corrections: (The following items were deleted from the chart) 17:11 17:09 General: Appears in no apparent distress. comfortable, Behavior is calm, [facility] cooperative, appropriate for age, [facility] 17:11 17:09 Pain: Denies pain. [facility] nj 17:11 17:09 Neuro: Level of Consciousness is awake, alert, obeys commands, Oriented to [facility] person, place, time, Reports weakness [facility] 17:11 17:09 Cardiovascular: Patient's skin is warm and dry. [place] [id number] 17: 17:09 Respiratory: Airway is patent Respiratory effort is even, unlabored, [place] [id number]
[2023-04-20 23:11] VITALS: TEMP 97.7
[2023-04-20 23:15] VITALS: O2SAT 100
[2023-04-20 23:16] VITALS: BP 140/98
== END 2023-04-20 22:50 | disposition home or self-care (01) ==
LOC: ER 16:21
DX: R53.83 Other fatigue (principal); R53.81 Other malaise; Z11.52 Encounter for screening for COVID-19; I10 Essential (primary) hypertension; G20.A1 Parkinson's disease without dyskinesia, without mention of fluctuations
CPT/HCPCS: 96361; 93005; 85025; 81001; 80048; 36415; 83735; 85610; 80076; 85730; 84484; 87635; 87804 ×2; 71045; 96360; 99284; J7040